=== PATIENT | female | born 1980 | race Hispanic/Latino ===

== ENCOUNTER → 2017-02-13 | Emergency (ER) | payer SELFPAY ==
[~2017-02-13] VITALS: Ht 152.4 cm; Wt 72.6 kg
[~2017-02-13] MED LIST: ACHD5005 PO; AMLO5TAB2 PO; CEPH500C PO; DCS100C PO; FRS325T PO; GLBR5T PO; GLYB2.5T4 PO; GLYB5TAB6 PO; HYDR-757 PO; IBP600T1 PO; MTF500T PO; PREN1TAB14 PO
--- NOTE | 2017-02-13 12:47 | ED GU-Female ---
General Chief Complaint: -Female Stated Complaint: BLOATING Source: patient Exam Limitations: no limitations History of Present Illness Time seen by provider: 12:46 Initial Comments Sent to ER from [facility] walk-in clinic with reports of heavy vaginal bleeding for the past 15 days. Her last menstrual period on 12/11/16. Patient reportedly had a positive test at [facility] today but was unaware of herself being .. Timing/Duration: constant Severity/Quality: moderate Associated Symptoms: denies symptoms, dysuria Allergies and Home Medications Allergies Coded Allergies: No Known Drug Allergies (Verified Allergy, Unknown, 10/26/07) Home Medications Cephalexin Monohydrate 500 Mg Capsule, 1 EACH PO QID for 7 Days, (Reported) Docusate Sodium 100 Mg Cap, 100 MG PO BID, #20 Prescribed by: AUSTYN PEREZ on 05/03/13 0848 Glyburide 5 Mg Tab, 5 MG PO DAILY@0630, #30 Prescribed by: AUSTYN PEREZ on 05/03/13 0848 Hydrocodone Bit/Acetaminophen 1 Each Tablet, 1 EA PO Q6H PRN for MILD PAIN, #30 Prescribed by: AUSTYN PEREZ on 05/03/13 0849 Ibuprofen 600 Mg Tab, 600 MG PO Q6HR PRN for PAIN, #40 Prescribed by: AUSTYN PEREZ on 05/03/13 0848 Metformin Hcl 500 Mg Tablet, 1,000 MG PO BID@, #60 Prescribed by: AUSTYN PEREZ on 05/03/13 0848 Vits W-Ca,Fe,Fa(<1MG) 1 Each Tablet, 1 EACH PO DAILY, (Reported) Constitutional: see HPI, No chills, No fever EENTM: see HPI Respiratory: no symptoms reported Cardiovascular: no symptoms reported Genitourinary: see HPI Musculoskeletal: no symptoms reported Skin: no symptoms reported Psychiatric/Neurological: No Symptoms Reported Endocrine: No Symptoms Reported Hematologic/Lymphatic: No Symptoms Reported Past Xvpiiuc-Gwuwyt-Lnajiw Hx Patient Social History Recent Foreign Travel: No Contact w/Someone Who Travel: No Immunizations Up To Date Date of Pneumonia Vaccine: May 03, 2013 Date of Influenza Vaccine: Mar 20, 2013 Seasonal Allergies Seasonal Allergies: No Reproductive System Hx Reproductive Disorders: No Endocrine Endocrine Disorders: Diabetes, Non-Insulin dep Blood Transfusions Adverse Reaction to a Blood Tr: No Family Medical History Family Medial History: Family history: Diabetes mellitus (pt's mother and sister) No Family History of: Cancer Family history: Arthritis Family history: Asthma Family history: Cardiovascular disease Family history: Gastrointestinal disease Family history: Glaucoma Family history: Hypertension Family history: Osteoporosis Family history: Thyroid disorder Heart disease History of - anemia History of - respiratory disease Hypercholesterolemia Myocardial infarction Seizure disorder Stroke Physical Exam Vital Signs Vital Sign - Last 12Hours 02/13/17 12:15 Temp 97.2 Pulse 72 Resp 18 B/P (MAP) 122/73 Pulse Ox 100 Capillary Refill : General Appearance: WD/WN, no apparent distress HEENT: PERRL/EOMI, normal ENT inspection Neck: non-tender, full range of motion Cardiovascular: regular rate, rhythm, no murmur Respiratory: no respiratory distress, no accessory muscle use Gastrointestinal: normal bowel sounds, non tender, soft Extremities: normal range of motion, non-tender Neurologic/Psychiatric: alert, normal mood/affect, oriented x 3 Skin: normal color, warm/dry Progress/Results/Core Measures Results/Orders Lab Results Laboratory Tests Test 02/13/17 13:38 02/13/17 14:10 Range/Units White Blood Count 10.0 4.3-11.0 10^3/uL Red Blood Count 4.00 L 4.35-5.85 10^6/uL Hemoglobin 11.1 L 11.5-16.0 G/DL Hematocrit 33 L 35-52 % Mean Corpuscular Volume 83 80-99 FL Mean Corpuscular Hemoglobin 28 25-34 PG Mean Corpuscular Hemoglobin Concent 33 32-36 G/DL Red Cell Distribution Width 14.8 H 10.0-14.5 % Platelet Count 439 H 130-400 10^3/uL Mean Platelet Volume 9.1 7.4-10.4 FL Neutrophils (%) (Auto) 71 42-75 % Lymphocytes (%) (Auto) 24 12-44 % Monocytes (%) (Auto) 5 0-12 % Eosinophils (%) (Auto) 1 0-10 % Basophils (%) (Auto) 0 0-10 % Neutrophils # (Auto) 7.1 1.8-7.8 X 10^3 Lymphocytes # (Auto) 2.4 1.0-4.0 X 10^3 Monocytes # (Auto) 0.5 0.0-1.0 X 10^3 Eosinophils # (Auto) 0.1 0.0-0.3 10^3/uL Basophils # (Auto) 0.0 0.0-0.1 10^3/uL Human Chorionic Gonadotropin, Quant 1913 H <5 MIU/ML My Orders Orders - HILARIA NG APRN Us Ob<14 Wks Sngle W/Transvag (02/13/17 12:15) Cbc With Automated Diff (02/13/17 12:47) Hcg,Quantitative (02/13/17 12:47) Ua Culture If Indicated (02/13/17 12:47) Vital Signs/I&O Vital Sign - Last 12Hours 02/13/17 12:15 Temp 97.2 Pulse 72 Resp 18 B/P (MAP) 122/73 Pulse Ox 100 Diagnostic Imaging Diagonstic Imaging: Ultrasound Comments NAME: [facility] REC#: [id number] PT STATUS: REG ER : 1980 PHYSICIAN: HILARIA NG APRN ADMIT DATE: 02/13/17/ER Draft Date of Exam:02/13/17 US OB<14 WKS SNGLE W/TRANSVAG EXAM: US OB<14 WKS SNGLE W/TRANSVAG INDICATION: Vaginal bleeding. COMPARISON: Pelvic ultrasound 02/10/2016. TECHNIQUE: Transabdominal and transvaginal sonogram was performed. FINDINGS: The uterus is normal in echogenicity and measures 8.8 x 4.5 x 5.3 cm. The endometrium measures 1.0 cm. No mass or fluid collection within the endometrium. The cervix is visualized and is grossly unremarkable. The ovaries are not seen. No free fluid in the pelvis. IMPRESSION: 1. The endometrium measures 1.0 cm. There is no focal mass or fluid collection within the endometrial canal. 2. The ovaries are not seen. Dictated on workstation # [id number] Dict: 02/13/17 1253 Trans: 02/13/17 1258 [id number] Interpreted by: JANET RUIZ MD Electronically signed by: Departure Communication Progress Notes I did discuss with the patient and her using [employer] phone interpreters that she has had a miscarriage. She denies any pain whatsoever. She should return to the emergency room for any pain, development of fevers or heavier bleeding. She should follow-up with [facility] on Wednesday to repeat blood work. They agree with this. She states she would need a work note under the name Becki Angeles. Impression Impression: Primary Impression: Miscarriage Disposition: 01 HOME, SELF-CARE Condition: Stable Departure-Patient Inst. Decision time for Depature: 14:35 Referrals: [facility] (PCP/Family) Primary Care Physician Patient Instructions: Miscarriage Add. Discharge Instructions: 1. See [facility] on Wednesday for follow-up blood work 2. Return to ER for any concerns 3. All discharge instructions reviewed with patient and/or family. Voiced understanding. HILARIA NG APRN Feb 13, 2017 12:47
--- NOTE | 2017-02-13 12:58 | Diagnostic Imaging Report ---
EXAM: US OB<14 WKS SNGLE W/TRANSVAG INDICATION: Vaginal bleeding. COMPARISON: Pelvic ultrasound 02/10/2016. TECHNIQUE: Transabdominal and transvaginal sonogram was performed. FINDINGS: The uterus is normal in echogenicity and measures 8.8 x 4.5 x 5.3 cm. The endometrium measures 1.0 cm. No mass or fluid collection within the endometrium. The cervix is visualized and is grossly unremarkable. The ovaries are not seen. No free fluid in the pelvis. IMPRESSION: 1. The endometrium measures 1.0 cm. There is no focal mass or fluid collection within the endometrial canal. 2. The ovaries are not seen. Dictated by: Dictated on workstation # [id number]
[2017-02-13 13:47] LABS: BASOPHILS % (AUTO) 0 % (0-10); EOSINOPHILS # (AUTO) 0.1 10^3/uL (0.0-0.3); EOSINOPHILS % (AUTO) 1 % (0-10); LYMPHOCYTES # (AUTO) 2.4 X 10^3 (1.0-4.0); LYMPHOCYTES % (AUTO) 24 % (12-44); MEAN CORPUSCULAR HEMOGLOBIN 28 PG (25-34); MEAN CORPUSCULAR HGB CONC 33 G/DL (32-36); MEAN CORPUSCULAR VOLUME 83 FL (80-99); MEAN PLATELET VOLUME 9.1 FL (7.4-10.4); MONOCYTES # (AUTO) 0.5 X 10^3 (0.0-1.0); MONOCYTES % (AUTO) 5 % (0-12); NEUTROPHILS # (AUTO) 7.1 X 10^3 (1.8-7.8); NEUTROPHILS % (AUTO) 71 % (42-75); PLATELET COUNT 439 10^3/uL (130-400); RED CELL DISTRIBUTION WIDTH 14.8 % (10.0-14.5)
[2017-02-13 14:26] LABS: BILIRUBIN,URINE NEGATIVE (NEGATIVE); KETONES,URINE NEGATIVE (NEGATIVE); LEUKOCYTE ESTERASE ,URINE 2+ (NEGATIVE); NITRITE,URINE NEGATIVE (NEGATIVE); PH,URINE 5 (5-9); PROTEIN,URINE 3+ (NEGATIVE); UROBILINOGEN,URINE NORMAL (NORMAL)
[2017-02-13 14:37] LABS: WBC,URINE 0-2 /HPF
[2017-02-13 14:47] VITALS: BP 122/73
== END | disposition home or self-care (01) ==
LOC: EDUNIT# 11:46 → ER 11:48
DX: O03.9 Complete or unspecified spontaneous abortion without complication (principal); O24.119 Pre-existing type 2 diabetes mellitus, in pregnancy, unspecified trimester; E11.9 Type 2 diabetes mellitus without complications; Z79.84 Long term (current) use of oral hypoglycemic drugs; Z3A.00 Weeks of gestation of pregnancy not specified
CPT/HCPCS: 36415; 76801; 76817; 81000; 84702; 85025; 99282

== ENCOUNTER 2017-12-31 16:35 | Emergency (ER) | payer SELFPAY ==
[~2017-12-31] VITALS: Ht 152.4 cm; Wt 63.5 kg
--- NOTE | 2017-12-31 17:19 | ED GU-Female ---
General Chief Complaint: -Female Stated Complaint: 14 WKS PREG/STOMACH PAIN/DISCHARGE Nursing Triage Note: AMB TO ROOM WITH REPORTS APX 16 WEEKS PREG. HAS HAD LOW ABD PAIN FOR 3 WEEKS WITH WHITE DISCHARGE. REPORTS NOT FEELING BABY MOVE FOR 1 WEEK. 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 PATIENT IS DIABETIC. Nursing Sepsis Screen: No Definite Risk Source: patient, family Exam Limitations: no limitations (FRANCIS MCCARTY MD) History of Present Illness Date Seen by Provider: Dec 31, 2017 Time Seen by Provider: 17:13 Initial Comments Patient is complaining of abdominal pain for the last 3 weeks. She is 14 weeks by history. Is not felt the baby move for the past week. She has had associated white vaginal discharge. (FRANCIS MCACRTY MD) Allergies and Home Medications Allergies Coded Allergies: No Known Drug Allergies (Verified Allergy, Unknown, 10/26/07) Home Medications Cephalexin Monohydrate 500 Mg Capsule, 1 EACH PO QID, (Reported) Docusate Sodium 100 Mg Cap, 100 MG PO BID Prescribed by: AUSTYN PEREZ on 05/03/13 0848 Glyburide 5 Mg Tab, 5 MG PO DAILY@0630 Prescribed by: AUSTYN PEREZ on 05/03/13 0848 Hydrocodone Bit/Acetaminophen 1 Each Tablet, 1 EA PO Q6H PRN for MILD PAIN Prescribed by: AUSTYN PEREZ on 05/03/13 0849 Ibuprofen 600 Mg Tab, 600 MG PO Q6HR PRN for PAIN Prescribed by: AUSTYN PEREZ on 05/03/13 0848 Metformin Hcl 500 Mg Tablet, 1,000 MG PO BID@ Prescribed by: AUSTYN PEREZ on 05/03/13 0848 Vits W-Ca,Fe,Fa(<1MG) 1 Each Tablet, 1 EACH PO DAILY, (Reported) Patient Home Medication List Home Medication List Reviewed: Yes (FRANCIS MCCARTY MD) Review of Systems Constitutional: No chills, No fever EENTM: No hearing loss Respiratory: No cough, No short of breath Cardiovascular: No chest pain Gastrointestinal: abdominal pain; No nausea, No vomiting Genitourinary: no symptoms reported Musculoskeletal: no symptoms reported Skin: no symptoms reported Psychiatric/Neurological: No Symptoms Reported Endocrine: No Symptoms Reported Hematologic/Lymphatic: No Symptoms Reported (FRANCIS MCCARTY MD) Past Hclpfnx-Qveqkj-Jocuri Hx Patient Social History Alcohol Use: Denies Use Recreational Drug Use: No Smoking Status: Never a Smoker Recent Foreign Travel: No Contact w/Someone Who Travel: No Recent Infectious Disease Expo: No Recent Hopitalizations: No (Childbirth) (FRANCIS MCCARTY MD) Immunizations Up To Date Date of Pneumonia Vaccine: May 03, 2013 Date of Influenza Vaccine: Mar 20, 2013 (FRANCIS MCCARTY MD) Seasonal Allergies Seasonal Allergies: No (FRANCIS MCCARTY MD) Past Medical History Surgeries: Yes Section Respiratory: No Cardiac: No Neurological: No Reproductive Disorders: No Gastrointestinal: No Musculoskeletal: No Endocrine: Yes Diabetes, Non-Insulin dep Cancer: No Psychosocial: No Blood Disorders: No Adverse Reaction/Blood Tranf: No (FRANCIS MCCARTY MD) Family Medical History Family history: Diabetes mellitus (pt's mother and sister) No Family History of: Cancer Family history: Arthritis Family history: Asthma Family history: Cardiovascular disease Family history: Gastrointestinal disease Family history: Glaucoma Family history: Hypertension Family history: Osteoporosis Family history: Thyroid disorder Heart disease History of - anemia History of - respiratory disease Hypercholesterolemia Myocardial infarction Seizure disorder Stroke Physical Exam Vital Signs Vital Signs - First Documented 12/31/17 16:49 Temp 99.0 Pulse 79 Resp 18 B/P (MAP) 116/72 (87) Pulse Ox 98 O2 Delivery Room Air (THOMPSON BUSTOS MD) Vital Signs Capillary Refill : Less Than 3 Seconds (FRANCIS MCCARTY MD) Height, Weight, BMI Height: 5'0" Weight: 140lbs. oz. 63.989123nm; BMI Method:Stated General Appearance: WD/WN, no apparent distress HEENT: PERRL/EOMI Neck: full range of motion Cardiovascular: regular rate, rhythm Respiratory: lungs clear Gastrointestinal: normal bowel sounds Back: normal inspection Extremities: normal range of motion Neurologic/Psychiatric: no motor/sensory deficits Skin: normal color, warm/dry (FRANICS MCCARTY MD) Progress/Results/Core Measures Suspected Sepsis Recent Fever Within 48 Hours: No Infection Criteria Present: None New/Unexplained Altered Menta: No Sepsis Screen: No Definite Risk SIRS Temperature:99.0 Pulse: 79 Respiratory Rate: 18 Blood Pressure 116 /72 Mean: 87 (FRANCIS MCCARTY MD) Results/Orders Lab Results Laboratory Tests Test 12/31/17 17:36 Range/Units White Blood Count 8.8 4.3-11.0 10^3/uL Red Blood Count 4.10 L 4.35-5.85 10^6/uL Hemoglobin 11.7 11.5-16.0 G/DL Hematocrit 34 L 35-52 % Mean Corpuscular Volume 82 80-99 FL Mean Corpuscular Hemoglobin 29 25-34 PG Mean Corpuscular Hemoglobin Concent 35 32-36 G/DL Red Cell Distribution Width 15.5 H 10.0-14.5 % Platelet Count 378 130-400 10^3/uL Mean Platelet Volume 8.9 7.4-10.4 FL Neutrophils (%) (Auto) 69 42-75 % Lymphocytes (%) (Auto) 25 12-44 % Monocytes (%) (Auto) 6 0-12 % Eosinophils (%) (Auto) 1 0-10 % Basophils (%) (Auto) 0 0-10 % Neutrophils # (Auto) 6.1 1.8-7.8 X 10^3 Lymphocytes # (Auto) 2.2 1.0-4.0 X 10^3 Monocytes # (Auto) 0.5 0.0-1.0 X 10^3 Eosinophils # (Auto) 0.1 0.0-0.3 10^3/uL Basophils # (Auto) 0.0 0.0-0.1 10^3/uL Urine Color YELLOW Urine Clarity CLEAR Urine pH 5 5-9 Urine Specific [place] 1.020 1.016-1.022 Urine Protein 1+ H NEGATIVE Urine Glucose (UA) 4+ H NEGATIVE Urine Ketones NEGATIVE NEGATIVE Urine Nitrite NEGATIVE NEGATIVE Urine Bilirubin NEGATIVE NEGATIVE Urine Urobilinogen NORMAL NORMAL MG/DL Urine Leukocyte Esterase 3+ H NEGATIVE Urine RBC (Auto) 1+ H NEGATIVE Urine RBC NONE /HPF Urine WBC NONE /HPF Urine Squamous Epithelial Cells RARE /HPF Urine Crystals NONE /LPF Urine Bacteria TRACE /HPF Urine Casts NONE /LPF Urine Mucus NEGATIVE /LPF Urine Culture Indicated NO Sodium Level 137 135-145 MMOL/L Potassium Level 3.6 3.6-5.0 MMOL/L Chloride Level 108 H 98-107 MMOL/L Carbon Dioxide Level 18 L 21-32 MMOL/L Anion Gap 11 5-14 MMOL/L Blood Urea Nitrogen 11 7-18 MG/DL Creatinine 0.61 0.60-1.30 MG/DL Estimat Glomerular Filtration Rate > 60 BUN/Creatinine Ratio 18 Glucose Level 185 H 70-105 MG/DL Calcium Level 9.1 8.5-10.1 MG/DL Total Bilirubin 0.2 0.1-1.0 MG/DL Aspartate Amino Transf (AST/SGOT) 19 5-34 U/L Alanine Aminotransferase (ALT/SGPT) 17 0-55 U/L Alkaline Phosphatase 58 40-136 U/L Total Protein 7.1 6.4-8.2 GM/DL Albumin 4.1 3.2-4.5 GM/DL Human Chorionic Gonadotropin, Quant 17614 H <5 MIU/ML (THOMPSON BUSTOS MD) My Orders Orders - THOMPSON BUSTOS MD Cbc With Automated Diff (12/31/17 17:17) Comprehensive Metabolic Panel (12/31/17 17:17) Ua Culture If Indicated (12/31/17 17:17) Hcg,Quantitative (12/31/17 17:23) Us Ob Single Fetus<14 [id number] (12/31/17 17:17) (THOMPSON BUSTOS MD) Vital Signs/I&O 12/31/17 16:49 Temp 99.0 Pulse 79 Resp 18 B/P (MAP) 116/72 (87) Pulse Ox 98 O2 Delivery Room Air (THOMPSON BUSTOS MD) Vital Signs/I&O Capillary Refill : Less Than 3 Seconds (FRANCIS MCCARTY MD) Blood Pressure Mean: 87 Progress Note : Time: 17:25 Progress Note My partner, Dr. Bustos, assumed care of the patient. Francis Mccarty MD (FRANCIS MCCARTY MD) ECG Initial ECG Impression Date: Jan 03, 2018 (FRANCIS MCCARTY MD) Departure Communication (Admissions) 1191. The sonogram is complete and shows a viable fetus with measurements consistent with a 14 week . This is number 6 for this female. She had 3 boys and the current by the . She had 2 children who are by another relationship and remain in [place]. (THOMPSON BUSTOS MD) Impression Primary Impression: Qualified Codes: Z3A.12 - 12 weeks gestation of Additional Impression: stable 14 week Disposition: 01 HOME, SELF-CARE Condition: Stable/Unchanged Departure-Patient Inst. Decision time for Depature: 18:59 (THOMPSON BUSTOS MD) Referrals: AUSTYN PEREZ DO (PCP) Primary Care Physician [facility] (Family) Primary Care Physician FRANCIS MCCARTY MD Dec 31, 2017 17:19 THOMPSON BUSTOS MD Dec 31, 2017 19:00
[2017-12-31 17:43] LABS: BILIRUBIN,URINE NEGATIVE (NEGATIVE); CLARITY,URINE CLEAR; COLOR,URINE YELLOW; GLUCOSE, URINE (UA) 4+ (NEGATIVE); KETONES,URINE NEGATIVE (NEGATIVE); LEUKOCYTE ESTERASE ,URINE 3+ (NEGATIVE); NITRITE,URINE NEGATIVE (NEGATIVE); PH,URINE 5 (5-9); PROTEIN,URINE 1+ (NEGATIVE); UROBILINOGEN,URINE NORMAL (NORMAL)
[2017-12-31 17:45] LABS: BASOPHILS % (AUTO) 0 % (0-10); EOSINOPHILS # (AUTO) 0.1 10^3/uL (0.0-0.3); EOSINOPHILS % (AUTO) 1 % (0-10); HEMATOCRIT 34 % (35-52); HEMOGLOBIN 11.7 G/DL (11.5-16.0); LYMPHOCYTES # (AUTO) 2.2 X 10^3 (1.0-4.0); LYMPHOCYTES % (AUTO) 25 % (12-44); MEAN CORPUSCULAR HEMOGLOBIN 29 PG (25-34); MEAN CORPUSCULAR HGB CONC 35 G/DL (32-36); MEAN CORPUSCULAR VOLUME 82 FL (80-99); MEAN PLATELET VOLUME 8.9 FL (7.4-10.4); MONOCYTES # (AUTO) 0.5 X 10^3 (0.0-1.0); MONOCYTES % (AUTO) 6 % (0-12); NEUTROPHILS # (AUTO) 6.1 X 10^3 (1.8-7.8); NEUTROPHILS % (AUTO) 69 % (42-75); PLATELET COUNT 378 10^3/uL (130-400); RED CELL DISTRIBUTION WIDTH 15.5 % (10.0-14.5); WHITE BLOOD COUNT 8.8 10^3/uL (4.3-11.0)
[2017-12-31 17:52] LABS: BACTERIA,URINE TRACE /HPF; SQUAMOUS EPITHELIAL CELL,UR RARE /HPF
[2017-12-31 18:00] LABS: ALANINE AMINOTRANSFERASE 17 U/L (0-55); ALBUMIN 4.1 GM/DL (3.2-4.5); ALKALINE PHOSPHATASE 58 U/L (40-136); BILIRUBIN,TOTAL 0.2 MG/DL (0.1-1.0); BUN/CREATININE RATIO 18; CALCIUM 9.1 MG/DL (8.5-10.1); CARBON DIOXIDE 18 MMOL/L (21-32); CHLORIDE 108 MMOL/L (98-107); CREATININE SERUM 0.61 MG/DL (0.60-1.30); GFR ESTIMATED > 60; GLUCOSE 185 MG/DL (70-105); POTASSIUM 3.6 MMOL/L (3.6-5.0); SODIUM 137 MMOL/L (135-145); TOTAL PROTEIN 7.1 GM/DL (6.4-8.2)
[2017-12-31 19:08] VITALS: BP 116/72
--- NOTE | 2017-12-31 19:21 | Diagnostic Imaging Report ---
PROCEDURE: US OB SINGLE FETUS <14 WKS. TECHNIQUE: Multiple real-time grayscale images were obtained over the gravid uterus in various projections. INDICATION: Cramping and discharge. COMPARISON: No comparison available. FINDINGS: Within the uterus, there is a single live intrauterine gestation. Based on today's measurements, this is estimated at 14 weeks and 0 days which corresponds to an estimated date of delivery of July 01, 2018. Amniotic fluid volume appears appropriate. The placenta is located posteriorly. Cardiac motion is measured 132 beats per minute. The maternal ovaries could not be visualized. There is no free fluid within the pelvis. IMPRESSION: 1. Single live intrauterine gestation at 14 weeks 0 days gestational age. Cardiac motion is appropriate at 132 beats per minute. Amniotic fluid volume appears appropriate. The placenta is unremarkable. The maternal ovaries could not be visualized. Dictated by: Dictated on workstation # [id number]
--- OUTSIDE RECORDS SUMMARY | 2018-01-02 06:03 | XMS REPORT ---
Author Author YANET WEBB [facility] eClinicalWorks Address Unknown Phone Unavailable Care Team Providers Care Hadoop Administrator Name Role Phone YANET WEBB Unavailable Allergies, Adverse Reactions, Alerts Substance Reaction Event Type N.K.D.A. Info Not Available Non Drug Allergy Problems Problem Type Condition Code Onset Dates Condition Status Assessment Pelvic fullness in female R19.00 Active Problem Personal history of gestational diabetes V12.21 Active Assessment Amenorrhea N91.2 Active Problem Diabetes mellitus without mention of complication, type II or unspecified type, not stated as uncontrolled 250.00 Active Assessment Routine gynecological examination Z01.419 Active Problem Routine follow-up V24.2 Active Problem Routine gynecological examination V72.31 Active Problem Unspecified contraceptive management V25.9 Active Problem Amenorrhea N91.2 Active Problem Pelvic fullness in female R19.00 Active Problem Abdominal pain, right lower quadrant 789.03 Active Problem DTAP TEST V06.1 Active Problem Routine gynecological examination Z01.419 Active Problem Need for prophylactic vaccination and inoculation, Influenza V04.81 Active Problem Acute pharyngitis 462 Active Problem Unspecified breast screening V76.10 Active Problem Screening examination for venereal disease V74.5 Active Problem Insufficient care V23.7 Active Problem Other specified symptom associated with female genital organs 625.8 Active Problem Pain in joint, lower leg 719.46 Active Problem Unspecified symptom associated with female genital organs 625.9 Active Problem Screening for malignant neoplasm of the cervix V76.2 Active Problem Uterine size date discrepancy, unspecified as to episode of care or not applicable 649.60 Active Problem Previous delivery, unspecified as to episode of care or not applicable 654.20 Active Problem Maternal diabetes mellitus, complicating , childbirth, or the puerperium, unspecified as to episode of care 648.00 Active Problem Unspecified high-risk V23.9 Active Medications Medication Code System Code Instructions Start Date End Date Status Dosage Actos [facility] [address]-10 30 MG Orally Once a day Jan 20, 2016 1 tablet Metformin HCl [facility] [address]-04 1000 MG Orally Twice a day Jan 20, 2016 1 tablet with meals GlipiZIDE [facility] [address]-10 10 mg Orally twice a day 1 tablet Procedures Procedure Coding System Code Date Office Visit, Est Pt., Level 5 CPT-4 14435 Jan 29, 2016 ASSAY OF TOTAL TESTOSTERONE CPT-4 34141 Jan 29, 2016 ASSAY OF PROLACTIN CPT-4 05835 Jan 29, 2016 URINE TEST CPT-4 68159 Jan 29, 2016 COHEN VAG, DNA, DIR PROBE CPT-4 39948 Jan 29, 2016 TRICHOMONAS ASSAY W/OPTIC CPT-4 34554 Jan 29, 2016 VENIPUNCT, ROUTINE* CPT-4 85473 Jan 29, 2016 SPECIMEN HANDLING CPT-4 06027 Jan 29, 2016 GONADOTROPIN (LH) CPT-4 68139 Jan 29, 2016 No Charge CPT-4 34590 Jan 29, 2016 CULTURE, BACTERIA, OTHER CPT-4 29870 Jan 29, 2016 Vital Signs Date/Time: Jan 29, 2016 Cardiac Monitoring Heart Rate 78 bpm Weight 145.0 lbs Height 61 in BMI 27.39 Index Blood Pressure Diastolic 70 mmHg Blood Pressure Systolic 118 mmHg Results No Known Results Summary Purpose eClinicalWorks Submission
--- OUTSIDE RECORDS SUMMARY | 2018-01-02 06:03 | XMS REPORT ---
Author Author AMALIA DALY [facility] eClinicalWorks Address Unknown Phone Unavailable Care Team Providers Care Non Profit Job Titles Name Role Phone AMALIA DALY CP Unavailable Allergies, Adverse Reactions, Alerts Substance Reaction Event Type N.K.D.A. Info Not Available Non Drug Allergy Problems Problem Type Condition Code Onset Dates Condition Status Problem Previous delivery, unspecified as to episode of care or not applicable 654.20 Active Problem Diabetes mellitus without mention of complication, type II or unspecified type, not stated as uncontrolled 250.00 Active Problem Personal history of gestational diabetes V12.21 Active Problem Insufficient care V23.7 Active Assessment Type 2 diabetes mellitus without complications E11.9 Active Problem Acute pharyngitis 462 Active Problem Screening examination for venereal disease V74.5 Active Problem Unspecified contraceptive management V25.9 Active Problem Routine follow-up V24.2 Active Problem Unspecified breast screening V76.10 Active Problem Routine gynecological examination V72.31 Active Problem Abdominal pain, right lower quadrant 789.03 Active Problem Unspecified symptom associated with female genital organs 625.9 Active Problem Need for prophylactic vaccination and inoculation, Influenza V04.81 Active Problem DTAP TEST V06.1 Active Problem Pain in joint, lower leg 719.46 Active Problem Maternal diabetes mellitus, complicating , childbirth, or the puerperium, unspecified as to episode of care 648.00 Active Problem Screening for malignant neoplasm of the cervix V76.2 Active Problem Unspecified high-risk V23.9 Active Problem Other specified symptom associated with female genital organs 625.8 Active Problem Uterine size date discrepancy, unspecified as to episode of care or not applicable 649.60 Active Medications Medication Code System Code Instructions Start Date End Date Status Dosage Invokamet [facility] [address]-36 150-1000 MG Orally Twice a day Aug 06, 2015 1 tablet with meals GlipiZIDE [facility] [address]-84 10 MG Orally Once a day 1 tablet Procedures Procedure Coding System Code Date Office Visit, Est Pt., Level 3 CPT-4 07795 October 03, 2015 GLYCATED HEMOGLOBIN TEST CPT-4 01617 October 03, 2015 Vital Signs Date/Time: October 03, 2015 Temperature 98.4 F Weight 149 lbs Height 61 in BMI 28.15 Index Blood Pressure Diastolic 80 mmHg Blood Pressure Systolic 120 mmHg Cardiac Monitoring Heart Rate 70 bpm Results No Known Results Summary Purpose eClinicalWorks Submission
--- OUTSIDE RECORDS SUMMARY | 2018-01-02 06:04 | XMS REPORT ---
Author Author AMALIA DALY [facility] Address [address] [place] [address] Care Team Providers Care Grease Man Name Role Phone AMALIA DALY Unavailable PROBLEMS Type Condition ICD9-CM Code EIQ77-RD Code Onset Dates Condition Status SNOMED Code Problem Type 2 diabetes mellitus without complication, without long-term current use of insulin E11.9 Active 127513088 Problem Amenorrhea N91.2 Active 59651828 Problem Microcytic anemia D50.9 Active 362000422 Problem Type 2 diabetes mellitus without complication E11.9 Active 539705069 Problem Gastroesophageal reflux disease without esophagitis K21.9 Active 544838915 Problem Pelvic fullness in female R19.00 Active 437510218 Problem Routine gynecological examination Z01.419 Active 008550292 Problem Vaginal bleeding N93.9 Active 028754936 Problem Intermenstrual heavy bleeding N92.0 Active 860539839 ALLERGIES No Known Allergies ENCOUNTERS Encounter Location Date Diagnosis [place] [id number] [place] [address] 22070- 4696 October, Type 2 diabetes mellitus without complication, without long- term current use of insulin E11.9 [place] [id number] [place] [address] 35601- 8069 14 Jul, 2017 Type 2 diabetes mellitus without complication E11.9 [place] [id number] [place] [address] 31410- 9655 Apr, Microcytic anemia D50.9 [place] [id number] [place] [address] 85453- 6383 Apr, [place] [id number] [place] [address] 40804- 5299 Apr, Gastroesophageal reflux disease without esophagitis K21.9 ; Shortness of breath R06.02 ; Fatigue, unspecified type R53.83 and Type 2 diabetes mellitus without complication E11.9 [facility] [id number] [place] [address] 92135- 0242 Mar, [facility] [id number] [place] [address] 29184- 7312 Mar, Reactive airway disease that is not asthma R09.89 and Type 2 diabetes mellitus without complication E11.9 [facility] [id number] [place] [address] 19697- 9261 Feb, [facility] [id number] [place] [address] 13162- 7152 Feb, Type 2 diabetes mellitus without complication E11.9 and Reactive airway disease that is not asthma R09.89 [facility] [id number] [place] [address] 07696- 0548 Feb, Threatened O20.0 [facility] [id number] [place] [address] 55636- 2493 Feb, Threatened O20.0 [facility] [id number] [place] [address] 03290- 3917 Jan, Threatened O20.0 [facility] [id number] [place] [address] 80441- 3393 Jan, Threatened O20.0 [facility] [id number] [place] [address] 25681 -5813 Jan, Intermenstrual heavy bleeding N92.0 ; Positive test Z32.01 and Vaginal bleeding N93.9 [facility] [id number] [place] [address] 64996- 4601 October, [facility] [id number] [place] [address] 56479- 7188 October, [facility] [id number] [place] [address] 04338- 7849 October, Type 2 diabetes mellitus without complication E11.9 [facility] [address] [address] 4542 May, Type 2 diabetes mellitus without complication E11.9 [facility] [address] [address] 5961 Jan, [facility] [id number] [place] [address] 63747- 8606 Jan, Routine gynecological examination Z01.419 ; Amenorrhea N91.2 and Pelvic fullness in female R19.00 [facility] [address] [address] 9890 Jan, [facility] [id number] [place] [address] 38668- 9229 Jan, Type 2 diabetes mellitus without complication E11.9 and Amenorrhea N91.2 [facility] [id number] [place] [address] 88944- 9802 Sep, Type 2 diabetes mellitus without complications E11.9 [facility] [id number] [place] [address] 41338- 1866 Jul, Type 2 diabetes mellitus without complication E11.9 [facility] [id number] [place] [address] 80334- 3899 May, Type 2 diabetes mellitus without complication E11.9 [facility] [address] [address] 9607 Mar, Type 2 diabetes mellitus without complication E11.9 [facility] [address] [id number] Jan, Dental examination V72.2 [facility] [address] [place] [address] [id number] Dec, Dental examination V72.2 [facility] [address] [place] [address]- 5128 Dec, Diabetes mellitus without mention of complication, type II or unspecified type, not stated as uncontrolled 250.00 [facility] [address] [id number] [id number] Nov, Dental examination V72.2 [facility] [address] [place] [address] 3584 October, Contraceptive management V25.9 [facility] [id number] [address] 7826 Sep, [facility] [address] [facility] [id number], [place] [address]- 2668 Sep, [facility] [address] [place] [address] 73527- 2732 Jul, [facility] [id number] [address] 6763 Jul, [facility] [id number] [address] 1918 Apr, [facility] [id number] [address]- 6934 Apr, [facility] [address], [place] [address]- 8245 Mar, [facility] [id number] [address]- 3703 Mar, [facility] [address] [place] [address]- 0711 Mar, [facility] [address] [facility] [id number], [place] [address]- 4011 Mar, [facility] [address] [facility] [id number] 2946 Jan, [facility] [address] [facility] [id number] 9008 Jan, [facility] [id number] [address]- 8620 Nov, [facility] [address] [id number] [place] [address]- 8760 October, [facility] [place] [facility] [address] [id number] [place] [address]- 8630 October, [facility] [place] [facility] [address] [id number] [place] [address]- 9278 October, [facility] [place] [facility] [address] [id number] [place] [address]- 0562 October, [facility] [address] [id number] [place] [address]- 7934 October, [facility] [place] [facility] [address] [id number] [place] [address]- 6923 Sep, [facility] [place] [facility] [address] [id number] [place] [address]- 0213 Sep, [facility] [address] [id number] [place] [address]- 6261 Aug, [facility] [place] [facility] [address] [id number] [place] [address]- 9872 Aug, [facility] [place] [facility] [address] [id number] [place] [address]- 7705 Jun, [facility] [place] [facility] [address] [id number] [place] [address]- 1314 Jun, [facility] [place] [facility] [address] [id number] [place] [address]- 5963 Jun, [facility] [place] [facility] [address] [id number] [place] [address]- 3466 Jun, [facility] [place] [facility] [address] [id number] [place] [address]- 1904 Apr, [facility] [place] [facility] [address] [id number] [place] [address]- 4853 Apr, [facility] [place] [facility] [address] [id number], [place] [address]- 5057 19 Apr, 2013 [facility] [address] [id number] [place] [address]- 4952 30 Sep, 2012 [facility] [place] [facility] [address] [id number] [place] [address]- 6852 18 Sep, 2012 [facility] [address] [id number] [place] [address]- 7736 10 Sep, 2012 [facility] [place] [facility] [address] [id number] [place] [address] 2548 09 Sep, 2012 [facility] [place] [facility] [address] [id number] [place] [address]- 4580 09 Sep, 2012 [facility] [address] [id number] [place] [address]- 4458 07 Feb, 2012 [facility] [address] [facility] [id number] [place] [address]- 6045 06 Feb, 2012 [facility] [place] [facility] [address] [id number] [place] [address]- 1651 05 Feb, 2012 [facility] [address] [id number], [place] [address]- 7791 03 Feb, 2012 [facility] [place] [facility] [address] [facility] [id number], [place] [address]- 8483 27 Jul, 2012 [facility] [place] [facility] [address] [id number], [place] [address]- 7649 19 Jul, 2012 [facility] [place] [facility] [address] [id number], [place] [address]- 0895 15 Jul, 2012 [facility] [place] [facility] [address] [id number] [place] [address]- 2428 14 Jul, 2012 [facility] [place] [facility] [address] [id number], [place] [address]- 3299 04 Jul, 2012 [facility] [place] [facility] [address] [facility] [id number], [place] [address]- 1431 17 Jun, 2012 [facility] [place] [facility] [address] [id number] [place] [address]- 8852 May, [facility] [place] [facility] [address] [id number] [place] [address]- 2336 May, [facility] [place] [facility] [address] [id number] [place] [address]- 7056 Apr, [facility] [place] [facility] [address] [id number] [place] [address]- 5466 Apr, [facility] [place] [facility] [address] [id number] [place] [address]- 6694 Apr, [facility] [place] [facility] [address] [id number] [place] [address]- 4530 Apr, [facility] [place] [facility] [address] [id number] [place] [address]- 3842 Apr, [facility] [place] [facility] [address] [id number] [place] [address]- 9617 Apr, [facility] [place] [facility] [address] [id number] [place] [address]- 2831 Mar, [facility] [place] [facility] [address] [id number] [place] [address]- 3545 Mar, [facility] [place] [facility] [address] [id number] [place] [address]- 6536 Mar, [facility] [place] [facility] [address] [id number] [place] [address]- 2762 Mar, [facility] [place] [facility] [address] [id number] [place] [address]- 7996 Mar, [facility] [place] [facility] [address] [id number] [place] [address]- 5862 Mar, [facility] [place] [facility] [address] [id number] [place] [address]- 3930 Mar, [facility] [place] [facility] [address] [id number] [place] [address]- 7195 Mar, [facility] [address] [place] [address]- 6618 28 Feb, 2012 [facility] [address], [place] [address]- 7641 27 Feb, 2012 [facility] [address], [place] [address]- 8613 25 Feb, 2012 [facility] [id number] [place] [address] 93207- 8136 20 Feb, 2011 [facility] [address], [place] [address]- 3828 19 Feb, 2012 [facility] [id number] [place] [address] 69537- 1182 18 Feb, 2012 [facility] [address], [place] [address]- 0599 17 Feb, 2012 [facility] [address], [place] [address]- 1897 04 Feb, 2012 [facility] [address], [place] [address]- 6679 Sep, IMMUNIZATIONS No Known Immunizations SOCIAL HISTORY Never Assessed REASON FOR VISIT Difficulty Breathing for about 11 yrs, CBrumbackRN PLAN OF CARE Activity Details Follow Up 3 Months Reason:DM VITAL SIGNS Height 61 in 2017-03-29 Weight 162.6 lbs 2017-03-29 Temperature 98.5 degrees Fahrenheit 2017-03-29 Heart Rate 72 bpm 2017-03-29 Respiratory Rate 18 2017-03-29 Oximetry 98 % 2017-03-29 BMI 30.72 kg/m2 2017-03-29 Blood pressure systolic 116 mmHg 2017-03-29 Blood pressure diastolic 74 mmHg 2017-03-29 MEDICATIONS Medication Instructions Dosage Frequency Start Date End Date Duration Status Glucocard Expression Test - subcutaneously 2 times a day as directed 12h October, October, 90 days Active Metformin HCl 1000 MG Orally Twice a day 1 tablet with meals 12h Jan, Active Singulair 10 mg Orally Once a day 1 tablet in the evening 24h 11 Feb, 2017 30 day(s) Active Claritin 10 mg Orally Once a day in AM 1 tablet Feb, 30 day(s ) Active GlipiZIDE 10 mg Orally twice a day 2 tablet in AM and 1 tablet in PM 12h 90 days Active Actos 45 MG Orally Once a day 1 tablet 24h Jan, 90 days Active RESULTS No Results PROCEDURES Procedure Date Ordered Result Body Site MEASURE BLOOD OXYGEN LEVEL Mar 29, 2017 INSTRUCTIONS MEDICATIONS ADMINISTERED No Known Medications MEDICAL (GENERAL) HISTORY Type Description Date Medical History type II diabetes Surgical History x 3 Hospitalization History surgeries
--- OUTSIDE RECORDS SUMMARY | 2018-01-02 06:04 | XMS REPORT ---
Author Author IRIS SARABIA Organization [facility] Address [address] [place] [address] Care Team Providers Care Shopfitter Name Role Phone IRIS SARABIA Unavailable PROBLEMS Type Condition ICD9-CM Code GVX83-TF Code Onset Dates Condition Status SNOMED Code Problem Type 2 diabetes mellitus without complication, without long-term current use of insulin E11.9 Active 015590037 Problem Amenorrhea N91.2 Active 22180418 Problem Microcytic anemia D50.9 Active 927625307 Problem Type 2 diabetes mellitus without complication E11.9 Active 486387874 Problem Gastroesophageal reflux disease without esophagitis K21.9 Active 027897343 Problem Pelvic fullness in female R19.00 Active 190471410 Problem Routine gynecological examination Z01.419 Active 219655168 Problem Vaginal bleeding N93.9 Active 598140254 Problem Intermenstrual heavy bleeding N92.0 Active 233874658 ALLERGIES No Information ENCOUNTERS Encounter Location Date Diagnosis [facility] [address] [address] October, [place] [address] [address] 14 Jul, 2017 Type 2 diabetes mellitus without complication E11.9 [facility] [address] [place] [id number] [place] [address]- 6682 Apr, Microcytic anemia D50.9 [place] [id number] [address] Apr, [place] [address] [address] Apr, Gastroesophageal reflux disease without esophagitis K21.9 ; Shortness of breath R06.02 ; Fatigue, unspecified type R53.83 and Type 2 diabetes mellitus without complication E11.9 [facility] [address] [address] Mar, [facility] [address] [place] [id number] [place] [address]- 8733 Mar, Reactive airway disease that is not asthma R09.89 and Type 2 diabetes mellitus without complication E11.9 [facility] [address] [place] [id number] [place] [address]4360- 2718 Feb, [facility] [address] [place] [id number] [place] [address] 27658- 2770 Feb, Type 2 diabetes mellitus without complication E11.9 and Reactive airway disease that is not asthma R09.89 [facility] [address] [place] [id number] [place] [address] 24944- 0200 Feb, Threatened O20.0 [facility] [address] [place] [id number] [place] [address] 01854- 4472 Feb, Threatened O20.0 [facility] [address] [place] [id number] [place] [address] 82073- 8545 Jan, Threatened O20.0 [facility] [address] [place] [id number] [place] [address] 50690- 2165 Jan, Threatened O20.0 [facility] [id number] [place] [address] -3119 Jan, Intermenstrual heavy bleeding N92.0 ; Positive test Z32.01 and Vaginal bleeding N93.9 [facility] [id number] [place] [address] 01728- 4759 October, [facility] [address] [place] [id number] [place] [address] 71441- 8677 October, [facility] [id number] [place] [address] 76558- 0243 October, Type 2 diabetes mellitus without complication E11.9 [facility] [address] [place] [id number] [place] [address] 01954- 2634 May, Type 2 diabetes mellitus without complication E11.9 [facility] [address] [place] [id number] [place] [address] 18507- 2251 Jan, [facility] [address] [place] [id number] [place] [address] 50472- 2353 Jan, Routine gynecological examination Z01.419 ; Amenorrhea N91.2 and Pelvic fullness in female R19.00 [facility] [address] [place] [id number] [place] [address] 37335- 7676 Jan, [facility] [address] [place] [id number] [place] [address] 71269- 1233 Jan, Type 2 diabetes mellitus without complication E11.9 and Amenorrhea N91.2 [facility] [address] [place] [id number] [place] [address] 92427- 9316 Sep, Type 2 diabetes mellitus without complications E11.9 [facility] [address] [place] [id number] [place] [address] 43801- 8822 Jul, Type 2 diabetes mellitus without complication E11.9 [facility] [address] [place] [id number] [place] [address] 67058- 7500 May, Type 2 diabetes mellitus without complication E11.9 [facility] [address] [place] [id number] [place] [address] 95512- 7913 Mar, Type 2 diabetes mellitus without complication E11.9 [facility] [address] [place] [address] [id number] Jan, Dental examination V72.2 [facility] [address] [place] [id number] [place] [address] [id number] Dec, Dental examination V72.2 [facility] [address] [place] [id number] [place] [address] 28007- 4185 Dec, Diabetes mellitus without mention of complication, type II or unspecified type, not stated as uncontrolled 250.00 [facility] [address] [place] [id number] [id number] Nov, Dental examination V72.2 [facility] [address] [place] [id number] [address] October, Contraceptive management V25.9 [facility] [address] [id number] [address] Sep, [facility] [address] [facility] [id number], [place] [address] Sep, [facility] [address] [facility] [id number] [place] [address]- [address] Jul, [facility] [address] [facility] [id number] [place] [address], [place] [address]- [address]473 Jul, [facility] [address] [place] [id number] [address] Apr, [facility] [address] [place] [id number], [place] [address]- 0[address] Apr, [facility] [address] [place] [id number] [address]- 3679 Mar, [facility] [address] [place] [id number] [address]- 6648 Mar, [facility] [address] [place] [id number] [address]- 4534 Mar, [facility] [address] [facility] [id number] [address] Mar, [facility] [place] [facility] [address] [facility] [id number] 85[address] Jan, [facility] [place] [facility] [address] [facility] [id number][place] [address] [address] Jan, [facility] [place] [facility] [address] [facility] [id number], [place] [address]- 6727 Nov, [facility] [place] [facility] [address] [facility] [id number], [place] [address]- 6131 October, [facility] [place] [facility] [address] [id number] [place] [address]- 5033 October, [facility] [place] [facility] [address] [id number] [place] [address]- 2313 October, [facility] [place] [facility] [address] [id number] [place] [address]- 5424 October, [facility] [place] [facility] [address] [id number] [place] [address]- 2532 October, [facility] [place] [facility] [address] [id number] [place] [address]- 8653 Sep, [facility] [place] [facility] [address] [id number] [place] [address]- 5864 Sep, [facility] [place] [facility] [address] [id number] [place] [address]- 6381 Aug, [facility] [place] [facility] [address] [id number] [place] [address]- 1060 Aug, [facility] [place] [facility] [address] [id number] [place] [address]- 9698 Jun, [facility] [place] [facility] [address] [id number] [place] [address]- 7494 Jun, [facility] [place] [facility] [address] [id number] [place] [address]- 5569 Jun, [facility] [place] [facility] [address] [id number] [place] [address]- 0869 Jun, [facility] [place] [facility] [address] [id number] [place] [address]- 4057 Apr, [facility] [place] [facility] [address] [id number] [place] [address]- 6383 Apr, [facility] [place] [facility] [address] [id number] [place] [address]- 4067 Apr, [facility] [place] [facility] [address] [id number] [place] [address] 254 30 Sep, 2012 [facility] [address] [id number] [place] [address] 2546 18 Sep, 2012 [facility] [address] [id number] [place] [address] 2546 10 Sep, 2012 [facility] [address] [id number] [place] [address] 2546 09 Sep, 2012 [facility] [address] [id number] [place] [address] 2546 09 Sep, 2012 [facility] [address] [id number] [place] [address]- 4408 07 Sep, 2012 [facility] [address] [id number] [place] [address]- 2541 06 Feb, 2012 [facility] [address] [id number] [place] [address] 2544 05 Feb, 2012 [facility] [address] [id number] [place] [address]- 2541 03 Feb, 2012 [facility] [address] [id number] [place] [address]- 9249 27 Jul, 2012 [facility] [address] [id number] [place] [address]- 8349 19 Jul, 2012 [facility] [address] [id number] [place] [address] 2546 15 Jul, 2012 [facility] [address] [id number] [place] [address]- 2549 14 Jul, 2012 [facility] [place] [facility] [address] [id number] [place] [address] 2546 04 Jul, 2012 [facility] [place] [facility] [address] [id number] [place] [address]- 2546 17 Jun, 2012 [facility] [place] [facility] [address] [id number] [place] [address]- 8639 May, [facility] [place] [facility] [address] [id number] [place] [address]- 6131 May, [facility] [place] [facility] [address] [id number] [place] [address]- 9389 Apr, [facility] [place] [facility] [address] [id number] [place] [address] Apr, [facility] [place] [facility] [address] [id number] [place] [address]- 9120 Apr, [facility] [place] [facility] [address] [id number] [place] [address]- 3988 Apr, [facility] [place] [facility] [address] [id number] [place] [address]- 4077 Apr, [facility] [place] [facility] [address] [id number] [place] [address]- 6635 Apr, [facility] [place] [facility] [address] [id number], [place] [address]- 7447 Mar, [facility] [place] [facility] [address] [id number] [place] [address]- 1684 Mar, [facility] [place] [facility] [address] [id number], [place] [address]- 6894 Mar, [facility] [place] [facility] [address] [id number], [place] [address]- 8519 Mar, [facility] [place] [facility] [address] [id number], [place] [address]- 6626 Mar, [facility] [place] [facility] [address] [id number] [place] [address]- 4026 Mar, [facility] [place] [facility] [address] [id number], [place] [address]- 9482 Mar, [facility] [place] [facility] [address] [facility] [id number], [place] [address]- 4013 Mar, [facility] [place] [facility] [id number], [place] [address]- 4689 28 Feb, 2011 [facility] [address], [place] [address]- 6099 27 Sep, 2011 [facility] [address] [id number], [place] [address]- 2182 25 Feb, 2011 [facility] [address], [place] [address]- 4003 20 Feb, 2011 [facility] [address], [place] [address]- 0192 19 Feb, 2011 [facility] [id number] [place] [address] 63578- 1552 18 Feb, 2012 [facility] [address], [place] [address]- 3123 17 Feb, 2012 [facility] [address], [place] [address]- 0709 04 Feb, 2011 [facility] [address] [id number], [place] [address]- 9993 11 Sep, 2010 IMMUNIZATIONS No Known Immunizations SOCIAL HISTORY Never Assessed REASON FOR VISIT Lab (walk-in) PLAN OF CARE VITAL SIGNS MEDICATIONS Unknown Medications RESULTS Name Result Date Reference Range HCG, QUANTITATIVE 2017-02-15 hCG,Beta Subunit,Qnt,Serum 1537 BLOOD TYPE/RH FACTOR 2017-02-15 ABO Grouping O Rh Factor Positive PROCEDURES Procedure Date Ordered Result Body Site CHORIONIC GONADOTROPIN TEST Feb 15, 2017 BLOOD TYPING, RH (D) Feb 15, 2017 VENIPUNCT, ROUTINE* Feb 15, 2017 BLOOD TYPING, ABO Feb 15, 2017 INSTRUCTIONS MEDICATIONS ADMINISTERED No Known Medications MEDICAL (GENERAL) HISTORY Type Description Date Medical History type II diabetes Surgical History x 3 Hospitalization History surgeries
--- OUTSIDE RECORDS SUMMARY | 2018-01-02 06:05 | XMS REPORT ---
Author Author AMALIA DALY [facility] [employer] Address Unknown Phone Unavailable Care Team Providers Care Hvac Field Service Technician Name Role Phone AMALIA DALY CP Unavailable [...] Active Assessment Type 2 diabetes mellitus without complication E11.9 Active Problem Acute pharyngitis 462 Active [...] Instructions Start Date End Date Status Dosage Metformin HCl [facility] [address]-48 1000 MG Orally Twice a day 1 tablet with meals GlipiZIDE [facility] [address]-29 10 MG Orally Once a day 1 tablet Procedures Procedure Coding System Code Date Office Visit, Est Pt., Level 3 CPT-4 67489 Apr 09, 2015 Vital Signs Date/Time: Apr 09, 2015 Temperature 98.5 F Weight 146.4 lbs Height 61 in BMI 27.66 Index Blood Pressure Diastolic 84 mmHg Blood Pressure Systolic 114 mmHg Cardiac Monitoring Heart Rate 88 bpm Results No Known Results Summary Purpose eClinicalWorks Submission
--- OUTSIDE RECORDS SUMMARY | 2018-01-02 06:07 | XMS REPORT ---
Author Author IGOR MAY [facility] Address [address] [place] [address] Care Team Providers Care Hydrometeorologist Name Role Phone IGOR MAY Unavailable PROBLEMS Type Condition ICD9-CM Code VNS83-QA Code Onset Dates Condition Status SNOMED Code Problem Type 2 diabetes mellitus without complication, without long-term current use of insulin E11.9 Active 763071637 Problem Amenorrhea N91.2 Active 85236627 Problem Microcytic anemia D50.9 Active 181571276 Problem Type 2 diabetes mellitus without complication E11.9 Active 158111570 Problem Gastroesophageal reflux disease without esophagitis K21.9 Active 543474983 Problem Pelvic fullness in female R19.00 Active 537782149 Problem Routine gynecological examination Z01.419 Active 197688476 Problem Vaginal bleeding N93.9 Active 987933539 Problem Intermenstrual heavy bleeding N92.0 Active 469063806 ALLERGIES No Known Allergies ENCOUNTERS Encounter Location Date Diagnosis [place] [id number] [place] [address]60[address]752 October, [place] [id number] [place] [address] 27860- 3312 14 Jul, 2017 Type 2 diabetes mellitus without complication E11.9 [place] [id number] [place] [address] 51513- 3277 Apr, Microcytic anemia D50.9 [place] [id number] [place] [address] 87088- 5479 Apr, [place] [id number] [place] [address] 96671- 1215 Apr, Gastroesophageal reflux disease without esophagitis K21.9 ; Shortness of breath R06.02 ; Fatigue, unspecified type R53.83 and Type 2 diabetes mellitus without complication E11.9 [facility] [address] [address] Mar, [facility] [id number] [place] [address] 39319- 4169 Mar, Reactive airway disease that is not asthma R09.89 and Type 2 diabetes mellitus without complication E11.9 [facility] [address] [place] [address] 55956- 8156 Feb, [facility] [id number] [place] [address] 52690- 4839 Feb, Type 2 diabetes mellitus without complication E11.9 and Reactive airway disease that is not asthma R09.89 [facility] [address] [address] Feb, Threatened O20.0 [facility] [address] [place] [address] 60033- 1265 Feb, Threatened O20.0 [facility] [address] [place] [address] 64981- 5509 Jan, Threatened O20.0 [facility] [address] [place] [address] 51344- 8911 Jan, Threatened O20.0 [facility] [address] [address] Jan, Intermenstrual heavy bleeding N92.0 ; Positive test Z32.01 and Vaginal bleeding N93.9 [facility] [address] [address] October, [facility] [id number] [place] [address] 69926- 9182 October, [facility] [address] [address] 97[address] October, Type 2 diabetes mellitus without complication E11.9 [facility] [id number] [address] May, Type 2 diabetes mellitus without complication E11.9 [facility] [id number] [place] [address] 63061- 9991 Jan, [facility] [address] [address] Jan, Routine gynecological examination Z01.419 ; Amenorrhea N91.2 and Pelvic fullness in female R19.00 [facility] [id number] [place] [address] 31413- 5666 Jan, [facility] [id number] [place] [address] 06680- 3814 Jan, Type 2 diabetes mellitus without complication E11.9 and Amenorrhea N91.2 [facility] [id number] [place] [address] 47456- 4902 Sep, Type 2 diabetes mellitus without complications E11.9 [facility] [address] [address] 2447 Jul, Type 2 diabetes mellitus without complication E11.9 [facility] [address] [place] [address] 25118- 1669 May, Type 2 diabetes mellitus without complication E11.9 [facility] [address] [address] 45[address] Mar, Type 2 diabetes mellitus without complication E11.9 [facility] [address] [place] [address] [id number] Jan, Dental examination V72.2 [facility] [address] [place] [address] [id number] Dec, Dental examination V72.2 [facility] [address] [address] Dec, Diabetes mellitus without mention of complication, type II or unspecified type, not stated as uncontrolled 250.00 [facility] [id number] [id number] Nov, Dental examination V72.2 [facility] [address] [place] [address] 43070- 2864 October, Contraceptive management V25.9 [facility] [address] [facility] [id number] [address] 3916 Sep, [facility] [id number] [place] [address] 76605- 9243 Sep, [facility] [address] [facility] [id number] [place] [address] 88691- 4994 Jul, [facility] [id number] [place] [address] 33016- 8148 Jul, [facility] [id number] [place] [address] 18610- 8976 Apr, [facility] [address] [place] [address] 94331- 4652 Apr, [facility] [id number] [address] 3124 Mar, [facility] [address], [place] [address] 9023 Mar, [facility] [address] [address] 5436 Mar, [facility] [id number] [address] 5704 Mar, [facility] [place] [facility] [address] [facility] [id number] [address] 4430 Jan, [facility] [place] [facility] [address] [facility] [id number], [place] [address] 7699 Jan, [facility] [id number] [address] Nov, [facility] [place] [facility] [address] [address] 5958 October, [facility] [place] [facility] [address] [id number] [place] [address]- 6094 October, [facility] [place] [facility] [address] [id number] [place] [address] 7330 October, [facility] [place] [facility] [address] [id number] [place] [address]- 5975 October, [facility] [place] [facility] [address] [id number] [place] [address]- 1320 October, [facility] [place] [facility] [address] [id number] [place] [address]- 5939 Sep, [facility] [place] [facility] [address] [id number] [place] [address]- 4381 Sep, [facility] [place] [facility] [address] [id number] [place] [address]- 4765 Aug, [facility] [place] [facility] [address] [id number] [place] [address]- 6355 Aug, [facility] [place] [facility] [address] [id number] [place] [address]- 4569 Jun, [facility] [place] [facility] [address] [id number] [place] [address]- 5164 Jun, [facility] [place] [facility] [address] [id number] [place] [address]- 2124 Jun, [facility] [place] [facility] [address] [id number] [place] [address]- 8332 Jun, [facility] [place] [facility] [address] [id number] [place] [address]- 1546 Apr, [facility] [place] [facility] [address] [id number] [place] [address]- 3283 Apr, [facility] [place] [facility] [address] [id number] [place] [address]- 7458 Apr, [facility] [place] [facility] [address] [id number] [place] [address]- 3420 30 Sep, 2012 [facility] [address] [id number] [place] [address]- 2828 18 Sep, 2012 [facility] [place] [facility] [address] [id number] [place] [address]- 2546 10 Sep, 2012 [facility] [address] [id number] [place] [address] 2546 09 Sep, 2012 [facility] [address] [id number] [place] [address]- 2547 09 Sep, 2012 [facility] [address] [id number] [place] [address]- 2676 07 Sep, 2012 [facility] [address] [id number] [place] [address]- 2263 06 Sep, 2012 [facility] [address] [id number] [place] [address]- 2542 05 Sep, 2012 [facility] [address] [id number] [place] [address]- 5694 03 Feb, 2012 [facility] [address] [id number] [place] [address]- 0407 27 Jul, 2012 [facility] [address] [id number] [place] [address]- 4566 19 Jul, 2012 [facility] [address] [id number] [place] [address]- 6433 15 Jul, 2012 [facility] [address] [id number] [place] [address]- 2544 14 Jul, 2012 [facility] [place] [facility] [address] [id number] [place] [address]- 1216 04 Jul, 2012 [facility] [place] [facility] [address] [id number] [place] [address]- 254 17 Jun, 2012 [facility] [place] [facility] [address] [id number] [place] [address]- 4150 May, [facility] [place] [facility] [address] [id number] [place] [address]- 7412 May, [facility] [place] [facility] [address] [id number] [place] [address]- 6770 Apr, [facility] [place] [facility] [address] [id number] [place] [address]- 8272 Apr, [facility] [place] [facility] [address] [id number] [place] [address]- 0649 Apr, [facility] [place] [facility] [address] [id number] [place] [address]- 3598 Apr, [facility] [place] [facility] [address] [id number] [place] [address]- 2828 Apr, [facility] [place] [facility] [address] [id number] [place] [address]- 3289 Apr, [facility] [place] [facility] [address] [id number] [address]- 5212 Mar, [facility] [place] [facility] [address] [id number] [place] [address]- 0659 Mar, [facility] [place] [facility] [address] [id number] [place] [address]- 0656 Mar, [facility] [place] [facility] [address] [id number][place] [address]- 5764 Mar, [facility] [place] [facility] [address] [id number], [place] [address]- 4896 Mar, [facility] [place] [facility] [address] [id number] [place] [address]- 7925 Mar, [facility] [place] [facility] [address] [facility] [id number] [address]- 8319 Mar, [facility] [place] [facility] [address] [facility] [id number] [address]- 2626 Mar, [facility] [place] [facility] [address], [place] [address]- 3904 28 Feb, 2011 [facility] [address], [place] [address]- 6352 27 Feb, 2012 [facility] [address], [place] [address]- 1531 25 Feb, 2012 [facility] [address], [place] [address]- 5648 20 Feb, 2011 [facility] [address], [place] [address]- 6966 19 Feb, 2011 [facility] [address] [place] [address] 77941- 7043 18 Feb, 2012 [facility] [address], [place] [address]- 1615 17 Feb, 2012 [facility] [address], [place] [address]- 7698 04 Feb, 2012 [facility] [address] [address]- 6985 11 Sep, 2010 IMMUNIZATIONS No Known Immunizations SOCIAL HISTORY Never Assessed REASON FOR VISIT Heavy bleeding- missed a period- is going through a pad Q30 in on and off for the last 15 days JStrasserRN PLAN OF CARE Activity Details Follow Up prn Reason: VITAL SIGNS Height 61 in 2017-02-13 Weight 157.4 lbs 2017-02-13 Temperature 98.4 degrees Fahrenheit 2017-02-13 Heart Rate 76 bpm 2017-02-13 Respiratory Rate 20 2017-02-13 BMI 29.74 kg/m2 2017-02-13 Blood pressure systolic 132 mmHg 2017-02-13 Blood pressure diastolic 80 mmHg 2017-02-13 MEDICATIONS Medication Instructions Dosage Frequency Start Date End Date Duration Status GlipiZIDE 10 mg Orally twice a day 1 tablet 12h 90 days Active Metformin HCl 1000 MG Orally Twice a day 1 tablet with meals 12h Jan, Active Glucocard Expression Test - subcutaneously 2 times a day as directed 12h October, October, 90 days Active Actos 45 MG Orally Once a day 1 tablet 24h Jan, 90 days Active RESULTS Name Result Date Reference Range TEST, URINE (IN HOUSE) 2017-02-13 RESULTS positive Lot # [id number] Control + Exp date 2018-07-21 PROCEDURES Procedure Date Ordered Result Body Site URINE TEST Feb 13, 2017 INSTRUCTIONS MEDICATIONS ADMINISTERED No Known Medications MEDICAL (GENERAL) HISTORY Type Description Date Medical History type II diabetes Surgical History x 3 Hospitalization History surgeries
--- OUTSIDE RECORDS SUMMARY | 2018-01-02 06:07 | XMS REPORT ---
Author Author AMALIA DALY [facility] Address [address] [place] [address] Care Team Providers Care Sports Team Marketing Intern Name Role Phone AMALIA DALY Unavailable PROBLEMS Type Condition ICD9-CM Code DNE38-RI Code Onset Dates Condition Status SNOMED Code Problem Type 2 diabetes mellitus without complication, without long-term current use of insulin E11.9 Active 884971513 Problem Amenorrhea N91.2 Active 68512132 Problem Microcytic anemia D50.9 Active 130826677 Problem Type 2 diabetes mellitus without complication E11.9 Active 674432895 Problem Gastroesophageal reflux disease without esophagitis K21.9 Active 099008630 Problem Pelvic fullness in female R19.00 Active 979455747 Problem Routine gynecological examination Z01.419 Active 328683117 Problem Vaginal bleeding N93.9 Active 715502343 Problem Intermenstrual heavy bleeding N92.0 Active 674788202 ALLERGIES No Known Allergies ENCOUNTERS Encounter Location Date Diagnosis [place] [id number] [place] [address] 77737- 0873 October, [place] [address] [place] [id number] [place] [address] 38307- 6684 14 Jul, 2017 Type 2 diabetes mellitus without complication E11.9 [place] [address] [place] [id number] [place] [address] 08190- 6738 Apr, Microcytic anemia D50.9 [place] [address] [place] [id number] [place] [address] 13083- 3139 Apr, [place] [address] [place] [id number] [place] [address] 79114- 1704 Apr, Gastroesophageal reflux disease without esophagitis K21.9 ; Shortness of breath R06.02 ; Fatigue, unspecified type R53.83 and Type 2 diabetes mellitus without complication E11.9 [facility] [place] [address] [address] Mar, [facility] [place] [address] [place] [id number] [place] [address] 42666- 3874 Mar, Reactive airway disease that is not asthma R09.89 and Type 2 diabetes mellitus without complication E11.9 [facility] [place] [id number] [place] [address] 43489- 4787 Feb, [facility] [place] [id number] [place] [address] 82290- 7803 Feb, Type 2 diabetes mellitus without complication E11.9 and Reactive airway disease that is not asthma R09.89 [facility] [place] [address] [place] [address] 56255- 3651 Feb, Threatened O20.0 [facility] [place] [address] [place] [address] 17980- 8021 Feb, Threatened O20.0 [facility] [place] [address] [place] [address] 74058- 8413 Jan, Threatened O20.0 [facility] [place] [id number] [place] [address] 07692- 1747 Jan, Threatened O20.0 [facility] [address] [address] Jan, Intermenstrual heavy bleeding N92.0 ; Positive test Z32.01 and Vaginal bleeding N93.9 [facility] [place] [address] [address] 4733 October, [facility] [place] [address] [place] [id number] [place] [address] 63506- 7074 October, [facility] [place] [address] [address] 8928 October, Type 2 diabetes mellitus without complication E11.9 [facility] [place] [address] [address]- 9078 May, Type 2 diabetes mellitus without complication E11.9 [facility] [place] [id number] [place] [address] 10339- 0189 Jan, [facility] [place] [address] [address] 6200 Jan, Routine gynecological examination Z01.419 ; Amenorrhea N91.2 and Pelvic fullness in female R19.00 [facility] [place] [address] [place] [id number] [address] 6623 Jan, [facility] [place] [address] [place] [id number] [place] [address] 59678- 3816 Jan, Type 2 diabetes mellitus without complication E11.9 and Amenorrhea N91.2 [facility] [place] [address] [address]- 0515 Sep, Type 2 diabetes mellitus without complications E11.9 [facility] [place] [address] [address]- 3693 Jul, Type 2 diabetes mellitus without complication E11.9 [facility] [place] [address] [address]- 8435 May, Type 2 diabetes mellitus without complication E11.9 [facility] [place] [address] [address]- 7617 Mar, Type 2 diabetes mellitus without complication E11.9 [facility] [address] [id number] Jan, Dental examination V72.2 [facility] [id number] [place] [address] [id number] Dec, Dental examination V72.2 [facility] [place] [address] [address] 4798 Dec, Diabetes mellitus without mention of complication, type II or unspecified type, not stated as uncontrolled 250.00 [facility] [address] [id number] Nov, Dental examination V72.2 [facility] [address] [place] [address] 08531- 0866 October, Contraceptive management V25.9 [facility] [address] [facility] [id number] [address] 3900 Sep, [facility] [address] [facility] [id number] [place] [address] 56088- 6395 Sep, [facility] [address] [facility] [id number] [address]- 9334 Jul, [facility] [address] [facility] [id number] [place] [address] 33169- 8309 Jul, [facility] [address] [address]- 2586 Apr, [facility] [address] [place] [id number] [address]- 4750 Apr, [facility] [address] [place] [id number] [address]- 4649 Mar, [facility] [address] [address]- 1735 Mar, [facility] [address] [address]- 2759 Mar, [facility] [address] [facility] [id number] [place] [address]- 0474 Mar, [facility] [place] [facility] [address] [facility] [id number] [place] [address]- 5718 Jan, [facility] [address] [facility] [id number] [address]- 9666 Jan, [facility] [place] [facility] [address] [place] [id number] [address]115 Nov, [facility] [address] [facility] [id number] [place] [address]- 9794 October, [facility] [address] [id number] [place] [address]- 1286 October, [facility] [place] [facility] [address] [id number] [place] [address]- 5877 October, [facility] [place] [facility] [address] [id number] [place] [address]- 5077 October, [facility] [place] [facility] [address] [id number] [place] [address]- 2826 October, [facility] [place] [facility] [address] [id number] [place] [address]- 2638 Sep, [facility] [place] [facility] [address] [id number] [place] [address]- 3501 Sep, [facility] [place] [facility] [address] [id number] [place] [address]- 5522 Aug, [facility] [place] [facility] [address] [id number] [place] [address]- 4754 Aug, [facility] [place] [facility] [address] [id number] [place] [address]- 9850 Jun, [facility] [place] [facility] [address] [id number] [place] [address]- 9145 Jun, [facility] [place] [facility] [address] [id number] [place] [address]- 2518 Jun, [facility] [place] [facility] [address] [id number] [place] [address]- 2925 Jun, [facility] [place] [facility] [address] [id number] [place] [address]- 8075 Apr, [facility] [place] [facility] [address] [id number] [place] [address]- 4946 Apr, [facility] [place] [facility] [address] [id number] [place] [address]- 6186 Apr, [facility] [place] [facility] [address] [id number] [place] [address]- 5832 30 Sep, 2012 [facility] [place] [facility] [address] [id number] [place] [address]- 9369 18 Sep, 2012 [facility] [place] [facility] [address] [id number] [place] [address]- 2546 10 Sep, 2012 [facility] [place] [facility] [address] [id number] [place] [address] 2543 09 Sep, 2012 [facility] [place] [facility] [address] [id number] [place] [address]- 2542 09 Sep, 2012 [facility] [place] [facility] [address] [id number] [place] [address]- 8200 07 Sep, 2012 [facility] [place] [facility] [address] [facility] [id number] [place] [address]- 2042 06 Feb, 2012 [facility] [place] [facility] [address] [id number] [place] [address]- 5384 05 Feb, 2012 [facility] [place] [facility] [address] [id number] [place] [address]- 1207 03 Feb, 2012 [facility] [place] [facility] [address] [id number] [place] [address]- 7928 27 Jul, 2012 [facility] [place] [facility] [address] [facility] [id number] [place] [address]- 8758 19 Jul, 2012 [facility] [place] [facility] [address] [id number] [place] [address]- 3224 15 Jul, 2012 [facility] [place] [facility] [address] [id number] [place] [address]- 3488 14 Jul, 2012 [facility] [place] [facility] [address] [id number] [place] [address]- 1440 04 Jul, 2012 [facility] [place] [facility] [address] [id number] [place] [address]- 0096 17 Jun, 2012 [facility] [place] [facility] [address] [id number] [place] [address]- 2546 May, [facility] [place] [facility] [address] [id number] [place] [address]509 May, [facility] [place] [facility] [address] [id number] [place] 2497 Apr, [facility] [place] [facility] [address] [id number] [place] [address]- 2829 Apr, [facility] [place] [facility] [address] [id number] [place] [address]- 5920 Apr, [facility] [place] [facility] [address] [id number] [place] [address]- 9262 Apr, [facility] [place] [facility] [address] [id number] [place] [address]- 8435 Apr, [facility] [place] [facility] [address] [id number] [place] [address]- 7769 Apr, [facility] [place] [facility] [address] [id number] [place] [address]- 1630 Mar, [facility] [place] [facility] [address] [id number] [place] [address]- 6715 Mar, [facility] [place] [facility] [address] [id number] [place] [address]- 1412 Mar, [facility] [place] [facility] [address] [id number] [address]- 8098 Mar, [facility] [place] [facility] [address] [id number] [place] [address]- 2508 Mar, [facility] [place] [facility] [address] [id number] [place] 4699 Mar, [facility] [place] [facility] [address] [id number] [place] 7432 Mar, [facility] [place] [facility] [address] [id number] [place] 1670 Mar, [facility] [place] [facility] [address] [address]- 7088 28 Feb, 2012 [facility] [place] [address] [address]- 7773 27 Feb, 2012 [facility] [place] [address] [address]- 3033 25 Feb, 2012 [facility] [place] [address] [address]- 5325 20 Feb, 2012 [facility] [place] [address] [address]- 9870 19 Feb, 2012 [facility] [place] [address] [place] [id number] [place] [address] 61084- 0641 18 Feb, 2012 [facility] [place] [address] [address]- 5370 17 Feb, 2012 [facility] [place] [address] [address]- 2395 04 Feb, 2012 [facility] [place] [address] [address]- 1366 Sep, IMMUNIZATIONS No Known Immunizations SOCIAL HISTORY Never Assessed REASON FOR VISIT Diabetes- López CRUZ PLAN OF CARE Activity Details Follow Up 4 Weeks Reason:DM and Reactive airway VITAL SIGNS Height 61 in 2017-03-01 Weight 158.2 lbs 2017-03-01 Temperature 99.3 degrees Fahrenheit 2017-03-01 Heart Rate 92 bpm 2017-03-01 Respiratory Rate 20 2017-03-01 BMI 29.89 kg/m2 2017-03-01 Blood pressure systolic 118 mmHg 2017-03-01 Blood pressure diastolic 72 mmHg 2017-03-01 MEDICATIONS Medication Instructions Dosage Frequency Start Date End Date Duration Status Singulair 10 mg Orally Once a day 1 tablet in the evening 24h Feb, 30 day(s) Active Actos 45 MG Orally Once a day 1 tablet 24h Jan, 90 days Active Claritin 10 mg Orally Once a day in AM 1 tablet Feb, 30 day(s ) Active GlipiZIDE 10 mg Orally twice a day 2 tablet in AM and 1 tablet in PM 12h 90 days Active Glucocard Expression Test - subcutaneously 2 times a day as directed 12h October, October, 90 days Active Metformin HCl 1000 MG Orally Twice a day 1 tablet with meals 12h Jan, Active RESULTS Name Result Date Reference Range A1C (IN HOUSE) 2017-03-01 A1C IN HOUSE 8.8 4.3 - 5.6 % Previous A1c 10.6 Lot [id number] Exp date MICROALBUMIN, URINE (IN HOUSE) 2017-03-01 MICROALBUMIN normal Lot # [id number] Exp date 12/2017 Clarity clear Color yellow ALB 80 CRE 300 A:C (IN HOUSE) <30 Control normal Control Lot # Exp date PROCEDURES Procedure Date Ordered Result Body Site GLYCATED HEMOGLOBIN TEST Mar 01, 2017 MICROALBUMIN, SEMIQUANT Mar 01, 2017 INSTRUCTIONS MEDICATIONS ADMINISTERED No Known Medications MEDICAL (GENERAL) HISTORY Type Description Date Medical History type II diabetes Surgical History x 3 Hospitalization History surgeries
--- OUTSIDE RECORDS SUMMARY | 2018-01-02 06:09 | XMS REPORT ---
Author Author AMALIA DALY Organization [facility] Address [address] [place] [address] Care Team Providers Care Clearing Supervisor Name Role Phone AMALIA DALY Unavailable PROBLEMS Type Condition ICD9-CM Code ZNC89-NX Code Onset Dates Condition Status SNOMED Code Problem Type 2 diabetes mellitus without complication, without long-term current use of insulin E11.9 Active 317742371 Problem Amenorrhea N91.2 Active 64385849 Problem Microcytic anemia D50.9 Active 828680295 Problem Type 2 diabetes mellitus without complication E11.9 Active 529407343 Problem Gastroesophageal reflux disease without esophagitis K21.9 Active 153649871 Problem Pelvic fullness in female R19.00 Active 834311704 Problem Routine gynecological examination Z01.419 Active 827114954 Problem Vaginal bleeding N93.9 Active 210790137 Problem Intermenstrual heavy bleeding N92.0 Active 520802741 ALLERGIES No Information ENCOUNTERS Encounter Location Date Diagnosis [place] [id number] [place] [address] 67869- [address] October, [place] [address] [place] [id number] [place] [address] 88899- 4763 14 Jul, 2017 Type 2 diabetes mellitus without complication E11.9 [place] [address] [place] [id number] [place] [address] 62674- 3332 Apr, Microcytic anemia D50.9 [place] [address] [place] [id number] [place] [address] 72318- 4112 Apr, [place] [address] [place] [id number] [place] [address] 33063- 6441 Apr, Gastroesophageal reflux disease without esophagitis K21.9 ; Shortness of breath R06.02 ; Fatigue, unspecified type R53.83 and Type 2 diabetes mellitus without complication E11.9 [facility] [address] [address] Mar, [facility] [id number] [place] [address] 76297- 2666 Mar, Reactive airway disease that is not asthma R09.89 and Type 2 diabetes mellitus without complication E11.9 [facility] [id number] [place] [address] 77445- 1224 Feb, [facility] [id number] [place] [address] 91881- 8952 Feb, Type 2 diabetes mellitus without complication E11.9 and Reactive airway disease that is not asthma R09.89 [facility] [address] [address] Feb, Threatened O20.0 [facility] [id number] [place] [address] 51102- 1597 Feb, Threatened O20.0 [facility] [id number] [place] [address] 05338- 3327 Jan, Threatened O20.0 [facility] [id number] [place] [address] 88802- 5420 Jan, Threatened O20.0 [facility] [address] [address] Jan, Intermenstrual heavy bleeding N92.0 ; Positive test Z32.01 and Vaginal bleeding N93.9 [facility] [address] [address] 2951 October, [facility] [address] [place] [id number] [place] [address] 69043- 5512 October, [facility] [address] [address] 5298 October, Type 2 diabetes mellitus without complication E11.9 [facility] [address] [place] [id number] [address] 2031 May, Type 2 diabetes mellitus without complication E11.9 [facility] [address] [place] [id number] [place] [address] 86945- 8262 Jan, [facility] [address] [address] 6454 Jan, Routine gynecological examination Z01.419 ; Amenorrhea N91.2 and Pelvic fullness in female R19.00 [facility] [address] [place] [id number] [place] [address] 63443- 2991 Jan, [facility] [address] [place] [id number] [place] [address] 89042- 3819 Jan, Type 2 diabetes mellitus without complication E11.9 and Amenorrhea N91.2 [facility] [address] [place] [id number] [place] [address] 16400- 8631 Sep, Type 2 diabetes mellitus without complications E11.9 [facility] [address] [address]- 1527 Jul, Type 2 diabetes mellitus without complication E11.9 [facility] [id number] [place] [address] 32656- 6923 May, Type 2 diabetes mellitus without complication E11.9 [facility] [address] [address] 3648 Mar, Type 2 diabetes mellitus without complication E11.9 [facility] [address] [id number] Jan, Dental examination V72.2 [facility] [id number] [place] [address] [id number] Dec, Dental examination V72.2 [facility] [address] [address]- 3361 Dec, Diabetes mellitus without mention of complication, type II or unspecified type, not stated as uncontrolled 250.00 [facility] [address] [place] [id number] [id number] Nov, Dental examination V72.2 [facility] [id number] [place] [address] 43019- 7301 October, Contraceptive management V25.9 [facility] [address] [facility] [id number] [address] Sep, [facility] [address] [facility] [id number] [place] [address] 73234- 3742 Sep, [facility] [address] [facility] [id number] [address]- 7941 Jul, [facility] [address] [facility] [id number] [place] [address] 40633- 3667 Jul, [facility] [address] [place] [id number] [address]- 3880 Apr, [facility] [address] [place] [id number] [address]- 8455 Apr, [facility] [address] [place] [id number] [address]- 7145 Mar, [facility] [address] [place] [id number] [address]- 4329 Mar, [facility] [address] [place] [id number] [address]- 5364 Mar, [facility] [place] [facility] [address] [place] [address] [id number] 6441 Mar, [facility] [place] [facility] [address] [facility] [id number] [address]- 4983 Jan, [facility] [place] [facility] [address] [facility] [id number] 1444 Jan, [facility] [place] [facility] [address] [facility] [id number] [address]- 3252 Nov, [facility] [place] [facility] [address] [facility] [id number] [address]- 2624 October, [facility] [place] [facility] [address] [id number] [place] [address]- 5344 October, [facility] [place] [facility] [address] [id number] [place] [address] October, [facility] [place] [facility] [address] [id number] [place] [address]- 1613 October, [facility] [place] [facility] [address] [id number] [place] [address]- 2241 October, [facility] [place] [facility] [address] [id number] [place] [address]- 5869 Sep, [facility] [place] [facility] [address] [id number] [place] [address]- 3896 Sep, [facility] [place] [facility] [address] [id number] [place] [address]- 9829 Aug, [facility] [place] [facility] [address] [id number] [place] [address]- 2750 Aug, [facility] [place] [facility] [address] [id number] [place] [address]- 4501 Jun, [facility] [place] [facility] [address] [id number] [place] [address]- 2938 Jun, [facility] [place] [facility] [address] [id number] [place] [address]- 2918 Jun, [facility] [place] [facility] [address] [id number] [place] [address]- 0568 Jun, [facility] [place] [facility] [address] [id number] [place] [address]- 2635 Apr, [facility] [place] [facility] [address] [id number] [place] [address]- 3694 Apr, [facility] [place] [facility] [address] [id number] [place] [address]- 5964 Apr, [facility] [place] [facility] [address] [id number] [place] [address]- 0018 30 Sep, 2012 [facility] [address] [id number] [place] [address]- 0441 18 Sep, 2012 [facility] [place] [facility] [address] [id number] [place] [address]- 2546 10 Sep, 2012 [facility] [place] [facility] [address] [id number] [place] [address] 2546 09 Sep, 2012 [facility] [place] [facility] [address] [id number] [place] [address]- 2542 09 Sep, 2012 [facility] [place] [facility] [address] [id number] [place] [address]- 8013 07 Sep, 2012 [facility] [place] [facility] [address] [id number] [place] [address]- 4280 06 Sep, 2012 [facility] [place] [facility] [address] [id number] [place] [address]- 1466 05 Feb, 2012 [facility] [address] [id number] [place] [address]- 8785 03 Feb, 2012 [facility] [place] [facility] [address] [id number] [place] [address]- 9223 27 Jul, 2012 [facility] [address] [id number] [place] [address]- 5597 19 Jul, 2012 [facility] [place] [facility] [address] [id number] [place] [address]- 6956 15 Jul, 2012 [facility] [place] [facility] [address] [id number] [place] [address]- 254 14 Jul, 2012 [facility] [place] [facility] [address] [id number] [place] [address]- 7435 04 Jul, 2012 [facility] [place] [facility] [address] [id number] [place] [address]- 7359 17 Jun, 2012 [facility] [place] [facility] [address] [id number], [place] [address]- 0986 May, [facility] [place] [facility] [address] [id number] [place] [address]046 May, [facility] [place] [facility] [address] [id number] [place] [address]- 6671 Apr, [facility] [place] [facility] [address] [id number] [place] [address]- 3508 Apr, [facility] [place] [facility] [address] [id number] [place] [address]- 9585 Apr, [facility] [place] [facility] [address] [id number] [place] [address]- 7614 Apr, [facility] [place] [facility] [address] [id number] [place] [address]- 3622 Apr, [facility] [place] [facility] [address] [id number] [place] [address]- 7610 Apr, [facility] [place] [facility] [address] [id number], [place] [address]- 2303 Mar, [facility] [place] [facility] [address] [id number] [place] [address]- 3065 Mar, [facility] [place] [facility] [address] [id number] [place] [address]- 7162 Mar, [facility] [place] [facility] [address] [id number], [place] [address]- 4914 Mar, [facility] [place] [facility] [address] [id number], [place] [address]- 0716 Mar, [facility] [place] [facility] [address] [id number] [place] 4970 Mar, [facility] [place] [facility] [address] [facility] [id number], [place] [address]- 1698 Mar, [facility] [place] [facility] [address] [facility] [id number], [place] [address]- 3750 Mar, [facility] [place] [facility] [address], [place] [address]- 4095 28 Feb, 2012 [facility] [address], [place] [address]- 5046 27 Feb, 2012 [facility] [address] [address]- 3233 25 Feb, 2012 [facility] [address], [place] [address]- 6580 20 Feb, 2012 [facility] [address], [place] [address]- 4382 19 Feb, 2012 [facility] [id number] [place] [address] 26169- 8243 18 Feb, 2012 [facility] [address], [place] [address]- 7202 17 Feb, 2012 [facility] [address] [address]- 1705 04 Feb, 2012 [facility] [address] [id number] [address]- 6697 11 Sep, 2010 IMMUNIZATIONS No Known Immunizations SOCIAL HISTORY Never Assessed REASON FOR VISIT Requests return call PLAN OF CARE VITAL SIGNS MEDICATIONS Unknown Medications RESULTS No Results PROCEDURES No Known procedures INSTRUCTIONS MEDICATIONS ADMINISTERED No Known Medications MEDICAL (GENERAL) HISTORY Type Description Date Medical History type II diabetes Surgical History x 3 Hospitalization History surgeries
--- OUTSIDE RECORDS SUMMARY | 2018-01-02 06:12 | XMS REPORT ---
Author Author IRIS SARABIA Organization [facility] Address [address] [place] [address] Care Team Providers Care Line Operator Name Role Phone IRIS SARABIA Unavailable PROBLEMS Type Condition ICD9-CM Code [id number] Code Onset Dates Condition Status SNOMED Code Problem Type 2 diabetes mellitus without complication, without long-term current use of insulin E11.9 Active 294595757 Problem Amenorrhea N91.2 Active 90913406 Problem Microcytic anemia D50.9 Active 193299719 Problem Type 2 diabetes mellitus without complication E11.9 Active 754735389 Problem Gastroesophageal reflux disease without esophagitis K21.9 Active 025851616 Problem Pelvic fullness in female R19.00 Active 911742385 Problem Routine gynecological examination Z01.419 Active 599090365 Problem Vaginal bleeding N93.9 Active 421810892 Problem Intermenstrual heavy bleeding N92.0 Active 856388350 ALLERGIES No Information ENCOUNTERS Encounter Location Date Diagnosis [facility] [address] [id number] [place] [address]- [address]678 October, [place] [address] [address] 14 Jul, 2017 Type 2 diabetes mellitus without complication E11.9 [facility] [id number] [place] [address] 87216- 1468 Apr, Microcytic anemia D50.9 [place] [id number] [address]- [address] Apr, [place] [address] [address]- [address]96 Apr, Gastroesophageal reflux disease without esophagitis K21.9 ; Shortness of breath R06.02 ; Fatigue, unspecified type R53.83 and Type 2 diabetes mellitus without complication E11.9 [facility] [address] [address] Mar, [facility] [id number] [place] [address] 72590- 1710 Mar, Reactive airway disease that is not asthma R09.89 and Type 2 diabetes mellitus without complication E11.9 [facility] [id number] [place] [address] 41953- 0816 Feb, [facility] [id number] [place] [address] 61214- 7569 Feb, Type 2 diabetes mellitus without complication E11.9 and Reactive airway disease that is not asthma R09.89 [facility] [id number] [place] [address] 65151- 1526 Feb, Threatened O20.0 [facility] [id number] [place] [address] 78093- 4711 Feb, Threatened O20.0 [facility] [id number] [place] [address] 83385- 7330 Jan, Threatened O20.0 [facility] [id number] [place] [address]697- 1885 Jan, Threatened O20.0 [facility] [id number] [place] [address]19 -4711 Jan, Intermenstrual heavy bleeding N92.0 ; Positive test Z32.01 and Vaginal bleeding N93.9 [facility] [id number] [place] [address] 22571- 4273 October, [facility] [id number] [place] [address] 55002- 4429 October, [facility] [id number] [place] [address] 14670- 7635 October, Type 2 diabetes mellitus without complication E11.9 [facility] [id number] [place] [address] 42607- 1886 May, Type 2 diabetes mellitus without complication E11.9 [facility] [id number] [place] [address] 87093- 5931 Jan, [facility] [id number] [place] [address] 52956- 9587 Jan, Routine gynecological examination Z01.419 ; Amenorrhea N91.2 and Pelvic fullness in female R19.00 [facility] [id number] [place] [address] 21356- 2229 Jan, [facility] [id number] [place] [address] 48388- 5233 Jan, Type 2 diabetes mellitus without complication E11.9 and Amenorrhea N91.2 [facility] [id number] [place] [address] 38885- 1293 Sep, Type 2 diabetes mellitus without complications E11.9 [facility] [id number] [place] [address] 14387- 7698 Jul, Type 2 diabetes mellitus without complication E11.9 [facility] [id number] [place] [address] 13982- 7046 May, Type 2 diabetes mellitus without complication E11.9 [facility] [id number] [place] [address] 51165- 5418 Mar, Type 2 diabetes mellitus without complication E11.9 [facility] [address] [place] [address] [id number] Jan, Dental examination V72.2 [facility] [address] [id number] [place] [address] [id number] Dec, Dental examination V72.2 [facility] [id number] [place] [address] 91022- 2719 Dec, Diabetes mellitus without mention of complication, type II or unspecified type, not stated as uncontrolled 250.00 [facility] [id number] [id number] Nov, Dental examination V72.2 [facility] [id number] [address] 2950 October, Contraceptive management V25.9 [facility] [address] [id number] [address] Sep, [facility] [address] [facility] [id number], [place] [address] 7623 Sep, [facility] [address] [facility] [id number] [place] [address]- 5347 Jul, [facility] [address] [facility] [id number] [place] [address], [place] [address]- 7469 Jul, [facility] [id number] [address]32 Apr, [facility] [id number] [address]- 9788 Apr, [facility] [id number] [address] 3669 Mar, [facility] [id number] [address]- 6458 Mar, [facility] [id number] [address]- 7062 Mar, [facility] [address] [facility] [id number] [address]284 Mar, [facility] [place] [facility] [address] [facility] [id number] [address]12 Jan, [facility] [place] [facility] [address] [facility] [id number] [address] [address]75 Jan, [facility] [place] [facility] [address] [facility] [id number], [place] [address]- 9716 Nov, [facility] [place] [facility] [address] [facility] [id number], [place] [address]- 7307 October, [facility] [place] [facility] [address] [id number] [place] [address]- 1944 October, [facility] [place] [facility] [address] [id number] [place] [address]- 4855 October, [facility] [place] [facility] [address] [id number] [place] [address]- 4766 October, [facility] [place] [facility] [address] [id number] [place] [address]- 9793 October, [facility] [place] [facility] [address] [id number] [place] [address]- 2919 Sep, [facility] [place] [facility] [address] [id number] [place] [address]- 1243 Sep, [facility] [place] [facility] [address] [id number] [place] [address]- 3876 Aug, [facility] [place] [facility] [address] [id number] [place] [address]- 4319 Aug, [facility] [place] [facility] [address] [id number] [place] [address]- 9064 Jun, [facility] [place] [facility] [address] [id number] [place] [address]- 5325 Jun, [facility] [place] [facility] [address] [id number] [place] [address]- 2040 Jun, [facility] [place] [facility] [address] [id number] [place] [address]- 2357 Jun, [facility] [place] [facility] [address] [id number] [place] [address]- 6775 Apr, [facility] [place] [facility] [address] [id number] [place] [address]- 1436 Apr, [facility] [place] [facility] [address] [id number] [place] [address]- 5391 Apr, [facility] [place] [facility] [address] [id number] [place] [address] 2542 30 Sep, 2012 [facility] [address] [id number] [place] [address] 2546 18 Sep, 2012 [facility] [address] [id number] [place] [address] 2546 10 Sep, 2012 [facility] [address] [id number] [place] [address] 2546 09 Sep, 2012 [facility] [address] [id number] [place] [address] 2546 09 Sep, 2012 [facility] [address] [id number] [place] [address]- 0168 07 Sep, 2012 [facility] [address] [id number] [place] [address]- 2549 06 Feb, 2012 [facility] [address] [id number] [place] [address] 2549 05 Feb, 2012 [facility] [address] [id number] [place] [address]- 2542 03 Feb, 2012 [facility] [address] [id number] [place] [address]- 8329 27 Jul, 2012 [facility] [address] [id number] [place] [address]- 1318 19 Jul, 2012 [facility] [address] [id number] [place] [address] 2546 15 Jul, 2012 [facility] [address] [id number] [place] [address]- 2545 14 Jul, 2012 [facility] [place] [facility] [address] [id number] [place] [address] 2546 04 Jul, 2012 [facility] [place] [facility] [address] [id number] [place] [address]- 2546 17 Jun, 2012 [facility] [place] [facility] [address] [id number] [place] [address]- 2090 May, [facility] [place] [facility] [address] [id number] [place] [address]- 8429 May, [facility] [place] [facility] [address] [id number] [place] [address]- 6997 Apr, [facility] [place] [facility] [address] [id number] [place] 2995 Apr, [facility] [place] [facility] [address] [id number] [place] [address]- 8727 Apr, [facility] [place] [facility] [address] [id number] [place] [address]- 0514 Apr, [facility] [place] [facility] [address] [id number] [place] [address]- 0853 Apr, [facility] [place] [facility] [address] [id number] [place] [address]- 3171 Apr, [facility] [place] [facility] [address] [id number], [place] [address]- 2932 Mar, [facility] [place] [facility] [address] [id number] [place] [address]- 3629 Mar, [facility] [place] [facility] [address] [id number], [place] [address]- 2666 Mar, [facility] [place] [facility] [address] [id number], [place] [address]- 7559 Mar, [facility] [place] [facility] [address] [id number], [place] [address]- 4127 Mar, [facility] [place] [facility] [address] [id number] [place] [address]- 0692 Mar, [facility] [place] [facility] [address] [id number], [place] [address]- 1346 Mar, [facility] [place] [facility] [address] [facility] [id number], [place] [address]- 9840 Mar, [facility] [place] [facility] [id number], [place] [address]- 5286 28 Feb, 2012 [facility] [address], [place] [address]- 4429 27 Feb, 2012 [facility] [address], [place] [address]- 4143 25 Feb, 2012 [facility] [address], [place] [address]- 8804 20 Feb, 2012 [facility] [address], [place] [address]- 5480 19 Feb, 2012 [facility] [id number] [place] [address] 91654- 4361 18 Feb, 2012 [facility] [address], [place] [address]- 7848 17 Feb, 2012 [facility] [address], [place] [address]- 9347 04 Feb, 2012 [facility] [address], [place] [address]- 6243 11 Sep, 2010 IMMUNIZATIONS No Known Immunizations SOCIAL HISTORY Never Assessed REASON FOR VISIT deferred lab PLAN OF CARE VITAL SIGNS MEDICATIONS Unknown Medications RESULTS No Results PROCEDURES No Known procedures INSTRUCTIONS MEDICATIONS ADMINISTERED No Known Medications MEDICAL (GENERAL) HISTORY Type Description Date Medical History type II diabetes Surgical History x 3 Hospitalization History surgeries
--- OUTSIDE RECORDS SUMMARY | 2018-01-02 06:13 | XMS REPORT ---
Author Author AMALIA DALY [facility] Address [address] [place] [address] Care Team Providers Care Dramatic Director Name Role Phone AMALIA DALY Unavailable PROBLEMS Type Condition ICD9-CM Code [id number] Code Onset Dates Condition Status SNOMED Code Problem Personal history of gestational diabetes V12.21 Active 188921743 Problem Screening for malignant neoplasm of the cervix V76.2 Active 485061052 Problem Maternal diabetes mellitus, complicating , childbirth, or the puerperium, unspecified as to episode of care 648.00 Active 86597946 Problem Unspecified breast screening V76.10 Active 846624660 Problem Unspecified symptom associated with female genital organs 625.9 Active 698848646 Problem Screening examination for venereal disease V74.5 Active 615175348 Problem Other specified symptom associated with female genital organs 625.8 Active 163480081 Problem Diabetes mellitus without mention of complication, type II or unspecified type, not stated as uncontrolled 250.00 Active 087808300 Problem Acute pharyngitis 462 Active 073697457 Problem Vaginal bleeding N93.9 Active 268840354 Problem Intermenstrual heavy bleeding N92.0 Active 676716108 Problem Unspecified high-risk V23.9 Active 81560549 Problem Routine follow-up V24.2 Active 478765624 Problem Unspecified contraceptive management V25.9 Active 048886675 Problem Routine gynecological examination Z01.419 Active 494742676 Problem Amenorrhea N91.2 Active 85759009 Problem Type 2 diabetes mellitus without complication E11.9 Active 61159750 Problem Pelvic fullness in female R19.00 Active 987344320 Problem Need for prophylactic vaccination and inoculation, Influenza V04.81 Active 124122766 Problem Insufficient care V23.7 Active 5580772758021 Problem Routine gynecological examination V72.31 Active 888943028986731 Problem DTAP TEST V06.1 Active Problem Previous delivery, unspecified as to episode of care or not applicable 654.20 Active 934855218 Problem Uterine size date discrepancy, unspecified as to episode of care or not applicable 649.60 Active 001123526 Problem Abdominal pain, right lower quadrant 789.03 Active 698293981 Problem Pain in joint, lower leg 719.46 Active 636222803 ALLERGIES No Known Allergies SOCIAL HISTORY Never Assessed PLAN OF CARE Activity Details Follow Up 3 Months Reason:DM VITAL SIGNS Height 61 in 2016-11-04 Weight 156 lbs 2016-11-04 Temperature 98.8 degrees Fahrenheit 2016-11-04 Heart Rate 74 bpm 2016-11-04 Respiratory Rate 16 2016-11-04 BMI 29.47 kg/m2 2016-11-04 Blood pressure systolic 102 mmHg 2016-11-04 Blood pressure diastolic 72 mmHg 2016-11-04 MEDICATIONS Medication Instructions Dosage Frequency Start Date End Date Duration Status Glucocard Expression Test - subcutaneously 2 times a day as directed h October, October, 90 days Active Actos 45 MG Orally Once a day 1 tablet 24h Jan, 90 days Active Metformin HCl 1000 MG Orally Twice a day 1 tablet with meals 12h Jan, Active GlipiZIDE 10 mg Orally twice a day 1 tablet 12h 90 days Active RESULTS No Results PROCEDURES Procedure Date Ordered Result Body Site GLYCATED HEMOGLOBIN TEST November 04, 2016 IMMUNIZATIONS No Known Immunizations MEDICAL (GENERAL) HISTORY Type Description Date Medical History type II diabetes Surgical History x 3 Hospitalization History surgeries
--- OUTSIDE RECORDS SUMMARY | 2018-01-02 06:14 | XMS REPORT ---
Author Author IRIS SARABIA Organization [facility] Address [address] [place] [address] Care Team Providers Care Hotel Operations Manager Name Role Phone IRIS SARABIA Unavailable PROBLEMS Type Condition ICD9-CM Code LNU01-ZN Code Onset Dates Condition Status SNOMED Code Problem Type 2 diabetes mellitus without complication, without long-term current use of insulin E11.9 Active 303627277 Problem Amenorrhea N91.2 Active 80672029 Problem Microcytic anemia D50.9 Active 960724899 Problem Type 2 diabetes mellitus without complication E11.9 Active 085673527 Problem Gastroesophageal reflux disease without esophagitis K21.9 Active 682400886 Problem Pelvic fullness in female R19.00 Active 688621642 Problem Routine gynecological examination Z01.419 Active 982560911 Problem Vaginal bleeding N93.9 Active 361562567 Problem Intermenstrual heavy bleeding N92.0 Active 300079418 ALLERGIES No Information ENCOUNTERS Encounter Location Date Diagnosis [facility] [address] [address] October, [place] [address] [address] 14 Jul, 2017 Type 2 diabetes mellitus without complication E11.9 [facility] [address] [place] [id number] [place] [address]- [address] Apr, Microcytic anemia D50.9 [place] [id number] [address] Apr, [place] [address] [address] Apr, Gastroesophageal reflux disease without esophagitis K21.9 ; Shortness of breath R06.02 ; Fatigue, unspecified type R53.83 and Type 2 diabetes mellitus without complication E11.9 [facility] [address] [address] Mar, [facility] [address] [place] [id number] [place] [address]247- 77[address] Mar, Reactive airway disease that is not asthma R09.89 and Type 2 diabetes mellitus without complication E11.9 [facility] [address] [place] [id number] [place] [address] 6[address]70- 2911 Feb, [facility] [address] [place] [id number] [place] [address]956- 4194 Feb, Type 2 diabetes mellitus without complication E11.9 and Reactive airway disease that is not asthma R09.89 [facility] [address] [place] [id number] [place] [address]14- 3806 Feb, Threatened O20.0 [facility] [address] [place] [id number] [place] [address]53- 5936 Feb, Threatened O20.0 [facility] [address] [place] [id number] [place] [address] 97788- 8268 Jan, Threatened O20.0 [facility] [address] [place] [id number] [place] [address] 22151- 4986 Jan, Threatened O20.0 [facility] [id number] [place] [address] -[address] Jan, Intermenstrual heavy bleeding N92.0 ; Positive test Z32.01 and Vaginal bleeding N93.9 [facility] [id number] [place] [address] 42468- 1228 October, [facility] [address] [place] [id number] [place] [address] 18243- 3283 October, [facility] [id number] [place] [address] 86282- 6376 October, Type 2 diabetes mellitus without complication E11.9 [facility] [address] [place] [id number] [place] [address] 37323- 9305 May, Type 2 diabetes mellitus without complication E11.9 [facility] [address] [place] [id number] [place] [address]86- 7451 Jan, [facility] [address] [place] [address] [id number] [place] [address] 95924- 8700 Jan, Routine gynecological examination Z01.419 ; Amenorrhea N91.2 and Pelvic fullness in female R19.00 [facility] [address] [place] [id number] [place] [address] 13469- 5474 Jan, [facility] [address] [place] [id number] [place] [address] 34584- 8280 Jan, Type 2 diabetes mellitus without complication E11.9 and Amenorrhea N91.2 [facility] [address] [place] [id number] [place] [address] 19425- 6718 Sep, Type 2 diabetes mellitus without complications E11.9 [facility] [address] [place] [id number] [place] [address] 52419- 6042 Jul, Type 2 diabetes mellitus without complication E11.9 [facility] [address] [place] [id number] [place] [address] 05660- 1105 May, Type 2 diabetes mellitus without complication E11.9 [facility] [address] [place] [id number] [place] [address] 17021- 1832 Mar, Type 2 diabetes mellitus without complication E11.9 [facility] [id number] [place] [address] [id number] Jan, Dental examination V72.2 [facility] [address] [place] [id number] [place] [address] [id number] Dec, Dental examination V72.2 [facility] [address] [place] [id number] [place] [address] 56900- 3167 Dec, Diabetes mellitus without mention of complication, type II or unspecified type, not stated as uncontrolled 250.00 [facility] [address] [place] [id number] [id number] Nov, Dental examination V72.2 [facility] [address] [place] [id number] [address] October, Contraceptive management V25.9 [facility] [address] [id number] [address] Sep, [facility] [address] [facility] [id number], [place] [address]- [address] Sep, [facility] [address] [facility] [id number] [place] [address]- 9179 Jul, [facility] [address] [facility] [id number] [place] [address], [place] [address]- [address]321 Jul, [facility] [address] [place] [id number] [address] Apr, [facility] [address] [place] [id number], [place] [address]- 8899 Apr, [facility] [address] [id number], [place] [address]- [address] Mar, [facility] [address] [id number], [place] [address]- 1345 Mar, [facility] [address] [id number], [place] [address]- 7520 Mar, [facility] [address] [facility] [id number] [address] Mar, [facility] [place] [facility] [address] [facility] [id number] [address] Jan, [facility] [place] [facility] [address] [facility] [id number] [id number] [address] Jan, [facility] [place] [facility] [address] [facility] [id number], [place] [address]- 2291 Nov, [facility] [place] [facility] [address] [facility] [id number], [place] [address]- 5838 October, [facility] [place] [facility] [address] [id number] [place] [address]- 0238 October, [facility] [place] [facility] [address] [id number] [place] [address]- 5588 October, [facility] [place] [facility] [address] [id number] [place] [address]- 3040 October, [facility] [place] [facility] [address] [id number] [place] [address]- 4966 October, [facility] [place] [facility] [address] [id number] [place] [address]- 7607 Sep, [facility] [place] [facility] [address] [id number] [place] [address]- 9560 Sep, [facility] [place] [facility] [address] [id number] [place] [address]- 0248 Aug, [facility] [place] [facility] [address] [id number] [place] [address]- 9883 Aug, [facility] [place] [facility] [address] [id number] [place] [address]- 0013 Jun, [facility] [place] [facility] [address] [id number] [place] [address]- 9019 Jun, [facility] [place] [facility] [address] [id number] [place] [address]- 0470 Jun, [facility] [place] [facility] [address] [id number] [place] [address]- 1792 Jun, [facility] [place] [facility] [address] [id number] [place] [address]- 9138 Apr, [facility] [place] [facility] [address] [id number] [place] [address]- 6485 Apr, [facility] [place] [facility] [address] [id number] [place] [address]- 9978 Apr, [facility] [place] [facility] [address] [id number] [place] [address] 2541 30 Sep, 2012 [facility] [address] [id number] [place] [address] 2546 18 Sep, 2012 [facility] [address] [id number] [place] [address] 2546 10 Sep, 2012 [facility] [address] [id number] [place] [address] 2546 09 Sep, 2012 [facility] [address] [id number] [place] [address] 2546 09 Sep, 2012 [facility] [address] [id number] [place] [address]- 5955 07 Sep, 2012 [facility] [address] [id number] [place] [address]- 2542 06 Feb, 2012 [facility] [address] [id number] [place] [address] 254 05 Feb, 2012 [facility] [address] [id number] [place] [address]- 2541 03 Feb, 2012 [facility] [address] [id number] [place] [address]- 2545 27 Jul, 2012 [facility] [address] [id number] [place] [address]- 5876 19 Jul, 2012 [facility] [address] [id number] [place] [address] 2546 15 Jul, 2012 [facility] [address] [id number] [place] [address]- 2542 14 Jul, 2012 [facility] [place] [facility] [address] [id number] [place] [address] 2546 04 Jul, 2012 [facility] [place] [facility] [address] [id number] [place] [address]- 2546 17 Jun, 2012 [facility] [place] [facility] [address] [id number] [place] [address]- 6153 May, [facility] [place] [facility] [address] [id number] [place] [address]- 7418 May, [facility] [place] [facility] [address] [id number] [place] [address]- 1088 Apr, [facility] [place] [facility] [address] [id number] [place] [address] Apr, [facility] [place] [facility] [address] [id number] [place] [address]- 4758 Apr, [facility] [place] [facility] [address] [id number] [place] [address]- 4539 Apr, [facility] [place] [facility] [address] [id number] [place] [address]- 2233 Apr, [facility] [place] [facility] [address] [id number] [place] [address]- 4104 Apr, [facility] [place] [facility] [address] [id number], [place] [address]- 7765 Mar, [facility] [place] [facility] [address] [id number] [place] [address]- 1053 Mar, [facility] [place] [facility] [address] [id number], [place] [address]- 1001 Mar, [facility] [place] [facility] [address] [id number], [place] [address]- 4486 Mar, [facility] [place] [facility] [address] [id number], [place] [address]- 3005 Mar, [facility] [place] [facility] [address] [id number] [place] [address]- 1355 Mar, [facility] [place] [facility] [address] [id number], [place] [address]- 7952 Mar, [facility] [place] [facility] [address] [facility] [id number], [place] [address]- 4275 Mar, [facility] [place] [facility] [address] [place] [id number], [place] [address]- 0794 28 Feb, 2012 [facility] [address], [place] [address]- 8953 27 Feb, 2012 [facility] [address], [place] [address]- 0961 25 Feb, 2012 [facility] [address], [place] [address]- 4358 20 Feb, 2012 [facility] [id number] [place] [address] 17648- 6758 19 Feb, 2012 [facility] [id number] [place] [address] 64436- 4641 18 Feb, 2012 [facility] [address], [place] [address]- 0882 17 Feb, 2012 [facility] [address], [place] [address]- 5875 04 Feb, 2012 [facility] [address], [place] [address]- 2754 11 Sep, 2010 IMMUNIZATIONS No Known Immunizations SOCIAL HISTORY Never Assessed REASON FOR VISIT lab PLAN OF CARE VITAL SIGNS MEDICATIONS Unknown Medications RESULTS No Results PROCEDURES No Known procedures INSTRUCTIONS MEDICATIONS ADMINISTERED No Known Medications MEDICAL (GENERAL) HISTORY Type Description Date Medical History type II diabetes Surgical History x 3 Hospitalization History surgeries
--- OUTSIDE RECORDS SUMMARY | 2018-01-02 06:16 | XMS REPORT ---
Author Author AMALIA DALY [facility] Address [address] [place] [address] Care Team Providers Care Front Edger Name Role Phone AMALIA DALY Unavailable PROBLEMS Type Condition ICD9-CM Code QCZ92-DH Code Onset Dates Condition Status SNOMED Code Problem Type 2 diabetes mellitus without complication, without long-term current use of insulin E11.9 Active 184376452 Problem Amenorrhea N91.2 Active 03160290 Problem Microcytic anemia D50.9 Active 536198040 Problem Type 2 diabetes mellitus without complication E11.9 Active 955397956 Problem Gastroesophageal reflux disease without esophagitis K21.9 Active 637440536 Problem Pelvic fullness in female R19.00 Active 340601970 Problem Routine gynecological examination Z01.419 Active 127949317 Problem Vaginal bleeding N93.9 Active 426075374 Problem Intermenstrual heavy bleeding N92.0 Active 055048984 ALLERGIES No Known Allergies ENCOUNTERS Encounter Location Date Diagnosis [place] [id number] [place] [address] 99958- 1384 October, Encounter for test Z32.00 [place] [id number] [place] [address] 18330- 7246 October, Type 2 diabetes mellitus without complication, without long- term current use of insulin E11.9 [place] [id number] [place] [address] 98499- 9591 Jul, Type 2 diabetes mellitus without complication E11.9 [place] [id number] [place] [address] 33972- 7290 Apr, Microcytic anemia D50.9 [place] [id number] [place] [address] 54461- 4125 Apr, [place] [facility] [id number] [place] [address] 11845- 8266 Apr, Gastroesophageal reflux disease without esophagitis K21.9 ; Shortness of breath R06.02 ; Fatigue, unspecified type R53.83 and Type 2 diabetes mellitus without complication E11.9 [facility] [place] [id number] [place] [address] 79222- 5590 Mar, [facility] [place] [address] [address]- [address]11 Mar, Reactive airway disease that is not asthma R09.89 and Type 2 diabetes mellitus without complication E11.9 [place] [id number] [place] [address] 43069- 7228 Feb, [facility] [place] [id number] [place] [address] 28499- 5902 Feb, Type 2 diabetes mellitus without complication E11.9 and Reactive airway disease that is not asthma R09.89 [facility] [place] [id number] [place] [address] 57003- 9066 Feb, Threatened O20.0 [place] [id number] [place] [address] 17803- 5595 Feb, Threatened O20.0 [facility] [place] [id number] [place] [address] 23290- 7612 Jan, Threatened O20.0 [facility] [place] [id number] [place] [address] 47602- 5393 Jan, Threatened O20.0 [facility] [id number] [place] [address] 23459 -8881 Jan, Intermenstrual heavy bleeding N92.0 ; Positive test Z32.01 and Vaginal bleeding N93.9 [facility] [place] [id number] [place] [address] 84887- 0960 October, [facility] [place] [id number] [place] [address] 84061- 1857 October, [facility] [place] [address] [address] 7267 October, Type 2 diabetes mellitus without complication E11.9 [facility] [place] [address] 2168 May, Type 2 diabetes mellitus without complication E11.9 [facility] [place] [id number] [place] [address] 61358- 4031 Jan, [facility] [place] [id number] [place] [address] 50540- 9886 Jan, Routine gynecological examination Z01.419 ; Amenorrhea N91.2 and Pelvic fullness in female R19.00 [facility] [place] [id number] [place] [address] 60738- 1007 Jan, [facility] [place] [id number] [place] [address] 79400- 9233 Jan, Type 2 diabetes mellitus without complication E11.9 and Amenorrhea N91.2 [facility] [place] [address] [place] [address]- 0718 Sep, Type 2 diabetes mellitus without complications E11.9 [facility] [place] [address] [place] [address]- 2615 Jul, Type 2 diabetes mellitus without complication E11.9 [facility] [place] [address] [place] [address]- 2113 May, Type 2 diabetes mellitus without complication E11.9 [facility] [place] [address] [place] [address]- 2415 Mar, Type 2 diabetes mellitus without complication E11.9 [facility] [address] [place] [id number] Jan, Dental examination V72.2 [facility] [address] [id number] [id number] Dec, Dental examination V72.2 [facility] [place] [address] [place] [address]- 0669 Dec, Diabetes mellitus without mention of complication, type II or unspecified type, not stated as uncontrolled 250.00 [facility] [id number] [id number] Nov, Dental examination V72.2 [facility] [place] [address] [place] [address] 89688- 0914 October, Contraceptive management V25.9 [facility] [place] [address] [address]- 5783 Sep, [facility] [place] [id number] [place] [address] 77696- 5292 Sep, [facility] [place] [id number] [place] [address] 23454- 6264 Jul, [facility] [place] [id number] [place] [address] 25905- 8656 Jul, [facility] [place] [address] [place] [address]- 6067 Apr, [facility] [place] [address] [place] [address]- 4463 Apr, [facility] [place] [address] [place] [address]- 1491 Mar, [facility] [place] [address], [place] [address]- 2388 Mar, [facility] [place] [address]- 1384 Mar, [facility] [place] [id number] [place] [address] [id number]- 7282 Mar, [facility] [place] [address] 0582 Jan, [facility] [place] [id number] [place] [address] 84896- 9842 Jan, [facility] [place] [facility] [address] [id number] [place] [address]- [address] Nov, [facility] [place] [facility] [address] [id number] [place] [address]- 8876 October, [facility] [place] [facility] [address] [id number] [place] [address]- 6614 October, [facility] [place] [facility] [address] [id number] [place] [address]- 0414 October, [facility] [place] [facility] [address] [id number] [place] [address]- 8957 October, [facility] [place] [facility] [address] [id number] [place] [address]- 3264 October, [facility] [place] [facility] [address] [id number] [place] [address]- 4743 Sep, [facility] [place] [facility] [address] [id number] [place] [address]- 3080 Sep, [facility] [place] [facility] [address] [id number] [place] [address]- 7622 Aug, [facility] [place] [facility] [address] [id number] [place] [address]- 2342 Aug, [facility] [place] [facility] [address] [id number] [place] [address]- 9341 Jun, [facility] [place] [facility] [address] [id number], [place] [address]- 3692 Jun, [facility] [place] [facility] [address] [id number] [place] [address]- 1578 Jun, [facility] [place] [facility] [address] [id number] [place] [address]- 1957 Jun, [facility] [place] [facility] [address] [id number] [place] [address]- 4420 Apr, [facility] [place] [facility] [address] [id number] [place] [address]- 8540 20 Apr, 2012 [facility] [address] [id number] [place] [address]- 7756 19 Apr, 2012 [facility] [place] [facility] [address] [id number] [place] [address] 2546 30 Sep, 2012 [facility] [place] [facility] [address] [id number] [place] [address] 2544 18 Sep, 2012 [facility] [place] [facility] [address] [id number] [place] [address] 254 10 Sep, 2012 [facility] [place] [facility] [address] [id number] [place] [address]- 1796 09 Sep, 2012 [facility] [place] [facility] [address] [facility] [id number] [place] [address]- 2546 09 Sep, 2012 [facility] [place] [facility] [address] [facility] [id number] [place] [address] 2545 07 Sep, 2012 [facility] [place] [facility] [address] [id number] [place] [address]- 254 06 Sep, 2012 [facility] [place] [facility] [address] [facility] [id number] [place] [address] 2545 05 Sep, 2012 [facility] [place] [facility] [address] [facility] [id number] [place] [address]- 2547 03 Feb, 2012 [facility] [place] [facility] [address] [id number] [place] [address] 2546 27 Jul, 2012 [facility] [place] [facility] [address] [id number] [place] [address]- 254 19 Jul, 2012 [facility] [place] [facility] [address] [id number] [place] [address]- 0078 15 Jul, 2012 [facility] [place] [facility] [address] [facility] [id number] [place] [address]- 2546 14 Jul, 2012 [facility] [place] [facility] [address] [facility] [id number] [place] [address]- 2197 Jul, [facility] [place] [facility] [address] [id number] [place] [address]- 5850 Jun, [facility] [place] [facility] [address] [id number] [place] [address]- 9995 May, [facility] [place] [facility] [address] [id number] [place] 5798 May, [facility] [place] [facility] [address] [id number] [place] [address]- 0020 Apr, [facility] [place] [facility] [address] [id number] [place] [address]- 3900 Apr, [facility] [place] [facility] [address] [id number] [place] [address]- 7863 Apr, [facility] [place] [facility] [address] [id number] [place] [address]- 0789 Apr, [facility] [place] [facility] [address] [id number] [place] [address]- 3957 Apr, [facility] [place] [facility] [address] [id number] [place] [address]- 5215 Apr, [facility] [place] [facility] [address] [id number], [place] [address]- 4916 Mar, [facility] [place] [facility] [address] [id number], [place] [address]- 8358 Mar, [facility] [place] [facility] [address] [id number], [place] [address]- 0894 Mar, [facility] [place] [facility] [address] [id number] [place] [address]- 9788 Mar, [facility] [place] [facility] [address] [id number], [place] [address]- 0088 Mar, [facility] [place] [facility] [address] [id number] [place] [address]- 8200 Mar, [facility] [place] [facility] [address], [place] [address]- 4297 09 Mar, 2012 [facility] [place] [address], [place] [address]- 1179 Mar, [facility] [place] [address], [place] [address]- 8467 28 Feb, 2011 [facility] [place] [id number] [place] [address] 74313- 1392 27 Feb, 2011 [facility] [place] [id number] [place] [address] 09775- 4127 25 Feb, 2011 [facility] [place] [id number] [place] [address] 51748- 6729 20 Feb, 2011 [facility] [place] [id number] [place] [address] 80027- 0065 19 Feb, 2012 [facility] [place] [id number] [place] [address] 50654- 7337 18 Feb, 2012 [facility] [place] [id number] [place] [address] 52117- 9225 17 Feb, 2012 [facility] [place] [id number] [place] [address] 16482- 1379 04 Feb, 2012 [facility] [place] [address], [place] [address]- 4138 Sep, IMMUNIZATIONS No Known Immunizations SOCIAL HISTORY Never Assessed REASON FOR VISIT Diabetes--Tien Grayson MA PLAN OF CARE Activity Details Follow Up prn Reason: VITAL SIGNS Height 61 in 2017-05-03 Weight 160.1 lbs 2017-05-03 Temperature 98.6 degrees Fahrenheit 2017-05-03 Heart Rate 78 bpm 2017-05-03 Respiratory Rate 20 2017-05-03 BMI 30.25 kg/m2 2017-05-03 Blood pressure systolic 114 mmHg 2017-05-03 Blood pressure diastolic 80 mmHg 2017-05-03 MEDICATIONS Medication Instructions Dosage Frequency Start Date End Date Duration Status Glucocard Expression Test - subcutaneously 2 times a day as directed 12h October, October, 90 days Active Amoxicillin 875 MG Orally every 12 hrs 1 tablet 12h Jan, Unknown Diflucan 150 MG Orally Once a day 1 tablet 24h Jan, 1 dose Unknown Actos 45 MG Orally Once a day 1 tablet 24h Jan, 90 days Active Ranitidine HCl 150 MG Orally Twice a day 1 capsule at bedtime 12h Apr, 30 day(s) Active Claritin 10 mg Orally Once a day in AM 1 tablet Feb, 30 day(s ) Not-Taking Singulair 10 mg Orally Once a day 1 tablet in the evening 24h Feb, 30 day(s) Not-Taking Metformin HCl 1000 MG Orally Twice a day 1 tablet with meals 12h Jan, Active GlipiZIDE 10 mg Orally twice a day 2 tablet in AM and 1 tablet in PM 12h 90 days Active RESULTS No Results PROCEDURES Procedure Date Ordered Result Body Site COMPLETE CBC W/AUTO DIFF WBC May 03, 2017 ASSAY THYROID STIM HORMONE May 03, 2017 VENIPUNCT, ROUTINE* May 03, 2017 INSTRUCTIONS MEDICATIONS ADMINISTERED No Known Medications MEDICAL (GENERAL) HISTORY Type Description Date Medical History type II diabetes Surgical History x 3 Hospitalization History surgeries
--- OUTSIDE RECORDS SUMMARY | 2018-01-02 06:18 | XMS REPORT ---
Author Author AMALIA DALY Organization [facility] Address [address] [place] [address] Care Team Providers Care Healthcare Customer Service Name Role Phone AMALIA DALY Unavailable PROBLEMS Type Condition ICD9-CM Code [id number] Code Onset Dates Condition Status SNOMED Code Problem Type 2 diabetes mellitus without complication, without long-term current use of insulin E11.9 Active 687840662 Problem Amenorrhea N91.2 Active 06682245 Problem Microcytic anemia D50.9 Active 458096238 Problem Type 2 diabetes mellitus without complication E11.9 Active 100901516 Problem Gastroesophageal reflux disease without esophagitis K21.9 Active 775290897 Problem Pelvic fullness in female R19.00 Active 713066718 Problem Routine gynecological examination Z01.419 Active 177262295 Problem Vaginal bleeding N93.9 Active 385298024 Problem Intermenstrual heavy bleeding N92.0 Active 957958373 ALLERGIES No Information ENCOUNTERS Encounter Location Date Diagnosis [place] [id number] [place] [address]459- 2246 October, [place] [address] [place] [id number] [place] [address] 11613- 1230 14 Jul, 2017 Type 2 diabetes mellitus without complication E11.9 [place] [address] [place] [address] [id number] [place] [address] 72902- 4313 Apr, Microcytic anemia D50.9 [place] [address] [place] [address] [id number] [place] [address] 71465- 2907 Apr, [place] [address] [place] [address] [id number] [place] [address] 21570- 3791 Apr, Gastroesophageal reflux disease without esophagitis K21.9 ; Shortness of breath R06.02 ; Fatigue, unspecified type R53.83 and Type 2 diabetes mellitus without complication E11.9 [facility] [address] [address] Mar, [facility] [id number] [place] [address] 50820- 4214 Mar, Reactive airway disease that is not asthma R09.89 and Type 2 diabetes mellitus without complication E11.9 [facility] [id number] [place] [address] 32144- 0485 Feb, [facility] [id number] [place] [address] 20346- 1259 Feb, Type 2 diabetes mellitus without complication E11.9 and Reactive airway disease that is not asthma R09.89 [facility] [address] [address] 6[address] Feb, Threatened O20.0 [facility] [id number] [place] [address] 92931- 1522 Feb, Threatened O20.0 [facility] [id number] [place] [address] 35838- 7516 Jan, Threatened O20.0 [facility] [id number] [place] [address] 22368- 6936 Jan, Threatened O20.0 [facility] [address] [address] Jan, Intermenstrual heavy bleeding N92.0 ; Positive test Z32.01 and Vaginal bleeding N93.9 [facility] [address] [address] 7[address] October, [facility] [address] [id number] [place] [address] 80120- 8020 October, [facility] [address] [address] 8[address] October, Type 2 diabetes mellitus without complication E11.9 [facility] [id number] [address] 9000 May, Type 2 diabetes mellitus without complication E11.9 [facility] [id number] [place] [address] 97806- 4958 Jan, [facility] [address] [address] 7[address] Jan, Routine gynecological examination Z01.419 ; Amenorrhea N91.2 and Pelvic fullness in female R19.00 [facility] [id number] [place] [address] 57107- 1782 Jan, [facility] [address] [id number] [place] [address] 47772- 0684 Jan, Type 2 diabetes mellitus without complication E11.9 and Amenorrhea N91.2 [facility] [address] [place] [id number] [place] [address] 26944- 5225 Sep, Type 2 diabetes mellitus without complications E11.9 [facility] [address] [address] 9[address] Jul, Type 2 diabetes mellitus without complication E11.9 [facility] [id number] [place] [address] 27620- 6698 May, Type 2 diabetes mellitus without complication E11.9 [facility] [address] [address] 1883 Mar, Type 2 diabetes mellitus without complication E11.9 [facility] [address] [id number] Jan, Dental examination V72.2 [facility] [id number] [place] [address] [id number] Dec, Dental examination V72.2 [facility] [address] [address] 8213 Dec, Diabetes mellitus without mention of complication, type II or unspecified type, not stated as uncontrolled 250.00 [facility] [id number] [id number] Nov, Dental examination V72.2 [facility] [id number] [place] [address] 07925- 2013 October, Contraceptive management V25.9 [facility] [address] [facility] [id number] [address] 8[address] Sep, [facility] [address] [facility] [id number] [place] [address] 39334- 6443 Sep, [facility] [address] [facility] [id number], [place] [address] 9[address] Jul, [facility] [address] [facility] [id number] [place] [address] 84457- 0999 Jul, [facility] [id number] [address] 5787 Apr, [facility] [id number] [address] 4226 Apr, [facility] [id number] [address] 9742 Mar, [facility] [id number] [address] 5210 Mar, [facility] [id number] [address] 6[address] Mar, [facility] [place] [facility] [id number] 6568 Mar, [facility] [place] [facility] [address] [facility] [id number], [place] [address] 8807 Jan, [facility] [place] [facility] [address] [facility] [id number] [address] Jan, [facility] [place] [facility] [address] [facility] [id number], [place] [address]- 6287 Nov, [facility] [place] [facility] [address] [facility] [id number] [address] October, [facility] [place] [facility] [address] [id number] [place] [address]- 1074 October, [facility] [place] [facility] [address] [id number] [place] [address] October, [facility] [place] [facility] [address] [id number] [place] [address]- 3629 October, [facility] [place] [facility] [address] [id number] [place] [address]- 8802 October, [facility] [place] [facility] [address] [id number] [place] [address]- 1850 Sep, [facility] [place] [facility] [address] [id number] [place] [address]- 7215 Sep, [facility] [place] [facility] [address] [id number] [place] [address]- 5976 Aug, [facility] [place] [facility] [address] [id number] [place] [address]- 0242 Aug, [facility] [place] [facility] [address] [id number] [place] [address]- 7604 Jun, [facility] [place] [facility] [address] [id number] [place] [address]- 5687 Jun, [facility] [place] [facility] [address] [id number] [place] [address]- 5628 Jun, [facility] [place] [facility] [address] [id number] [place] [address]- 4048 Jun, [facility] [place] [facility] [address] [id number] [place] [address]- 8675 Apr, [facility] [place] [facility] [address] [id number] [place] [address]- 1125 Apr, [facility] [place] [facility] [address] [id number] [place] [address]- 3365 Apr, [facility] [place] [facility] [address] [id number] [place] [address]- 0856 30 Sep, 2012 [facility] [address] [id number] [place] [address]- 5339 18 Sep, 2012 [facility] [place] [facility] [address] [id number] [place] [address]- 2546 10 Sep, 2012 [facility] [place] [facility] [address] [id number] [place] [address] 2546 09 Sep, 2012 [facility] [place] [facility] [address] [id number] [place] [address]- 2544 09 Sep, 2012 [facility] [place] [facility] [address] [id number] [place] [address]- 0262 07 Sep, 2012 [facility] [place] [facility] [address] [id number] [place] [address]- 8329 06 Sep, 2012 [facility] [place] [facility] [address] [id number] [place] [address]- 1420 05 Feb, 2012 [facility] [address] [id number] [place] [address]- 6249 03 Feb, 2012 [facility] [place] [facility] [address] [id number] [place] [address]- 2794 27 Jul, 2012 [facility] [address] [id number] [place] [address]- 8089 19 Jul, 2012 [facility] [place] [facility] [address] [id number] [place] [address]- 5604 15 Jul, 2012 [facility] [place] [facility] [address] [id number] [place] [address]- 2547 14 Jul, 2012 [facility] [place] [facility] [address] [id number] [place] [address]- 7797 04 Jul, 2012 [facility] [place] [facility] [address] [id number] [place] [address]- 0109 17 Jun, 2012 [facility] [place] [facility] [address] [id number] [address]- 1786 May, [facility] [place] [facility] [address] [id number] [place] [address] May, [facility] [place] [facility] [address] [id number] [place] [address]- 6462 Apr, [facility] [place] [facility] [address] [id number] [place] [address]- 2698 Apr, [facility] [place] [facility] [address] [id number] [place] [address]- 5580 Apr, [facility] [place] [facility] [address] [id number] [place] [address]- 9599 Apr, [facility] [place] [facility] [address] [id number] [place] [address]- 2085 Apr, [facility] [place] [facility] [address] [id number] [place] [address]- 7197 Apr, [facility] [place] [facility] [address] [id number], [place] [address]- 0634 Mar, [facility] [place] [facility] [address] [id number] [place] [address]- 9660 Mar, [facility] [place] [facility] [address] [id number] [place] [address]- 2464 Mar, [facility] [place] [facility] [address] [id number], [place] [address]- 9568 Mar, [facility] [place] [facility] [address] [id number], [place] [address]- 6513 Mar, [facility] [place] [facility] [address] [id number] [place] 2940 Mar, [facility] [place] [facility] [address] [facility] [id number][place] [address]- 6311 Mar, [facility] [place] [facility] [address] [facility] [id number], [place] [address]- 2516 Mar, [facility] [place] [facility] [address], [place] [address]- 7191 28 Feb, 2012 [facility] [address], [place] [address]- 8718 27 Feb, 2012 [facility] [address], [place] [address]- 6482 25 Feb, 2012 [facility] [address], [place] [address]- 6495 20 Feb, 2012 [facility] [address] [place] [address] 89226- 2721 19 Feb, 2012 [facility] [address] [place] [address] 40146- 8291 18 Feb, 2012 [facility] [address], [place] [address]- 1941 17 Feb, 2012 [facility] [address], [place] [address]- 4540 04 Feb, 2012 [facility] [address], [place] [address]- 7691 11 Sep, 2010 IMMUNIZATIONS No Known Immunizations SOCIAL HISTORY Never Assessed REASON FOR VISIT Diabetes PLAN OF CARE VITAL SIGNS MEDICATIONS Unknown Medications RESULTS No Results PROCEDURES No Known procedures INSTRUCTIONS MEDICATIONS ADMINISTERED No Known Medications MEDICAL (GENERAL) HISTORY Type Description Date Medical History type II diabetes Surgical History x 3 Hospitalization History surgeries
--- OUTSIDE RECORDS SUMMARY | 2018-01-02 06:19 | XMS REPORT ---
Author Author AMALIA DALY [facility] eClinicalWorks Address Unknown Phone Unavailable Care Team Providers Care Light Rail Vehicle Operator Name Role Phone AMALIA DALY CP Unavailable [...] Date End Date Status Dosage Metformin HCl [facility] [address]-55 1000 MG Orally Twice a day 1 tablet with meals GlipiZIDE [facility] [id number] 10 MG Orally Once a day in AM and 1 in PM 2 tablet Procedures Procedure Coding System Code Date Office Visit, Est Pt., Level 3 CPT-4 60745 May 23, 2015 GLYCATED HEMOGLOBIN TEST CPT-4 48279 May 23, 2015 Vital Signs Date/Time: May 23, 2015 Temperature 97.7 F Weight 147 lbs Height 61 in BMI 27.77 Index Blood Pressure Diastolic 86 mmHg Blood Pressure Systolic 118 mmHg Cardiac Monitoring Heart Rate 80 bpm Results Name Result Date Reference Range Unit Abnormality Flag A1C (IN HOUSE) ----A1C IN HOUSE 10.8 [id number] 4.30 - 5.6 % ----Previous A1c 13.1 [id number] ----Lot # [id number] ----Exp date [id number] Summary Purpose eClinicalWorks Submission
--- OUTSIDE RECORDS SUMMARY | 2018-01-02 06:21 | XMS REPORT ---
Author Author AMALIA DALY [facility] Address [address] [place] [address] Care Team Providers Care Product Promoter Sales Person Name Role Phone AMALIA DALY Unavailable PROBLEMS Type Condition ICD9-CM Code [id number] Code Onset Dates Condition Status SNOMED Code Assessment Type 2 diabetes mellitus without complication E11.9 May, Active 69925233 Problem Routine follow-up V24.2 Active 207324111 Problem Need for prophylactic vaccination and inoculation, Influenza V04.81 Active 017947464 Problem Unspecified contraceptive management V25.9 Active 999044129 Problem DTAP TEST V06.1 Active Problem Routine gynecological examination V72.31 Active [id number] Problem Acute pharyngitis 462 Active 094486144 Problem Unspecified breast screening V76.10 Active 250188576 Problem Type 2 diabetes mellitus without complication E11.9 Active 91258450 Problem Routine gynecological examination Z01.419 Active 982421981 Problem Screening for malignant neoplasm of the cervix V76.2 Active 617115966 Problem Unspecified symptom associated with female genital organs 625.9 Active 105303913 Problem Abdominal pain, right lower quadrant 789.03 Active 428610478 Problem Screening examination for venereal disease V74.5 Active 170471892 Problem Insufficient care V23.7 Active 3540751857411 Problem Amenorrhea N91.2 Active 08437890 Problem Pelvic fullness in female R19.00 Active Problem Maternal diabetes mellitus, complicating , childbirth, or the puerperium, unspecified as to episode of care 648.00 Active 55622804 Problem Unspecified high-risk V23.9 Active 12419906 Problem Other specified symptom associated with female genital organs 625.8 Active Problem Pain in joint, lower leg 719.46 Active 833260952 Problem Personal history of gestational diabetes V12.21 Active 312152027 Problem Diabetes mellitus without mention of complication, type II or unspecified type, not stated as uncontrolled 250.00 Active 483691929 Problem Uterine size date discrepancy, unspecified as to episode of care or not applicable 649.60 Active 105147529 Problem Previous delivery, unspecified as to episode of care or not applicable 654.20 Active 348268654 ALLERGIES Substance Reaction Event Type Date Status N.K.D.A. Unknown Non Drug Allergy May, Unknown SOCIAL HISTORY No smoking Hx information available PLAN OF CARE VITAL SIGNS Height 61 in 2016-05-21 Weight 156.9 lbs 2016-05-21 Heart Rate 76 bpm 2016-05-21 Respiratory Rate 18 2016-05-21 BMI 29.64 kg/m2 2016-05-21 Blood pressure systolic 118 mmHg 2016-05-21 Blood pressure diastolic 82 mmHg 2016-05-21 MEDICATIONS Medication Instructions Dosage Frequency Start Date End Date Duration Status Metformin HCl 1000 MG Orally Twice a day 1 tablet with meals 12h Jan, Active Actos 30 MG Orally Once a day 1 tablet 24h Jan, Active GlipiZIDE 10 mg Orally Once a day 1 tablet 24h Active RESULTS Name Result Date Reference Range A1C (IN HOUSE) 2016-05-21 A1C IN HOUSE 8.8 4.3 - 5.6 % Previous A1c 10.8 Lot [id number] Exp date 02/2018 MICROALBUMIN, URINE (IN HOUSE) 2016-05-21 MICROALBUMIN ABNORMAL Lot # [id number] Exp date 01/2017 Clarity clear Color yellow ALB 80mg/L CRE 300mg/dL A:C (IN HOUSE) 300mg/g Control normal Control Lot # Exp date PROCEDURES Procedure Date Ordered Related Diagnosis Body Site GLYCATED HEMOGLOBIN TEST May 21, 2016 MICROALBUMIN, SEMIQUANT May 21, 2016 Office Visit, Est Pt., Level 3 May 21, 2016 IMMUNIZATIONS No Known Immunizations
--- OUTSIDE RECORDS SUMMARY | 2018-01-02 06:22 | XMS REPORT ---
Author DEEP Layton [facility] eClinicalWorks Address Unknown Phone Unavailable Care Team Providers Care Public Welfare Director Name Role Phone DEEP EDEN CP Unavailable Allergies No Known Allergies Problems Problem Type Condition ICD-9 Code Onset Dates Condition Status Problem Previous delivery, unspecified as to episode of care or not applicable 654.20 Active Problem Diabetes mellitus without mention of complication, type II or unspecified type, not stated as uncontrolled 250.00 Active Problem Personal history of gestational diabetes V12.21 Active Problem Insufficient care V23.7 Active Assessment Dental examination V72.2 Active Problem Acute pharyngitis 462 Active Problem [...] care or not applicable 649.60 Active Medications No Known Medications Procedures Procedure Coding System Code Date INTRAORL-PERIAPICAL EA ADD FILM CPT-4 D0230 January 11, 2015 INTRAORL-PERIAPICAL EA ADD FILM CPT-4 D0230 January 11, 2015 INTRAORL-PERIAPICAL 1 FILM 52806 CPT-4 D0220 January 11, 2015 PANORAMIC FILM SEE ALSO CODE 14328 CPT-4 D0330 January 11, 2015 BITEWINGS - FOUR FILMS CPT-4 D0274 January 11, 2015 Results No Known Results Summary Purpose eClinicalWorks Submission
--- OUTSIDE RECORDS SUMMARY | 2018-01-02 06:23 | XMS REPORT ---
Author Author RUSTAM AMBRIZ [facility] eClinicalWorks Address Unknown Phone Unavailable Care Team Providers Care Data Processing Auditor Name Role Phone RUSTAM AMBRIZ CP Unavailable Allergies No Known Allergies Problems [...] Medications Procedures Procedure Coding System Code Date PRDONTAL SCAL&ROOT PLAN 1-3 TEETH CPT-4 D4342 Jan 31, 2015 PRDONTAL SCAL&ROOT PLAN 1-3 TEETH CPT-4 D4342 Jan 31, 2015 Results No Known Results Summary Purpose eClinicalWorks Submission
--- OUTSIDE RECORDS SUMMARY | 2018-01-02 06:23 | XMS REPORT ---
Author Author IRIS SARABIA Organization [facility] Address [address] [place] [address] Care Team Providers Care Ip Paralegal Name Role Phone IRIS SARABIA Unavailable PROBLEMS Type Condition ICD9-CM Code RSJ36-AB Code Onset Dates Condition Status SNOMED Code Problem Type 2 diabetes mellitus without complication, without long-term current use of insulin E11.9 Active 347521634 Problem Amenorrhea N91.2 Active 19578212 Problem Microcytic anemia D50.9 Active 017723526 Problem Type 2 diabetes mellitus without complication E11.9 Active 475429247 Problem Gastroesophageal reflux disease without esophagitis K21.9 Active 977064434 Problem Pelvic fullness in female R19.00 Active 426474691 Problem Routine gynecological examination Z01.419 Active 508629251 Problem Vaginal bleeding N93.9 Active 516302757 Problem Intermenstrual heavy bleeding N92.0 Active 622744724 ALLERGIES No Information ENCOUNTERS Encounter Location Date Diagnosis [facility] [id number] [place] [address]- [address]49 October, [place] [address] [address] 14 Jul, 2017 Type 2 diabetes mellitus without complication E11.9 [facility] [id number] [place] [address] 09775- 3166 Apr, Microcytic anemia D50.9 [place] [address] [address]- [address] Apr, [place] [address] [address]- [address]59 Apr, Gastroesophageal reflux disease without esophagitis K21.9 ; Shortness of breath R06.02 ; Fatigue, unspecified type R53.83 and Type 2 diabetes mellitus without complication E11.9 [facility] [address] [address] Mar, [facility] [id number] [place] [address] 24288- 7798 Mar, Reactive airway disease that is not asthma R09.89 and Type 2 diabetes mellitus without complication E11.9 [facility] [id number] [place] [address] 80053- 6273 Feb, [facility] [id number] [place] [address] 65754- 7160 Feb, Type 2 diabetes mellitus without complication E11.9 and Reactive airway disease that is not asthma R09.89 [facility] [id number] [place] [address] 96600- 8071 Feb, Threatened O20.0 [facility] [id number] [place] [address] 65008- 1136 Feb, Threatened O20.0 [facility] [id number] [place] [address] 96624- 6720 Jan, Threatened O20.0 [facility] [id number] [place] [address] 55563- 2846 Jan, Threatened O20.0 [facility] [id number] [place] [address]25 -1405 Jan, Intermenstrual heavy bleeding N92.0 ; Positive test Z32.01 and Vaginal bleeding N93.9 [facility] [id number] [place] [address] 75366- 9965 October, [facility] [id number] [place] [address] 98406- 5026 October, [facility] [id number] [place] [address] 90130- 9998 October, Type 2 diabetes mellitus without complication E11.9 [facility] [id number] [place] [address] 14090- 9632 May, Type 2 diabetes mellitus without complication E11.9 [facility] [id number] [place] [address] 94234- 8742 Jan, [facility] [id number] [place] [address] 91492- 1701 Jan, Routine gynecological examination Z01.419 ; Amenorrhea N91.2 and Pelvic fullness in female R19.00 [facility] [id number] [place] [address] 56455- 3398 Jan, [facility] [id number] [place] [address] 34735- 6152 Jan, Type 2 diabetes mellitus without complication E11.9 and Amenorrhea N91.2 [facility] [id number] [place] [address] 31338- 7550 Sep, Type 2 diabetes mellitus without complications E11.9 [facility] [id number] [place] [address] 84652- 7395 Jul, Type 2 diabetes mellitus without complication E11.9 [facility] [id number] [place] [address] 89686- 7749 May, Type 2 diabetes mellitus without complication E11.9 [facility] [id number] [place] [address] 02264- 6846 Mar, Type 2 diabetes mellitus without complication E11.9 [facility] [address] [place] [address] [id number] Jan, Dental examination V72.2 [facility] [id number] [place] [address] [id number] Dec, Dental examination V72.2 [facility] [id number] [place] [address] 41267- 7665 Dec, Diabetes mellitus without mention of complication, type II or unspecified type, not stated as uncontrolled 250.00 [facility] [id number] [id number] Nov, Dental examination V72.2 [facility] [id number] [address] 278[address] October, Contraceptive management V25.9 [facility] [address] [id number] [address] Sep, [facility] [address] [facility] [id number], [place] [address]- 3490 Sep, [facility] [address] [facility] [id number] [place] [address]- 4074 Jul, [facility] [address] [facility] [id number] [place] [address], [place] [address]- 0501 Jul, [facility] [id number] [address]34 Apr, [facility] [id number] [address]- 3782 Apr, [facility] [id number] [address]- 1976 Mar, [facility] [id number] [address]- 1108 Mar, [facility] [id number] [address]- 2913 Mar, [facility] [address] [facility] [id number] 0337 Mar, [facility] [place] [facility] [address] [facility] [id number] 5762 Jan, [facility] [place] [facility] [address] [facility] [id number] [address] 7116 Jan, [facility] [place] [facility] [address] [facility] [id number], [place] [address]- 4739 Nov, [facility] [place] [facility] [address] [facility] [id number], [place] [address]- 7096 October, [facility] [place] [facility] [address] [id number] [place] [address]- 3798 October, [facility] [place] [facility] [address] [id number] [place] [address]- 3148 October, [facility] [place] [facility] [address] [id number] [place] [address]- 0052 October, [facility] [place] [facility] [address] [id number] [place] [address]- 2077 October, [facility] [place] [facility] [address] [id number] [place] [address]- 6630 Sep, [facility] [place] [facility] [address] [id number] [place] [address]- 4335 Sep, [facility] [place] [facility] [address] [id number] [place] [address]- 7155 Aug, [facility] [place] [facility] [address] [id number] [place] [address]- 8269 Aug, [facility] [place] [facility] [address] [id number] [place] [address]- 2627 Jun, [facility] [place] [facility] [address] [id number] [place] [address]- 5623 Jun, [facility] [place] [facility] [address] [id number] [place] [address]- 1465 Jun, [facility] [place] [facility] [address] [id number] [place] [address]- 2988 Jun, [facility] [place] [facility] [address] [id number] [place] [address]- 9644 Apr, [facility] [place] [facility] [address] [id number] [place] [address]- 3509 Apr, [facility] [place] [facility] [address] [id number] [place] [address]- 3052 Apr, [facility] [place] [facility] [address] [id number] [place] [address] 2545 30 Sep, 2012 [facility] [address] [id number] [place] [address] 2546 18 Sep, 2012 [facility] [address] [id number] [place] [address] 2546 10 Sep, 2012 [facility] [address] [id number] [place] [address] 2546 09 Sep, 2012 [facility] [address] [id number] [place] [address] 2546 09 Sep, 2012 [facility] [address] [id number] [place] [address]- 1529 07 Sep, 2012 [facility] [address] [id number] [place] [address]- 2541 06 Feb, 2012 [facility] [address] [id number] [place] [address] 2547 05 Feb, 2012 [facility] [address] [id number] [place] [address]- 2544 03 Feb, 2012 [facility] [address] [id number] [place] [address]- 3404 27 Jul, 2012 [facility] [address] [id number] [place] [address]- 7594 19 Jul, 2012 [facility] [address] [id number] [place] [address] 2546 15 Jul, 2012 [facility] [address] [id number] [place] [address]- 2545 14 Jul, 2012 [facility] [place] [facility] [address] [id number] [place] [address] 2546 04 Jul, 2012 [facility] [place] [facility] [address] [id number] [place] [address]- 2546 17 Jun, 2012 [facility] [place] [facility] [address] [id number] [place] [address]- 3910 May, [facility] [place] [facility] [address] [id number] [place] [address]- 3241 May, [facility] [place] [facility] [address] [id number] [place] [address]- 4739 Apr, [facility] [place] [facility] [address] [id number] [place] 2281 Apr, [facility] [place] [facility] [address] [id number] [place] [address]- 7722 Apr, [facility] [place] [facility] [address] [id number] [place] [address]- 3603 Apr, [facility] [place] [facility] [address] [id number] [place] [address]- 1261 Apr, [facility] [place] [facility] [address] [id number] [place] [address]- 0878 Apr, [facility] [place] [facility] [address] [id number], [place] [address]- 4792 Mar, [facility] [place] [facility] [address] [id number] [place] [address]- 9201 Mar, [facility] [place] [facility] [address] [id number], [place] [address]- 3845 Mar, [facility] [place] [facility] [address] [id number], [place] [address]- 7321 Mar, [facility] [place] [facility] [address] [id number], [place] [address]- 8407 Mar, [facility] [place] [facility] [address] [id number] [place] [address]- 2511 Mar, [facility] [place] [facility] [address] [id number], [place] [address]- 2517 Mar, [facility] [place] [facility] [address] [facility] [id number], [place] [address]- 3613 Mar, [facility] [place] [facility] [id number] [address]- 2139 28 Feb, 2011 [facility] [address], [place] [address]- 7182 27 Feb, 2011 [facility] [address], [place] [address]- 7362 25 Feb, 2012 [facility] [address], [place] [address]- 2609 20 Feb, 2011 [facility] [address], [place] [address]- 2112 19 Feb, 2011 [facility] [id number] [place] [address] 48466- 7545 18 Feb, 2012 [facility] [address], [place] [address]- 7917 17 Feb, 2012 [facility] [address], [place] [address]- 1170 04 Feb, 2012 [facility] [address], [place] [address]- 9058 11 Sep, 2010 IMMUNIZATIONS No Known Immunizations SOCIAL HISTORY Never Assessed REASON FOR VISIT Lab--[facility] PLAN OF CARE VITAL SIGNS MEDICATIONS Unknown Medications RESULTS Name Result Date Reference Range HCG, QUANTITATIVE 2017-02-24 hCG,Beta Subunit,Qnt,Serum 43 PROCEDURES Procedure Date Ordered Result Body Site CHORIONIC GONADOTROPIN TEST Feb 24, 2017 VENIPUNCT, ROUTINE* Feb 24, 2017 INSTRUCTIONS MEDICATIONS ADMINISTERED No Known Medications MEDICAL (GENERAL) HISTORY Type Description Date Medical History type II diabetes Surgical History x 3 Hospitalization History surgeries
--- OUTSIDE RECORDS SUMMARY | 2018-01-02 06:23 | XMS REPORT | Continuity of Care Document ---
Author Author [facility] Organization [facility] Address Unknown Phone Unavailable Allergies Active Description Code Type Severity Reaction Onset Reported/Identified Relationship to Patient Clinical Status Yes No Known Drug Allergies [id number] Drug Allergy Unknown N/A 10/26/2007 Medications There is no data. Problems Date Dx Coded Attending Type Code Diagnosis Diagnosed By 06/27/2012 Ot 250.00 DIAB SHEA WO COMPL, TYPE II OR UNSPEC TY 06/27/2012 Ot 285.9 ANEMIA NOS 06/27/2012 Ot 642.42 MILD PREECLAMP-DEL W P/P 06/27/2012 Ot 644.21 EARLY ONSET DELIVERY-DEL 06/27/2012 Ot 648.01 DIABETES- DELIVERED 06/27/2012 Ot 648.21 ANEMIA- DELIVERED 06/27/2012 Ot 654.21 PREV DELIVRY W/ OR W/O MENT ANT 06/27/2012 Ot 656.61 EXCESS GRTH-DELIV 06/27/2012 Ot 657.01 POLYHYDRAMNIOS,DEL W OR W/O MENTN ANTEPA 06/27/2012 Ot V06.1 DIPHTHERIA- TETANUS-PERTUSSIS, COMBINED [ 06/27/2012 Ot V27.0 DELIVER- SINGLE LIVEBORN 05/03/2013 AUSTYN PEREZ DO Ot 278.00 OBESITY, NOS 05/03/2013 AUSTYN PEREZ DO Ot 599.0 URIN TRACT INFECTION NOS 05/03/2013 AUSTYN PEREZ DO Ot 644.21 EARLY ONSET DELIVERY-DEL 05/03/2013 AUSTYN PEREZ DO Ot 646.61 INFECTION-DELIVERED 05/03/2013 AUSTYN PEREZ DO Ot 648.81 ABN GLUCOSE DARIN-DELIV 05/03/2013 AUSTYN PEREZ DO Ot 649.11 OBESITY COMP PREG/CHILDBIRTH/PUERPERIUM, 05/03/2013 AUSTYN PEREZ DO Ot 654.21 PREV DELIVRY W/ OR W/O MENT ANT 05/03/2013 AUSTYN PEREZ DO Ot V03.82 PROPHYLACTIC VACC AGAINST STREPTOCOCCUS 05/03/2013 AUSTYN PEREZ DO Ot V15.81 HX OF PAST NONCOMPLIANCE 05/03/2013 AUSTYN PEREZ DO Ot V27.0 DELIVER-SINGLE LIVEBORN 05/03/2013 AUSTYN PEREZ DO Ot V85.32 BODY MASS INDEX 32.0-32.9, ADULT 02/10/2016 Ot 641.13 PLACEN PREV HEM-ANTEPART 02/10/2016 Ot 649.63 UTERINE SIZE DATE DISCREPANCY, ANTEPARTU 02/10/2016 Ot V28.81 ENCOUNTER FOR ANATOMIC SURVEY 02/10/2016 Ot 648.83 ABN GLUCOSE- ANTEPARTUM 02/10/2016 ALEN ASHER INSPECTOR PLUMBING Ot V23.7 INSUFFICIENT CARE 02/10/2016 ALEN ASHER INSPECTOR PLUMBING Ot V28.89 OTHER SPECIFIED SCREENING 02/10/2016 MADISON COX DO Ot 648.83 ABN GLUCOSE-ANTEPARTUM 02/10/2016 MADISON COX DO Ot 648.83 ABN GLUCOSE-ANTEPARTUM 02/10/2016 MADISON COX DO Ot 649.63 UTERINE SIZE DATE DISCREPANCY, ANTEPARTU 02/12/2016 MADL, YANET L DEPUTY FIRE MARSHAL Ot N91.2 AMENORRHEA, UNSPECIFIED 02/12/2016 MADL, YANET L DEPUTY FIRE MARSHAL Ot R19.00 INTRA-ABD AND PELVIC SWELLING, MASS AND 02/16/2016 MADL, YANET L DEPUTY FIRE MARSHAL Ot N91.2 AMENORRHEA, UNSPECIFIED 02/16/2016 MADL, YANET L DEPUTY FIRE MARSHAL Ot R19.00 INTRA-ABD AND PELVIC SWELLING, MASS AND 03/09/2016 Ot 641.13 PLACEN PREV HEM-ANTEPART 03/09/2016 Ot 649.63 UTERINE SIZE DATE DISCREPANCY, ANTEPARTU 03/09/2016 Ot V28.81 ENCOUNTER FOR ANATOMIC SURVEY 03/09/2016 Ot 648.83 ABN GLUCOSE- ANTEPARTUM 03/09/2016 ALEN ASHER INSPECTOR PLUMBING Ot V23.7 INSUFFICIENT CARE 03/09/2016 ALEN ASHER INSPECTOR PLUMBING Ot V28.89 OTHER SPECIFIED SCREENING 03/09/2016 MADISON COX DO Ot 648.83 ABN GLUCOSE-ANTEPARTUM 03/09/2016 MADISON COX DO C Ot 648.83 ABN GLUCOSE-ANTEPARTUM 03/09/2016 GRICEL COX DOA C Ot 649.63 UTERINE SIZE DATE DISCREPANCY, ANTEPARTU 03/09/2016 MADLTONYAA L DEPUTY FIRE MARSHAL Ot N91.2 AMENORRHEA, UNSPECIFIED 03/09/2016 MADL, YANET L DEPUTY FIRE MARSHAL Ot R19.00 INTRA-ABD AND PELVIC SWELLING, MASS AND 03/09/2016 HILARIA NG INSPECTOR PLUMBING Ot E11.9 TYPE 2 DIABETES MELLITUS WITHOUT COMPLIC 03/09/2016 HILARIA NG INSPECTOR PLUMBING Ot R11.2 NAUSEA WITH VOMITING, UNSPECIFIED 03/09/2016 HILARIA NG APRN Ot R51 HEADACHE 03/09/2016 HILARIA NG APRN Ot Z79.899 OTHER RESIDENTIAL (CURRENT) DRUG THERAPY 03/10/2016 Ot 641.13 PLACEN PREV HEM-ANTEPART 03/10/2016 Ot 649.63 UTERINE SIZE DATE DISCREPANCY, ANTEPARTU 03/10/2016 Ot V28.81 ENCOUNTER FOR ANATOMIC SURVEY 03/10/2016 Ot 648.83 ABN GLUCOSE- ANTEPARTUM 03/10/2016 ALEN ASHER INSPECTOR PLUMBING Ot V23.7 INSUFFICIENT CARE 03/10/2016 ALEN ASHER INSPECTOR PLUMBING Ot V28.89 OTHER SPECIFIED SCREENING 03/10/2016 MADISON COX DO C Ot 648.83 ABN GLUCOSE-ANTEPARTUM 03/10/2016 MADISON COX DO C Ot 648.83 ABN GLUCOSE-ANTEPARTUM 03/10/2016 MADISON COX DO C Ot 649.63 UTERINE SIZE DATE DISCREPANCY, ANTEPARTU 03/10/2016 RICKIELTONYAA L DEPUTY FIRE MARSHAL Ot N91.2 AMENORRHEA, UNSPECIFIED 03/10/2016 MADL, YANET L DEPUTY FIRE MARSHAL Ot R19.00 INTRA-ABD AND PELVIC SWELLING, MASS AND 03/11/2016 HILARIA NG INSPECTOR PLUMBING Ot E11.9 TYPE 2 DIABETES MELLITUS WITHOUT COMPLIC 03/11/2016 HILARIA NG INSPECTOR PLUMBING Ot R11.2 NAUSEA WITH VOMITING, UNSPECIFIED 03/11/2016 HILARIA NG APRN Ot R51 HEADACHE 03/11/2016 HILARIA NG APRN Ot Z79.899 OTHER RESIDENTIAL (CURRENT) DRUG THERAPY 06/02/2016 Ot 641.13 PLACEN PREV HEM-ANTEPART 06/02/2016 Ot 649.63 UTERINE SIZE DATE DISCREPANCY, ANTEPARTU 06/02/2016 Ot V28.81 ENCOUNTER FOR ANATOMIC SURVEY 06/02/2016 Ot 648.83 ABN GLUCOSE- ANTEPARTUM 06/02/2016 ALEN ASHER INSPECTOR PLUMBING Ot V23.7 INSUFFICIENT CARE 06/02/2016 ALEN ASHER INSPECTOR PLUMBING Ot V28.89 OTHER SPECIFIED SCREENING 06/02/2016 COX DO, MADISON C Ot 648.83 ABN GLUCOSE-ANTEPARTUM 06/02/2016 COX DO, MADISON C Ot 648.83 ABN GLUCOSE-ANTEPARTUM 06/02/2016 COX DO, MADISON C Ot 649.63 UTERINE SIZE DATE DISCREPANCY, ANTEPARTU 06/02/2016 MADL, YANET L DEPUTY FIRE MARSHAL Ot N91.2 AMENORRHEA, UNSPECIFIED 06/02/2016 MADL, YANET L DEPUTY FIRE MARSHAL Ot R19.00 INTRA-ABD AND PELVIC SWELLING, MASS AND 06/02/2016 Ot 641.13 PLACEN PREV HEM-ANTEPART 06/02/2016 Ot 649.63 UTERINE SIZE DATE DISCREPANCY, ANTEPARTU 06/02/2016 Ot V28.81 ENCOUNTER FOR ANATOMIC SURVEY 06/02/2016 Ot 648.83 ABN GLUCOSE- ANTEPARTUM 06/02/2016 ALEN ASHER INSPECTOR PLUMBING Ot V23.7 INSUFFICIENT CARE 06/02/2016 ALEN ASHER INSPECTOR PLUMBING Ot V28.89 OTHER SPECIFIED SCREENING 06/02/2016 COX DO, MADISON C Ot 648.83 ABN GLUCOSE-ANTEPARTUM 06/02/2016 COX DO, MADISON C Ot 648.83 ABN GLUCOSE-ANTEPARTUM 06/02/2016 COX DO, MADISON C Ot 649.63 UTERINE SIZE DATE DISCREPANCY, ANTEPARTU 06/02/2016 MADL, YANET L DEPUTY FIRE MARSHAL Ot N91.2 AMENORRHEA, UNSPECIFIED 06/02/2016 MADL, YANET L DEPUTY FIRE MARSHAL Ot R19.00 INTRA-ABD AND PELVIC SWELLING, MASS AND 06/02/2016 MADL, YANET L DEPUTY FIRE MARSHAL Ot N91.2 AMENORRHEA, UNSPECIFIED 06/02/2016 MADL, YANET L DEPUTY FIRE MARSHAL Ot R19.00 INTRA-ABD AND PELVIC SWELLING, MASS AND 06/03/2016 MADL, YANET L DEPUTY FIRE MARSHAL Ot N91.2 AMENORRHEA, UNSPECIFIED 06/03/2016 MADL, YANET L DEPUTY FIRE MARSHAL Ot R19.00 INTRA-ABD AND PELVIC SWELLING, MASS AND 06/05/2016 Ot 641.13 PLACEN PREV HEM-ANTEPART 06/05/2016 Ot 649.63 UTERINE SIZE DATE DISCREPANCY, ANTEPARTU 06/05/2016 Ot V28.81 ENCOUNTER FOR ANATOMIC SURVEY 06/05/2016 Ot 648.83 ABN GLUCOSE- ANTEPARTUM 06/05/2016 ALEN ASHER A INSPECTOR PLUMBING Ot V23.7 INSUFFICIENT CARE 06/05/2016 NOY ASHERIDI A INSPECTOR PLUMBING Ot V28.89 OTHER SPECIFIED SCREENING 06/05/2016 KENNY DOMADISON C Ot 648.83 ABN GLUCOSE-ANTEPARTUM 06/05/2016 KENNY DO MADISON C Ot 648.83 ABN GLUCOSE-ANTEPARTUM 06/05/2016 KENNY DO MADISON C Ot 649.63 UTERINE SIZE DATE DISCREPANCY, ANTEPARTU 06/05/2016 MADL, YANET L DEPUTY FIRE MARSHAL Ot N91.2 AMENORRHEA, UNSPECIFIED 06/05/2016 MADL, YANET L DEPUTY FIRE MARSHAL Ot R19.00 INTRA-ABD AND PELVIC SWELLING, MASS AND 06/05/2016 MADL, YANET L DEPUTY FIRE MARSHAL Ot N91.2 AMENORRHEA, UNSPECIFIED 06/05/2016 MADL, YANET L DEPUTY FIRE MARSHAL Ot R19.00 INTRA-ABD AND PELVIC SWELLING, MASS AND 02/13/2017 Ot 641.13 PLACEN PREV HEM-ANTEPART 02/13/2017 Ot 649.63 UTERINE SIZE DATE DISCREPANCY, ANTEPARTU 02/13/2017 Ot V28.81 ENCOUNTER FOR ANATOMIC SURVEY 02/13/2017 Ot 648.83 ABN GLUCOSE- ANTEPARTUM 02/13/2017 ALEN ASHER A INSPECTOR PLUMBING Ot V23.7 INSUFFICIENT CARE 02/13/2017 ALEN ASHER A INSPECTOR PLUMBING Ot V28.89 OTHER SPECIFIED SCREENING 02/13/2017 KENNY DO MADISON C Ot 648.83 ABN GLUCOSE-ANTEPARTUM 02/13/2017 COX MADISON C Ot 648.83 ABN GLUCOSE-ANTEPARTUM 02/13/2017 COXMADISON Brito DO C Ot 649.63 UTERINE SIZE DATE DISCREPANCY, ANTEPARTU 02/13/2017 YANET WEBB DEPUTY FIRE MARSHAL Ot N91.2 AMENORRHEA, UNSPECIFIED 02/13/2017 MADLYANET L DEPUTY FIRE MARSHAL Ot R19.00 INTRA-ABD AND PELVIC SWELLING, MASS AND 02/13/2017 HILARIA NG INSPECTOR PLUMBING Ot E11.9 TYPE 2 DIABETES MELLITUS WITHOUT COMPLIC 02/13/2017 HILARIA NG INSPECTOR PLUMBING Ot N93.9 ABNORMAL UTERINE AND VAGINAL BLEEDING, U 02/13/2017 HILARIA NG APRN Ot O03.9 COMPLETE OR UNSP SPONTANEOUS [place] 02/13/2017 HILARIA NG APRN Ot O24.119 PRE-EXIST TYPE 2 DIABETES, IN , 02/13/2017 HILARIA NG APRN Ot Z3A.00 WEEKS OF GESTATION OF NOT SPEC 02/13/2017 HILARIA NG INSPECTOR PLUMBING Ot Z79.84 INSULATION WORKER (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) USE OF ORAL HYPOGLYC 02/13/2017 Ot 641.13 PLACEN PREV HEM-ANTEPART 02/13/2017 Ot 649.63 UTERINE SIZE DATE DISCREPANCY, ANTEPARTU 02/13/2017 Ot V28.81 ENCOUNTER FOR ANATOMIC SURVEY 02/13/2017 Ot 648.83 ABN GLUCOSE- ANTEPARTUM 02/13/2017 ALEN ASHER INSPECTOR PLUMBING Ot V23.7 INSUFFICIENT CARE 02/13/2017 ALEN ASHER INSPECTOR PLUMBING Ot V28.89 OTHER SPECIFIED SCREENING 02/13/2017 MADISON COX DO Ot 648.83 ABN GLUCOSE-ANTEPARTUM 02/13/2017 MADISON COX DO C Ot 648.83 ABN GLUCOSE-ANTEPARTUM 02/13/2017 MADISON COX DO Ot 649.63 UTERINE SIZE DATE DISCREPANCY, ANTEPARTU 02/13/2017 YANET WEBB DEPUTY FIRE MARSHAL Ot N91.2 AMENORRHEA, UNSPECIFIED 02/13/2017 RICKIELYANET L DEPUTY FIRE MARSHAL Ot R19.00 INTRA-ABD AND PELVIC SWELLING, MASS AND 02/15/2017 HILARIA NG INSPECTOR PLUMBING Ot E11.9 TYPE 2 DIABETES MELLITUS WITHOUT COMPLIC 02/15/2017 HILARIA NG INSPECTOR PLUMBING Ot N93.9 ABNORMAL UTERINE AND VAGINAL BLEEDING, U 02/15/2017 HILARIA NG INSPECTOR PLUMBING Ot O03.9 COMPLETE OR UNSP SPONTANEOUS [place] 02/15/2017 HILARIA NG INSPECTOR PLUMBING Ot O24.119 PRE-EXIST TYPE 2 DIABETES, IN , 02/15/2017 HILARIA NG INSPECTOR PLUMBING Ot Z3A.00 WEEKS OF GESTATION OF NOT SPEC 02/15/2017 HILARIA NG INSPECTOR PLUMBING Ot Z79.84 RESIDENTIAL (CURRENT) USE OF ORAL HYPOGLYC 12/29/2017 LB ALEN A INSPECTOR PLUMBING Ot V23.7 INSUFFICIENT CARE 12/29/2017 LB ALEN A INSPECTOR PLUMBING Ot V28.89 OTHER SPECIFIED SCREENING 12/29/2017 COX DO, MADISON C Ot 648.83 ABN GLUCOSE-ANTEPARTUM 12/29/2017 COX DO, MADISON C Ot 648.83 ABN GLUCOSE-ANTEPARTUM 12/29/2017 COX DO MADISON C Ot 649.63 UTERINE SIZE DATE DISCREPANCY, ANTEPARTU 12/29/2017 MADL, YANET L DEPUTY FIRE MARSHAL Ot N91.2 AMENORRHEA, UNSPECIFIED 12/29/2017 MADL, YANET L DEPUTY FIRE MARSHAL Ot R19.00 INTRA-ABD AND PELVIC SWELLING, MASS AND 12/31/2017 LB, ALEN A INSPECTOR PLUMBING Ot V23.7 INSUFFICIENT CARE 12/31/2017 LB, ALEN A INSPECTOR PLUMBING Ot V28.89 OTHER SPECIFIED SCREENING 12/31/2017 COX DO, MADISON C Ot 648.83 ABN GLUCOSE-ANTEPARTUM 12/31/2017 COX DO, MADISON C Ot 648.83 ABN GLUCOSE-ANTEPARTUM 12/31/2017 COX DO, MADISNO C Ot 649.63 UTERINE SIZE DATE DISCREPANCY, ANTEPARTU 12/31/2017 MADL, YANET L DEPUTY FIRE MARSHAL Ot N91.2 AMENORRHEA, UNSPECIFIED 12/31/2017 MADL, YANET L DEPUTY FIRE MARSHAL Ot R19.00 INTRA-ABD AND PELVIC SWELLING, MASS AND Procedures Code Description Performed By Performed On 72.79 VACUUM EXTRACT DEL NEC 06/22/2012 74.1 LOW CERVICAL 06/22/2012 99.77 APPL/ADMIN OF AN ADHESION BARRIER SUBSTA 06/22/2012 74.1 LOW CERVICAL 05/01/2013 Results Test Result Range Complete blood count (CBC) with automated white blood cell (WBC) differential - 03/09/16 21:56 Blood leukocytes automated count (number/volume) 9.2 10*3/uL 4.3-11.0 Blood erythrocytes automated count (number/volume) 4.30 10*6/uL 4.35-5.85 Venous blood hemoglobin measurement (mass/volume) 12.4 g/dL 11.5-16.0 Blood hematocrit (volume fraction) 37 % 35-52 Automated erythrocyte mean corpuscular volume 85 [foz_us] 80-99 Automated erythrocyte mean corpuscular hemoglobin (mass per erythrocyte) 29 pg 25-34 Automated erythrocyte mean corpuscular hemoglobin concentration measurement ( mass/volume) 34 g/dL 32-36 Automated erythrocyte distribution width ratio 13.6 % 10.0-14.5 Automated blood platelet count (count/volume) 394 10*3/uL 130-400 Automated blood platelet mean volume measurement 9.1 [foz_us] 7.4-10.4 Automated blood neutrophils/100 leukocytes 56 % 42-75 Automated blood lymphocytes/100 leukocytes 34 % 12-44 Blood monocytes/100 leukocytes 8 % 0-12 Automated blood eosinophils/100 leukocytes 1 % 0-10 Automated blood basophils/100 leukocytes 0 % 0-10 Blood neutrophils automated count (number/volume) 5.2 10*3 1.8-7.8 Blood lymphocytes automated count (number/volume) 3.1 10*3 1.0-4.0 Blood monocytes automated count (number/volume) 0.7 10*3 0.0-1.0 Automated eosinophil count 0.1 10*3/uL 0.0-0.3 Automated blood basophil count (count/volume) 0.0 10*3/uL 0.0-0.1 Comprehensive metabolic panel - 03/09/16 21:56 Serum or plasma sodium measurement (moles/volume) 140 mmol/L 135-145 Serum or plasma potassium measurement (moles/volume) 3.5 mmol/L 3.6-5.0 Serum or plasma chloride measurement (moles/volume) 107 mmol/L 98-107 Carbon dioxide 20 mmol/L 21-32 Serum or plasma anion gap determination (moles/volume) 13 mmol/L 5-14 Serum or plasma urea nitrogen measurement (mass/volume) 18 mg/dL 7-18 Serum or plasma creatinine measurement (mass/volume) 0.70 mg/dL 0.60-1.30 Serum or plasma urea nitrogen/creatinine mass ratio 26 NRG Serum or plasma creatinine measurement with calculation of estimated glomerular filtration rate > NRG Serum or plasma glucose measurement (mass/volume) 140 mg/dL 70-105 Serum or plasma calcium measurement (mass/volume) 9.7 mg/dL 8.5-10.1 Serum or plasma total bilirubin measurement (mass/volume) 0.2 mg/dL 0.1-1.0 Serum or plasma alkaline phosphatase measurement (enzymatic activity/volume) 79 U/L 40-136 Serum or plasma aspartate aminotransferase measurement (enzymatic activity/ volume) 18 U/L 5-34 Serum or plasma alanine aminotransferase measurement (enzymatic activity/volume ) 25 U/L 0-55 Serum or plasma protein measurement (mass/volume) 7.0 g/dL 6.4-8.2 Serum or plasma albumin measurement (mass/volume) 4.3 g/dL 3.2-4.5 Complete blood count (CBC) with automated white blood cell (WBC) differential - 02/13/17 13:38 Blood leukocytes automated count (number/volume) 10.0 10*3/uL 4.3-11.0 Blood erythrocytes automated count (number/volume) 4.00 10*6/uL 4.35-5.85 Venous blood hemoglobin measurement (mass/volume) 11.1 g/dL 11.5-16.0 Blood hematocrit (volume fraction) 33 % 35-52 Automated erythrocyte mean corpuscular volume 83 [foz_us] 80-99 Automated erythrocyte mean corpuscular hemoglobin (mass per erythrocyte) 28 pg 25-34 Automated erythrocyte mean corpuscular hemoglobin concentration measurement ( mass/volume) 33 g/dL 32-36 Automated erythrocyte distribution width ratio 14.8 % 10.0-14.5 Automated blood platelet count (count/volume) 439 10*3/uL 130-400 Automated blood platelet mean volume measurement 9.1 [foz_us] 7.4-10.4 Automated blood neutrophils/100 leukocytes 71 % 42-75 Automated blood lymphocytes/100 leukocytes 24 % 12-44 Blood monocytes/100 leukocytes 5 % 0-12 Automated blood eosinophils/100 leukocytes 1 % 0-10 Automated blood basophils/100 leukocytes 0 % 0-10 Blood neutrophils automated count (number/volume) 7.1 10*3 1.8-7.8 Blood lymphocytes automated count (number/volume) 2.4 10*3 1.0-4.0 Blood monocytes automated count (number/volume) 0.5 10*3 0.0-1.0 Automated eosinophil count 0.1 10*3/uL 0.0-0.3 Automated blood basophil count (count/volume) 0.0 10*3/uL 0.0-0.1 Serum or plasma choriogonadotropin measurement (units/volume) - 02/13/17 13:38 Serum or plasma choriogonadotropin measurement (units/volume) 1913 m [iU]/mL <5 Complete urinalysis with reflex to culture - 02/13/17 14:10 Urine color determination RED NRG Urine clarity determination VERY CLOUDY NRG Urine pH measurement by test strip 5 5-9 Specific gravity of urine by test strip 1.025 1.016- 1.022 Urine protein assay by test strip, semi-quantitative 3+ NEGATIVE Urine glucose detection by automated test strip 2+ NEGATIVE Erythrocytes detection in urine sediment by light microscopy 5+ NEGATIVE Urine ketones detection by automated test strip NEGATIVE NEGATIVE Urine nitrite detection by test strip NEGATIVE NEGATIVE Urine total bilirubin detection by test strip NEGATIVE NEGATIVE Urine urobilinogen measurement by automated test strip (mass/volume) NORMAL NORMAL Urine leukocyte esterase detection by dipstick 2+ NEGATIVE Automated urine sediment erythrocyte count by microscopy (number/high power field) TNTC NRG Automated urine sediment leukocyte count by microscopy (number/high power field ) [HPF] NRG Bacteria detection in urine sediment by light microscopy NEGATIVE NRG Squamous epithelial cells detection in urine sediment by light microscopy NONE NRG Crystals detection in urine sediment by light microscopy NONE NRG Casts detection in urine sediment by light microscopy NONE NRG Mucus detection in urine sediment by light microscopy NEGATIVE NRG Complete urinalysis with reflex to culture NO NRG Complete blood count (CBC) with automated white blood cell (WBC) differential - 12/31/17 17:36 Blood leukocytes automated count (number/volume) 8.8 10*3/uL 4.3-11.0 Blood erythrocytes automated count (number/volume) 4.10 10*6/uL 4.35-5.85 Venous blood hemoglobin measurement (mass/volume) 11.7 g/dL 11.5-16.0 Blood hematocrit (volume fraction) 34 % 35-52 Automated erythrocyte mean corpuscular volume 82 [foz_us] 80-99 Automated erythrocyte mean corpuscular hemoglobin (mass per erythrocyte) 29 pg 25-34 Automated erythrocyte mean corpuscular hemoglobin concentration measurement ( mass/volume) 35 g/dL 32-36 Automated erythrocyte distribution width ratio 15.5 % 10.0-14.5 Automated blood platelet count (count/volume) 378 10*3/uL 130-400 Automated blood platelet mean volume measurement 8.9 [foz_us] 7.4-10.4 Automated blood neutrophils/100 leukocytes 69 % 42-75 Automated blood lymphocytes/100 leukocytes 25 % 12-44 Blood monocytes/100 leukocytes 6 % 0-12 Automated blood eosinophils/100 leukocytes 1 % 0-10 Automated blood basophils/100 leukocytes 0 % 0-10 Blood neutrophils automated count (number/volume) 6.1 10*3 1.8-7.8 Blood lymphocytes automated count (number/volume) 2.2 10*3 1.0-4.0 Blood monocytes automated count (number/volume) 0.5 10*3 0.0-1.0 Automated eosinophil count 0.1 10*3/uL 0.0-0.3 Automated blood basophil count (count/volume) 0.0 10*3/uL 0.0-0.1 Complete urinalysis with reflex to culture - 12/31/17 17:36 Urine color determination YELLOW NRG Urine clarity determination CLEAR NRG Urine pH measurement by test strip 5 5-9 Specific gravity of urine by test strip 1.020 1.016- 1.022 Urine protein assay by test strip, semi-quantitative 1+ NEGATIVE Urine glucose detection by automated test strip 4+ NEGATIVE Erythrocytes detection in urine sediment by light microscopy 1+ NEGATIVE Urine ketones detection by automated test strip NEGATIVE NEGATIVE Urine nitrite detection by test strip NEGATIVE NEGATIVE Urine total bilirubin detection by test strip NEGATIVE NEGATIVE Urine urobilinogen measurement by automated test strip (mass/volume) NORMAL NORMAL Urine leukocyte esterase detection by dipstick 3+ NEGATIVE Automated urine sediment erythrocyte count by microscopy (number/high power field) NONE NRG Automated urine sediment leukocyte count by microscopy (number/high power field ) NONE NRG Bacteria detection in urine sediment by light microscopy TRACE NRG Squamous epithelial cells detection in urine sediment by light microscopy RARE NRG Crystals detection in urine sediment by light microscopy NONE NRG Casts detection in urine sediment by light microscopy NONE NRG Mucus detection in urine sediment by light microscopy NEGATIVE NRG Complete urinalysis with reflex to culture NO NRG Comprehensive metabolic panel - 12/31/17 17:36 Serum or plasma sodium measurement (moles/volume) 137 mmol/L 135-145 Serum or plasma potassium measurement (moles/volume) 3.6 mmol/L 3.6-5.0 Serum or plasma chloride measurement (moles/volume) 108 mmol/L 98-107 Carbon dioxide 18 mmol/L 21-32 Serum or plasma anion gap determination (moles/volume) 11 mmol/L 5-14 Serum or plasma urea nitrogen measurement (mass/volume) 11 mg/dL 7-18 Serum or plasma creatinine measurement (mass/volume) 0.61 mg/dL 0.60-1.30 Serum or plasma urea nitrogen/creatinine mass ratio 18 NRG Serum or plasma creatinine measurement with calculation of estimated glomerular filtration rate > NRG Serum or plasma glucose measurement (mass/volume) 185 mg/dL 70-105 Serum or plasma calcium measurement (mass/volume) 9.1 mg/dL 8.5-10.1 Serum or plasma total bilirubin measurement (mass/volume) 0.2 mg/dL 0.1-1.0 Serum or plasma alkaline phosphatase measurement (enzymatic activity/volume) 58 U/L 40-136 Serum or plasma aspartate aminotransferase measurement (enzymatic activity/ volume) 19 U/L 5-34 Serum or plasma alanine aminotransferase measurement (enzymatic activity/volume ) 17 U/L 0-55 Serum or plasma protein measurement (mass/volume) 7.1 g/dL 6.4-8.2 Serum or plasma albumin measurement (mass/volume) 4.1 g/dL 3.2-4.5 Serum or plasma choriogonadotropin measurement (units/volume) - 12/31/17 17:36 Serum or plasma choriogonadotropin measurement (units/volume) 08266 m[iU]/mL <5 Encounters ACCT No. Visit Date/Time Discharge Status Pt. Type Provider Facility Loc./Unit Complaint [id number] 12/31/2017 16:37:00 12/31/2017 19:08:00 DIS Emergency JULI LOPEZTHOMPSON [facility] ER 14 WKS PREG/STOMACH PAIN/ DISCHARGE [id number] 02/13/2017 11:48:00 02/13/2017 14:47:00 DIS Emergency HILARIA NG INSPECTOR PLUMBING [facility] ER BLOATING [id number] 03/09/2016 18:50:00 03/09/2016 23:14:00 DIS Emergency HILARIA NG INSPECTOR PLUMBING [facility] ER HEAD PAIN [id number] 02/10/2016 15:09:00 02/10/2016 23:59:59 CLS Outpatient RICKIEMaria Ines YANET L DEPUTY FIRE MARSHAL [facility] RAD AMENORRHEA,PELVIC FULLNESS [id number] 05/01/2013 11:05:00 05/03/2013 11:25:00 DIS Inpatient AUSTYN PEREZ DO [facility] WS PREVIOUS SECTION [id number] 04/11/2013 14:57:00 04/11/2013 23:59:59 CLS Outpatient MADISON COX DO [facility] RAD GDM,LGA [id number] 03/24/2013 15:50:00 03/24/2013 23:59:59 CLS Outpatient MADISON COX DO [facility] RAD GDM [id number] 03/07/2013 14:38:00 03/07/2013 23:59:59 CLS Outpatient ALEN ASHER APRN [facility] RAD SURVEY,LATE CARE [id number] 12/31/2017 14:30:00 PEN PreadIRIS Ku MD [facility] RAD NORMAL IN MULTIGRAVIDA [id number] 06/22/2012 15:07:00 Document Registration [id number] 05/24/2012 15:37:00 Document Registration [id number] 03/14/2012 10:14:00 Document Registration
== END 2017-12-31 19:08 | disposition home or self-care (01) ==
LOC: EDUNIT# 16:35 → ER 16:37
DX: O99.89 Other specified diseases and conditions complicating pregnancy, childbirth and the puerperium (principal); R10.30 Lower abdominal pain, unspecified; O24.912 Unspecified diabetes mellitus in pregnancy, second trimester; Z3A.14 14 weeks gestation of pregnancy; Z79.84 Long term (current) use of oral hypoglycemic drugs; Z87.59 Personal history of other complications of pregnancy, childbirth and the puerperium
CPT/HCPCS: 36415; 76801; 80053; 81000; 84702; 85025

== ENCOUNTER 2018-05-14 13:09 | Observation (INO) | payer SELFPAY ==
[~2018-05-14] VITALS: Ht 152.4 cm; Wt 82.6 kg
[2018-05-14] VITALS (14 sets, daily range): BP systolic 100–148; BP diastolic 49–73
[2018-05-14] MEDS ORDERED: NS IV 1000 ML 1,000 ML ONE (14:07)
[2018-05-14] MEDS ORDERED: NS IV 1000 ML 1,000 ML IV ONE (14:15)
[2018-05-14 14:26] LABS: BASOPHILS % (AUTO) 0 % (0-10); EOSINOPHILS % (AUTO) 0 % (0-10); HEMATOCRIT 36 % (35-52); HEMOGLOBIN 11.7 G/DL (11.5-16.0); LYMPHOCYTES # (AUTO) 1.8 X 10^3 (1.0-4.0); LYMPHOCYTES % (AUTO) 23 % (12-44); MEAN CORPUSCULAR HEMOGLOBIN 24 PG (25-34); MEAN CORPUSCULAR HGB CONC 33 G/DL (32-36); MEAN CORPUSCULAR VOLUME 74 FL (80-99); MEAN PLATELET VOLUME 10.6 FL (7.4-10.4); MONOCYTES # (AUTO) 0.6 X 10^3 (0.0-1.0); MONOCYTES % (AUTO) 8 % (0-12); NEUTROPHILS # (AUTO) 5.2 X 10^3 (1.8-7.8); NEUTROPHILS % (AUTO) 69 % (42-75); PLATELET COUNT 290 10^3/uL (130-400); RED BLOOD COUNT 4.83 10^6/uL (4.35-5.85); RED CELL DISTRIBUTION WIDTH 15.8 % (10.0-14.5); WHITE BLOOD COUNT 7.6 10^3/uL (4.3-11.0)
[2018-05-14] MEDS ORDERED: FLU QUADRIvalent (5+ YOA) 2018-2019 (AFLURIA) 0.5 ML IM ONE (14:30)
[2018-05-14] MEDS ORDERED: INSULIN SC (14:37)
[2018-05-14] MEDS ORDERED: INSULIN (14:37)
[2018-05-14 14:39] LABS: BUN/CREATININE RATIO 17; CALCIUM 9.5 MG/DL (8.5-10.1); CARBON DIOXIDE 18 MMOL/L (21-32); CHLORIDE 106 MMOL/L (98-107); GFR ESTIMATED > 60; GLUCOSE 178 MG/DL (70-105); SODIUM 137 MMOL/L (135-145)
--- OUTSIDE RECORDS SUMMARY | 2018-05-14 15:14 | XMS REPORT ---
Author Author AMALIA DALY Organization [facility] Address [address] [place] [address] Care Team Providers Care Dentistry Teacher Name Role Phone AMALIA DALY Unavailable PROBLEMS Type Condition ICD9-CM Code ORR58-VN Code Onset Dates Condition Status SNOMED Code Problem Type 2 diabetes mellitus with hyperglycemia, without long-term current use of insulin E11.65 Active 01413228 Problem Type 2 diabetes mellitus without complication E11.9 Active 96851923 Problem Microcytic anemia D50.9 Active 222243171 Problem Type 2 diabetes mellitus complicating in first trimester, antepartum O24.111 Active 724454769 Problem Gastroesophageal reflux disease without esophagitis K21.9 Active 025212760 ALLERGIES No Information ENCOUNTERS Encounter Location Date Diagnosis [place] [id number] [place] [address] 77058- 4381 Apr, [facility] [address] [address]- [address] Mar, [facility] [id number] [place] [address] 99182- 9368 Mar, [facility] [id number] [place] [address] 98399- 2956 Mar, [facility] [id number] [place] [address] 69306- 8995 Mar, Type 2 diabetes mellitus without complication E11.9 [facility] [address] [address]- [address] Mar, [facility] [id number] [place] [address] 49587- 7855 Feb, [facility] [address] [address]- [address] 17 Feb, 2018 Type 2 diabetes mellitus without complication E11.9 [facility] [address], [place] [address] 9178 10 Feb, 2018 [facility] [address], [place] [address] 3[address] 05 Feb, 2018 Type 2 diabetes mellitus without complication E11.9 [facility] [address], [place] [address] 4533 04 Feb, 2018 [facility] [address], [place] [address] Jan, [facility] [address], [place] [address] 1449 Jan, Type 2 diabetes mellitus with hyperglycemia, without long- term current use of insulin E11.65 and , unspecified gestational age Z34.90 [facility] [address], [place] [address] 5048 Jan, Type 2 diabetes mellitus without complication E11.9 and Elderly multigravida in first trimester O09.521 [facility] [address], [place] [address] 27[address] Dec, [facility] [address], [place] [address] 1213 Dec, [facility] [address], [place] [address] 6208 Nov, [facility] [id number] [address]- 12[address] Nov, [facility] [id number] [address] 1836 Nov, Normal in multigravida Z34.80 ; History of section complicating O34.219 ; 9 weeks gestation of Z3A.09 ; Type 2 diabetes mellitus complicating in first trimester, antepartum O24.111 and Elderly multigravida in first trimester O09.521 [place] [id number] [place] [address] 55621- 3159 Nov, [place] [id number] [place] [address] 46344- 8709 October, Encounter for test Z32.00 [place] [id number] [place] [address] 64432- 9237 October, Type 2 diabetes mellitus without complication, without long- term current use of insulin E11.9 [place] [id number] [place] [address] 40691- 2563 Jul, Type 2 diabetes mellitus without complication E11.9 [place] [id number] [place] [address] 66471- 4531 Apr, Microcytic anemia D50.9 [place] [id number] [place] [address] 00483- 6079 Apr, [place] [id number] [place] [address] 04200- 7759 Apr, Gastroesophageal reflux disease without esophagitis K21.9 ; Shortness of breath R06.02 ; Fatigue, unspecified type R53.83 and Type 2 diabetes mellitus without complication E11.9 [place] [id number] [place] [address] 23636- 7368 09 Mar, 2017 [place] [id number] [place] [address] 21728- 9786 Mar, Reactive airway disease that is not asthma R09.89 and Type 2 diabetes mellitus without complication E11.9 [place] [address], [place] [address]- 7573 Feb, [place] [id number] [place] [address] 58708- 6340 Feb, Type 2 diabetes mellitus without complication E11.9 and Reactive airway disease that is not asthma R09.89 [place] [id number] [place] [address] 76873- 7423 Feb, Threatened O20.0 [facility] [address], [place] [address]- 2951 Feb, Threatened O20.0 [facility] [id number] [place] [address] 58433- 3655 Jan, Threatened O20.0 [facility] [id number] [place] [address] 34147- 3927 Jan, Threatened O20.0 [facility] [id number] [place] [address] 45328 -6756 Jan, Intermenstrual heavy bleeding N92.0 ; Positive test Z32.01 and Vaginal bleeding N93.9 [facility] [id number] [place] [address] 52759- 8993 October, [facility] [id number] [place] [address] 12570- 0568 October, [facility] [id number] [place] [address] 22476- 1462 October, Type 2 diabetes mellitus without complication E11.9 [facility] [id number] [place] [address] 65687- 5445 May, Type 2 diabetes mellitus without complication E11.9 [facility] [id number] [place] [address] 76810- 6197 Jan, [facility] [id number] [place] [address] 50889- 0937 Jan, Routine gynecological examination Z01.419 ; Amenorrhea N91.2 and Pelvic fullness in female R19.00 [facility] [id number] [place] [address] 02422- 9352 Jan, [facility] [id number] [place] [address] 06868- 3339 Jan, Type 2 diabetes mellitus without complication E11.9 and Amenorrhea N91.2 [facility] [id number] 8332 Sep, Type 2 diabetes mellitus without complications E11.9 [facility] [address], [place] [address]- 5056 Jul, Type 2 diabetes mellitus without complication E11.9 [facility] [address], [place] [address]- 4396 May, Type 2 diabetes mellitus without complication E11.9 [facility] [address], [place] [address]- 2636 Mar, Type 2 diabetes mellitus without complication E11.9 [facility] [id number] [place] [address] [id number] Jan, Dental examination V72.2 [facility] [id number] [place] [address] [id number] Dec, Dental examination V72.2 [facility] [id number] [place] [address] 33237- 3116 Dec, Diabetes mellitus without mention of complication, type II or unspecified type, not stated as uncontrolled 250.00 [facility] [id number] [place] [address] [id number] Nov, Dental examination V72.2 [facility] [address], [place] [address] 2546 October, Contraceptive management V25.9 [facility] [address], [place] [address]- 0096 Sep, [facility] [address] 1076 Sep, [facility] [address] 8176 Jul, [facility] [id number], [place] [address]- 2086 Jul, [facility] [place] [facility] [address] [facility] [id number] [place] [address]- 3010 Apr, [facility] [place] [facility] [address] [id number] [place] [address]- 0127 Apr, [facility] [place] [facility] [address] [id number] [place] [address]- 2546 Mar, [facility] [place] [facility] [address] [id number] [place] [address]- 9210 Mar, [facility] [place] [facility] [address] [id number] [place] [address]- 7901 Mar, [facility] [place] [facility] [address] [id number] [place] [address]- 7951 Mar, [facility] [place] [facility] [address] [id number] [place] [address]- 7200 Jan, [facility] [place] [facility] [address] [id number] [place] [address]- 9717 Jan, [facility] [place] [facility] [address] [id number] [place] [address]- 6395 Nov, [facility] [place] [facility] [address] [id number] [place] [address]- 1732 October, [facility] [place] [facility] [address] [id number] [place] [address]- 2745 October, [facility] [place] [facility] [address] [id number] [place] [address]- 8751 October, [facility] [place] [facility] [address] [id number] [place] [address]- 2459 October, [facility] [place] [facility] [address] [id number] [place] [address]- 3644 October, [facility] [place] [facility] [address] [id number] [place] [address]- 2546 Sep, [facility] [place] [facility] [address] [id number] [place] [address]- 0485 Sep, [facility] [place] [facility] [address] [id number] [place] [address]- 3019 Aug, [facility] [place] [facility] [address] [id number] [place] [address]- 8547 Aug, [facility] [place] [facility] [address] [id number] [place] [address]- 9159 Jun, [facility] [place] [facility] [address] [id number] [place] [address]- 6646 Jun, [facility] [place] [facility] [address] [id number] [place] [address]- 6722 Jun, [facility] [place] [facility] [address] [id number] [place] [address]- 2071 Jun, [facility] [place] [facility] [address] [id number] [place] [address]- 3463 Apr, [facility] [place] [facility] [address] [id number] [place] [address]- 1410 Apr, [facility] [place] [facility] [address] [id number] [place] [address]- 1431 Apr, [facility] [place] [facility] [address] [id number] [place] [address]- 0316 30 Feb, 2013 [facility] [place] [facility] [address] [id number] [place] [address]- 9411 18 Feb, 2013 [facility] [place] [facility] [address] [id number], [place] [address]- 0131 10 Feb, 2013 [facility] [place] [facility] [address] [id number] [place] [address]- 9593 09 Feb, 2013 [facility] [place] [facility] [address] [id number] [place] [address]- 7340 09 Feb, 2012 [facility] [place] [facility] [address] [id number] [place] [address]- 5273 07 Feb, 2012 [facility] [place] [facility] [address] [id number] [place] [address]- 4560 06 Sep, 2012 [facility] [address] [id number] [place] [address]- 0131 05 Sep, 2012 [facility] [place] [facility] [address] [id number] [place] [address]- 2086 03 Feb, 2012 [facility] [address] [id number] [place] [address]- 7106 27 Jul, 2012 [facility] [place] [facility] [address] [id number] [place] [address]- 4730 19 Jul, 2012 [facility] [place] [facility] [address] [id number] [place] [address]- 7452 15 Jul, 2012 [facility] [place] [facility] [address] [id number] [place] [address]- 9547 14 Jul, 2012 [facility] [place] [facility] [id number] [address]- 1726 04 Jul, 2012 [facility] [address] [id number] [place] [address]- 4503 17 Jun, 2012 [facility] [place] [facility] [address] [id number] [place] [address]- 8228 17 May, 2012 [facility] [address] [facility] [id number] [place] [address]- 2642 17 May, 2012 [facility] [place] [facility] [address] [id number] [place] [address]- 3145 Apr, [facility] [place] [facility] [address] [id number] [place] [address]- 0596 28 Apr, 2012 [facility] [place] [facility] [address] [id number] [place] [address]- 0977 14 Apr, 2012 [facility] [place] [facility] [address] [id number] [place] [address]- 1016 14 Apr, 2012 [facility] [place] [facility] [address] [facility] [id number] [place] [address]- 0370 Apr, [facility] [place] [facility] [address] [id number] [place] [address]- 9452 Apr, [facility] [place] [facility] [address] [id number] [place] [address]- 0595 Mar, [facility] [place] [facility] [address] [id number] [place] [address]- 0700 Mar, [facility] [place] [facility] [address] [id number] [place] [address]- 8267 Mar, [facility] [place] [facility] [address] [id number] [place] [address]- 3866 Mar, [facility] [place] [facility] [address] [id number] [place] [address]- 9424 Mar, [facility] [place] [facility] [address] [facility] [id number] [place] [address]- 9099 Mar, [facility] [place] [facility] [address] [id number], [place] [address]- 5194 Mar, [facility] [place] [facility] [address] [facility] [id number] [place] [address]- 7384 Mar, [facility] [place] [facility] [address] [facility] [id number], [place] [address]- 2992 28 Feb, 2012 [facility] [place] [facility] [address] [facility] [id number], [place] [address]- 2518 27 Feb, 2012 [facility] [place] [facility] [address] [id number], [place] [address]- 1260 25 Sep2011 [facility] [place] [facility] [address] [id number], [place] [address]- 7239 20 Sep2011 [facility] [place] [facility] [address] [id number], [place] [address]- 6530 19 Sep2011 [facility] [place] [facility] [address] [facility] [id number], [place] [address]- 4434 18 Sep2011 [facility] [place] [facility] [address] [id number], [place] [address]- 0016 Feb, [facility] [address] [facility] [id number], [place] [address]- 8176 Feb, [facility] [address] [facility] [id number], [place] [address]- 7837 Sep, IMMUNIZATIONS No Known Immunizations SOCIAL HISTORY Never Assessed REASON FOR VISIT BS f/u- Gestational PLAN OF CARE VITAL SIGNS MEDICATIONS Unknown Medications RESULTS No Results PROCEDURES No Known procedures INSTRUCTIONS MEDICATIONS ADMINISTERED No Known Medications MEDICAL (GENERAL) HISTORY Type Description Date Medical History type II diabetes Surgical History x 4 Hospitalization History surgeries
--- OUTSIDE RECORDS SUMMARY | 2018-05-14 15:14 | XMS REPORT ---
Author Author AMALIA DALY Organization [facility] Address [address] [place] [address] Care Team Providers Care Rolling Attendant Name Role Phone AMALIA DALY Unavailable PROBLEMS Type Condition ICD9-CM Code [id number] Code Onset Dates Condition Status SNOMED Code Problem Type 2 diabetes mellitus with hyperglycemia, without long-term current use of insulin E11.65 Active 81071134 Problem Type 2 diabetes mellitus without complication E11.9 Active 86071581 Problem Microcytic anemia D50.9 Active 219347031 Problem Type 2 diabetes mellitus complicating in first trimester, antepartum O24.111 Active 408816074 Problem Gastroesophageal reflux disease without esophagitis K21.9 Active [id number] ALLERGIES No Information ENCOUNTERS Encounter Location Date Diagnosis [place] [id number] [place] [address]47- 2100 Apr, [facility] [address] [address]- 6928 Mar, [facility] [id number] [place] [address] 75405- 7737 Mar, [facility] [id number] [place] [address] 90796- 2334 Mar, [facility] [id number] [place] [address] 67472- 5012 Mar, Type 2 diabetes mellitus without complication E11.9 [facility] [address] [address]- 1122 Mar, [facility] [id number] [place] [address] 27853- 8884 Feb, [facility] [address] [address]- 0452 17 Feb, 2018 Type 2 diabetes mellitus without complication E11.9 [facility] [address] [address] 8[address] 10 Feb, 2018 [facility] [address], [place] [address] 6575 05 Feb, 2018 Type 2 diabetes mellitus without complication E11.9 [facility] [address] [address] 7767 04 Feb, 2018 [facility] [address] [address] 5[address] Jan, [facility] [address] [address] 7420 Jan, Type 2 diabetes mellitus with hyperglycemia, without long- term current use of insulin E11.65 and , unspecified gestational age Z34.90 [facility] [address], [place] [address] 8666 Jan, Type 2 diabetes mellitus without complication E11.9 and Elderly multigravida in first trimester O09.521 [facility] [id number] [address] 68[address] Dec, [facility] [address] [address] 9453 Dec, [facility] [address], [place] [address] 7607 Nov, [facility] [id number] [address] 0856 Nov, [facility] [id number] [address] 6722 Nov, Normal in multigravida Z34.80 ; History of section complicating O34.219 ; 9 weeks gestation of Z3A.09 ; Type 2 diabetes mellitus complicating in first trimester, antepartum O24.111 and Elderly multigravida in first trimester O09.521 [place] [id number] [place] [address] 41391- 0122 Nov, [place] [id number] [place] [address] 24247- 3373 October, Encounter for test Z32.00 [place] [id number] [place] [address] 75380- 4511 October, Type 2 diabetes mellitus without complication, without long- term current use of insulin E11.9 [place] [id number] [place] [address] 43349- 1226 Jul, Type 2 diabetes mellitus without complication E11.9 [place] [id number] [place] [address] 87327- 9065 Apr, Microcytic anemia D50.9 [place] [id number] [place] [address] 91975- 4665 Apr, [place] [id number] [place] [address] 45484- 0428 Apr, Gastroesophageal reflux disease without esophagitis K21.9 ; Shortness of breath R06.02 ; Fatigue, unspecified type R53.83 and Type 2 diabetes mellitus without complication E11.9 [place] [address] [place] [address] 70970- 4470 09 Mar, 2017 [place] [id number] [place] [address] 38104- 5829 Mar, Reactive airway disease that is not asthma R09.89 and Type 2 diabetes mellitus without complication E11.9 [place] [address], [place] [address]- 6323 Feb, [place] [id number] [place] [address] 37242- 9328 Feb, Type 2 diabetes mellitus without complication E11.9 and Reactive airway disease that is not asthma R09.89 [place] [id number] [place] [address] 01396- 4512 Feb, Threatened O20.0 [facility] [address], [place] [address]- 7995 Feb, Threatened O20.0 [facility] [address] [place] [address] 26015- 5536 Jan, Threatened O20.0 [facility] [id number] [place] [address] 78008- 4626 Jan, Threatened O20.0 [facility] [id number] [place] [address] 22270 -6955 Jan, Intermenstrual heavy bleeding N92.0 ; Positive test Z32.01 and Vaginal bleeding N93.9 [facility] [id number] [place] [address] 41335- 8364 October, [facility] [id number] [place] [address] 41325- 7102 October, [facility] [id number] [place] [address] 02091- 8472 October, Type 2 diabetes mellitus without complication E11.9 [facility] [address] [place] [address] 42977- 6127 May, Type 2 diabetes mellitus without complication E11.9 [facility] [address] [place] [address] 02113- 1209 Jan, [facility] [id number] [place] [address] 33787- 8368 Jan, Routine gynecological examination Z01.419 ; Amenorrhea N91.2 and Pelvic fullness in female R19.00 [facility] [id number] [place] [address] 14683- 6786 Jan, [facility] [address] [place] [address] 28843- 9157 Jan, Type 2 diabetes mellitus without complication E11.9 and Amenorrhea N91.2 [facility] [id number] 0187 Sep, Type 2 diabetes mellitus without complications E11.9 [facility] [address], [place] [address]- 4636 Jul, Type 2 diabetes mellitus without complication E11.9 [facility] [address], [place] [address]- 5006 May, Type 2 diabetes mellitus without complication E11.9 [facility] [address], [place] [address]- 1636 Mar, Type 2 diabetes mellitus without complication E11.9 [facility] [id number] [place] [address] [id number] Jan, Dental examination V72.2 [facility] [id number] [place] [address] [id number] Dec, Dental examination V72.2 [facility] [id number] [place] [address] 44366- 7176 Dec, Diabetes mellitus without mention of complication, type II or unspecified type, not stated as uncontrolled 250.00 [facility] [id number] [place] [address] [id number] Nov, Dental examination V72.2 [facility] [address], [place] [address] 2546 October, Contraceptive management V25.9 [facility] [address], [place] [address]- 5366 Sep, [facility] [address] 2136 Sep, [facility] [address] 1986 Jul, [facility] [id number], [place] [address]- 1146 Jul, [facility] [place] [facility] [address] [facility] [id number] [place] [address]- 7852 Apr, [facility] [place] [facility] [address] [id number] [place] [address]- 1501 Apr, [facility] [place] [facility] [address] [id number] [place] [address]- 2546 Mar, [facility] [place] [facility] [address] [id number] [place] [address]- 0001 Mar, [facility] [place] [facility] [address] [id number] [place] [address]- 1025 Mar, [facility] [place] [facility] [address] [id number] [place] [address]- 1320 Mar, [facility] [place] [facility] [address] [id number] [place] [address]- 1162 Jan, [facility] [place] [facility] [address] [id number] [place] [address]- 9980 Jan, [facility] [place] [facility] [address] [id number] [place] [address]- 6411 Nov, [facility] [place] [facility] [address] [id number] [place] [address]- 0000 October, [facility] [place] [facility] [address] [id number] [place] [address]- 3486 October, [facility] [place] [facility] [address] [id number] [place] [address]- 0796 October, [facility] [place] [facility] [address] [id number] [place] [address]- 1239 October, [facility] [place] [facility] [address] [id number] [place] [address]- 3758 October, [facility] [place] [facility] [address] [id number] [place] [address]- 2546 Sep, [facility] [place] [facility] [address] [id number] [place] [address]- 3557 Sep, [facility] [place] [facility] [address] [id number] [place] [address]- 4082 Aug, [facility] [place] [facility] [address] [id number] [place] [address]- 1424 Aug, [facility] [place] [facility] [address] [id number] [place] [address]- 1092 Jun, [facility] [place] [facility] [address] [id number] [place] [address]- 6319 Jun, [facility] [place] [facility] [address] [id number] [place] [address]- 9629 Jun, [facility] [place] [facility] [address] [id number] [place] [address]- 0771 Jun, [facility] [place] [facility] [address] [id number] [place] [address]- 1384 Apr, [facility] [place] [facility] [address] [id number] [place] [address]- 1212 Apr, [facility] [place] [facility] [address] [id number] [place] [address]- 5752 Apr, [facility] [place] [facility] [address] [id number] [place] [address]- 3111 30 Feb, 2013 [facility] [place] [facility] [address] [id number] [place] [address]- 5766 18 Feb, 2013 [facility] [place] [facility] [address] [id number], [place] [address]- 0460 10 Feb, 2013 [facility] [place] [facility] [address] [id number] [place] [address]- 9989 09 Feb, 2013 [facility] [place] [facility] [address] [id number] [place] [address]- 0192 09 Feb, 2012 [facility] [place] [facility] [address] [id number] [place] [address]- 6907 07 Feb, 2012 [facility] [place] [facility] [address] [id number] [place] [address]- 3376 06 Sep, 2012 [facility] [address] [id number] [place] [address]- 9030 05 Sep, 2012 [facility] [place] [facility] [address] [id number] [place] [address]- 8256 03 Feb, 2012 [facility] [address] [id number] [place] [address]- 8346 27 Jul, 2012 [facility] [place] [facility] [address] [id number] [place] [address]- 0724 19 Jul, 2012 [facility] [place] [facility] [address] [id number] [place] [address]- 7321 15 Jul, 2012 [facility] [place] [facility] [address] [id number] [place] [address]- 9878 14 Jul, 2012 [facility] [place] [facility] [id number] [place] [address]- 5064 04 Jul, 2012 [facility] [address] [id number] [place] [address]- 8385 17 Jun, 2012 [facility] [place] [facility] [address] [id number] [place] [address]- 7249 17 May, 2012 [facility] [address] [facility] [id number] [place] [address]- 5778 17 May, 2012 [facility] [place] [facility] [address] [id number] [place] [address]- 0793 Apr, [facility] [place] [facility] [address] [id number] [place] [address]- 2525 28 Apr, 2012 [facility] [place] [facility] [address] [id number] [place] [address]- 5105 14 Apr, 2012 [facility] [place] [facility] [address] [id number] [place] [address]- 4323 14 Apr, 2012 [facility] [place] [facility] [address] [facility] [id number] [place] [address]- 9699 Apr, [facility] [place] [facility] [address] [id number] [place] [address]- 6387 Apr, [facility] [place] [facility] [address] [id number] [place] [address]- 9031 Mar, [facility] [place] [facility] [address] [id number] [place] [address]- 1191 Mar, [facility] [place] [facility] [address] [id number] [place] [address]- 1451 Mar, [facility] [place] [facility] [address] [id number] [place] [address]- 0341 Mar, [facility] [place] [facility] [address] [id number] [place] [address]- 3675 Mar, [facility] [place] [facility] [address] [facility] [id number] [place] [address]- 7809 Mar, [facility] [place] [facility] [address] [id number], [place] [address]- 9328 Mar, [facility] [place] [facility] [address] [facility] [id number] [place] [address]- 9330 Mar, [facility] [place] [facility] [address] [facility] [id number], [place] [address]- 2336 28 Feb, 2012 [facility] [place] [facility] [address] [facility] [id number], [place] [address]- 9893 27 Feb, 2012 [facility] [place] [facility] [address] [id number], [place] [address]- 3271 25 Sep2011 [facility] [place] [facility] [address] [id number], [place] [address]- 7032 20 Sep2011 [facility] [place] [facility] [address] [id number], [place] [address]- 4870 19 Sep2011 [facility] [place] [facility] [address] [facility] [id number], [place] [address]- 0083 18 Sep2011 [facility] [place] [facility] [address] [id number], [place] [address]- 4116 Feb, [facility] [address] [facility] [id number] [place] [address]- 1436 Feb, [facility] [address] [facility] [id number], [place] [address]- 4845 Sep, IMMUNIZATIONS No Known Immunizations SOCIAL HISTORY Never Assessed REASON FOR VISIT Gestational BS f/u issue PLAN OF CARE VITAL SIGNS MEDICATIONS Unknown Medications RESULTS No Results PROCEDURES No Known procedures INSTRUCTIONS MEDICATIONS ADMINISTERED No Known Medications MEDICAL (GENERAL) HISTORY Type Description Date Medical History type II diabetes Surgical History x 4 Hospitalization History surgeries
--- OUTSIDE RECORDS SUMMARY | 2018-05-14 15:14 | XMS REPORT ---
Author Author AMALIA DALY Organization [facility] Address [address] [place] [address] Care Team Providers Care Applications Coordinator Name Role Phone AMALIA DALY Unavailable PROBLEMS Type Condition ICD9-CM Code FSQ54-MR Code Onset Dates Condition Status SNOMED Code Problem Type 2 diabetes mellitus with hyperglycemia, without long-term current use of insulin E11.65 Active 44283116 Problem Type 2 diabetes mellitus without complication E11.9 Active 71850679 Problem Microcytic anemia D50.9 Active 181369660 Problem Type 2 diabetes mellitus complicating in first trimester, antepartum O24.111 Active 100966979 Problem Gastroesophageal reflux disease without esophagitis K21.9 Active 291636712 ALLERGIES No Information ENCOUNTERS Encounter Location Date Diagnosis [facility] [id number] [place] [address] 05267- 5109 Mar, [facility] [id number] [place] [address] 74771- 1896 Mar, [facility] [id number] [place] [address] 73027- 5316 Mar, [facility] [id number] [place] [address] 16135- 5683 Mar, Type 2 diabetes mellitus without complication E11.9 [facility] [id number] [place] [address] 93213- 9992 Mar, [facility] [id number] [place] [address] 25305- 7423 Feb, [facility] [id number] [place] [address] 72431- 5570 Feb, Type 2 diabetes mellitus without complication E11.9 [facility] [address] [place] [address]- 7673 10 Feb, 2018 [facility] [address] [address] 0[address] 05 Feb, 2018 Type 2 diabetes mellitus without complication E11.9 [facility] [address] [address] 7583 Feb, [facility] [address] [address] 7945 Jan, [facility] [id number] [address] 3573 Jan, Type 2 diabetes mellitus with hyperglycemia, without long- term current use of insulin E11.65 and , unspecified gestational age Z34.90 [facility] [address] [address] 8570 Jan, Type 2 diabetes mellitus without complication E11.9 and Elderly multigravida in first trimester O09.521 [facility] [address] [address] 7519 Dec, [facility] [address] [address]- 2014 Dec, [facility] [id number] [address] 9038 Nov, [facility] [id number] [address]- 8725 Nov, [facility] [id number] [address] 0757 Nov, Normal in multigravida Z34.80 ; History of section complicating O34.219 ; 9 weeks gestation of Z3A.09 ; Type 2 diabetes mellitus complicating in first trimester, antepartum O24.111 and Elderly multigravida in first trimester O09.521 [facility] [id number] [address]- 9114 Nov, [place] [id number] [place] [address] 91704- 0842 October, Encounter for test Z32.00 [place] [id number] [place] [address] 49567- 2771 October, Type 2 diabetes mellitus without complication, without long- term current use of insulin E11.9 [place] [facility] [id number] [place] [address] 73562- 6172 14 Jul, 2017 Type 2 diabetes mellitus without complication E11.9 [place] [id number] [place] [address] 06251- 9852 Apr, Microcytic anemia D50.9 [place] [id number] [place] [address] 08546- 1775 Apr, [place] [facility] [id number] [place] [address] 56180- 3924 Apr, Gastroesophageal reflux disease without esophagitis K21.9 ; Shortness of breath R06.02 ; Fatigue, unspecified type R53.83 and Type 2 diabetes mellitus without complication E11.9 [place] [id number] [place] [address] 77513- 5149 Mar, Reactive airway disease that is not asthma R09.89 and Type 2 diabetes mellitus without complication E11.9 [place] [id number] [place] [address] 43280- 5796 Mar, [place] [id number] [place] [address] 16147- 8219 Feb, [place] [id number] [place] [address] 59204- 3803 Feb, Type 2 diabetes mellitus without complication E11.9 and Reactive airway disease that is not asthma R09.89 [place] [id number] [place] [address] 96877- 3407 Feb, Threatened O20.0 [place] [address] [address]- 1302 Feb, Threatened O20.0 [facility] [id number] [place] [address] 29742- 3428 Jan, Threatened O20.0 [facility] [id number] [place] [address] 69513- 2461 Jan, Threatened O20.0 [facility] [id number] [place] [address] 30759 -7544 Jan, Intermenstrual heavy bleeding N92.0 ; Positive test Z32.01 and Vaginal bleeding N93.9 [facility] [id number] [place] [address] 31881- 2315 October, Type 2 diabetes mellitus without complication E11.9 [facility] [id number] [place] [address] 56230- 6533 October, [facility] [id number] [place] [address] 78867- 5530 October, [facility] [id number] [place] [address] 98959- 5231 May, Type 2 diabetes mellitus without complication E11.9 [facility] [address] [place] [address] 75134- 5165 Jan, [facility] [id number] [place] [address] 67541- 9547 Jan, Routine gynecological examination Z01.419 ; Amenorrhea N91.2 and Pelvic fullness in female R19.00 [facility] [id number] [place] [address] 33008- 2079 Jan, [facility] [id number] [place] [address] 53222- 8761 Jan, Type 2 diabetes mellitus without complication E11.9 and Amenorrhea N91.2 [facility] [id number] [place] [address] 62488- 4882 Sep, Type 2 diabetes mellitus without complications E11.9 [facility] [address] [address]- 9046 Jul, Type 2 diabetes mellitus without complication E11.9 [facility] [id number] [place] [address] 46452 2546 May, Type 2 diabetes mellitus without complication E11.9 [facility] [id number] [place] [address] 90685- 7386 Mar, Type 2 diabetes mellitus without complication E11.9 [facility] [address] [place] [address] [id number] Jan, Dental examination V72.2 [facility] [id number] [place] [address] [id number] Dec, Dental examination V72.2 [facility] [id number] [place] [address] 58180- 3376 Dec, Diabetes mellitus without mention of complication, type II or unspecified type, not stated as uncontrolled 250.00 [facility] [address] [id number] Nov, Dental examination V72.2 [facility] [id number] [place] [address] 34585- 3506 October, Contraceptive management V25.9 [facility] [address] [address]- 7864 Sep, [facility] [address] [address]- 8280 Sep, [facility] [address] [address]- 2276 Jul, [facility] [id number] [place] [address] 90702- 1196 Jul, [facility] [address] [address]- 2316 Apr, [facility] [address] [facility] [id number] [place] [address]- 7394 Apr, [facility] [place] [facility] [address] [id number] [place] [address]- 7803 Mar, [facility] [place] [facility] [address] [id number] [place] [address]- 2546 Mar, [facility] [place] [facility] [address] [id number] [place] [address]- 4715 Mar, [facility] [place] [facility] [address] [id number] [place] [address]- 9659 Mar, [facility] [place] [facility] [address] [id number] [place] [address]- 8644 Jan, [facility] [place] [facility] [address] [id number] [place] [address]- 9868 Jan, [facility] [place] [facility] [address] [id number] [place] [address]- 5441 Nov, [facility] [place] [facility] [address] [id number] [place] [address]- 1602 October, [facility] [place] [facility] [address] [id number] [place] [address]- 5340 October, [facility] [place] [facility] [address] [id number] [place] [address]- 1484 October, [facility] [place] [facility] [address] [id number] [place] [address]- 1022 October, [facility] [place] [facility] [address] [id number] [place] [address]- 7449 October, [facility] [place] [facility] [address] [id number] [place] [address]- 9381 Sep, [facility] [place] [facility] [address] [id number] [place] [address]- 2546 Sep, [facility] [place] [facility] [address] [id number] [place] [address]- 9846 Aug, [facility] [place] [facility] [address] [id number] [place] [address]- 0718 Aug, [facility] [place] [facility] [address] [id number] [place] [address]- 4111 Jun, [facility] [place] [facility] [address] [id number] [place] [address]- 1191 Jun, [facility] [place] [facility] [address] [id number] [place] [address]- 7683 Jun, [facility] [place] [facility] [address] [id number] [place] [address]- 5709 Jun, [facility] [place] [facility] [address] [id number] [place] [address]- 8606 Apr, [facility] [place] [facility] [address] [id number] [place] [address]- 8099 Apr, [facility] [place] [facility] [address] [id number] [place] [address]- 3808 Apr, [facility] [place] [facility] [address] [id number] [place] [address]- 6211 30 Feb, 2013 [facility] [place] [facility] [address] [id number] [place] [address]- 9135 18 Feb, 2013 [facility] [place] [facility] [address] [id number] [place] [address]- 9211 10 Feb, 2012 [facility] [place] [facility] [address] [id number] [address]- 9151 09 Sep, 2012 [facility] [place] [facility] [address] [id number] [place] [address]- 6911 09 Sep, 2012 [facility] [place] [facility] [address] [id number] [place] [address]- 7065 07 Sep, 2012 [facility] [place] [facility] [address] [id number] [place] [address]- 2481 06 Sep, 2012 [facility] [place] [facility] [address] [id number] [place] [address]- 7562 05 Feb, 2012 [facility] [address] [id number] [place] [address]- 5236 03 Feb, 2013 [facility] [place] [facility] [address] [id number] [place] [address]- 1466 27 Jul, 2012 [facility] [place] [facility] [address] [id number] [place] [address]- 3406 19 Jul, 2012 [facility] [place] [facility] [address] [id number] [place] [address] 2542 15 Jul, 2012 [facility] [place] [facility] [address] [id number] [place] [address]- 9941 14 Jul, 2012 [facility] [place] [facility] [address] [id number] [place] [address]- 1779 04 Jul, 2012 [facility] [place] [facility] [address] [id number] [place] [address]- 3848 17 Jun, 2012 [facility] [address] [id number] [place] [address]- 7075 17 May, 2012 [facility] [place] [facility] [address] [id number] [place] [address]- 7705 17 May, 2012 [facility] [address] [id number] [place] [address]- 4177 Apr, [facility] [place] [facility] [address] [id number] [place] [address] 2541 28 Apr, 2012 [facility] [place] [facility] [address] [id number] [place] [address] 2542 14 Apr, 2012 [facility] [place] [facility] [address] [id number] [place] [address]- 5833 14 Apr, 2012 [facility] [place] [facility] [address] [id number] [place] [address]- 2548 Apr, [facility] [place] [facility] [address] [id number] [place] 8830 Apr, [facility] [place] [facility] [address] [id number] [place] [address]- 1630 Mar, [facility] [place] [facility] [address] [id number] [place] [address]- 8426 Mar, [facility] [place] [facility] [address] [id number] [place] [address]- 2305 Mar, [facility] [place] [facility] [address] [id number] [place] [address]- 3459 Mar, [facility] [place] [facility] [address] [id number] [place] [address]- 4213 Mar, [facility] [place] [facility] [address] [id number] [place] [address]- 4326 Mar, [facility] [place] [facility] [address] [facility] [id number] [place] [address]- 9473 Mar, [facility] [place] [facility] [address] [id number] [address]- 0711 Mar, [facility] [place] [facility] [address] [id number] [place] [address]- 0289 28 Feb, 2012 [facility] [place] [facility] [address] [facility] [id number] [address]- 1998 27 Feb, 2012 [facility] [place] [facility] [address] [facility] [id number] [address]- 0995 25 Feb, 2012 [facility] [place] [facility] [address] [id number] [address]- 1635 20 Sep2011 [facility] [place] [facility] [address] [id number] [place] [address]- 0247 19 Sep2011 [facility] [place] [facility] [address] [facility] [id number] [address]- 8005 18 Sep2011 [facility] [place] [facility] [address] [facility] [id number] [address]- 4547 17 Sep2011 [facility] [place] [facility] [address] [id number] [address]- 4616 Feb, [facility] [address] [facility] [id number] [place] [address]- 7406 Sep, IMMUNIZATIONS No Known Immunizations SOCIAL HISTORY Never Assessed REASON FOR VISIT BS f/u- Gestational PLAN OF CARE VITAL SIGNS MEDICATIONS Unknown Medications RESULTS No Results PROCEDURES No Known procedures INSTRUCTIONS MEDICATIONS ADMINISTERED No Known Medications MEDICAL (GENERAL) HISTORY Type Description Date Medical History type II diabetes Surgical History x 4 Hospitalization History surgeries
--- OUTSIDE RECORDS SUMMARY | 2018-05-14 15:14 | XMS REPORT ---
Author Author AMALIA DALY Organization [facility] Address [address] [place] [address] Care Team Providers Care Film Processing Supervisor Name Role Phone AMALIA DALY Unavailable PROBLEMS Type Condition ICD9-CM Code OJH10-ZR Code Onset Dates Condition Status SNOMED Code Problem Type 2 diabetes mellitus with hyperglycemia, without long-term current use of insulin E11.65 Active 12257233 Problem Type 2 diabetes mellitus without complication E11.9 Active 71943832 Problem Microcytic anemia D50.9 Active 079996312 Problem Type 2 diabetes mellitus complicating in first trimester, antepartum O24.111 Active 889644589 Problem Gastroesophageal reflux disease without esophagitis K21.9 Active [id number] ALLERGIES No Information ENCOUNTERS Encounter Location Date Diagnosis [facility] [id number] [place] [address] 45130- 1191 Apr, [facility] [address] [address]- [address] Apr, [facility] [id number] [place] [address] 44013- 2498 Mar, [facility] [id number] [place] [address] 79235- 0441 Mar, [facility] [id number] [place] [address] 61627- 8756 Mar, [facility] [address] [address]- 8127 Mar, Type 2 diabetes mellitus without complication E11.9 [facility] [id number] [place] [address] 81614- 4430 Mar, [facility] [address] [address]- 1134 24 Feb, 2018 [facility] [id number] [address] 17 Feb, 2018 Type 2 diabetes mellitus without complication E11.9 [facility] [address] [facility] [id number] [address] 10 Feb, 2018 [facility] [address] [address] 0[address] 05 Feb, 2018 Type 2 diabetes mellitus without complication E11.9 [facility] [address] [address] 8780 04 Feb, 2018 [facility] [address] [address] 277[address] Jan, [facility] [address] [address] 6759 Jan, Type 2 diabetes mellitus with hyperglycemia, without long- term current use of insulin E11.65 and , unspecified gestational age Z34.90 [facility] [address] [address] 0078 Jan, Type 2 diabetes mellitus without complication E11.9 and Elderly multigravida in first trimester O09.521 [facility] [address] [address] 2383 Dec, [facility] [address] [address] 7463 Dec, [facility] [id number] [address] 7240 Nov, [facility] [address] [address]- 7956 Nov, [facility] [id number] [address] 4047 13 Nov, 2017 Normal in multigravida Z34.80 ; History of section complicating O34.219 ; 9 weeks gestation of Z3A.09 ; Type 2 diabetes mellitus complicating in first trimester, antepartum O24.111 and Elderly multigravida in first trimester O09.521 [facility] [id number] [place] [address] 60342- 9976 Nov, [facility] [id number] [place] [address] 65503- 9812 October, Encounter for test Z32.00 [facility] [address] 60459- 2235 October, Type 2 diabetes mellitus without complication, without long- term current use of insulin E11.9 [facility] [id number] [place] [address] 77720- 9873 Jul, Type 2 diabetes mellitus without complication E11.9 [facility] [id number] [place] [address] 34414- 9839 Apr, Microcytic anemia D50.9 [facility] [id number] [place] [address] 42421- 2246 Apr, [facility] [id number] [place] [address] 45078- 9004 Apr, Gastroesophageal reflux disease without esophagitis K21.9 ; Shortness of breath R06.02 ; Fatigue, unspecified type R53.83 and Type 2 diabetes mellitus without complication E11.9 [facility] [id number] [place] [address] 96274- 6129 Mar, [facility] [id number] [place] [address] 23679- 9997 Mar, Reactive airway disease that is not asthma R09.89 and Type 2 diabetes mellitus without complication E11.9 [facility] [id number] [place] [address] 35327- 9612 Feb, [facility] [id number] [place] [address] 04626- 6704 Feb, Type 2 diabetes mellitus without complication E11.9 and Reactive airway disease that is not asthma R09.89 [facility] [address] [address]- 4363 Feb, Threatened O20.0 [facility] [address] [place] [address] 54093- 5795 Feb, Threatened O20.0 [facility] [address] [place] [address] 93696- 6473 Jan, Threatened O20.0 [facility] [id number] [place] [address] 12889- 1127 Jan, Threatened O20.0 [facility] [id number] [place] [address] 75480 -5441 Jan, Intermenstrual heavy bleeding N92.0 ; Positive test Z32.01 and Vaginal bleeding N93.9 [facility] [id number] [place] [address] 90264- 2892 October, [facility] [id number] [place] [address] 30185- 4295 October, [facility] [id number] [place] [address] 97267- 1507 October, Type 2 diabetes mellitus without complication E11.9 [facility] [id number] [place] [address] 05844- 0401 May, Type 2 diabetes mellitus without complication E11.9 [facility] [id number] [place] [address] 06954- 6535 Jan, [facility] [id number] [place] [address] 90897- 7343 Jan, Routine gynecological examination Z01.419 ; Amenorrhea N91.2 and Pelvic fullness in female R19.00 [facility] [id number] [place] [address] 83120- 7030 Jan, [facility] [id number] [place] [address] 65864 2546 Jan, Type 2 diabetes mellitus without complication E11.9 and Amenorrhea N91.2 [facility] [address] [place] [address] 74228- 8016 Sep, Type 2 diabetes mellitus without complications E11.9 [facility] [address] [place] [address] 95703 2546 Jul, Type 2 diabetes mellitus without complication E11.9 [facility] [id number] [place] [address] 81591 2546 May, Type 2 diabetes mellitus without complication E11.9 [facility] [id number] [place] [address] 76687- 4236 Mar, Type 2 diabetes mellitus without complication E11.9 [facility] [address] [place] [address] [id number] Jan, Dental examination V72.2 [facility] [id number] [place] [address] [id number] Dec, Dental examination V72.2 [facility] [id number] [place] [address] 21401- 6936 Dec, Diabetes mellitus without mention of complication, type II or unspecified type, not stated as uncontrolled 250.00 [facility] [address] [place] [address] [id number] Nov, Dental examination V72.2 [facility] [address] [place] [address] 47757 2546 October, Contraceptive management V25.9 [facility] [address] [place] [address] 46581- 1586 Sep, [facility] [address] [place] [address] 238514- 0766 Sep, [facility] [address] [address]- 1226 Jul, [facility] [id number] [place] [address] 2546 Jul, [facility] [place] [facility] [address] [id number] [place] [address]- 7106 Apr, [facility] [place] [facility] [address] [id number] [place] [address]- 2546 Apr, [facility] [place] [facility] [address] [id number] [place] [address]- 0453 Mar, [facility] [place] [facility] [address] [id number] [place] [address]- 7539 Mar, [facility] [place] [facility] [address] [id number] [place] [address]- 0616 Mar, [facility] [place] [facility] [address] [id number] [place] [address]- 6485 Mar, [facility] [place] [facility] [address] [id number] [place] [address]- 2918 Jan, [facility] [place] [facility] [address] [id number] [place] [address]- 7628 Jan, [facility] [place] [facility] [address] [id number] [place] [address]- 8580 Nov, [facility] [place] [facility] [address] [id number] [place] [address]- 2249 October, [facility] [place] [facility] [address] [id number] [place] [address]- 9441 October, [facility] [place] [facility] [address] [id number] [place] [address]- 3024 October, [facility] [place] [facility] [address] [id number] [place] [address]- 6284 October, [facility] [place] [facility] [address] [id number] [place] [address]- 4596 October, [facility] [place] [facility] [address] [id number] [place] [address]- 5362 Sep, [facility] [place] [facility] [address] [id number] [place] [address]- 0070 Sep, [facility] [place] [facility] [address] [id number] [place] [address]- 0725 Aug, [facility] [place] [facility] [address] [id number] [place] [address]- 1762 Aug, [facility] [place] [facility] [address] [id number] [place] [address]- 5976 Jun, [facility] [place] [facility] [address] [id number] [place] [address]- 0984 Jun, [facility] [place] [facility] [address] [id number] [place] [address]- 4271 Jun, [facility] [place] [facility] [address] [id number] [place] [address]- 0870 Jun, [facility] [place] [facility] [address] [id number] [place] [address]- 0387 Apr, [facility] [place] [facility] [address] [id number] [place] [address]- 0820 Apr, [facility] [place] [facility] [address] [id number] [place] [address]- 8090 Apr, [facility] [place] [facility] [address] [id number] [place] [address]- 8115 30 Feb, 2013 [facility] [place] [facility] [address] [id number] [address]- 9340 18 Feb, 2013 [facility] [place] [facility] [address] [id number] [place] [address]- 8578 10 Feb, 2013 [facility] [place] [facility] [address] [id number] [place] [address]- 4842 09 Feb, 2013 [facility] [place] [facility] [address] [id number] [place] [address]- 8437 Feb, [facility] [place] [facility] [address] [id number] [place] [address]- 2135 07 Sep, 2012 [facility] [address] [id number] [place] [address]- 6946 06 Sep, 2012 [facility] [place] [facility] [address] [id number] [place] [address]- 4216 05 Sep, 2012 [facility] [address] [id number] [place] [address]- 8396 03 Feb, 2012 [facility] [place] [facility] [address] [id number] [place] [address]- 7598 27 Jul, 2012 [facility] [place] [facility] [address] [id number] [place] [address]- 8342 19 Jul, 2012 [facility] [place] [facility] [address] [id number] [place] [address]- 1686 15 Jul, 2012 [facility] [address] [id number] [place] [address]- 4852 14 Jul, 2012 [facility] [address] [id number] [place] [address]- 3135 04 Jul, 2012 [facility] [place] [facility] [id number] [place] [address]- 7984 17 Jun, 2012 [facility] [address] [facility] [id number] [place] [address]- 0015 17 May, 2012 [facility] [place] [facility] [address] [id number] [place] [address]- 4386 17 May, 2012 [facility] [place] [facility] [address] [id number] [place] [address] 2542 Apr, [facility] [place] [facility] [address] [id number] [place] [address]- 6971 28 Apr, 2012 [facility] [place] [facility] [address] [id number] [place] [address]- 2066 14 Apr, 2012 [facility] [place] [facility] [address] [facility] [id number] [place] [address]- 7504 Apr, [facility] [place] [facility] [address] [id number] [place] [address]- 9233 Apr, [facility] [place] [facility] [address] [id number] [place] [address]- 1699 Apr, [facility] [place] [facility] [address] [id number] [place] [address]- 7642 Mar, [facility] [place] [facility] [address] [id number] [place] [address]- 3564 Mar, [facility] [place] [facility] [address] [id number] [place] [address]- 6484 Mar, [facility] [place] [facility] [address] [id number] [place] [address]- 5048 Mar, [facility] [place] [facility] [address] [facility] [id number] [place] [address]- 1453 Mar, [facility] [place] [facility] [address] [id number] [address]- 5884 Mar, [facility] [place] [facility] [address] [facility] [id number] [place] [address]- 5946 Mar, [facility] [place] [facility] [address] [facility] [id number] [address]- 2342 Mar, [facility] [place] [facility] [address] [facility] [id number], [place] [address]- 8637 28 Feb, 2012 [facility] [place] [facility] [address] [id number], [place] [address]- 9574 27 Sep2011 [facility] [place] [facility] [address] [id number], [place] [address]- 0246 25 Sep2011 [facility] [place] [facility] [address] [id number], [place] [address]- 5614 20 Feb, 2012 [facility] [place] [facility] [address] [facility] [id number], [place] [address]- 5985 19 Feb, 2012 [facility] [place] [facility] [address] [id number], [place] [address]- 0406 18 Feb, 2012 [facility] [address] [facility] [id number] [place] [address]- 9606 Feb, [facility] [address] [facility] [id number], [place] [address]- 3286 04 Feb, 2012 [facility] [address] [facility] [id number] [place] [address]- 4594 Sep, IMMUNIZATIONS No Known Immunizations SOCIAL HISTORY Never Assessed REASON FOR VISIT Dr. Miner message PLAN OF CARE VITAL SIGNS MEDICATIONS Unknown Medications RESULTS No Results PROCEDURES No Known procedures INSTRUCTIONS MEDICATIONS ADMINISTERED No Known Medications MEDICAL (GENERAL) HISTORY Type Description Date Medical History type II diabetes Surgical History x 4 Hospitalization History surgeries
--- OUTSIDE RECORDS SUMMARY | 2018-05-14 15:15 | XMS REPORT ---
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 Name Role Phone AMALIA DALY Unavailable PROBLEMS Type Condition ICD9-CM Code OSA68-LY Code Onset Dates Condition Status SNOMED Code Problem Type 2 diabetes mellitus with hyperglycemia, without long-term current use of insulin E11.65 Active 31737652 Problem Type 2 diabetes mellitus without complication E11.9 Active 31777395 Problem Microcytic anemia D50.9 Active 047260295 Problem Type 2 diabetes mellitus complicating in first trimester, antepartum O24.111 Active 942489595 Problem Gastroesophageal reflux disease without esophagitis K21.9 Active 199979909 ALLERGIES No Information ENCOUNTERS Encounter Location Date Diagnosis [facility] [id number] [place] [address] 46583- 0510 Mar, [facility] [address] [address]- [address]646 Mar, [facility] [id number] [place] [address] 92020- 0816 Feb, [facility] [id number] [place] [address] 93113- 7086 Feb, Type 2 diabetes mellitus without complication E11.9 [facility] [id number] [place] [address] 00014- 8792 Feb, [facility] [id number] [place] [address] 86399- 3613 Feb, Type 2 diabetes mellitus without complication E11.9 [facility] [id number] [place] [address] 19195- 5352 Feb, [facility] [address] [place] [address]- 6675 Jan, [facility] [address], [place] [address] 3488 Jan, Type 2 diabetes mellitus with hyperglycemia, without long- term current use of insulin E11.65 and , unspecified gestational age Z34.90 [address] [address] 3841 Jan, Type 2 diabetes mellitus without complication E11.9 and Elderly multigravida in first trimester O09.521 [address] [address] 0240 Dec, [id number] [place] [address] 09345- 9297 Dec, [id number] [address] 8501 Nov, [address] [address] 5806 Nov, [address] [address] 7900 Nov, Normal in multigravida Z34.80 ; History of section complicating O34.219 ; 9 weeks gestation of Z3A.09 ; Type 2 diabetes mellitus complicating in first trimester, antepartum O24.111 and Elderly multigravida in first trimester O09.521 [address] [address] 0866 Nov, [address] [address] 7161 October, Encounter for test Z32.00 [address] [address] 3240 October, Type 2 diabetes mellitus without complication, without long- term current use of insulin E11.9 [address] [place] [address] 55095- 5159 14 Jul, 2017 Type 2 diabetes mellitus without complication E11.9 [facility] [id number] [place] [address] 00642- 1786 Apr, Microcytic anemia D50.9 [facility] [id number] [place] [address] 00030- 3230 Apr, [facility] [id number] [place] [address] 67963- 0394 Apr, Gastroesophageal reflux disease without esophagitis K21.9 ; Shortness of breath R06.02 ; Fatigue, unspecified type R53.83 and Type 2 diabetes mellitus without complication E11.9 [facility] [id number] [place] [address] 09503- 1106 Mar, [facility] [id number] [place] [address] 27881- 4281 Mar, Reactive airway disease that is not asthma R09.89 and Type 2 diabetes mellitus without complication E11.9 [facility] [id number] [place] [address] 17890- 4728 Feb, [facility] [id number] [place] [address] 51562- 7427 Feb, Type 2 diabetes mellitus without complication E11.9 and Reactive airway disease that is not asthma R09.89 [facility] [id number] [place] [address] 25400- 9529 Feb, Threatened O20.0 [facility] [address] [place] [address] 77498- 5204 Feb, Threatened O20.0 [facility] [id number] [place] [address] 12454- 5426 Jan, Threatened O20.0 [facility] [address] [place] [address] 14009- 6978 Jan, Threatened O20.0 [facility] [address] [address]99 Jan, Intermenstrual heavy bleeding N92.0 ; Positive test Z32.01 and Vaginal bleeding N93.9 [facility] [id number] [place] [address] 50657- 3197 October, [facility] [id number] [place] [address] 50582- 9615 October, [facility] [id number] [place] [address] 99811- 9790 October, Type 2 diabetes mellitus without complication E11.9 [facility] [id number] [place] [address] 45280- 5317 May, Type 2 diabetes mellitus without complication E11.9 [facility] [id number] [place] [address] 59590- 3435 Jan, [facility] [id number] [place] [address] 63214- 9972 Jan, Routine gynecological examination Z01.419 ; Amenorrhea N91.2 and Pelvic fullness in female R19.00 [facility] [id number] [place] [address] 36115- 0709 Jan, [facility] [id number] [place] [address] 84691- 0841 Jan, Type 2 diabetes mellitus without complication E11.9 and Amenorrhea N91.2 [facility] [id number] [place] [address] 55230- 9978 Sep, Type 2 diabetes mellitus without complications E11.9 [facility] [id number] [place] [address] 64079- 7908 Jul, Type 2 diabetes mellitus without complication E11.9 [facility] [id number] [place] [address] 60913- 7456 May, Type 2 diabetes mellitus without complication E11.9 [facility] [id number] [address]- 9416 Mar, Type 2 diabetes mellitus without complication E11.9 [facility] [id number] [place] [address] [id number] Jan, Dental examination V72.2 [facility] [id number] [place] [address] [id number] Dec, Dental examination V72.2 [facility] [id number] [place] [address] 20153- 9576 Dec, Diabetes mellitus without mention of complication, type II or unspecified type, not stated as uncontrolled 250.00 [facility] [id number] [place] [address] [id number] Nov, Dental examination V72.2 [facility] [id number] [place] [address] 85704- 8266 October, Contraceptive management V25.9 [facility] [id number] [place] [address] 31854- 4847 Sep, [facility] [address] [place] [address] 13485- 4251 Sep, [facility] [id number] [place] [address] 814016- 2416 Jul, [facility] [address] [address]- 9896 Jul, [facility] [address], [place] [address]- 4006 Apr, [facility] [address] 6266 Apr, [facility] [id number] [place] [address] 52534- 2556 Mar, [facility] [address], [place] [address]- 7226 Mar, [facility] [id number] [place] [address] [place] [address]- 9949 Mar, [facility] [place] [facility] [address] [id number] [place] [address]- 6295 Mar, [facility] [place] [facility] [address] [id number] [place] [address]- 9285 Jan, [facility] [place] [facility] [address] [id number] [place] [address]- 0474 Jan, [facility] [place] [facility] [address] [id number] [place] [address]- 0505 Nov, [facility] [place] [facility] [address] [id number] [place] [address]- 0909 October, [facility] [place] [facility] [address] [id number] [place] [address]- 3870 October, [facility] [place] [facility] [address] [id number] [place] [address]- 8696 October, [facility] [place] [facility] [address] [id number] [place] [address]- 1021 October, [facility] [place] [facility] [address] [id number] [place] [address]- 2895 October, [facility] [place] [facility] [address] [id number] [place] [address]- 9970 Sep, [facility] [place] [facility] [address] [id number] [place] [address]- 5781 Sep, [facility] [place] [facility] [address] [id number] [place] [address]- 5317 Aug, [facility] [place] [facility] [address] [id number] [place] [address]- 7248 Aug, [facility] [place] [facility] [address] [id number] [place] [address]- 2776 Jun, [facility] [place] [facility] [address] [id number] [place] [address]- 8636 Jun, [facility] [place] [facility] [address] [id number] [place] [address]- 7712 08 Jun, 2013 [facility] [place] [facility] [address] [id number] [place] [address]- 8049 08 Jun, 2013 [facility] [place] [facility] [address] [id number] [place] [address]- 2748 Apr, [facility] [place] [facility] [address] [id number] [place] [address]- 6416 Apr, [facility] [place] [facility] [address] [id number] [place] [address]- 5939 19 Apr, 2013 [facility] [place] [facility] [address] [id number] [place] [address]- 4228 30 Feb, 2012 [facility] [place] [facility] [address] [id number] [place] [address]- 4540 18 Feb, 2012 [facility] [place] [facility] [address] [id number] [place] [address]- 6948 10 Feb, 2012 [facility] [place] [facility] [address] [id number] [place] [address]- 5010 09 Sep, 2012 [facility] [place] [facility] [address] [id number] [place] [address]- 8188 09 Sep, 2012 [facility] [place] [facility] [address] [id number] [place] [address]- 5559 07 Sep, 2012 [facility] [place] [facility] [address] [id number] [place] [address]- 8084 06 Sep, 2012 [facility] [place] [facility] [address] [id number] [place] [address] 254 05 Sep, 2012 [facility] [place] [facility] [address] [id number] [place] [address]- 2540 03 Sep, 2012 [facility] [place] [facility] [address] [id number] [place] [address]- 254 27 Jul, 2012 [facility] [place] [facility] [address] [id number] [place] [address]- 8310 19 Jul, 2012 [facility] [place] [facility] [address] [id number] [place] [address]- 4271 15 Jul, 2012 [facility] [place] [facility] [address] [id number] [place] [address]- 0300 14 Jul, 2012 [facility] [place] [facility] [address] [facility] [id number] [place] [address]- 5437 Jul, [facility] [place] [facility] [address] [id number] [place] [address]- 9474 Jun, [facility] [place] [facility] [address] [id number] [place] [address]- 5788 May, [facility] [place] [facility] [address] [id number] [place] [address]- 5846 May, [facility] [place] [facility] [address] [id number] [place] [address]- 9223 Apr, [facility] [place] [facility] [address] [id number] [place] [address]- 2152 Apr, [facility] [place] [facility] [address] [id number] [place] [address]- 6162 Apr, [facility] [place] [facility] [address] [facility] [id number] [place] [address]- 4526 Apr, [facility] [place] [facility] [address] [id number] [address]- 6545 Apr, [facility] [place] [facility] [address] [id number], [place] [address]- 1863 Apr, [facility] [place] [facility] [address] [id number] [address]- 0458 Mar, [facility] [place] [facility] [address] [id number] [address]- 3432 Mar, [facility] [place] [facility] [address] [facility] [id number] [place] [address]- 5263 Mar, [facility] [place] [facility] [address], [place] [address]- 5995 22 Mar, 2012 [facility] [address], [place] [address]- 0254 Mar, [facility] [address], [place] [address]- 3869 Mar, [facility] [address], [place] [address]- 6932 Mar, [facility] [address], [place] [address]- 5875 Mar, [facility] [address] [place] [address] 26352- 0983 28 Feb, 2012 [facility] [address], [place] [address]- 4439 27 Feb, 2012 [facility] [address] [place] [address] 25121- 6759 25 Feb, 2012 [facility] [address] [address]- 1139 20 Feb, 2012 [facility] [address], [place] [address]- 6538 19 Feb, 2012 [facility] [address], [place] [address]- 5670 18 Feb, 2012 [facility] [address] [address]- 3854 17 Feb, 2012 [facility] [id number] [address]- 2639 04 Feb, 2012 [facility] [id number] [address]- 1709 Sep, IMMUNIZATIONS No Known Immunizations SOCIAL HISTORY Never Assessed REASON FOR VISIT BS ck- OB pt PLAN OF CARE VITAL SIGNS MEDICATIONS Medication Instructions Dosage Frequency Start Date End Date Duration Status Novolin N 100 UNIT/ML 18 units AM and PM Jan, Active NovoLog 100 UNIT/ML Subcutaneous before meals 25u 16 Jan, 2018 Active RESULTS No Results PROCEDURES No Known procedures INSTRUCTIONS MEDICATIONS ADMINISTERED No Known Medications MEDICAL (GENERAL) HISTORY Type Description Date Medical History type II diabetes Surgical History x 4 Hospitalization History surgeries
--- OUTSIDE RECORDS SUMMARY | 2018-05-14 15:15 | XMS REPORT ---
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 Phone AMALIA DALY Unavailable PROBLEMS Type Condition ICD9-CM Code UDL96-CJ Code Onset Dates Condition Status SNOMED Code Problem Type 2 diabetes mellitus with hyperglycemia, without long-term current use of insulin E11.65 Active 82144609 Problem Type 2 diabetes mellitus without complication E11.9 Active 99642427 Problem Microcytic anemia D50.9 Active 326111494 Problem Type 2 diabetes mellitus complicating in first trimester, antepartum O24.111 Active 717508517 Problem Gastroesophageal reflux disease without esophagitis K21.9 Active [id number] ALLERGIES No Information ENCOUNTERS Encounter Location Date Diagnosis [facility] [id number] [place] [address] 79667- 1215 Mar, Type 2 diabetes mellitus without complication E11.9 [facility] [id number] [place] [address] 75738- 7233 Mar, [facility] [id number] [place] [address] 60264- 1305 Feb, [facility] [id number] [place] [address] 42100- 1547 Feb, Type 2 diabetes mellitus without complication E11.9 [facility] [id number] [place] [address] 45538- 9774 Feb, [facility] [address] [address]- 6328 Feb, Type 2 diabetes mellitus without complication E11.9 [facility] [id number] [place] [address] 68349- 4525 Feb, [place] [address] [address] Jan, [facility] [address] [address] 06[address] Jan, Type 2 diabetes mellitus with hyperglycemia, without long- term current use of insulin E11.65 and , unspecified gestational age Z34.90 [place] [address], [place] [address] 1224 Jan, Type 2 diabetes mellitus without complication E11.9 and Elderly multigravida in first trimester O09.521 [place] [address], [place] [address]- 9499 Dec, [place] [address], [place] [address]- 4353 Dec, [place] [address], [place] [address] 7333 Nov, [place] [address], [place] [address]- 0665 Nov, [place] [address], [place] [address] 3251 Nov, Normal in multigravida Z34.80 ; History of section complicating O34.219 ; 9 weeks gestation of Z3A.09 ; Type 2 diabetes mellitus complicating in first trimester, antepartum O24.111 and Elderly multigravida in first trimester O09.521 [place] [id number], [place] [address]- 1088 Nov, [place] [address], [place] [address] 2266 October, Encounter for test Z32.00 [place] [address], [place] [address]- 1094 October, Type 2 diabetes mellitus without complication, without long- term current use of insulin E11.9 [place] [id number] [place] [address] 62315- 1610 14 Jul, 2017 Type 2 diabetes mellitus without complication E11.9 [place] [id number] [place] [address] 04420- 3328 Apr, Microcytic anemia D50.9 [place] [id number] [place] [address] 18214- 5426 Apr, [place] [id number] [place] [address] 30804- 8819 Apr, Gastroesophageal reflux disease without esophagitis K21.9 ; Shortness of breath R06.02 ; Fatigue, unspecified type R53.83 and Type 2 diabetes mellitus without complication E11.9 [place] [id number] [place] [address] 78687- 6760 Mar, [place] [id number] [place] [address] 75689- 4489 Mar, Reactive airway disease that is not asthma R09.89 and Type 2 diabetes mellitus without complication E11.9 [place] [id number] [place] [address] 41588- 5538 Feb, [place] [id number] [place] [address] 74547- 7451 Feb, Type 2 diabetes mellitus without complication E11.9 and Reactive airway disease that is not asthma R09.89 [place] [id number] [place] [address] 99193- 6513 Feb, Threatened O20.0 [place] [id number] [place] [address] 95231- 6841 Feb, Threatened O20.0 [place] [id number] [place] [address] 23732- 2585 Jan, Threatened O20.0 [place] [id number] [place] [address] 72690- 2452 Jan, Threatened O20.0 [facility] [address], [place] [address] Jan, Intermenstrual heavy bleeding N92.0 ; Positive test Z32.01 and Vaginal bleeding N93.9 [facility] [id number] [address]- 1364 October, [facility] [id number] [place] [address] 59295- 1322 October, [facility] [id number] [place] [address] 81320- 3199 October, Type 2 diabetes mellitus without complication E11.9 [place] [id number] [place] [address] 82563- 7839 May, Type 2 diabetes mellitus without complication E11.9 [place] [id number] [place] [address] 02492- 2331 Jan, [facility] [id number] [place] [address] 89969- 1164 Jan, Routine gynecological examination Z01.419 ; Amenorrhea N91.2 and Pelvic fullness in female R19.00 [place] [address] [place] [address] 00127- 1283 Jan, [place] [address], [place] [address]- 0701 Jan, Type 2 diabetes mellitus without complication E11.9 and Amenorrhea N91.2 [place] [address], [place] [address]- 7275 Sep, Type 2 diabetes mellitus without complications E11.9 [place] [id number] [place] [address] 59902- 6230 Jul, Type 2 diabetes mellitus without complication E11.9 [facility] [address], [place] [address]- 3764 May, Type 2 diabetes mellitus without complication E11.9 [place] [address], [place] [address]- 3746 Mar, Type 2 diabetes mellitus without complication E11.9 [facility] [id number] [place] [address] [id number] Jan, Dental examination V72.2 [facility] [id number] [place] [address] [id number] Dec, Dental examination V72.2 [facility] [id number] [place] [address] 17002 2546 Dec, Diabetes mellitus without mention of complication, type II or unspecified type, not stated as uncontrolled 250.00 [facility] [id number] [place] [address] [id number] Nov, Dental examination V72.2 [facility] [id number] [place] [address] 42997 2546 October, Contraceptive management V25.9 [facility] [address] [place] [address] 280219- 7921 Sep, [facility] [address] [place] [address] 587085- 9590 Sep, [facility] [address], [place] [address]- 0411 Jul, [facility] [address] 6226 Jul, [facility] [address] 8406 Apr, [facility] [address], [place] [address]- 9226 Apr, [facility] [address], [place] [address]- 6876 Mar, [facility] [address], [place] [address]- 5466 Mar, [facility] [place] [facility] [address] [id number] [place] [address]- 4916 Mar, [facility] [place] [facility] [address] [id number] [place] [address]- 7411 Mar, [facility] [place] [facility] [address] [id number] [place] [address] 2546 Jan, [facility] [place] [facility] [address] [id number] [place] [address]- 7275 Jan, [facility] [place] [facility] [address] [id number] [place] [address]- 4398 Nov, [facility] [place] [facility] [address] [id number] [place] [address]- 2728 October, [facility] [place] [facility] [address] [id number] [place] [address]- 0519 October, [facility] [place] [facility] [address] [id number] [place] [address]- 2262 October, [facility] [place] [facility] [address] [id number] [place] [address]- 1755 October, [facility] [place] [facility] [address] [id number] [place] [address]- 0927 October, [facility] [place] [facility] [address] [id number] [place] [address]- 6851 Sep, [facility] [place] [facility] [address] [id number] [place] [address]- 1028 Sep, [facility] [place] [facility] [address] [id number] [place] [address]- 2862 Aug, [facility] [place] [facility] [address] [id number] [place] [address]- 3082 Aug, [facility] [place] [facility] [address] [id number] [place] [address]- 9305 Jun, [facility] [place] [facility] [address] [id number] [place] [address]- 2305 Jun, [facility] [address] [id number] [place] [address]- 0805 Jun, [facility] [place] [facility] [address] [id number] [place] [address]- 2753 Jun, [facility] [place] [facility] [address] [id number] [place] [address]- 5931 Apr, [facility] [place] [facility] [address] [id number] [place] [address]- 2061 Apr, [facility] [place] [facility] [address] [id number] [place] [address]- 1795 Apr, [facility] [place] [facility] [address] [id number] [place] [address]- 0887 30 Feb, 2013 [facility] [place] [facility] [address] [id number] [place] [address]- 8000 18 Feb, 2013 [facility] [place] [facility] [address] [id number] [place] [address]- 2651 10 Feb, 2012 [facility] [place] [facility] [address] [id number] [place] [address]- 1865 09 Feb, 2012 [facility] [place] [facility] [address] [id number] [place] [address]- 8725 09 Feb, 2012 [facility] [place] [facility] [address] [id number] [place] [address]- 3342 07 Feb, 2012 [facility] [place] [facility] [address] [id number] [address]- 9006 06 Sep, 2012 [facility] [place] [facility] [address] [id number] [place] [address]- 9806 05 Sep, 2012 [facility] [place] [facility] [address] [id number], [place] [address]- 5165 03 Feb, 2012 [facility] [place] [facility] [address] [id number] [place] [address]- 0504 Jul, [facility] [place] [facility] [address] [id number] [place] [address]- 1419 19 Jul, 2012 [facility] [address] [id number] [place] 6785 15 Jul, 2012 [facility] [place] [facility] [address] [id number] [place] [address]- 3244 14 Jul, 2012 [facility] [address] [id number] [place] [address]- 9615 04 Jul, 2012 [facility] [place] [facility] [address] [id number] [place] [address]- 0366 17 Jun, 2012 [facility] [address] [id number] [place] [address]45 May, [facility] [address] [id number] [place] [address]- 7699 May, [facility] [place] [facility] [address] [facility] [id number] [place] [address]- 5120 Apr, [facility] [address] [id number] [place] [address]- 6932 28 Apr, 2012 [facility] [place] [facility] [id number] [place] [address]- 6539 Apr, [facility] [address] [facility] [id number] [place] [address]- 7779 14 Apr, 2012 [facility] [place] [facility] [address] [facility] [id number] [place] [address]- 9235 Apr, [facility] [place] [facility] [address] [facility] [id number] [place] [address]- 8850 Apr, [facility] [place] [facility] [address] [facility] [id number] [place]- 2564 29 Mar, 2012 [facility] [place] [facility] [address] [id number] [place] [address]- 9417 Mar, [facility] [place] [facility] [address] [facility] [id number] [place] [address]- 9397 Mar, [facility] [id number], [place] [address]- 6881 Mar, [facility] [address], [place] [address]- 8783 Mar, [facility] [address], [place] [address]- 4869 Mar, [facility] [address], [place] [address]- 7669 Mar, [facility] [address], [place] [address]- 7898 Mar, [facility] [address], [place] [address]- 2136 28 Feb, 2012 [facility] [address] [place] [address] 37810- 1595 27 Feb, 2012 [facility] [address], [place] [address]- 8656 25 Feb, 2012 [facility] [address], [place] [address]- 7773 20 Feb, 2012 [facility] [address], [place] [address]- 3558 19 Feb, 2012 [facility] [address], [place] [address]- 2547 18 Feb, 2012 [facility] [address], [place] [address]- 8343 17 Feb, 2012 [facility] [id number], [place] [address]- 5989 04 Feb, 2012 [facility] [address], [place] [address]- 7733 Sep, IMMUNIZATIONS No Known Immunizations SOCIAL HISTORY Never Assessed REASON FOR VISIT weekly BS ck PLAN OF CARE VITAL SIGNS MEDICATIONS Unknown Medications RESULTS No Results PROCEDURES No Known procedures INSTRUCTIONS MEDICATIONS ADMINISTERED No Known Medications MEDICAL (GENERAL) HISTORY Type Description Date Medical History type II diabetes Surgical History x 4 Hospitalization History surgeries
--- OUTSIDE RECORDS SUMMARY | 2018-05-14 15:15 | XMS REPORT ---
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 Role Phone AMALIA DALY Unavailable PROBLEMS Type Condition ICD9-CM Code KCM66-HT Code Onset Dates Condition Status SNOMED Code Problem Type 2 diabetes mellitus with hyperglycemia, without long-term current use of insulin E11.65 Active 96120758 Problem Type 2 diabetes mellitus without complication E11.9 Active 63717246 Problem Microcytic anemia D50.9 Active 926462282 Problem Type 2 diabetes mellitus complicating in first trimester, antepartum O24.111 Active 946631355 Problem Gastroesophageal reflux disease without esophagitis K21.9 Active [id number] ALLERGIES No Information ENCOUNTERS Encounter Location Date Diagnosis [facility] [id number] [place] [address] 06587- 5753 Mar, [facility] [id number] [place] [address] 41707- 8664 Feb, [facility] [id number] [place] [address] 17900- 9846 Feb, Type 2 diabetes mellitus without complication E11.9 [facility] [id number] [place] [address] 35234- 4046 Feb, [facility] [id number] [place] [address] 46325- 7653 Feb, Type 2 diabetes mellitus without complication E11.9 [facility] [id number] [place] [address] 70105- 3981 Feb, [facility] [id number] [place] [address] 78728- 9608 Jan, [facility] [address] [place] [address] Jan, Type 2 diabetes mellitus with hyperglycemia, without long- term current use of insulin E11.65 and , unspecified gestational age Z34.90 [address] [address] [address] [address] 16 Jan, 2018 Type 2 diabetes mellitus without complication E11.9 and Elderly multigravida in first trimester O09.521 [place] [id number] [place] [address] 43788- 0007 Dec, [place] [id number] [place] [address] 95751- 7604 Dec, [place] [id number] [place] [address] 40233- 5160 Nov, [place] [id number] [address]- 9744 Nov, [place] [id number] [place] [address] 41593- 5849 Nov, Normal in multigravida Z34.80 ; History of section complicating O34.219 ; 9 weeks gestation of Z3A.09 ; Type 2 diabetes mellitus complicating in first trimester, antepartum O24.111 and Elderly multigravida in first trimester O09.521 [place] [address] [address] Nov, [facility] [id number] [place] [address] 08074- 0099 October, Encounter for test Z32.00 [place] [id number] [place] [address] 72785- 2703 October, Type 2 diabetes mellitus without complication, without long- term current use of insulin E11.9 [place] [address] [address] 3685 Jul, Type 2 diabetes mellitus without complication E11.9 [place] [address] [address] 7134 Apr, Microcytic anemia D50.9 [facility] [id number] [place] [address] 30632- 5472 Apr, [facility] [id number] [place] [address] 72924- 2476 Apr, Gastroesophageal reflux disease without esophagitis K21.9 ; Shortness of breath R06.02 ; Fatigue, unspecified type R53.83 and Type 2 diabetes mellitus without complication E11.9 [facility] [id number] [place] [address] 47479- 8009 Mar, [facility] [id number] [place] [address] 48608- 4210 Mar, Reactive airway disease that is not asthma R09.89 and Type 2 diabetes mellitus without complication E11.9 [facility] [id number] [place] [address] 05513- 1387 Feb, [facility] [id number] [place] [address] 09277- 5380 Feb, Type 2 diabetes mellitus without complication E11.9 and Reactive airway disease that is not asthma R09.89 [facility] [id number] [place] [address] 59463- 4050 Feb, Threatened O20.0 [facility] [id number] [place] [address] 30331- 2723 Feb, Threatened O20.0 [facility] [id number] [place] [address] 65120- 9899 Jan, Threatened O20.0 [facility] [id number] [place] [address] 02012- 9158 Jan, Threatened O20.0 [facility] [address] [address] Jan, Intermenstrual heavy bleeding N92.0 ; Positive test Z32.01 and Vaginal bleeding N93.9 [facility] [id number] [address] 1536 October, [facility] [id number] [place] [address] 73806- 1173 October, [facility] [id number] [place] [address] 14119- 3864 October, Type 2 diabetes mellitus without complication E11.9 [facility] [id number] [place] [address] 58659- 2889 May, Type 2 diabetes mellitus without complication E11.9 [facility] [id number] [place] [address] 49396- 5513 Jan, [facility] [id number] [place] [address] 27851- 1016 Jan, Routine gynecological examination Z01.419 ; Amenorrhea N91.2 and Pelvic fullness in female R19.00 [facility] [id number] [place] [address] 07680- 2824 Jan, [facility] [id number] [place] [address] 52117- 1191 Jan, Type 2 diabetes mellitus without complication E11.9 and Amenorrhea N91.2 [facility] [id number] [place] [address] 42304- 8332 Sep, Type 2 diabetes mellitus without complications E11.9 [facility] [id number] [place] [address] 50749- 1494 Jul, Type 2 diabetes mellitus without complication E11.9 [facility] [id number] [place] [address] 88689- 3876 May, Type 2 diabetes mellitus without complication E11.9 [facility] [id number] [place] [address] 18782- 6427 Mar, Type 2 diabetes mellitus without complication E11.9 [place] [id number] [address] Jan, Dental examination V72.2 [facility] [id number] [place] [address] [id number] Dec, Dental examination V72.2 [facility] [address] [address] 2546 Dec, Diabetes mellitus without mention of complication, type II or unspecified type, not stated as uncontrolled 250.00 [facility] [address] [id number] Nov, Dental examination V72.2 [facility] [id number] [place] [address] 91007 2546 October, Contraceptive management V25.9 [facility] [id number] [place] [address] 14494- 8276 Sep, [facility] [id number] [place] [address] 206139- 6026 Sep, [facility] [address] 4437 Jul, [facility] [id number] [place] [address] 267036- 2556 Jul, [facility] [address] [address]- 8216 Apr, [facility] [address] [address]- 2506 Apr, [facility] [id number] [address]- 6436 Mar, [facility] [id number] [address]- 8956 Mar, [facility] [address] [address] 2546 Mar, [facility] [id number] [place] [address] [place] [address]- 2855 Mar, [facility] [place] [facility] [address] [id number] [place] [address]- 4981 Jan, [facility] [place] [facility] [address] [id number] [place] [address]- 1372 Jan, [facility] [place] [facility] [address] [id number] [place] [address]- 4753 Nov, [facility] [place] [facility] [address] [id number] [place] [address]- 1999 October, [facility] [place] [facility] [address] [id number] [place] [address]- 6817 October, [facility] [place] [facility] [address] [id number] [place] [address]- 4881 October, [facility] [place] [facility] [address] [id number] [place] [address]- 6416 October, [facility] [place] [facility] [address] [id number] [place] [address]- 8327 October, [facility] [place] [facility] [address] [id number] [place] [address]- 7256 Sep, [facility] [place] [facility] [address] [id number] [place] [address]- 5358 Sep, [facility] [place] [facility] [address] [id number] [place] [address]- 0822 Aug, [facility] [place] [facility] [address] [id number] [place] [address]- 5028 Aug, [facility] [place] [facility] [address] [id number] [place] [address]- 9500 Jun, [facility] [place] [facility] [address] [id number] [place] [address]- 3167 Jun, [facility] [place] [facility] [address] [id number] [place] [address]- 6588 Jun, [facility] [place] [facility] [address] [id number] [place] [address]- 7580 08 Jun, 2013 [facility] [place] [facility] [address] [id number] [place] [address]- 5772 Apr, [facility] [place] [facility] [address] [id number] [place] [address]- 9935 20 Apr, 2013 [facility] [place] [facility] [address] [id number] [place] [address]- 1272 19 Apr, 2013 [facility] [place] [facility] [address] [id number] [place] [address]- 7546 30 Feb, 2012 [facility] [place] [facility] [address] [id number] [place] [address]- 1373 18 Feb, 2012 [facility] [place] [facility] [address] [id number] [place] [address]- 9954 10 Feb, 2012 [facility] [place] [facility] [address] [id number] [place] [address]- 8005 09 Feb, 2012 [facility] [place] [facility] [address] [id number] [place] [address]- 0644 09 Feb, 2012 [facility] [place] [facility] [address] [id number] [place] [address]- 1534 07 Sep, 2012 [facility] [place] [facility] [address] [id number] [place] [address]- 5804 06 Sep, 2012 [facility] [place] [facility] [address] [id number] [place] [address]- 2540 05 Sep, 2012 [facility] [place] [facility] [address] [id number] [place] [address]- 2545 03 Feb, 2012 [facility] [place] [facility] [address] [id number] [place] [address]- 2547 27 Jul, 2012 [facility] [place] [facility] [address] [id number] [place] [address]- 3237 19 Jul, 2012 [facility] [place] [facility] [address] [id number] [address]- 9590 15 Jul, 2012 [facility] [place] [facility] [address] [id number] [place] [address]- 6183 Jul, [facility] [place] [facility] [address] [id number] [place] [address]- 3637 04 Jul, 2012 [facility] [place] [facility] [address] [id number] [place] [address]- 5880 Jun, [facility] [place] [facility] [address] [id number] [place] [address]- 4539 May, [facility] [place] [facility] [address] [id number] [place] [address]- 7620 May, [facility] [place] [facility] [address] [id number] [place] [address]- 6912 Apr, [facility] [place] [facility] [address] [id number] [place] [address]- 1640 Apr, [facility] [place] [facility] [address] [id number] [place] [address]- 5214 Apr, [facility] [place] [facility] [address] [id number] [place] [address]- 9769 Apr, [facility] [place] [facility] [address] [facility] [id number] [place] [address]- 8527 Apr, [facility] [place] [facility] [address] [id number] [address]- 9556 Apr, [facility] [place] [facility] [address] [id number] [address]- 1752 Mar, [facility] [place] [facility] [address] [id number] [place] [address]- 4530 Mar, [facility] [place] [facility] [address] [id number] [place] [address]- 7757 Mar, [facility] [place] [facility] [address] [id number] [place] [address]- 4528 Mar, [facility] [place] [facility] [address] [address]- 9339 15 Mar, 2012 [facility] [address] [address]- 7333 15 Mar, 2012 [facility] [address] [address]- 5047 09 Mar, 2012 [facility] [address] [address]- 0896 Mar, [facility] [address] [address]- 0964 28 Feb, 2012 [facility] [id number] [place] [address] 05445- 1984 27 Feb, 2012 [facility] [address] [address]- 6377 25 Feb, 2012 [facility] [id number] [place] [address] 04636- 3758 20 Feb, 2012 [facility] [address] [address]- 6053 19 Feb, 2012 [facility] [address] [address]- 4824 18 Feb, 2012 [facility] [address] [address]- 7646 17 Feb, 2012 [facility] [address] [address]- 5067 04 Feb, 2012 [facility] [id number] [address]- 2377 11 Sep, 2010 IMMUNIZATIONS No Known Immunizations SOCIAL HISTORY Never Assessed REASON FOR VISIT OB BS ck PLAN OF CARE VITAL SIGNS MEDICATIONS Unknown Medications RESULTS No Results PROCEDURES No Known procedures INSTRUCTIONS MEDICATIONS ADMINISTERED No Known Medications MEDICAL (GENERAL) HISTORY Type Description Date Medical History type II diabetes Surgical History x 4 Hospitalization History surgeries
--- OUTSIDE RECORDS SUMMARY | 2018-05-14 15:16 | XMS REPORT ---
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 Role Phone AMALIA DALY Unavailable PROBLEMS Type Condition ICD9-CM Code KSW82-HZ Code Onset Dates Condition Status SNOMED Code Problem Type 2 diabetes mellitus with hyperglycemia, without long-term current use of insulin E11.65 Active 81767430 Problem Type 2 diabetes mellitus without complication E11.9 Active 86059450 Problem Microcytic anemia D50.9 Active 227957126 Problem Type 2 diabetes mellitus complicating in first trimester, antepartum O24.111 Active 621167894 Problem Gastroesophageal reflux disease without esophagitis K21.9 Active [id number] ALLERGIES No Information ENCOUNTERS Encounter Location Date Diagnosis [place] [id number] [place] [address] 86905- 3041 Feb, [facility] [id number] [place] [address] 87006- 5724 Feb, Type 2 diabetes mellitus without complication E11.9 [facility] [id number] [place] [address] 28007- 4943 Feb, [facility] [id number] [place] [address] 21160- 9167 Feb, Type 2 diabetes mellitus without complication E11.9 [facility] [id number] [place] [address] 14122- 1159 Feb, [facility] [id number] [place] [address] 05439- 2984 Jan, [facility] [id number] [place] [address] 86485- 2219 Jan, Type 2 diabetes mellitus with hyperglycemia, without long- term current use of insulin E11.65 and , unspecified gestational age Z34.90 [place] [address], [place] [address] 6712 Jan, Type 2 diabetes mellitus without complication E11.9 and Elderly multigravida in first trimester O09.521 [place] [address], [place] [address] 2380 Dec, [place] [id number] [place] [address] 29313- 9801 Dec, [place] [id number] [place] [address] 87546- 0324 Nov, [place] [id number] [place] [address] 98210- 7687 Nov, [place] [id number] [place] [address] 96713- 0052 Nov, Normal in multigravida Z34.80 ; History of section complicating O34.219 ; 9 weeks gestation of Z3A.09 ; Type 2 diabetes mellitus complicating in first trimester, antepartum O24.111 and Elderly multigravida in first trimester O09.521 [place] [address], [place] [address] 8742 Nov, [place] [address] [address] 0307 October, Encounter for test Z32.00 [place] [id number] [place] [address] 08268- 3858 October, Type 2 diabetes mellitus without complication, without long- term current use of insulin E11.9 [place] [address], [place] [address]- 2165 Jul, Type 2 diabetes mellitus without complication E11.9 [place] [address], [place] [address]- 0783 Apr, Microcytic anemia D50.9 [facility] [id number] [place] [address] 80652- 8823 Apr, [place] [address] 96189- 4226 Apr, Gastroesophageal reflux disease without esophagitis K21.9 ; Shortness of breath R06.02 ; Fatigue, unspecified type R53.83 and Type 2 diabetes mellitus without complication E11.9 [place] [address] 99309- 5840 Mar, [place] [address] 08796- 6482 Mar, Reactive airway disease that is not asthma R09.89 and Type 2 diabetes mellitus without complication E11.9 [place] [address] 97095- 9804 Feb, [place] [address] 06426- 6708 Feb, Type 2 diabetes mellitus without complication E11.9 and Reactive airway disease that is not asthma R09.89 [place] [address] 71664- 8780 Feb, Threatened O20.0 [place] [id number] [place] [address] 36449- 4458 Feb, Threatened O20.0 [place] [id number] [place] [address] 30026- 4231 Jan, Threatened O20.0 [place] [address] 85697- 5461 Jan, Threatened O20.0 [facility] [id number] [place] [address] 72919 -6094 Jan, Intermenstrual heavy bleeding N92.0 ; Positive test Z32.01 and Vaginal bleeding N93.9 [place] [address] [place] [address]- 9879 October, [facility] [id number] [place] [address] 98673- 6603 October, [facility] [id number] [place] [address] 70549- 4380 October, Type 2 diabetes mellitus without complication E11.9 [facility] [id number] [place] [address] 14349- 3102 May, Type 2 diabetes mellitus without complication E11.9 [facility] [id number] [place] [address] 92791- 1818 Jan, [facility] [id number] [place] [address] 96363- 2843 Jan, Routine gynecological examination Z01.419 ; Amenorrhea N91.2 and Pelvic fullness in female R19.00 [facility] [id number] [place] [address] 77718- 3385 Jan, [facility] [id number] [place] [address] 71738- 0359 Jan, Type 2 diabetes mellitus without complication E11.9 and Amenorrhea N91.2 [facility] [address] [place] [address] 13881- 8677 Sep, Type 2 diabetes mellitus without complications E11.9 [facility] [address] [place] [address] 47153- 1963 Jul, Type 2 diabetes mellitus without complication E11.9 [facility] [id number] [place] [address] 42203- 2861 May, Type 2 diabetes mellitus without complication E11.9 [facility] [id number] [place] [address] 04936- 9029 Mar, Type 2 diabetes mellitus without complication E11.9 [facility] [address] [place] [address] [id number] Jan, Dental examination V72.2 [facility] [address] [facility] [id number] [id number] Dec, Dental examination V72.2 [facility] [id number] [place] [address] 58272- 4436 Dec, Diabetes mellitus without mention of complication, type II or unspecified type, not stated as uncontrolled 250.00 [facility] [address] [id number] Nov, Dental examination V72.2 [facility] [address] [facility] [id number] [place] [address] 07408- 3616 October, Contraceptive management V25.9 [facility] [id number] [place] [address] 46294- 9136 Sep, [facility] [address] [place] [address] 637322- 0101 Sep, [facility] [address] [place] [address] 168900- 2854 Jul, [facility] [id number] 4959 Jul, [facility] [address] 8650 Apr, [facility] [address] [facility] [id number] 0126 Apr, [facility] [address] [facility] [id number] 6709 Mar, [facility] [address] [facility] [id number] 9632 Mar, [facility] [address] [facility] [id number], [place] [address]- 6036 Mar, [facility] [id number], [place] [address]- 6436 Mar, [facility] [id number] [place] [address] [place] [address]- 3269 Jan, [facility] [address] [id number] [place] [address]- 1904 Jan, [facility] [place] [facility] [address] [id number] [place] [address]- 0370 Nov, [facility] [place] [facility] [address] [id number] [place] [address]- 0426 October, [facility] [place] [facility] [address] [id number] [place] [address]- 3032 October, [facility] [place] [facility] [address] [id number] [place] [address]- 7201 October, [facility] [place] [facility] [address] [id number] [place] [address]- 4486 October, [facility] [address] [id number] [place] [address]- 9786 October, [facility] [place] [facility] [address] [id number] [place] [address]- 3946 Sep, [facility] [place] [facility] [address] [id number] [place] [address]- 8973 Sep, [facility] [place] [facility] [address] [id number] [place] [address]- 8887 Aug, [facility] [place] [facility] [address] [id number] [place] [address]- 1785 Aug, [facility] [place] [facility] [address] [id number] [place] [address]- 9425 Jun, [facility] [place] [facility] [address] [id number] [place] [address]- 2041 Jun, [facility] [place] [facility] [address] [id number] [place] [address]- 9997 Jun, [facility] [place] [facility] [address] [id number] [place] [address]- 0942 Jun, [facility] [place] [facility] [address] [id number] [place] [address]- 7669 20 Apr, 2013 [facility] [place] [facility] [address] [id number] [place] [address]- 6005 20 Apr, 2012 [facility] [place] [facility] [address] [id number] [place] [address]- 3545 19 Apr, 2012 [facility] [place] [facility] [address] [id number] [place] [address]- 4395 30 Feb, 2012 [facility] [place] [facility] [address] [id number] [place] [address]- 6884 18 Sep, 2012 [facility] [place] [facility] [address] [id number] [place] [address]- 3942 10 Feb, 2012 [facility] [place] [facility] [address] [id number] [place] [address]- 9652 09 Sep, 2012 [facility] [place] [facility] [address] [id number] [place] [address]- 1832 09 Feb, 2012 [facility] [place] [facility] [address] [id number] [place] [address]- 4621 07 Sep, 2012 [facility] [place] [facility] [address] [id number] [place] [address]- 9098 06 Feb, 2012 [facility] [place] [facility] [address] [id number] [place] [address]- 9120 05 Sep, 2012 [facility] [place] [facility] [address] [id number] [place] [address]- 1262 03 Feb, 2012 [facility] [place] [facility] [address] [id number] [place] [address]- 2881 27 Jul, 2012 [facility] [place] [facility] [address] [id number] [place] [address]- 0951 19 Jul, 2012 [facility] [place] [facility] [address] [id number] [place] [address]- 6977 15 Jul, 2012 [facility] [place] [facility] [address] [id number] [place] [address]- 2992 Jul, [facility] [place] [facility] [address] [id number] [place] [address]- 5114 Jul, [facility] [place] [facility] [address] [id number] [place] [address]- 8304 Jun, [facility] [place] [facility] [address] [id number] [place] [address]- 8346 May, [facility] [place] [facility] [address] [id number] [place] [address]- 1522 May, [facility] [place] [facility] [address] [id number] [place] [address]- 6371 Apr, [facility] [place] [facility] [address] [id number] [place] [address]- 9827 Apr, [facility] [place] [facility] [address] [id number] [place] [address]- 7649 Apr, [facility] [place] [facility] [address] [id number] [place] [address]- 4399 Apr, [facility] [place] [facility] [address] [id number] [place] [address]- 1528 Apr, [facility] [place] [facility] [address] [id number] [place] [address]- 2641 Apr, [facility] [place] [facility] [address] [id number], [place] [address]- 1449 Mar, [facility] [place] [facility] [address] [id number], [place] [address]- 9690 29 Mar, 2012 [facility] [place] [facility] [address] [id number] [place] [address]- 7573 Mar, [facility] [place] [facility] [address] [id number] [place] [address]- 1637 Mar, [facility] [place] [facility] [address] [id number] [place] [address]- 5518 15 Mar, 2012 [facility] [place] [facility] [address], [place] [address]- 2017 15 Mar, 2012 [facility] [address], [place] [address]- 1730 09 Mar, 2012 [facility] [address]- 0595 Mar, [facility] [address], [place] [address]- 3428 28 Feb, 2012 [facility] [address], [place] [address]- 6052 27 Feb, 2012 [facility] [address], [place] [address]- 2076 25 Feb, 2012 [facility] [address], [place] [address]- 2542 20 Feb, 2012 [facility] [address] [place] [address] 33167- 9515 19 Feb, 2012 [facility] [address], [place] [address]- 7632 18 Feb, 2012 [facility] [address], [place] [address]- 5346 17 Feb, 2012 [facility] [address], [place] [address]- 9799 04 Feb, 2012 [facility] [address], [place] [address]- 1999 Sep, IMMUNIZATIONS No Known Immunizations SOCIAL HISTORY Never Assessed REASON FOR VISIT BS f/u PLAN OF CARE VITAL SIGNS MEDICATIONS Unknown Medications RESULTS No Results PROCEDURES No Known procedures INSTRUCTIONS MEDICATIONS ADMINISTERED No Known Medications MEDICAL (GENERAL) HISTORY Type Description Date Medical History type II diabetes Surgical History x 4 Hospitalization History surgeries
--- OUTSIDE RECORDS SUMMARY | 2018-05-14 15:16 | XMS REPORT ---
Author Author AMALIA DALY Organization [facility] Address [address] [place] [address] Care Team Providers Care Professional Housing Consultant Name Role Phone AMALIA DALY Unavailable PROBLEMS Type Condition ICD9-CM Code [id number] Code Onset Dates Condition Status SNOMED Code Problem Type 2 diabetes mellitus with hyperglycemia, without long-term current use of insulin E11.65 Active 29927055 Problem Type 2 diabetes mellitus without complication E11.9 Active 06564564 Problem Microcytic anemia D50.9 Active 410939518 Problem Type 2 diabetes mellitus complicating in first trimester, antepartum O24.111 Active 113011406 Problem Gastroesophageal reflux disease without esophagitis K21.9 Active [id number] ALLERGIES No Information ENCOUNTERS Encounter Location Date Diagnosis [facility] [id number] [place] [address] 56940- 2612 Mar, [facility] [id number] [place] [address] 55000- 6265 Feb, [facility] [id number] [place] [address] 04549- 4691 Feb, Type 2 diabetes mellitus without complication E11.9 [facility] [id number] [place] [address] 96500- 4426 Feb, [facility] [id number] [place] [address] 41598- 0614 Feb, Type 2 diabetes mellitus without complication E11.9 [facility] [id number] [place] [address] 95632- 9275 Feb, [facility] [id number] [place] [address] 80498- 2990 Jan, [facility] [address] [place] [address] 2905 Jan, Type 2 diabetes mellitus with hyperglycemia, without long- term current use of insulin E11.65 and , unspecified gestational age Z34.90 [address] [address] [address], [place] [address] 95[address] 16 Jan, 2018 Type 2 diabetes mellitus without complication E11.9 and Elderly multigravida in first trimester O09.521 [place] [id number] [place] [address] 73743- 2200 Dec, [place] [id number] [place] [address] 26683- 6212 Dec, [place] [id number] [place] [address] 28659- 2638 Nov, [place] [id number] [address] 6492 Nov, [place] [id number] [place] [address] 91859- 7509 Nov, Normal in multigravida Z34.80 ; History of section complicating O34.219 ; 9 weeks gestation of Z3A.09 ; Type 2 diabetes mellitus complicating in first trimester, antepartum O24.111 and Elderly multigravida in first trimester O09.521 [place] [address], [place] [address] 6957 Nov, [facility] [id number] [place] [address] 50834- 4087 October, Encounter for test Z32.00 [place] [id number] [place] [address] 43653- 1714 October, Type 2 diabetes mellitus without complication, without long- term current use of insulin E11.9 [place] [address], [place] [address]- 1497 Jul, Type 2 diabetes mellitus without complication E11.9 [place] [address], [place] [address]- 5271 Apr, Microcytic anemia D50.9 [facility] [id number] [place] [address] 82026- 3929 Apr, [facility] [id number] [place] [address] 85607- 1573 Apr, Gastroesophageal reflux disease without esophagitis K21.9 ; Shortness of breath R06.02 ; Fatigue, unspecified type R53.83 and Type 2 diabetes mellitus without complication E11.9 [facility] [id number] [place] [address] 52661- 3247 Mar, [facility] [id number] [place] [address] 03577- 6927 Mar, Reactive airway disease that is not asthma R09.89 and Type 2 diabetes mellitus without complication E11.9 [facility] [id number] [place] [address] 34120- 0253 Feb, [facility] [id number] [place] [address] 41135- 9623 Feb, Type 2 diabetes mellitus without complication E11.9 and Reactive airway disease that is not asthma R09.89 [facility] [id number] [place] [address] 58412- 9337 Feb, Threatened O20.0 [facility] [id number] [place] [address] 32075- 3178 Feb, Threatened O20.0 [facility] [id number] [place] [address] 09617- 8610 Jan, Threatened O20.0 [facility] [id number] [place] [address] 89768- 2329 Jan, Threatened O20.0 [facility] [address], [place] [address] Jan, Intermenstrual heavy bleeding N92.0 ; Positive test Z32.01 and Vaginal bleeding N93.9 [facility] [id number] [address]- 4227 October, [facility] [id number] [place] [address] 83964- 5622 October, [facility] [id number] [place] [address] 77858- 3405 October, Type 2 diabetes mellitus without complication E11.9 [facility] [id number] [place] [address] 76692- 5636 May, Type 2 diabetes mellitus without complication E11.9 [facility] [id number] [place] [address] 76197- 2240 Jan, [facility] [id number] [place] [address] 23571- 9424 Jan, Routine gynecological examination Z01.419 ; Amenorrhea N91.2 and Pelvic fullness in female R19.00 [facility] [id number] [place] [address] 49184- 0670 Jan, [facility] [id number] [place] [address] 36052- 3878 Jan, Type 2 diabetes mellitus without complication E11.9 and Amenorrhea N91.2 [facility] [id number] [place] [address] 00079- 1130 Sep, Type 2 diabetes mellitus without complications E11.9 [facility] [id number] [place] [address] 04516- 6189 Jul, Type 2 diabetes mellitus without complication E11.9 [facility] [id number] [place] [address] 20920- 5646 May, Type 2 diabetes mellitus without complication E11.9 [facility] [id number] [place] [address] 19080- 8928 Mar, Type 2 diabetes mellitus without complication E11.9 [place] [address] [address] Jan, Dental examination V72.2 [facility] [id number] [place] [address] [id number] Dec, Dental examination V72.2 [facility] [address], [place] [address] 2546 Dec, Diabetes mellitus without mention of complication, type II or unspecified type, not stated as uncontrolled 250.00 [facility] [address] [address] Nov, Dental examination V72.2 [facility] [id number] [place] [address] 87250 2546 October, Contraceptive management V25.9 [facility] [id number] [place] [address] 64889- 3856 Sep, [facility] [address] [place] [address] 566728- 4546 Sep, [facility] [address] 3885 Jul, [facility] [address] [place] [address] 559907- 3016 Jul, [facility] [address], [place] [address]- 7366 Apr, [facility] [address], [place] [address]- 4566 Apr, [facility] [id number], [place] [address]- 8446 Mar, [facility] [id number], [place] [address]- 3046 Mar, [facility] [address], [place] [address] 2546 Mar, [facility] [id number] [place] [address] [place] [address]- 0011 Mar, [facility] [place] [facility] [address] [id number] [place] [address]- 8969 Jan, [facility] [place] [facility] [address] [id number] [place] [address]- 2637 Jan, [facility] [place] [facility] [address] [id number] [place] [address]- 0592 Nov, [facility] [place] [facility] [address] [id number] [place] [address]- 7940 October, [facility] [place] [facility] [address] [id number] [place] [address]- 9450 October, [facility] [place] [facility] [address] [id number] [place] [address]- 7424 October, [facility] [place] [facility] [address] [id number] [place] [address]- 2114 October, [facility] [place] [facility] [address] [id number] [place] [address]- 2939 October, [facility] [place] [facility] [address] [id number] [place] [address]- 8239 Sep, [facility] [place] [facility] [address] [id number] [place] [address]- 9564 Sep, [facility] [place] [facility] [address] [id number] [place] [address]- 1264 Aug, [facility] [place] [facility] [address] [id number] [place] [address]- 0848 Aug, [facility] [place] [facility] [address] [id number] [place] [address]- 2938 Jun, [facility] [place] [facility] [address] [id number] [place] [address]- 7208 Jun, [facility] [place] [facility] [address] [id number] [place] [address]- 9104 Jun, [facility] [place] [facility] [address] [id number] [place] [address]- 4467 08 Jun, 2013 [facility] [place] [facility] [address] [id number] [place] [address]- 5824 Apr, [facility] [place] [facility] [address] [id number] [place] [address]- 3635 20 Apr, 2013 [facility] [place] [facility] [address] [id number] [place] [address]- 0354 19 Apr, 2013 [facility] [place] [facility] [address] [id number] [place] [address]- 5536 30 Feb, 2012 [facility] [place] [facility] [address] [id number] [place] [address]- 0625 18 Feb, 2012 [facility] [place] [facility] [address] [id number] [place] [address]- 9010 10 Feb, 2012 [facility] [place] [facility] [address] [id number] [place] [address]- 9512 09 Feb, 2012 [facility] [place] [facility] [address] [id number] [place] [address]- 8429 09 Feb, 2012 [facility] [place] [facility] [address] [id number] [place] [address]- 3920 07 Sep, 2012 [facility] [place] [facility] [address] [id number] [place] [address]- 9022 06 Sep, 2012 [facility] [place] [facility] [address] [id number] [place] [address]- 2543 05 Sep, 2012 [facility] [place] [facility] [address] [id number] [place] [address]- 2547 03 Feb, 2012 [facility] [place] [facility] [address] [id number] [place] [address]- 2548 27 Jul, 2012 [facility] [place] [facility] [address] [id number] [place] [address]- 8774 19 Jul, 2012 [facility] [place] [facility] [address] [id number] [address]- 1246 15 Jul, 2012 [facility] [place] [facility] [address] [id number] [place] [address]- 7634 Jul, [facility] [place] [facility] [address] [id number] [place] [address]- 9267 04 Jul, 2012 [facility] [place] [facility] [address] [id number] [place] [address]- 6678 Jun, [facility] [place] [facility] [address] [id number] [place] [address]- 0817 May, [facility] [place] [facility] [address] [id number] [place] [address]- 6711 May, [facility] [place] [facility] [address] [id number] [place] [address]- 8903 Apr, [facility] [place] [facility] [address] [id number] [place] [address]- 7081 Apr, [facility] [place] [facility] [address] [id number] [place] [address]- 5356 Apr, [facility] [place] [facility] [address] [id number] [place] [address]- 1409 Apr, [facility] [place] [facility] [address] [facility] [id number] [place] [address]- 9925 Apr, [facility] [place] [facility] [address] [id number], [place] [address]- 0070 Apr, [facility] [place] [facility] [address] [id number], [place] [address]- 8120 Mar, [facility] [place] [facility] [address] [id number] [place] [address]- 3635 Mar, [facility] [place] [facility] [address] [id number] [place] [address]- 9472 Mar, [facility] [place] [facility] [address] [id number] [place] [address]- 9183 Mar, [facility] [place] [facility] [address], [place] [address]- 7529 15 Mar, 2012 [facility] [address], [place] [address]- 6929 15 Mar, 2012 [facility] [address], [place] [address]- 1094 09 Mar, 2012 [facility] [address], [place] [address]- 1880 Mar, [facility] [address] [facility] [id number], [place] [address]- 1354 28 Feb, 2012 [facility] [id number] [place] [address] 25430- 5071 27 Feb, 2012 [facility] [address], [place] [address]- 5975 25 Feb, 2012 [facility] [address], [place] [address]- 7046 20 Feb, 2012 [facility] [address], [place] [address]- 5793 19 Feb, 2012 [facility] [address], [place] [address]- 2934 18 Feb, 2012 [facility] [address], [place] [address]- 0805 17 Feb, 2012 [facility] [address], [place] [address]- 1239 04 Feb, 2012 [facility] [id number], [place] [address]- 8757 11 Sep, 2010 IMMUNIZATIONS No Known Immunizations SOCIAL HISTORY Never Assessed REASON FOR VISIT BS f/u PLAN OF CARE VITAL SIGNS MEDICATIONS Unknown Medications RESULTS No Results PROCEDURES No Known procedures INSTRUCTIONS MEDICATIONS ADMINISTERED No Known Medications MEDICAL (GENERAL) HISTORY Type Description Date Medical History type II diabetes Surgical History x 4 Hospitalization History surgeries
--- OUTSIDE RECORDS SUMMARY | 2018-05-14 15:16 | XMS REPORT ---
Author Author AMALIA DALY Organization [facility] Address [address] [place] [address] Care Team Providers Care Core Drill Operator Name Role Phone AMALIA DALY Unavailable PROBLEMS Type Condition ICD9-CM Code [id number] Code Onset Dates Condition Status SNOMED Code Problem Type 2 diabetes mellitus with hyperglycemia, without long-term current use of insulin E11.65 Active 62715402 Problem Type 2 diabetes mellitus without complication E11.9 Active 58429276 Problem Microcytic anemia D50.9 Active 788875347 Problem Type 2 diabetes mellitus complicating in first trimester, antepartum O24.111 Active 145143970 Problem Gastroesophageal reflux disease without esophagitis K21.9 Active 080969711 ALLERGIES No Information ENCOUNTERS Encounter Location Date Diagnosis [place] [id number] [place] [address] 85734- 0163 Feb, [facility] [id number] [place] [address] 50342- 9070 Feb, Type 2 diabetes mellitus without complication E11.9 [facility] [id number] [place] [address] 51281- 4158 Feb, [facility] [id number] [place] [address] 58870- 2297 Feb, Type 2 diabetes mellitus without complication E11.9 [facility] [id number] [place] [address] 79638- 5310 Feb, [facility] [id number] [place] [address] 55960- 1135 Jan, [facility] [id number] [place] [address] 05030- 3683 Jan, Type 2 diabetes mellitus with hyperglycemia, without long- term current use of insulin E11.65 and , unspecified gestational age Z34.90 [place] [address] [address] 4199 Jan, Type 2 diabetes mellitus without complication E11.9 and Elderly multigravida in first trimester O09.521 [place] [address] [address] 6899 Dec, [place] [id number] [place] [address] 54878- 5472 Dec, [place] [id number] [place] [address] 20045- 2886 Nov, [place] [id number] [place] [address] 12810- 8779 Nov, [place] [id number] [place] [address] 20853- 3884 Nov, Normal in multigravida Z34.80 ; History of section complicating O34.219 ; 9 weeks gestation of Z3A.09 ; Type 2 diabetes mellitus complicating in first trimester, antepartum O24.111 and Elderly multigravida in first trimester O09.521 [place] [address], [place] [address] 1347 Nov, [place] [address] [address] 6002 October, Encounter for test Z32.00 [place] [id number] [place] [address] 09989- 7468 October, Type 2 diabetes mellitus without complication, without long- term current use of insulin E11.9 [place] [address] [address]- 4309 Jul, Type 2 diabetes mellitus without complication E11.9 [place] [address] [address] 0325 Apr, Microcytic anemia D50.9 [facility] [id number] [place] [address] 49864- 2458 Apr, [place] [address] 58764- 5347 Apr, Gastroesophageal reflux disease without esophagitis K21.9 ; Shortness of breath R06.02 ; Fatigue, unspecified type R53.83 and Type 2 diabetes mellitus without complication E11.9 [place] [address] 78167- 2852 Mar, [place] [address] 96749- 2815 Mar, Reactive airway disease that is not asthma R09.89 and Type 2 diabetes mellitus without complication E11.9 [place] [address] 81104- 5550 Feb, [place] [address] 71620- 5904 Feb, Type 2 diabetes mellitus without complication E11.9 and Reactive airway disease that is not asthma R09.89 [place] [address] 48107- 0421 Feb, Threatened O20.0 [place] [id number] [place] [address] 51903- 0032 Feb, Threatened O20.0 [place] [id number] [place] [address] 21531- 9765 Jan, Threatened O20.0 [place] [address] 08396- 2293 Jan, Threatened O20.0 [facility] [id number] [place] [address] 38729 -8959 Jan, Intermenstrual heavy bleeding N92.0 ; Positive test Z32.01 and Vaginal bleeding N93.9 [place] [address] [place] [address]- 0050 October, [facility] [id number] [place] [address] 95412- 0119 October, [facility] [id number] [place] [address] 95384- 9962 October, Type 2 diabetes mellitus without complication E11.9 [facility] [id number] [place] [address] 93288- 5306 May, Type 2 diabetes mellitus without complication E11.9 [facility] [id number] [place] [address] 27080- 4188 Jan, [facility] [id number] [place] [address] 55644- 9580 Jan, Routine gynecological examination Z01.419 ; Amenorrhea N91.2 and Pelvic fullness in female R19.00 [facility] [id number] [place] [address] 65363- 7916 Jan, [facility] [id number] [place] [address] 04721- 9781 Jan, Type 2 diabetes mellitus without complication E11.9 and Amenorrhea N91.2 [facility] [address] [place] [address] 63234- 8757 Sep, Type 2 diabetes mellitus without complications E11.9 [facility] [address] [place] [address] 01399- 2342 Jul, Type 2 diabetes mellitus without complication E11.9 [facility] [id number] [place] [address] 58316- 3413 May, Type 2 diabetes mellitus without complication E11.9 [facility] [id number] [place] [address] 14173- 6564 Mar, Type 2 diabetes mellitus without complication E11.9 [facility] [id number] [place] [address] [id number] Jan, Dental examination V72.2 [facility] [address] [facility] [id number] [id number] Dec, Dental examination V72.2 [facility] [id number] [place] [address] 15537- 1746 Dec, Diabetes mellitus without mention of complication, type II or unspecified type, not stated as uncontrolled 250.00 [facility] [address] [id number] Nov, Dental examination V72.2 [facility] [address] [facility] [id number] [place] [address] 59089- 9066 October, Contraceptive management V25.9 [facility] [id number] [place] [address] 44626- 9316 Sep, [facility] [address] [place] [address] 883297- 6068 Sep, [facility] [address] [place] [address] 994031- 7805 Jul, [facility] [id number] 4790 Jul, [facility] [address] 0313 Apr, [facility] [address] [facility] [id number] 1016 Apr, [facility] [address] [facility] [id number] 5840 Mar, [facility] [address] [facility] [id number] 2909 Mar, [facility] [address] [facility] [id number], [place] [address]- 3046 Mar, [facility] [id number], [place] [address]- 7956 Mar, [facility] [id number] [place] [address] [place] [address]- 8826 Jan, [facility] [address] [id number] [place] [address]- 0261 Jan, [facility] [place] [facility] [address] [id number] [place] [address]- 0544 Nov, [facility] [place] [facility] [address] [id number] [place] [address]- 9157 October, [facility] [place] [facility] [address] [id number] [place] [address]- 9248 October, [facility] [place] [facility] [address] [id number] [place] [address]- 9576 October, [facility] [place] [facility] [address] [id number] [place] [address]- 4398 October, [facility] [address] [id number] [place] [address]- 2041 October, [facility] [place] [facility] [address] [id number] [place] [address]- 1644 Sep, [facility] [place] [facility] [address] [id number] [place] [address]- 5635 Sep, [facility] [place] [facility] [address] [id number] [place] [address]- 2861 Aug, [facility] [place] [facility] [address] [id number] [place] [address]- 6572 Aug, [facility] [place] [facility] [address] [id number] [place] [address]- 6267 Jun, [facility] [place] [facility] [address] [id number] [place] [address]- 4474 Jun, [facility] [place] [facility] [address] [id number] [place] [address]- 8445 Jun, [facility] [place] [facility] [address] [id number] [place] [address]- 1626 Jun, [facility] [place] [facility] [address] [id number] [place] [address]- 3361 20 Apr, 2013 [facility] [place] [facility] [address] [id number] [place] [address]- 0890 20 Apr, 2012 [facility] [place] [facility] [address] [id number] [place] [address]- 9006 19 Apr, 2012 [facility] [place] [facility] [address] [id number] [place] [address]- 1186 30 Feb, 2012 [facility] [place] [facility] [address] [id number] [place] [address]- 5589 18 Sep, 2012 [facility] [place] [facility] [address] [id number] [place] [address]- 0597 10 Feb, 2012 [facility] [place] [facility] [address] [id number] [place] [address]- 1399 09 Sep, 2012 [facility] [place] [facility] [address] [id number] [place] [address]- 8849 09 Feb, 2012 [facility] [place] [facility] [address] [id number] [place] [address]- 5609 07 Sep, 2012 [facility] [place] [facility] [address] [id number] [place] [address]- 0838 06 Feb, 2012 [facility] [place] [facility] [address] [id number] [place] [address]- 2333 05 Sep, 2012 [facility] [place] [facility] [address] [id number] [place] [address]- 4541 03 Feb, 2012 [facility] [place] [facility] [address] [id number] [place] [address]- 3260 27 Jul, 2012 [facility] [place] [facility] [address] [id number] [place] [address]- 9851 19 Jul, 2012 [facility] [place] [facility] [address] [id number] [place] [address]- 9994 15 Jul, 2012 [facility] [place] [facility] [address] [id number] [place] [address]- 1978 Jul, [facility] [place] [facility] [address] [id number] [place] [address]- 7949 Jul, [facility] [place] [facility] [address] [id number] [place] [address]- 2005 Jun, [facility] [place] [facility] [address] [id number] [place] [address]- 1380 May, [facility] [place] [facility] [address] [id number] [place] [address]- 0568 May, [facility] [place] [facility] [address] [id number] [place] [address]- 9772 Apr, [facility] [place] [facility] [address] [id number] [place] [address]- 9277 Apr, [facility] [place] [facility] [address] [id number] [place] [address]- 3616 Apr, [facility] [place] [facility] [address] [id number] [place] [address]- 2715 Apr, [facility] [place] [facility] [address] [id number] [place] [address]- 7984 Apr, [facility] [place] [facility] [address] [id number] [place] [address]- 8838 Apr, [facility] [place] [facility] [address] [id number], [place] [address]- 2602 Mar, [facility] [place] [facility] [address] [id number], [place] [address]- 4548 29 Mar, 2012 [facility] [place] [facility] [address] [id number] [place] [address]- 5357 Mar, [facility] [place] [facility] [address] [id number] [place] [address]- 4242 Mar, [facility] [place] [facility] [address] [id number] [place] [address]- 6825 15 Mar, 2012 [facility] [place] [facility] [address], [place] [address]- 4213 15 Mar, 2012 [facility] [address], [place] [address]- 4859 09 Mar, 2012 [facility] [address], [place] [address]- 7551 Mar, [facility] [address], [place] [address]- 2030 28 Feb, 2012 [facility] [address] [facility] [id number], [place] [address]- 4689 27 Feb, 2012 [facility] [id number] [place] [address] 49378- 7897 25 Feb, 2012 [facility] [address], [place] [address]- 3829 20 Feb, 2012 [facility] [id number] [place] [address] 48297- 2488 19 Feb, 2012 [facility] [address], [place] [address]- 1921 18 Feb, 2012 [facility] [address], [place] [address]- 7107 17 Feb, 2012 [facility] [address], [place] [address]- 6156 04 Feb, 2012 [facility] [address], [place] [address]- 5549 Sep, IMMUNIZATIONS No Known Immunizations SOCIAL HISTORY Never Assessed REASON FOR VISIT insulin refill PLAN OF CARE VITAL SIGNS MEDICATIONS Medication Instructions Dosage Frequency Start Date End Date Duration Status Novolin N 100 UNIT/ML 15 units AM and PM Jan, 30 days Active RESULTS No Results PROCEDURES No Known procedures INSTRUCTIONS MEDICATIONS ADMINISTERED No Known Medications MEDICAL (GENERAL) HISTORY Type Description Date Medical History type II diabetes Surgical History x 4 Hospitalization History surgeries
--- OUTSIDE RECORDS SUMMARY | 2018-05-14 15:17 | XMS REPORT ---
Author Author AMALIA DALY Organization [facility] Address [address] [place] [address] Care Team Providers Care Regional Environmental Manager Name Role Phone AMALIA DALY Unavailable PROBLEMS Type Condition ICD9-CM Code QIJ39-XK Code Onset Dates Condition Status SNOMED Code Problem Type 2 diabetes mellitus with hyperglycemia, without long-term current use of insulin E11.65 Active 92226633 Problem Type 2 diabetes mellitus without complication E11.9 Active 97881726 Problem Microcytic anemia D50.9 Active 998789230 Problem Type 2 diabetes mellitus complicating in first trimester, antepartum O24.111 Active 918588729 Problem Gastroesophageal reflux disease without esophagitis K21.9 Active [id number] ALLERGIES No Information ENCOUNTERS Encounter Location Date Diagnosis [facility] [id number] [place] [address] 75339- 1417 Feb, [facility] [id number] [place] [address] 61783- 7889 Feb, Type 2 diabetes mellitus without complication E11.9 [facility] [id number] [place] [address] 85226- 6174 Feb, [facility] [id number] [place] [address] 15845- 4685 Feb, Type 2 diabetes mellitus without complication E11.9 [facility] [id number] [place] [address] 89753- 8663 Feb, [facility] [id number] [place] [address] 48154- 4096 Jan, [facility] [id number] [place] [address] 79081- 5736 Jan, Type 2 diabetes mellitus with hyperglycemia, without long- term current use of insulin E11.65 and , unspecified gestational age Z34.90 [facility] [address], [place] [address] 1306 Jan, Type 2 diabetes mellitus without complication E11.9 and Elderly multigravida in first trimester O09.521 [facility] [address], [place] [address] 9137 Dec, [facility] [id number] [place] [address] 96853- 4081 Dec, [facility] [id number] [place] [address] 15649- 5230 Nov, [facility] [id number] [place] [address] 81914- 0073 Nov, [facility] [id number] [place] [address] 39329- 7850 Nov, Normal in multigravida Z34.80 ; History of section complicating O34.219 ; 9 weeks gestation of Z3A.09 ; Type 2 diabetes mellitus complicating in first trimester, antepartum O24.111 and Elderly multigravida in first trimester O09.521 [facility] [address], [place] [address] 8470 Nov, [facility] [address], [place] [address] 2199 October, Encounter for test Z32.00 [facility] [id number] [place] [address] 80362- 8260 October, Type 2 diabetes mellitus without complication, without long- term current use of insulin E11.9 [facility] [address], [place] [address]- 5188 Jul, Type 2 diabetes mellitus without complication E11.9 [facility] [address], [place] [address]- 4497 Apr, Microcytic anemia D50.9 [facility] [id number] [place] [address] 66297- 5354 Apr, [facility] [address] 31319- 3901 Apr, Gastroesophageal reflux disease without esophagitis K21.9 ; Shortness of breath R06.02 ; Fatigue, unspecified type R53.83 and Type 2 diabetes mellitus without complication E11.9 [facility] [address] 24657- 8808 Mar, [facility] [address] 19115- 1795 Mar, Reactive airway disease that is not asthma R09.89 and Type 2 diabetes mellitus without complication E11.9 [facility] [address] 41224- 0411 Feb, [facility] [address] 69615- 9733 Feb, Type 2 diabetes mellitus without complication E11.9 and Reactive airway disease that is not asthma R09.89 [facility] [address] 12622- 2977 Feb, Threatened O20.0 [facility] [id number] [place] [address] 90224- 5597 Feb, Threatened O20.0 [facility] [id number] [place] [address] 16352- 4860 Jan, Threatened O20.0 [facility] [address] 81652- 8011 Jan, Threatened O20.0 [facility] [id number] [place] [address] 05460 -0925 Jan, Intermenstrual heavy bleeding N92.0 ; Positive test Z32.01 and Vaginal bleeding N93.9 [facility] [address] [place] [address]- 5781 October, [facility] [id number] [place] [address] 69720- 4730 October, [facility] [id number] [place] [address] 50003- 5391 October, Type 2 diabetes mellitus without complication E11.9 [facility] [id number] [place] [address] 02703- 5982 May, Type 2 diabetes mellitus without complication E11.9 [facility] [id number] [place] [address] 93352- 3485 Jan, [facility] [id number] [place] [address] 09406- 9315 Jan, Routine gynecological examination Z01.419 ; Amenorrhea N91.2 and Pelvic fullness in female R19.00 [facility] [id number] [place] [address] 74913- 2248 Jan, [facility] [id number] [place] [address] 71387- 7489 Jan, Type 2 diabetes mellitus without complication E11.9 and Amenorrhea N91.2 [facility] [address] [place] [address] 90991- 8715 Sep, Type 2 diabetes mellitus without complications E11.9 [facility] [address] [place] [address] 78431- 5248 Jul, Type 2 diabetes mellitus without complication E11.9 [facility] [id number] [place] [address] 22133- 0218 May, Type 2 diabetes mellitus without complication E11.9 [facility] [id number] [place] [address] 26066- 8789 Mar, Type 2 diabetes mellitus without complication E11.9 [facility] [address] [place] [address] [id number] Jan, Dental examination V72.2 [facility] [address] [facility] [id number] [id number] Dec, Dental examination V72.2 [facility] [id number] [place] [address] 52378- 0456 Dec, Diabetes mellitus without mention of complication, type II or unspecified type, not stated as uncontrolled 250.00 [facility] [address] [id number] Nov, Dental examination V72.2 [facility] [address] [facility] [id number] [place] [address] 41019- 2046 October, Contraceptive management V25.9 [facility] [id number] [place] [address] 99271- 3656 Sep, [facility] [address] [place] [address] 760240- 8017 Sep, [facility] [address] [place] [address] 576413- 6172 Jul, [facility] [id number] [address]59 Jul, [facility] [address] 5752 Apr, [facility] [address] [facility] [id number] 7116 Apr, [facility] [address] [facility] [id number] 8979 Mar, [facility] [address] [facility] [id number]- 1788 Mar, [facility] [address] [facility] [id number], [place] [address]- 1556 Mar, [facility] [id number] [address]- 4766 Mar, [facility] [id number] [place] [address] [place] [address]- 6041 Jan, [facility] [address] [id number] [place] [address]- 8506 Jan, [facility] [place] [facility] [address] [id number] [place] [address]- 0796 Nov, [facility] [place] [facility] [address] [id number] [place] [address]- 4698 October, [facility] [place] [facility] [address] [id number] [place] [address]- 8074 October, [facility] [place] [facility] [address] [id number] [place] [address]- 7079 October, [facility] [place] [facility] [address] [id number] [place] [address]- 1142 October, [facility] [address] [id number] [place] [address]- 8325 October, [facility] [place] [facility] [address] [id number] [place] [address]- 2189 Sep, [facility] [place] [facility] [address] [id number] [place] [address]- 2799 Sep, [facility] [place] [facility] [address] [id number] [place] [address]- 4410 Aug, [facility] [place] [facility] [address] [id number] [place] [address]- 4232 Aug, [facility] [place] [facility] [address] [id number] [place] [address]- 2722 Jun, [facility] [place] [facility] [address] [id number] [place] [address]- 0996 Jun, [facility] [place] [facility] [address] [id number] [place] [address]- 3970 Jun, [facility] [place] [facility] [address] [id number] [place] [address]- 4560 Jun, [facility] [place] [facility] [address] [id number] [place] [address]- 3883 20 Apr, 2013 [facility] [place] [facility] [address] [id number] [place] [address]- 6024 20 Apr, 2012 [facility] [place] [facility] [address] [id number] [place] [address]- 2824 19 Apr, 2012 [facility] [place] [facility] [address] [id number] [place] [address]- 1795 30 Feb, 2012 [facility] [place] [facility] [address] [id number] [place] [address]- 1433 18 Sep, 2012 [facility] [place] [facility] [address] [id number] [place] [address]- 5796 10 Feb, 2012 [facility] [place] [facility] [address] [id number] [place] [address]- 8405 09 Sep, 2012 [facility] [place] [facility] [address] [id number] [place] [address]- 9974 09 Feb, 2012 [facility] [place] [facility] [address] [id number] [place] [address]- 4812 07 Sep, 2012 [facility] [place] [facility] [address] [id number] [place] [address]- 6926 06 Feb, 2012 [facility] [place] [facility] [address] [id number] [place] [address]- 4747 05 Sep, 2012 [facility] [place] [facility] [address] [id number] [place] [address]- 6344 03 Feb, 2012 [facility] [place] [facility] [address] [id number] [place] [address]- 1175 27 Jul, 2012 [facility] [place] [facility] [address] [id number] [place] [address]- 1170 19 Jul, 2012 [facility] [place] [facility] [address] [id number] [place] [address]- 0960 15 Jul, 2012 [facility] [place] [facility] [address] [id number] [place] [address]- 0804 Jul, [facility] [place] [facility] [address] [id number] [place] [address]- 9163 Jul, [facility] [place] [facility] [address] [id number] [place] [address]- 9567 Jun, [facility] [place] [facility] [address] [id number] [place] [address]- 8625 May, [facility] [place] [facility] [address] [id number] [place] [address]- 4742 May, [facility] [place] [facility] [address] [id number] [place] [address]- 4166 Apr, [facility] [place] [facility] [address] [id number] [place] [address]- 8681 Apr, [facility] [place] [facility] [address] [id number] [place] [address]- 3664 Apr, [facility] [place] [facility] [address] [id number] [place] [address]- 6098 Apr, [facility] [place] [facility] [address] [id number] [place] [address]- 2099 Apr, [facility] [place] [facility] [address] [id number] [place] [address]- 9882 Apr, [facility] [place] [facility] [address] [id number], [place] [address]- 1666 Mar, [facility] [place] [facility] [address] [id number], [place] [address]- 5744 29 Mar, 2012 [facility] [place] [facility] [address] [id number] [place] [address]- 4813 Mar, [facility] [place] [facility] [address] [id number] [place] [address]- 4874 Mar, [facility] [place] [facility] [address] [id number] [place] [address]- 2974 15 Mar, 2012 [facility] [place] [facility] [address], [place] [address]- 0066 15 Mar, 2012 [facility] [address], [place] [address]- 5845 09 Mar, 2012 [facility] [address] 4620 Mar, [facility] [address], [place] [address]- 6194 28 Feb, 2012 [facility] [address], [place] [address]- 0275 27 Feb, 2012 [facility] [address], [place] [address]- 7034 25 Feb, 2012 [facility] [address], [place] [address]- 1273 20 Feb, 2012 [facility] [address] [place] [address] 62493- 3145 19 Feb, 2012 [facility] [address], [place] [address]- 5794 18 Feb, 2012 [facility] [address], [place] [address]- 7986 17 Feb, 2012 [facility] [address], [place] [address]- 0159 04 Feb, 2012 [facility] [address], [place] [address]- 3183 Sep, IMMUNIZATIONS No Known Immunizations SOCIAL HISTORY Never Assessed REASON FOR VISIT BS f/u PLAN OF CARE VITAL SIGNS MEDICATIONS Unknown Medications RESULTS No Results PROCEDURES No Known procedures INSTRUCTIONS MEDICATIONS ADMINISTERED No Known Medications MEDICAL (GENERAL) HISTORY Type Description Date Medical History type II diabetes Surgical History x 4 Hospitalization History surgeries
--- OUTSIDE RECORDS SUMMARY | 2018-05-14 15:17 | XMS REPORT ---
Author Author AMALIA DALY [facility] Address [address] [place] [address] Care Team Providers Care Merchandise Clerk Name Role Phone AMALIA DALY Unavailable PROBLEMS Type Condition ICD9-CM Code PRU76-XB Code Onset Dates Condition Status SNOMED Code Problem Type 2 diabetes mellitus with hyperglycemia, without long-term current use of insulin E11.65 Active 99254782 Problem Type 2 diabetes mellitus without complication E11.9 Active 09397341 Problem Microcytic anemia D50.9 Active 649531982 Problem Type 2 diabetes mellitus complicating in first trimester, antepartum O24.111 Active 153263526 Problem Gastroesophageal reflux disease without esophagitis K21.9 Active [id number] ALLERGIES No Information ENCOUNTERS Encounter Location Date Diagnosis [facility] [id number] [place] [address] 74925- 7114 Feb, [facility] [address] [address]- [address] 05 Feb, 2018 Type 2 diabetes mellitus without complication E11.9 [facility] [id number] [place] [address] 97175- 2282 Feb, [facility] [id number] [place] [address] 91069- 4739 Jan, [facility] [id number] [place] [address] 39050- 1912 Jan, Type 2 diabetes mellitus with hyperglycemia, without long- term current use of insulin E11.65 and , unspecified gestational age Z34.90 [facility] [id number] [place] [address] 17062- 8381 Jan, Type 2 diabetes mellitus without complication E11.9 and Elderly multigravida in first trimester O09.521 [facility] [address] [address] 4653 Dec, [facility] [id number] [place] [address] 99705- 2977 Dec, [facility] [address] [address] 3392 Nov, [facility] [id number] [place] [address] 10220- 6080 Nov, [facility] [address] [address] 1871 Nov, Normal in multigravida Z34.80 ; History of section complicating O34.219 ; 9 weeks gestation of Z3A.09 ; Type 2 diabetes mellitus complicating in first trimester, antepartum O24.111 and Elderly multigravida in first trimester O09.521 [facility] [id number] [place] [address] 50975- 5760 Nov, [facility] [id number] [place] [address] 41762- 5148 October, Encounter for test Z32.00 [facility] [address] [address] 7050 October, Type 2 diabetes mellitus without complication, without long- term current use of insulin E11.9 [facility] [address] [address]- 3984 Jul, Type 2 diabetes mellitus without complication E11.9 [facility] [address] [address]- 6281 Apr, Microcytic anemia D50.9 [facility] [address] [address]- 5493 Apr, [facility] [address] [address]- 9996 Apr, Gastroesophageal reflux disease without esophagitis K21.9 ; Shortness of breath R06.02 ; Fatigue, unspecified type R53.83 and Type 2 diabetes mellitus without complication E11.9 [facility] [id number] [place] [address] 57011- 7218 Mar, [facility] [id number] [place] [address] 45147- 4477 Mar, Reactive airway disease that is not asthma R09.89 and Type 2 diabetes mellitus without complication E11.9 [facility] [id number] [place] [address] 78479- 5533 Feb, [facility] [id number] [place] [address] 20843- 6957 Feb, Type 2 diabetes mellitus without complication E11.9 and Reactive airway disease that is not asthma R09.89 [facility] [id number] [place] [address] 85716- 9543 Feb, Threatened O20.0 [facility] [id number] [place] [address] 58943- 5257 Feb, Threatened O20.0 [facility] [id number] [place] [address] 87232- 2864 Jan, Threatened O20.0 [facility] [id number] [place] [address] 21701- 1423 Jan, Threatened O20.0 [facility] [id number] [place] [address] 60621 -8723 Jan, Intermenstrual heavy bleeding N92.0 ; Positive test Z32.01 and Vaginal bleeding N93.9 [facility] [id number] [place] [address] 88779- 0636 October, [facility] [id number] [place] [address] 26179- 2247 October, [facility] [id number] [place] [address] 05909- 4910 October, Type 2 diabetes mellitus without complication E11.9 [facility] [address] [address]- 4086 May, Type 2 diabetes mellitus without complication E11.9 [facility] [id number] [place] [address] 08726- 3426 Jan, [facility] [id number] [place] [address] 37407- 0847 Jan, Routine gynecological examination Z01.419 ; Amenorrhea N91.2 and Pelvic fullness in female R19.00 [facility] [id number] [place] [address] 26606- 9861 Jan, [facility] [id number] [place] [address] 52421- 9564 Jan, Type 2 diabetes mellitus without complication E11.9 and Amenorrhea N91.2 [facility] [id number] [place] [address] 49964- 4122 Sep, Type 2 diabetes mellitus without complications E11.9 [facility] [address] [place] [address] 48920- 5517 Jul, Type 2 diabetes mellitus without complication E11.9 [facility] [address] [place] [address] 22484- 6753 May, Type 2 diabetes mellitus without complication E11.9 [facility] [address] [place] [address] 88470- 1866 Mar, Type 2 diabetes mellitus without complication E11.9 [facility] [address] [id number] Jan, Dental examination V72.2 [facility] [id number] [place] [address] [id number] Dec, Dental examination V72.2 [facility] [address] [place] [address] 20536- 7206 Dec, Diabetes mellitus without mention of complication, type II or unspecified type, not stated as uncontrolled 250.00 [facility] [id number] [id number] Nov, Dental examination V72.2 [facility] [address] [address] 7780 October, Contraceptive management V25.9 [facility] [id number] [place] [address] 91540- 9572 Sep, [facility] [id number] [place] [address] 73931- 3748 Sep, [facility] [id number] [place] [address] 806116- 9277 Jul, [facility] [id number] [place] [address] 295117- 3752 Jul, [facility] [id number] [place] [address] 72498- 9314 Apr, [facility] [id number] [place] [address] 772001- 5675 Apr, [facility] [id number] [place] [address] 318088- 8582 Mar, [facility] [address] 1385 Mar, [facility] [address] 1017 Mar, [facility] [address] 7878 Mar, [facility] [id number] [place] [address] 47003- 2032 Jan, [facility] [address] [address]- 6036 Jan, [facility] [id number] [place] [address] 56290- 0603 Nov, [facility] [place] [facility] [address] [id number] [place] [address]- 2809 October, [facility] [place] [facility] [address] [id number] [place] [address]- 0489 October, [facility] [place] [facility] [address] [id number] [place] [address]- 4110 October, [facility] [place] [facility] [address] [id number] [place] [address]- 4525 October, [facility] [place] [facility] [address] [id number] [place] [address]- 8317 October, [facility] [place] [facility] [address] [id number] [place] [address]- 6710 Sep, [facility] [place] [facility] [address] [id number] [place] [address]- 0639 Sep, [facility] [place] [facility] [address] [id number] [place] [address]- 8124 Aug, [facility] [place] [facility] [address] [id number] [place] [address]- 3335 Aug, [facility] [place] [facility] [address] [id number] [place] [address]- 6179 Jun, [facility] [place] [facility] [address] [id number] [place] [address]- 6656 Jun, [facility] [place] [facility] [address] [id number] [address]- 2767 Jun, [facility] [place] [facility] [address] [id number] [place] [address]- 0604 Jun, [facility] [place] [facility] [address] [id number] [place] [address]- 5843 Apr, [facility] [place] [facility] [address] [id number] [place] [address]- 0161 Apr, [facility] [place] [facility] [address] [id number] [place] [address]- 5676 19 Apr, 2012 [facility] [address] [id number] [place] [address] 2546 30 Sep, 2012 [facility] [place] [facility] [address] [id number] [place] [address] 2546 18 Sep, 2012 [facility] [place] [facility] [address] [id number] [place] [address] 2546 10 Sep, 2012 [facility] [place] [facility] [address] [id number] [place] [address] 2546 09 Sep, 2012 [facility] [place] [facility] [address] [id number] [place] [address] 2544 09 Sep, 2012 [facility] [place] [facility] [address] [id number] [place] [address]- 2545 07 Sep, 2012 [facility] [place] [facility] [address] [facility] [id number] [place] [address]- 4071 06 Sep, 2012 [facility] [place] [facility] [address] [id number] [place] [address] 2541 05 Sep, 2012 [facility] [place] [facility] [address] [facility] [id number] [place] [address] 2545 03 Feb, 2012 [facility] [place] [facility] [address] [facility] [id number] [place] [address]- 2625 27 Jul, 2012 [facility] [place] [facility] [address] [facility] [id number] [place] [address] 2546 19 Jul, 2012 [facility] [place] [facility] [address] [facility] [id number] [place] [address]- 2544 15 Jul, 2012 [facility] [place] [facility] [address] [id number] [place] [address]- 6633 14 Jul, 2012 [facility] [place] [facility] [address] [facility] [id number] [place] [address]- 2547 04 Jul, 2012 [facility] [place] [facility] [address] [facility] [id number] [place] [address]- 5192 Jun, [facility] [place] [facility] [address] [id number] [place] [address]- 5661 May, [facility] [place] [facility] [address] [id number] [place] [address]- 7807 May, [facility] [place] [facility] [address] [id number] [place] [address]- 1783 Apr, [facility] [place] [facility] [address] [id number] [place] [address]- 4315 Apr, [facility] [place] [facility] [address] [id number] [place] [address]- 5243 Apr, [facility] [place] [facility] [address] [id number] [place] [address]- 8193 Apr, [facility] [place] [facility] [address] [id number] [place] [address]- 4422 Apr, [facility] [place] [facility] [address] [id number] [place] [address]- 4255 Apr, [facility] [place] [facility] [address] [id number] [place] [address]- 6972 Mar, [facility] [place] [facility] [address] [id number] [place] [address]- 2972 Mar, [facility] [place] [facility] [address] [id number] [place] [address]- 1999 Mar, [facility] [place] [facility] [address] [id number] [address]- 1801 Mar, [facility] [place] [facility] [address] [id number] [place] [address]- 4568 Mar, [facility] [place] [facility] [address] [id number] [place] [address]- 0061 Mar, [facility] [place] [facility] [address] [id number] [place] 5469 Mar, [facility] [place] [facility] [address] [id number] [address]- 2117 Mar, [facility] [address] [address]- 1898 28 Feb, 2012 [facility] [address] 3300 27 Feb, 2012 [facility] [address] [address]- 0440 25 Feb, 2012 [facility] [id number] [place] [address] 11327- 0030 20 Feb, 2012 [facility] [id number] [place] [address] 706644- 1199 19 Feb, 2012 [facility] [id number] [place] [address] 42753- 0508 18 Feb, 2012 [facility] [address] 5050 17 Feb, 2012 [facility] [address] [address]- 3055 04 Feb, 2012 [facility] [id number]- 4085 11 Sep, 2010 IMMUNIZATIONS No Known Immunizations SOCIAL HISTORY Never Assessed REASON FOR VISIT DM ED, PLAN OF CARE VITAL SIGNS MEDICATIONS Medication Instructions Dosage Frequency Start Date End Date Duration Status GlipiZIDE 10 mg Orally twice a day 2 tablet in AM and 1 tablet in PM 12h 90 days Unknown Glucocard Expression Test - DX- O24.111 Test blood sugars fasting and 2 hours after each meal. test 4 times per day Dec, Active Metformin HCl 1000 MG Orally Twice a day 1 tablet with meals 12h Jan, Unknown RESULTS No Results PROCEDURES No Known procedures INSTRUCTIONS MEDICATIONS ADMINISTERED No Known Medications MEDICAL (GENERAL) HISTORY Type Description Date Medical History type II diabetes Surgical History x 4 Hospitalization History surgeries
--- OUTSIDE RECORDS SUMMARY | 2018-05-14 15:17 | XMS REPORT ---
Author Author AMALIA DALY Organization [facility] Address [address] [place] [address] Care Team Providers Care Medicare Specialist Name Role Phone AMALIA DALY Unavailable PROBLEMS Type Condition ICD9-CM Code WNR45-LQ Code Onset Dates Condition Status SNOMED Code Problem Type 2 diabetes mellitus with hyperglycemia, without long-term current use of insulin E11.65 Active 93661038 Problem Type 2 diabetes mellitus without complication E11.9 Active 21725013 Problem Microcytic anemia D50.9 Active 102349253 Problem Type 2 diabetes mellitus complicating in first trimester, antepartum O24.111 Active 478168560 Problem Gastroesophageal reflux disease without esophagitis K21.9 Active [id number] ALLERGIES No Information ENCOUNTERS Encounter Location Date Diagnosis [place] [id number] [place] [address] 61270- 3448 Feb, Type 2 diabetes mellitus without complication E11.9 [place] [address] 8[address]19- 4720 Feb, [place] [id number] [place] [address] 82509- 1109 Feb, Type 2 diabetes mellitus without complication E11.9 [place] [id number] [place] [address] 57361- 7425 Feb, [place] [id number] [place] [address] 11170- 4068 Jan, [place] [address] 22383- 2754 Jan, Type 2 diabetes mellitus with hyperglycemia, without long- term current use of insulin E11.65 and , unspecified gestational age Z34.90 [place] [address] [place] [address]- 2224 Jan, Type 2 diabetes mellitus without complication E11.9 and Elderly multigravida in first trimester O09.521 [place] [id number] [place] [address] 68144- 3933 Dec, [facility] [id number] [place] [address] 08538- 9710 Dec, [place] [id number] [place] [address] 71768- 9398 Nov, [place] [id number] [place] [address] 00205- 9405 Nov, [place] [id number] [place] [address] 93742- 0162 Nov, Normal in multigravida Z34.80 ; History of section complicating O34.219 ; 9 weeks gestation of Z3A.09 ; Type 2 diabetes mellitus complicating in first trimester, antepartum O24.111 and Elderly multigravida in first trimester O09.521 [place] [id number] [place] [address] 26163- 3818 Nov, [place] [id number] [place] [address] 53759- 2277 October, Encounter for test Z32.00 [place] [id number] [place] [address] 14526- 6829 October, Type 2 diabetes mellitus without complication, without long- term current use of insulin E11.9 [place] [id number] [place] [address] 42917- 8853 Jul, Type 2 diabetes mellitus without complication E11.9 [place] [id number] [place] [address] 60327- 2867 Apr, Microcytic anemia D50.9 [place] [id number] [place] [address] 36713- 9548 Apr, [facility] [id number] [place] [address] 88345- 6867 Apr, Gastroesophageal reflux disease without esophagitis K21.9 ; Shortness of breath R06.02 ; Fatigue, unspecified type R53.83 and Type 2 diabetes mellitus without complication E11.9 [facility] [id number] [place] [address] 27703- 7228 Mar, Reactive airway disease that is not asthma R09.89 and Type 2 diabetes mellitus without complication E11.9 [facility] [id number] [place] [address] 87018- 0403 Mar, [place] [address] 12203- 0002 Feb, [facility] [id number] [place] [address] 18347- 0956 Feb, Type 2 diabetes mellitus without complication E11.9 and Reactive airway disease that is not asthma R09.89 [facility] [id number] [place] [address] 09005- 5361 Feb, Threatened O20.0 [place] [id number] [place] [address] 80527- 9849 Feb, Threatened O20.0 [facility] [id number] [place] [address] 66729- 0308 Jan, Threatened O20.0 [facility] [id number] [place] [address] 99752- 2990 Jan, Threatened O20.0 [facility] [id number] [place] [address] 94820 -0610 Jan, Intermenstrual heavy bleeding N92.0 ; Positive test Z32.01 and Vaginal bleeding N93.9 [facility] [id number] [place] [address] 90559- 0760 October, [facility] [address] [place] [address]- 4700 October, [facility] [address] [address] 2702 October, Type 2 diabetes mellitus without complication E11.9 [facility] [id number] [address] 3316 May, Type 2 diabetes mellitus without complication E11.9 [facility] [id number] [place] [address] 41876- 4532 Jan, [facility] [id number] [place] [address] 60706- 2208 Jan, Routine gynecological examination Z01.419 ; Amenorrhea N91.2 and Pelvic fullness in female R19.00 [facility] [id number] [place] [address] 99129- 0642 Jan, [facility] [id number] [place] [address] 65029- 1414 Jan, Type 2 diabetes mellitus without complication E11.9 and Amenorrhea N91.2 [facility] [id number] [place] [address] 55478- 2254 Sep, Type 2 diabetes mellitus without complications E11.9 [facility] [address] [address]- 5361 Jul, Type 2 diabetes mellitus without complication E11.9 [facility] [address] [address] 1982 May, Type 2 diabetes mellitus without complication E11.9 [facility] [address] [address]- 2173 Mar, Type 2 diabetes mellitus without complication E11.9 [facility] [address] [id number] [id number] Jan, Dental examination V72.2 [facility] [address] [id number] [id number] Dec, Dental examination V72.2 [facility] [address] [facility] [id number], [place] [address] Dec, Diabetes mellitus without mention of complication, type II or unspecified type, not stated as uncontrolled 250.00 [facility] [address] [id number] [id number] Nov, Dental examination V72.2 [facility] [address] [facility] [id number], [place] [address]- 5609 October, Contraceptive management V25.9 [facility] [address] [facility] [id number], [place] [address]- 6253 Sep, [facility] [id number] [place] [address] 60562- 0034 Sep, [facility] [address] [address]- 0587 Jul, [facility] [id number] [address]- 0206 Jul, [facility] [id number] [address]- 2188 Apr, [facility] [id number] [address]- 6856 Apr, [facility] [address] [facility] [id number], [place] [address]- 4175 Mar, [facility] [address] [facility] [id number], [place] [address]- 3123 Mar, [facility] [address] [facility] [id number], [place] [address]- 3634 Mar, [facility] [address] [facility] [id number] 0873 Mar, [facility] [id number] 1098 Jan, [facility] [id number] [place] [address] [place] [address]- 6008 Jan, [facility] [address] [id number] [place] [address]- 8615 Nov, [facility] [place] [facility] [address] [id number] [place] [address]- 0311 October, [facility] [place] [facility] [address] [id number] [place] [address]- 4685 October, [facility] [place] [facility] [address] [id number] [place] [address]- 6932 October, [facility] [place] [facility] [address] [id number] [place] [address]- 8900 October, [facility] [place] [facility] [address] [id number] [place] [address]- 7175 October, [facility] [place] [facility] [address] [id number] [place] [address]- 7150 Sep, [facility] [place] [facility] [address] [id number] [place] [address]- 6954 Sep, [facility] [place] [facility] [address] [id number] [place] [address]- 2591 Aug, [facility] [place] [facility] [address] [id number] [place] [address]- 5412 Aug, [facility] [place] [facility] [address] [id number] [place] [address]- 1291 Jun, [facility] [place] [facility] [address] [id number] [place] [address]- 5802 Jun, [facility] [place] [facility] [address] [id number] [place] [address]- 8393 Jun, [facility] [place] [facility] [address] [id number] [place] [address]- 0231 Jun, [facility] [place] [facility] [address] [id number] [place] [address] Apr, [facility] [place] [facility] [address] [id number] [place] [address]- 5311 20 Apr, 2012 [facility] [place] [facility] [address] [id number] [place] [address]- 6597 19 Apr, 2012 [facility] [place] [facility] [address] [id number] [place] [address] 2544 30 Feb, 2012 [facility] [place] [facility] [address] [id number] [place] [address] 2543 18 Sep, 2012 [facility] [place] [facility] [address] [id number] [place] [address] 2544 10 Feb, 2012 [facility] [place] [facility] [address] [id number] [place] [address]- 4417 09 Sep, 2012 [facility] [place] [facility] [address] [id number] [place] [address]- 9847 09 Feb, 2012 [facility] [place] [facility] [address] [id number] [place] [address]- 1222 07 Sep, 2012 [facility] [place] [facility] [address] [id number] [place] [address]- 6043 06 Sep, 2012 [facility] [place] [facility] [address] [id number] [place] [address]- 6801 05 Sep, 2012 [facility] [place] [facility] [address] [facility] [id number] [place] [address]- 4561 03 Feb, 2012 [facility] [place] [facility] [address] [id number] [place] [address]- 6531 27 Jul, 2012 [facility] [place] [facility] [address] [id number] [place] [address]- 8445 19 Jul, 2012 [facility] [place] [facility] [address] [id number] [place] [address]- 7377 15 Jul, 2012 [facility] [place] [facility] [address] [id number] [place] [address]- 9234 14 Jul, 2012 [facility] [place] [facility] [address] [id number], [place] [address]- 3636 Jul, [facility] [place] [facility] [address] [id number] [place] [address]- 4579 Jun, [facility] [place] [facility] [address] [id number] [place] [address]- 8904 May, [facility] [place] [facility] [address] [id number] [place] [address]- 7612 May, [facility] [place] [facility] [address] [id number] [place] [address]- 1849 Apr, [facility] [place] [facility] [address] [id number] [place] [address]- 7831 Apr, [facility] [place] [facility] [address] [id number] [place] [address]- 8682 Apr, [facility] [place] [facility] [address] [id number] [place] [address]- 1460 Apr, [facility] [place] [facility] [address] [id number] [place] [address]- 3401 Apr, [facility] [place] [facility] [address] [id number] [place] [address]- 0786 Apr, [facility] [place] [facility] [address] [id number] [place] [address]- 1452 Mar, [facility] [place] [facility] [address] [id number], [place] [address]- 1488 29 Mar, 2012 [facility] [place] [facility] [address] [id number], [place] [address]- 9555 Mar, [facility] [place] [facility] [address] [id number] [place] [address]- 0202 Mar, [facility] [place] [facility] [address] [id number], [place] [address]- 9407 15 Mar, 2012 [facility] [place] [facility] [address] [id number] [place] [address]- 0078 15 Mar, 2012 [facility] [place] [facility] [address], [place] [address]- 8927 09 Mar, 2012 [facility] [address], [place] [address]- 6494 Mar, [facility] [address], [place] [address]- 9849 28 Feb, 2012 [facility] [address], [place] [address]- 0166 27 Feb, 2012 [facility] [address], [place] [address]- 2337 25 Feb, 2012 [facility] [address], [place] [address]- 7577 20 Feb, 2012 [facility] [address], [place] [address]- 6557 19 Feb, 2012 [facility] [id number] [place] [address] 34285- 7222 18 Feb, 2012 [facility] [address], [place] [address]- 0285 17 Feb, 2012 [facility] [address], [place] [address]- 7293 04 Feb, 2012 [facility] [address] [id number], [place] [address]- 2556 11 Sep, 2010 IMMUNIZATIONS No Known Immunizations SOCIAL HISTORY Never Assessed REASON FOR VISIT Referral for DM ed PLAN OF CARE VITAL SIGNS MEDICATIONS Unknown Medications RESULTS No Results PROCEDURES No Known procedures INSTRUCTIONS MEDICATIONS ADMINISTERED No Known Medications MEDICAL (GENERAL) HISTORY Type Description Date Medical History type II diabetes Surgical History x 4 Hospitalization History surgeries
--- OUTSIDE RECORDS SUMMARY | 2018-05-14 15:17 | XMS REPORT ---
Author Author AMALIA DALY Organization [facility] Address [address] [place] [address] Care Team Providers Care Mail Clerks Supervisor Name Role Phone AMALIA DALY Unavailable PROBLEMS Type Condition ICD9-CM Code GQN61-PM Code Onset Dates Condition Status SNOMED Code Problem Type 2 diabetes mellitus with hyperglycemia, without long-term current use of insulin E11.65 Active 25432943 Problem Type 2 diabetes mellitus without complication E11.9 Active 90264553 Problem Microcytic anemia D50.9 Active 921343306 Problem Type 2 diabetes mellitus complicating in first trimester, antepartum O24.111 Active 735979329 Problem Gastroesophageal reflux disease without esophagitis K21.9 Active 521656951 ALLERGIES No Information ENCOUNTERS Encounter Location Date Diagnosis [place] [id number] [place] [address] 09305- 0393 Feb, Type 2 diabetes mellitus without complication E11.9 [place] [address] [address]- [address] Feb, [place] [id number] [place] [address] 05489- 8944 Feb, Type 2 diabetes mellitus without complication E11.9 [place] [id number] [place] [address] 95495- 0883 Feb, [place] [id number] [place] [address] 78633- 9335 Jan, [place] [address] 18432- 6344 Jan, Type 2 diabetes mellitus with hyperglycemia, without long- term current use of insulin E11.65 and , unspecified gestational age Z34.90 [place] [address] [place] [address]- 3048 Jan, Type 2 diabetes mellitus without complication E11.9 and Elderly multigravida in first trimester O09.521 [place] [id number] [place] [address] 53066- 6689 Dec, [facility] [id number] [place] [address] 36723- 7215 Dec, [place] [id number] [place] [address] 49301- 9951 Nov, [place] [id number] [place] [address] 01942- 0489 Nov, [place] [id number] [place] [address] 00892- 9536 Nov, Normal in multigravida Z34.80 ; History of section complicating O34.219 ; 9 weeks gestation of Z3A.09 ; Type 2 diabetes mellitus complicating in first trimester, antepartum O24.111 and Elderly multigravida in first trimester O09.521 [place] [id number] [place] [address] 96948- 7306 Nov, [place] [id number] [place] [address] 36769- 5015 October, Encounter for test Z32.00 [place] [id number] [place] [address] 19304- 8808 October, Type 2 diabetes mellitus without complication, without long- term current use of insulin E11.9 [place] [id number] [place] [address] 07436- 0995 Jul, Type 2 diabetes mellitus without complication E11.9 [place] [id number] [place] [address] 23912- 8101 Apr, Microcytic anemia D50.9 [place] [id number] [place] [address] 23568- 2436 Apr, [facility] [id number] [place] [address] 75053- 9780 Apr, Gastroesophageal reflux disease without esophagitis K21.9 ; Shortness of breath R06.02 ; Fatigue, unspecified type R53.83 and Type 2 diabetes mellitus without complication E11.9 [facility] [id number] [place] [address] 02907- 5456 Mar, Reactive airway disease that is not asthma R09.89 and Type 2 diabetes mellitus without complication E11.9 [facility] [id number] [place] [address] 70665- 3687 Mar, [place] [address] 96018- 9168 Feb, [facility] [id number] [place] [address] 71060- 2651 Feb, Type 2 diabetes mellitus without complication E11.9 and Reactive airway disease that is not asthma R09.89 [facility] [id number] [place] [address] 83274- 8537 Feb, Threatened O20.0 [place] [id number] [place] [address] 15700- 1561 Feb, Threatened O20.0 [facility] [id number] [place] [address] 93756- 5853 Jan, Threatened O20.0 [facility] [id number] [place] [address] 66308- 8948 Jan, Threatened O20.0 [facility] [id number] [place] [address] 67478 -9551 Jan, Intermenstrual heavy bleeding N92.0 ; Positive test Z32.01 and Vaginal bleeding N93.9 [facility] [id number] [place] [address] 74223- 2095 October, [facility] [address] [place] [address]- 5182 October, [facility] [address] [address]- 7384 October, Type 2 diabetes mellitus without complication E11.9 [facility] [id number] [address]- 0926 May, Type 2 diabetes mellitus without complication E11.9 [facility] [id number] [place] [address] 60457- 8049 Jan, [facility] [id number] [place] [address] 30738- 0687 Jan, Routine gynecological examination Z01.419 ; Amenorrhea N91.2 and Pelvic fullness in female R19.00 [facility] [id number] [place] [address] 02617- 8706 Jan, [facility] [id number] [place] [address] 02044- 0484 Jan, Type 2 diabetes mellitus without complication E11.9 and Amenorrhea N91.2 [facility] [id number] [place] [address] 48994- 7024 Sep, Type 2 diabetes mellitus without complications E11.9 [facility] [address] [address]- 4577 Jul, Type 2 diabetes mellitus without complication E11.9 [facility] [address] [address]- 4219 May, Type 2 diabetes mellitus without complication E11.9 [facility] [address] [address]- 5671 Mar, Type 2 diabetes mellitus without complication E11.9 [facility] [address] [id number] [id number] Jan, Dental examination V72.2 [facility] [address] [id number] [id number] Dec, Dental examination V72.2 [facility] [address] [facility] [id number][place] [address]- 5996 Dec, Diabetes mellitus without mention of complication, type II or unspecified type, not stated as uncontrolled 250.00 [facility] [address] [id number] [id number] Nov, Dental examination V72.2 [facility] [address] [facility] [id number], [place] [address]- 8612 October, Contraceptive management V25.9 [facility] [address] [facility] [id number][place] [address]- 1895 Sep, [facility] [id number] [place] [address] 87796- 3128 Sep, [facility] [address] [address]- 2547 Jul, [facility] [id number] [address]- 4724 Jul, [facility] [id number] [address]- 2169 Apr, [facility] [id number] [address]- 6053 Apr, [facility] [address] [facility] [id number], [place] [address]- 6495 Mar, [facility] [address] [facility] [id number][place] [address]- 6848 Mar, [facility] [address] [facility] [id number], [place] [address]- 3835 Mar, [facility] [address] [facility] [id number]- 6684 Mar, [facility] [id number] 7443 Jan, [facility] [id number] [place] [address] [place] [address]- 3692 Jan, [facility] [address] [id number] [place] [address]- 0438 Nov, [facility] [place] [facility] [address] [id number] [place] [address]- 8470 October, [facility] [place] [facility] [address] [id number] [place] [address]- 1161 October, [facility] [place] [facility] [address] [id number] [place] [address]- 1686 October, [facility] [place] [facility] [address] [id number] [place] [address]- 5822 October, [facility] [place] [facility] [address] [id number] [place] [address]- 5930 October, [facility] [place] [facility] [address] [id number] [place] [address]- 9713 Sep, [facility] [place] [facility] [address] [id number] [place] [address]- 9345 Sep, [facility] [place] [facility] [address] [id number] [place] [address]- 6990 Aug, [facility] [place] [facility] [address] [id number] [place] [address]- 1827 Aug, [facility] [place] [facility] [address] [id number] [place] [address]- 8665 Jun, [facility] [place] [facility] [address] [id number] [place] [address]- 6771 Jun, [facility] [place] [facility] [address] [id number] [place] [address]- 2971 Jun, [facility] [place] [facility] [address] [id number] [place] [address]- 3552 Jun, [facility] [place] [facility] [address] [id number] [place] [address]- 2541 Apr, [facility] [place] [facility] [address] [id number] [place] [address]- 4307 20 Apr, 2012 [facility] [place] [facility] [address] [id number] [place] [address]- 7421 19 Apr, 2012 [facility] [place] [facility] [address] [id number] [place] [address] 2548 30 Feb, 2012 [facility] [place] [facility] [address] [id number] [place] [address] 2540 18 Sep, 2012 [facility] [place] [facility] [address] [id number] [place] [address] 2548 10 Feb, 2012 [facility] [place] [facility] [address] [id number] [place] [address]- 4476 09 Sep, 2012 [facility] [place] [facility] [address] [id number] [place] [address]- 9346 09 Feb, 2012 [facility] [place] [facility] [address] [id number] [place] [address]- 3082 07 Sep, 2012 [facility] [place] [facility] [address] [id number] [place] [address]- 8479 06 Sep, 2012 [facility] [place] [facility] [address] [id number] [place] [address]- 8624 05 Sep, 2012 [facility] [place] [facility] [address] [facility] [id number] [place] [address]- 6484 03 Feb, 2012 [facility] [place] [facility] [address] [id number] [place] [address]- 9598 27 Jul, 2012 [facility] [place] [facility] [address] [id number] [place] [address]- 2693 19 Jul, 2012 [facility] [place] [facility] [address] [id number] [place] [address]- 9263 15 Jul, 2012 [facility] [place] [facility] [address] [id number] [place] [address]- 2697 14 Jul, 2012 [facility] [place] [facility] [address] [id number] [address]- 7904 Jul, [facility] [place] [facility] [address] [id number] [place] [address]- 6451 Jun, [facility] [place] [facility] [address] [id number] [place] [address]- 6180 May, [facility] [place] [facility] [address] [id number] [place] [address]- 4045 May, [facility] [place] [facility] [address] [id number] [place] [address]- 7800 Apr, [facility] [place] [facility] [address] [id number] [place] [address]- 0812 Apr, [facility] [place] [facility] [address] [id number] [place] [address]- 4901 Apr, [facility] [place] [facility] [address] [id number] [place] [address]- 9894 Apr, [facility] [place] [facility] [address] [id number] [place] [address]- 6658 Apr, [facility] [place] [facility] [address] [id number] [place] [address]- 9939 Apr, [facility] [place] [facility] [address] [id number] [place] [address]- 1570 Mar, [facility] [place] [facility] [address] [id number][place] [address]- 6659 29 Mar, 2012 [facility] [place] [facility] [address] [id number], [place] [address]- 7836 Mar, [facility] [place] [facility] [address] [id number] [place] [address]- 7681 Mar, [facility] [place] [facility] [address] [id number], [place] [address]- 8123 15 Mar, 2012 [facility] [place] [facility] [address] [id number] [place] [address]- 7644 15 Mar, 2012 [facility] [place] [facility] [id number] [address]- 6085 Mar, [facility] [address] [address]- 7237 Mar, [facility] [address] [facility] [id number], [place] [address]- 7444 28 Feb, 2012 [facility] [address] [address]- 3834 27 Feb, 2012 [facility] [address] [facility] [id number][place] [address]- 1913 25 Feb, 2012 [facility] [address] 5588 20 Feb, 2012 [facility] [address] [address]- 5994 19 Feb, 2012 [facility] [id number] [place] [address] 49044- 7856 18 Feb, 2012 [facility] [address] [address]- 0809 17 Feb, 2012 [facility] [address], [place] [address]- 5864 04 Feb, 2012 [facility] [id number] [address]- 3013 11 Sep, 2010 IMMUNIZATIONS No Known Immunizations SOCIAL HISTORY Never Assessed REASON FOR VISIT Instruction on insulin use. PLAN OF CARE VITAL SIGNS MEDICATIONS Medication Instructions Dosage Frequency Start Date End Date Duration Status NovoLog 100 UNIT/ML Subcutaneous before meals 13u Jan, Active Novolin N 100 UNIT/ML 10u AM and PM Jan, Active RESULTS No Results PROCEDURES No Known procedures INSTRUCTIONS MEDICATIONS ADMINISTERED No Known Medications MEDICAL (GENERAL) HISTORY Type Description Date Medical History type II diabetes Surgical History x 4 Hospitalization History surgeries
--- OUTSIDE RECORDS SUMMARY | 2018-05-14 15:18 | XMS REPORT ---
Author Author JAYLEN TULIO [facility] Address [address] [place] [address] Care Team Providers Care Javascript Ui Developer Name Role Phone JAYLENREJI SCOTTHANY Unavailable PROBLEMS Type Condition ICD9-CM Code FSU22-US Code Onset Dates Condition Status SNOMED Code Problem Type 2 diabetes mellitus with hyperglycemia, without long-term current use of insulin E11.65 Active 07505792 Problem Type 2 diabetes mellitus without complication E11.9 Active 40604729 Problem Microcytic anemia D50.9 Active 956389554 Problem Type 2 diabetes mellitus complicating in first trimester, antepartum O24.111 Active 519470205 Problem Gastroesophageal reflux disease without esophagitis K21.9 Active 676776416 ALLERGIES No Known Allergies ENCOUNTERS Encounter Location Date Diagnosis [place] [id number] [place] [address] 46162- 6206 Feb, [place] [id number] [place] [address] 33327- 6657 Jan, Type 2 diabetes mellitus with hyperglycemia, without long- term current use of insulin E11.65 and , unspecified gestational age Z34.90 [place] [id number] [place] [address] 68568- 6996 Jan, Type 2 diabetes mellitus without complication E11.9 and Elderly multigravida in first trimester O09.521 [place] [id number] [place] [address] 03125- 2229 Dec, [place] [id number] [place] [address] 83559- 4498 Dec, [place] [id number] [place] [address] 44821- 3231 Nov, [place] [id number] [place] [address] 1528 Nov, [place] [id number] [place] [address] 09154- 8965 Nov, Normal in multigravida Z34.80 ; History of section complicating O34.219 ; 9 weeks gestation of Z3A.09 ; Type 2 diabetes mellitus complicating in first trimester, antepartum O24.111 and Elderly multigravida in first trimester O09.521 [place] [id number] [place] [address] 73206- 4237 Nov, [place] [address] 23370- 9328 30 Oct, 2017 Encounter for test Z32.00 [place] [id number] [place] [address] 22391- 7885 October, Type 2 diabetes mellitus without complication, without long- term current use of insulin E11.9 [place] [id number] [place] [address] 49257- 5142 Jul, Type 2 diabetes mellitus without complication E11.9 [place] [id number] [place] [address] 15484- 5896 Apr, Microcytic anemia D50.9 [place] [id number] [place] [address] 91586- 0716 Apr, [place] [id number] [place] [address] 74767- 1958 Apr, Gastroesophageal reflux disease without esophagitis K21.9 ; Shortness of breath R06.02 ; Fatigue, unspecified type R53.83 and Type 2 diabetes mellitus without complication E11.9 [place] [id number] [place] [address] 21480- 5979 Mar, Reactive airway disease that is not asthma R09.89 and Type 2 diabetes mellitus without complication E11.9 [place] [address] 14832- 6278 Mar, [facility] [id number] [place] [address] 67397- 8532 Feb, [facility] [id number] [place] [address] 79259- 8670 Feb, Type 2 diabetes mellitus without complication E11.9 and Reactive airway disease that is not asthma R09.89 [facility] [id number] [place] [address] 72221- 1978 Feb, Threatened O20.0 [facility] [id number] [place] [address] 18297- 1009 Feb, Threatened O20.0 [facility] [id number] [place] [address] 13056- 2701 Jan, Threatened O20.0 [facility] [id number] [place] [address] 70986- 7107 Jan, Threatened O20.0 [facility] [id number] [place] [address] 77216 -7046 Jan, Intermenstrual heavy bleeding N92.0 ; Positive test Z32.01 and Vaginal bleeding N93.9 [facility] [id number] [place] [address] 95315- 7496 October, [facility] [id number] [place] [address] 22675- 4366 October, [facility] [id number] [place] [address] 70754- 6739 October, Type 2 diabetes mellitus without complication E11.9 [facility] [id number] [place] [address] 90278- 4382 May, Type 2 diabetes mellitus without complication E11.9 [facility] [address] [place] [address] 08089- 2546 Jan, [facility] [id number] [place] [address] 46543- 8497 Jan, Routine gynecological examination Z01.419 ; Amenorrhea N91.2 and Pelvic fullness in female R19.00 [facility] [address] [place] [address] 62689- 8844 Jan, [facility] [id number] [place] [address] 98222- 6745 Jan, Type 2 diabetes mellitus without complication E11.9 and Amenorrhea N91.2 [facility] [id number] [place] [address] 68508- 0305 Sep, Type 2 diabetes mellitus without complications E11.9 [facility] [id number] [place] [address] 81401- 9009 Jul, Type 2 diabetes mellitus without complication E11.9 [facility] [id number] [place] [address] 89240- 4235 May, Type 2 diabetes mellitus without complication E11.9 [facility] [address] [place] [address] 37949- 2014 Mar, Type 2 diabetes mellitus without complication E11.9 [facility] [id number] [place] [address] [id number] Jan, Dental examination V72.2 [facility] [id number] [place] [address] [id number] Dec, Dental examination V72.2 [facility] [address] [place] [address] 68001- 9952 Dec, Diabetes mellitus without mention of complication, type II or unspecified type, not stated as uncontrolled 250.00 [facility] [id number] [place] [address] [id number] Nov, Dental examination V72.2 [facility] [address] [place] [address] 16864- 5237 October, Contraceptive management V25.9 [facility] [id number] [place] [address] 84466- 3532 Sep, [facility] [place] [facility] [address] [id number] [place] [address]- 9931 Sep, [facility] [place] [facility] [address] [id number] [place] [address]- 4703 Jul, [facility] [place] [facility] [address] [id number] [place] [address]- 3443 Jul, [facility] [place] [facility] [address] [id number] [place] [address]- 1764 Apr, [facility] [place] [facility] [address] [id number] [place] [address]- 3100 Apr, [facility] [place] [facility] [address] [id number] [place] [address]- 6360 Mar, [facility] [place] [facility] [address] [id number] [place] [address]- 0657 Mar, [facility] [place] [facility] [address] [id number] [place] [address]- 8793 Mar, [facility] [place] [facility] [address] [id number] [place] [address]- 9446 Mar, [facility] [place] [facility] [address] [facility] [id number] [place] [address]- 0141 Jan, [facility] [place] [facility] [address] [id number] [place] [address]- 2506 Jan, [facility] [place] [facility] [address] [id number] [place] [address]- 2491 Nov, [facility] [place] [facility] [address] [id number] [place] [address]- 7961 October, [facility] [place] [facility] [address] [id number] [place] [address]- 4150 October, [facility] [place] [facility] [address] [facility] [id number] [place] [address]- 3421 October, [facility] [place] [facility] [address] [id number] [place] [address]- 2672 October, [facility] [place] [facility] [address] [id number] [place] [address]- 0053 October, [facility] [place] [facility] [address] [id number] [place] [address]- 6723 Sep, [facility] [place] [facility] [address] [id number] [place] [address]- 5459 Sep, [facility] [place] [facility] [address] [id number] [place] [address]- 8762 Aug, [facility] [place] [facility] [address] [id number] [place] [address]- 7990 Aug, [facility] [place] [facility] [address] [id number] [place] [address]- 9224 Jun, [facility] [place] [facility] [address] [id number] [place] [address]- 6320 Jun, [facility] [place] [facility] [address] [id number] [place] [address]- 4629 Jun, [facility] [place] [facility] [address] [id number] [place] [address]- 6094 Jun, [facility] [place] [facility] [address] [id number] [place] [address]- 0054 Apr, [facility] [place] [facility] [address] [id number] [place] [address]- 2623 Apr, [facility] [place] [facility] [address] [id number] [place] [address]- 2497 Apr, [facility] [place] [facility] [address] [id number] [place] [address]- 3330 30 Feb, 2013 [facility] [place] [facility] [address] [id number] [place] [address]- 1569 18 Feb, 2013 [facility] [place] [facility] [address] [id number] [place] [address]- 1684 10 Feb, 2012 [facility] [place] [facility] [address] [id number] [place] [address]- 6186 09 Sep, 2012 [facility] [place] [facility] [address] [id number] [place] [address]- 1486 09 Feb, 2012 [facility] [place] [facility] [address] [id number] [place] [address]- 0566 07 Sep, 2012 [facility] [place] [facility] [address] [id number] [place] [address]- 9971 06 Feb, 2012 [facility] [place] [facility] [address] [id number] [place] [address]- 9201 05 Feb, 2012 [facility] [place] [facility] [address] [id number] [place] [address]- 1089 03 Feb, 2012 [facility] [place] [facility] [address] [id number] [place] [address]- 5739 27 Jul, 2012 [facility] [place] [facility] [address] [id number] [place] [address]- 4414 19 Jul, 2012 [facility] [place] [facility] [address] [id number] [place] [address]- 3456 15 Jul, 2012 [facility] [place] [facility] [address] [facility] [id number] [place] [address]- 5103 14 Jul, 2012 [facility] [place] [facility] [address] [id number] [place] [address]- 8527 04 Jul, 2012 [facility] [place] [facility] [address] [id number] [place] [address] 2543 Jun, [facility] [place] [facility] [address] [id number] [place] [address]- 2420 May, [facility] [place] [facility] [address] [id number] [place] [address]- 5089 May, [facility] [place] [facility] [address] [facility] [id number] [place] [address]- 1516 Apr, [facility] [place] [facility] [address] [id number] [place] [address]- 5697 28 Apr, 2012 [facility] [place] [facility] [address] [id number] [place] [address]- 9520 Apr, [facility] [place] [facility] [address] [id number] [place] [address]- 8286 14 Apr, 2012 [facility] [place] [facility] [address] [id number] [place] [address]- 0602 Apr, [facility] [place] [facility] [address] [id number] [place] [address]- 3142 Apr, [facility] [place] [facility] [address] [id number] [place] [address]- 5430 Mar, [facility] [place] [facility] [address] [id number] [place] [address]- 9803 Mar, [facility] [place] [facility] [address] [id number] [place] [address]- 5872 Mar, [facility] [place] [facility] [address] [id number] [place] [address]- 8447 Mar, [facility] [place] [facility] [address] [id number] [place] [address]- 0020 Mar, [facility] [place] [facility] [address] [facility] [id number] [place] [address]- 7621 Mar, [facility] [place] [facility] [address] [id number] [place] [address]- 3066 Mar, [facility] [place] [facility] [address] [id number] [place] [address]- 3335 Mar, [facility] [place] [facility] [address] [id number] [place] [address]- 4407 28 Feb, 2012 [facility] [place] [facility] [address] [id number] [place] [address]- 0776 27 Feb, 2012 [facility] [place] [facility] [address] [id number] [place] [address]- 2825 25 Feb, 2012 [facility] [address] [facility] [id number], [place] [address]- 8088 20 Feb, 2012 [facility] [address] [id number] [address]- 5701 19 Feb, 2012 [facility] [address] [facility] [id number], [place] [address]- 5569 18 Feb, 2012 [facility] [address] [address]- 1985 17 Feb, 2012 [facility] [address] [facility] [id number], [place] [address]- 2572 Feb, [facility] [address] [id number] [address]- 4015 Sep, IMMUNIZATIONS No Known Immunizations SOCIAL HISTORY Never Assessed REASON FOR VISIT PLAN OF CARE VITAL SIGNS MEDICATIONS Medication Instructions Dosage Frequency Start Date End Date Duration Status Pioglitazone HCl-Metformin ER 30-1000 MG Orally Once a day 1 tablet with a meal 24h October, 90 days Unknown Metformin HCl 1000 MG Orally Twice a day 1 tablet with meals 12h Jan, Active GlipiZIDE 10 mg Orally twice a day 2 tablet in AM and 1 tablet in PM 12h 90 days Active RESULTS No Results PROCEDURES No Known procedures INSTRUCTIONS MEDICATIONS ADMINISTERED No Known Medications MEDICAL (GENERAL) HISTORY Type Description Date Medical History type II diabetes Surgical History x 4 Hospitalization History surgeries
--- OUTSIDE RECORDS SUMMARY | 2018-05-14 15:18 | XMS REPORT ---
Author Author IRIS SARABIA Organization [facility], [place] Address [address] [place] [address] Care Team Providers Care Card Services Specialist Name Role Phone IRIS SARABIA Unavailable PROBLEMS Type Condition ICD9-CM Code XKV01-XC Code Onset Dates Condition Status SNOMED Code Problem Type 2 diabetes mellitus with hyperglycemia, without long-term current use of insulin E11.65 Active 86716345 Problem Type 2 diabetes mellitus without complication E11.9 Active 65695720 Problem Microcytic anemia D50.9 Active 117556774 Problem Type 2 diabetes mellitus complicating in first trimester, antepartum O24.111 Active 022437513 Problem Gastroesophageal reflux disease without esophagitis K21.9 Active 570380818 ALLERGIES No Known Allergies ENCOUNTERS Encounter Location Date Diagnosis [place] [id number] [place] [address] 81594- 2256 Feb, [place] [id number] [place] [address] 11056- 1277 Jan, [place] [id number] [place] [address] 61750- 0629 Jan, Type 2 diabetes mellitus with hyperglycemia, without long- term current use of insulin E11.65 and , unspecified gestational age Z34.90 [place] [id number] [place] [address] 13170- 1445 Jan, Type 2 diabetes mellitus without complication E11.9 and Elderly multigravida in first trimester O09.521 [place] [id number] [place] [address] 27594- 4253 Dec, [place] [address] [id number] [place] [address] 02850- 5611 Dec, [place] [address] [place] [address] 2972 Nov, [place] [id number] [place] [address] 31635- 7628 Nov, [place] [id number] [place] [address] 00571- 8924 Nov, Normal in multigravida Z34.80 ; History of section complicating O34.219 ; 9 weeks gestation of Z3A.09 ; Type 2 diabetes mellitus complicating in first trimester, antepartum O24.111 and Elderly multigravida in first trimester O09.521 [place] [id number] [place] [address] 26642- 2278 Nov, [place] [id number] [place] [address] 49954- 0139 October, Encounter for test Z32.00 [place] [id number] [place] [address] 57388- 8262 October, Type 2 diabetes mellitus without complication, without long- term current use of insulin E11.9 [place] [id number] [place] [address] 43871- 5193 Jul, Type 2 diabetes mellitus without complication E11.9 [place] [id number] [place] [address] 49781- 8111 Apr, Microcytic anemia D50.9 [place] [id number] [place] [address] 43587- 3238 Apr, [place] [id number] [place] [address] 78064- 4488 Apr, Gastroesophageal reflux disease without esophagitis K21.9 ; Shortness of breath R06.02 ; Fatigue, unspecified type R53.83 and Type 2 diabetes mellitus without complication E11.9 [place] [id number] [place] [address] 24221- 6307 Mar, [place] [address] [place] [address] 4263 Mar, Reactive airway disease that is not asthma R09.89 and Type 2 diabetes mellitus without complication E11.9 [facility] [place] [id number] [place] [address] 32023- 2184 Feb, [facility] [place] [id number] [place] [address] 77916- 8644 Feb, Type 2 diabetes mellitus without complication E11.9 and Reactive airway disease that is not asthma R09.89 [facility] [place] [id number] [place] [address] 91466- 4748 Feb, Threatened O20.0 [facility] [place] [id number] [place] [address] 55445- 1294 Feb, Threatened O20.0 [facility] [place] [id number] [place] [address] 23723- 0364 Jan, Threatened O20.0 [facility] [place] [id number] [place] [address] 32264- 3383 Jan, Threatened O20.0 [facility] [id number] [place] [address] 29117 -9013 Jan, Intermenstrual heavy bleeding N92.0 ; Positive test Z32.01 and Vaginal bleeding N93.9 [facility] [place] [address] [address] 6671 October, [facility] [place] [id number] [place] [address] 65147- 3542 October, [facility] [place] [id number] [place] [address] 46974- 4769 October, Type 2 diabetes mellitus without complication E11.9 [facility] [place] [id number] [place] [address] 89466- 3234 May, Type 2 diabetes mellitus without complication E11.9 [facility] [place] [id number] [place] [address] 72755- 6984 Jan, [facility] [place] [id number] [place] [address] 12311- 5250 Jan, Routine gynecological examination Z01.419 ; Amenorrhea N91.2 and Pelvic fullness in female R19.00 [facility] [place] [id number] [place] [address] 53718- 6818 Jan, [facility] [place] [id number] [place] [address] 25647- 3922 Jan, Type 2 diabetes mellitus without complication E11.9 and Amenorrhea N91.2 [facility] [place] [id number] [place] [address] 97698- 6041 Sep, Type 2 diabetes mellitus without complications E11.9 [facility] [place] [id number] [place] [address] 08329- 3986 Jul, Type 2 diabetes mellitus without complication E11.9 [facility] [place] [id number] [place] [address] 38436- 9299 May, Type 2 diabetes mellitus without complication E11.9 [facility] [place] [id number] [place] [address] 37752- 4636 Mar, Type 2 diabetes mellitus without complication E11.9 [facility] [address] [place] [address] [id number] Jan, Dental examination V72.2 [facility] [address] [place] [address] [id number] Dec, Dental examination V72.2 [facility] [place] [address] [place] [address] [id number]- 4410 Dec, Diabetes mellitus without mention of complication, type II or unspecified type, not stated as uncontrolled 250.00 [facility] [address] [place] [address] [id number] Nov, Dental examination V72.2 [facility] [place] [id number] [place] [address] 09090- 4310 October, Contraceptive management V25.9 [facility] [address] [facility] [id number] [place] [address]- 7268 Sep, [facility] [address] [facility] [id number] [address]- 6515 Sep, [facility] [address] [facility] [id number] [place] [address]- 0758 Jul, [facility] [address] [facility] [id number] [address]- 1439 Jul, [facility] [address] [facility] [id number] [place] [address], [place] [address]- 4544 Apr, [facility] [address] [facility] [id number] [place] [address]- 4755 Apr, [facility] [id number] [address]- 1104 Mar, [facility] [address] [facility] [id number] [address]- 1875 Mar, [facility] [id number] [address]- 2626 Mar, [facility] [address] [facility] [id number] [address]- 4423 Mar, [facility] [address] [facility] [id number] [address]- 6447 Jan, [facility] [place] [facility] [address] [facility] [id number] [address]- 7033 Jan, [facility] [place] [facility] [address] [facility] [id number] [address]- 5508 Nov, [facility] [place] [facility] [address] [facility] [id number] [address]- 4723 October, [facility] [address] [facility] [id number] [address]- 8405 October, [facility] [place] [facility] [address] [id number] [place] [address]- 4625 October, [facility] [place] [facility] [address] [id number] [place] [address]- 5830 October, [facility] [place] [facility] [address] [id number] [place] [address]- 0903 October, [facility] [place] [facility] [address] [id number] [place] [address]- 2103 Sep, [facility] [place] [facility] [address] [id number] [place] [address]- 9339 Sep, [facility] [place] [facility] [address] [id number] [place] [address]- 9057 Aug, [facility] [place] [facility] [address] [id number] [place] [address]- 5753 Aug, [facility] [place] [facility] [address] [id number] [place] [address]- 2497 Jun, [facility] [place] [facility] [address] [id number] [place] [address]- 1265 Jun, [facility] [place] [facility] [address] [id number] [place] [address]- 4877 Jun, [facility] [place] [facility] [address] [id number] [place] [address]- 1268 Jun, [facility] [place] [facility] [address] [id number] [place] [address]- 7564 Apr, [facility] [place] [facility] [address] [id number] [place] [address]- 3556 Apr, [facility] [place] [facility] [address] [id number] [place] [address]- 7706 Apr, [facility] [place] [facility] [address] [id number] [place] [address]- 8586 30 Feb, 2013 [facility] [place] [facility] [address] [id number] [place] [address]- 4001 18 Feb, 2012 [facility] [address] [id number] [place] [address]- 7046 10 Feb, 2012 [facility] [place] [facility] [address] [id number] [place] [address]- 3726 09 Feb, 2012 [facility] [place] [facility] [address] [id number] [place] [address]- 8746 09 Sep, 2012 [facility] [place] [facility] [address] [id number] [place] [address]- 0460 07 Sep, 2012 [facility] [address] [id number] [place] [address]- 1083 06 Sep, 2012 [facility] [place] [facility] [address] [id number] [place] [address]- 4327 05 Feb, 2012 [facility] [address] [id number] [place] [address]- 0434 03 Feb, 2012 [facility] [place] [facility] [address] [id number] [place] [address]- 2363 27 Jul, 2012 [facility] [place] [facility] [address] [id number] [place] [address]- 0283 19 Jul, 2012 [facility] [place] [facility] [address] [id number] [place] [address]- 5744 15 Jul, 2012 [facility] [place] [facility] [address] [id number] [place] [address]- 9009 14 Jul, 2012 [facility] [place] [facility] [address] [id number] [place] [address]- 6847 04 Jul, 2012 [facility] [place] [facility] [address] [id number] [place] [address]- 3196 Jun, [facility] [place] [facility] [address] [id number] [place] [address]- 1313 May, [facility] [place] [facility] [address] [id number] [place] [address]- 4422 May, [facility] [place] [facility] [address] [id number] [place] [address]- 7518 Apr, [facility] [place] [facility] [address] [id number] [place] [address]- 0467 Apr, [facility] [place] [facility] [address] [id number] [place] [address]- 4329 Apr, [facility] [place] [facility] [address] [id number] [place] [address]- 3701 Apr, [facility] [place] [facility] [address] [id number] [place] [address]- 6693 Apr, [facility] [place] [facility] [address] [id number] [place] [address]- 4339 Apr, [facility] [place] [facility] [address] [id number] [place] [address]- 1609 Mar, [facility] [place] [facility] [address] [id number] [place] [address]- 3537 Mar, [facility] [place] [facility] [address] [id number] [place] [address]- 4838 Mar, [facility] [place] [facility] [address] [id number] [place] [address]- 6057 Mar, [facility] [place] [facility] [address] [facility] [id number] [place] [address]- 4947 Mar, [facility] [place] [facility] [address] [id number] [place] [address]- 0457 15 Mar, 2012 [facility] [place] [facility] [address] [id number] [place] [address]- 3332 Mar, [facility] [place] [facility] [address] [id number] [place] [address]- 2402 Mar, [facility] [place] [facility] [address] [id number] [place] [address]- 2421 28 Feb, 2012 [facility] [place] [facility] [address] [id number] [place] 2198 27 Feb, 2012 [facility] [place] [address] [facility] [id number] [address]- 1245 25 Feb, 2012 [facility] [place] [id number] [address]- 2915 20 Feb, 2012 [facility] [place] [address] [facility] [id number] [place] [address]- 2384 19 Feb, 2012 [facility] [place] [id number] [address]- 6090 18 Feb, 2012 [facility] [place] [id number] [address]- 6001 17 Feb, 2012 [facility] [place] [id number] [address]- 5002 04 Feb, 2012 [facility] [place] [id number] [address]- 8639 Sep, IMMUNIZATIONS No Known Immunizations SOCIAL HISTORY Never Assessed REASON FOR VISIT OB-intake -- viktor benitez PLAN OF CARE Activity Details Follow Up prn, Referral to OB, Referral to OB Reason: Pending Test TRICHOMONAS (IN HOUSE) Pending Test BACTERIAL VAGINOSIS (IN HOUSE) Future/Pending Procedure ROUTINE VENIPUNCTURE VITAL SIGNS Height 61 in 2017-12-01 Weight 158.0 lbs 2017-12-01 Temperature 97.0 degrees Fahrenheit 2017-12-01 Heart Rate 78 bpm 2017-12-01 Respiratory Rate 20 2017-12-01 BMI 29.854 kg/m2 2017-12-01 Blood pressure systolic 126 mmHg 2017-12-01 Blood pressure diastolic 70 mmHg 2017-12-01 MEDICATIONS Medication Instructions Dosage Frequency Start Date End Date Duration Status Metformin HCl 1000 MG Orally Twice a day 1 tablet with meals 12h Jan, Active GlipiZIDE 10 mg Orally twice a day 2 tablet in AM and 1 tablet in PM 12h 90 days Active RESULTS No Results PROCEDURES Procedure Date Ordered Result Body Site SPECIMEN HANDLING December 01, 2017 Hemoglobin Test Send Out 0 dollar December 01, 2017 No Charge December 01, 2017 VENIPUNCT, ROUTINE* December 01, 2017 TRICHOMONAS ASSAY W/OPTIC December 01, 2017 ASSAY THYROID STIM HORMONE December 01, 2017 CULTURE, BACTERIA, OTHER December 01, 2017 RUBELLA ANTIBODY December 01, 2017 BLOOD TYPING, RH (D) December 01, 2017 RBC ANTIBODY SCREEN December 01, 2017 COMPLETE CBC W/AUTO DIFF WBC December 01, 2017 BLOOD TYPING, ABO December 01, 2017 INSTRUCTIONS MEDICATIONS ADMINISTERED No Known Medications MEDICAL (GENERAL) HISTORY Type Description Date Medical History type II diabetes Surgical History x 4 Hospitalization History surgeries
--- OUTSIDE RECORDS SUMMARY | 2018-05-14 15:18 | XMS REPORT ---
Author Author IRIS SARABIA Organization [facility] Address [address] [place] [address] Care Team Providers Care Spine Surgeon Name Role Phone IRIS SARABIA Unavailable PROBLEMS Type Condition ICD9-CM Code XPO37-NM Code Onset Dates Condition Status SNOMED Code Problem Type 2 diabetes mellitus with hyperglycemia, without long-term current use of insulin E11.65 Active 59540242 Problem Type 2 diabetes mellitus without complication E11.9 Active 72772409 Problem Microcytic anemia D50.9 Active 580147230 Problem Type 2 diabetes mellitus complicating in first trimester, antepartum O24.111 Active 173398042 Problem Gastroesophageal reflux disease without esophagitis K21.9 Active [id number] ALLERGIES No Information ENCOUNTERS Encounter Location Date Diagnosis [place] [id number] [place] [address] 24127- 3748 Feb, [place] [id number] [place] [address] 71681- 6232 Jan, [place] [id number] [place] [address] 75949- 6789 Jan, Type 2 diabetes mellitus with hyperglycemia, without long- term current use of insulin E11.65 and , unspecified gestational age Z34.90 [place] [id number] [place] [address] 02610- 2382 Jan, Type 2 diabetes mellitus without complication E11.9 and Elderly multigravida in first trimester O09.521 [place] [id number] [place] [address] 53256- 1183 Dec, [place] [id number] [place] [address] 77194- 9234 Dec, [place] [address] [place] [address]- 3611 Nov, [place] [id number] [place] [address] 83289- 6086 Nov, [place] [id number] [place] [address] 60161- 8163 Nov, Normal in multigravida Z34.80 ; History of section complicating O34.219 ; 9 weeks gestation of Z3A.09 ; Type 2 diabetes mellitus complicating in first trimester, antepartum O24.111 and Elderly multigravida in first trimester O09.521 [place] [address] 04457- 7779 Nov, [place] [id number] [place] [address] 07275- 3090 October, Encounter for test Z32.00 [place] [address] 68673- 6737 October, Type 2 diabetes mellitus without complication, without long- term current use of insulin E11.9 [place] [id number] [place] [address] 67366- 8727 Jul, Type 2 diabetes mellitus without complication E11.9 [place] [id number] [place] [address] 47149- 9092 Apr, Microcytic anemia D50.9 [place] [id number] [place] [address] 50545- 5393 Apr, [place] [id number] [place] [address] 54037- 7527 Apr, Gastroesophageal reflux disease without esophagitis K21.9 ; Shortness of breath R06.02 ; Fatigue, unspecified type R53.83 and Type 2 diabetes mellitus without complication E11.9 [place] [id number] [place] [address] 47388- 0715 Mar, Reactive airway disease that is not asthma R09.89 and Type 2 diabetes mellitus without complication E11.9 [facility] [id number] [place] [address] 82537- 4983 Mar, [facility] [id number] [place] [address] 17491- 3054 Feb, [facility] [id number] [place] [address] 48648- 7641 Feb, Type 2 diabetes mellitus without complication E11.9 and Reactive airway disease that is not asthma R09.89 [facility] [id number] [place] [address] 14236- 3336 Feb, Threatened O20.0 [facility] [id number] [place] [address] 80842- 9490 Feb, Threatened O20.0 [facility] [id number] [place] [address] 39165- 2960 Jan, Threatened O20.0 [facility] [id number] [place] [address] 59200- 5448 Jan, Threatened O20.0 [facility] [id number] [place] [address] 35664 -6220 Jan, Intermenstrual heavy bleeding N92.0 ; Positive test Z32.01 and Vaginal bleeding N93.9 [facility] [id number] [place] [address] 18636- 2989 October, [facility] [id number] [place] [address] 11530- 9910 October, [facility] [id number] [place] [address] 51047- 7324 October, Type 2 diabetes mellitus without complication E11.9 [facility] [id number] [place] [address] 58281- 9546 May, Type 2 diabetes mellitus without complication E11.9 [facility] [id number] [place] [address] 99889- 6610 Jan, [facility] [address] [address]- 5870 Jan, Routine gynecological examination Z01.419 ; Amenorrhea N91.2 and Pelvic fullness in female R19.00 [facility] [address] [address]- 6229 Jan, [facility] [id number] [place] [address] 39114- 3257 Jan, Type 2 diabetes mellitus without complication E11.9 and Amenorrhea N91.2 [facility] [id number] [place] [address] 34061- 7863 Sep, Type 2 diabetes mellitus without complications E11.9 [facility] [id number] [place] [address] 88176- 7766 Jul, Type 2 diabetes mellitus without complication E11.9 [facility] [id number] [place] [address] 09786- 2326 May, Type 2 diabetes mellitus without complication E11.9 [facility] [id number] [place] [address] 48029- 6839 Mar, Type 2 diabetes mellitus without complication E11.9 [facility] [address] [place] [address] [id number] Jan, Dental examination V72.2 [facility] [address] [place] [address] [id number] Dec, Dental examination V72.2 [facility] [address] [place] [address] [id number]- 7632 Dec, Diabetes mellitus without mention of complication, type II or unspecified type, not stated as uncontrolled 250.00 [facility] [id number] [place] [address] [id number] Nov, Dental examination V72.2 [facility] [id number] [place] [address] 65497- 3891 October, Contraceptive management V25.9 [facility] [address] [id number] [place] [address]- 9396 Sep, [facility] [address] [facility] [id number] [place] [address]- 6203 Sep, [facility] [address] [facility] [id number] [place] [address]- 8931 Jul, [facility] [place] [facility] [address] [facility] [id number] [place] [address]- 6240 Jul, [facility] [address] [facility] [id number] [place] [address]- 1208 Apr, [facility] [place] [facility] [address] [facility] [id number] [place] [address]- 2705 Apr, [facility] [address] [facility] [id number], [place] [address]- 2420 Mar, [facility] [place] [facility] [address] [facility] [id number] [place] [address]- 1809 Mar, [facility] [address] [facility] [id number] [place] [address]- 1126 Mar, [facility] [place] [facility] [address] [facility] [id number] [place] [address]- 1943 Mar, [facility] [place] [facility] [address] [facility] [id number], [place] [address]- 9720 Jan, [facility] [place] [facility] [address] [facility] [id number], [place] [address]- 9226 Jan, [facility] [place] [facility] [address] [facility] [id number], [place] [address]- 9245 Nov, [facility] [place] [facility] [address] [facility] [id number], [place] [address]- 3492 October, [facility] [place] [facility] [address] [facility] [id number][place] [address]- 9035 October, [facility] [place] [facility] [address] [id number] [place] [address]- 9593 October, [facility] [place] [facility] [address] [id number] [place] [address]- 4200 October, [facility] [place] [facility] [address] [id number] [place] [address]- 5123 October, [facility] [place] [facility] [address] [id number] [place] [address]- 5340 Sep, [facility] [place] [facility] [address] [id number] [place] [address]- 7551 Sep, [facility] [place] [facility] [address] [id number] [place] [address]- 7232 Aug, [facility] [place] [facility] [address] [id number] [place] [address]- 6756 Aug, [facility] [place] [facility] [address] [id number] [place] [address]- 3218 Jun, [facility] [place] [facility] [address] [id number] [place] [address]- 2954 Jun, [facility] [place] [facility] [address] [id number] [place] [address]- 8823 Jun, [facility] [place] [facility] [address] [id number] [place] [address]- 3996 Jun, [facility] [place] [facility] [address] [id number] [place] [address]- 2885 Apr, [facility] [place] [facility] [address] [id number] [place] [address]- 9153 Apr, [facility] [place] [facility] [address] [id number] [place] [address]- 2225 Apr, [facility] [place] [facility] [address] [id number] [place] [address]- 0926 30 Feb, 2013 [facility] [place] [facility] [address] [id number] [place] [address]- 6522 18 Sep, 2012 [facility] [place] [facility] [address] [id number] [place] [address]- 2047 10 Sep, 2012 [facility] [place] [facility] [address] [id number] [place] [address]- 2557 09 Sep, 2012 [facility] [place] [facility] [address] [id number] [place] [address]- 2532 09 Sep, 2012 [facility] [place] [facility] [address] [id number] [place] [address]- 9571 07 Sep, 2012 [facility] [place] [facility] [address] [id number] [place] [address]- 2180 06 Sep, 2012 [facility] [place] [facility] [address] [id number] [place] [address]- 0221 05 Sep, 2012 [facility] [place] [facility] [address] [id number] [place] [address]- 8794 03 Feb, 2012 [facility] [place] [facility] [address] [id number] [place] [address]- 1214 27 Jul, 2012 [facility] [place] [facility] [address] [id number] [place] [address]- 3757 19 Jul, 2012 [facility] [place] [facility] [address] [id number] [place] [address]- 5943 15 Jul, 2012 [facility] [place] [facility] [address] [id number] [place] [address]- 0370 14 Jul, 2012 [facility] [place] [facility] [address] [id number] [place] [address]- 1271 04 Jul, 2012 [facility] [place] [facility] [address] [id number] [place] [address]- 5822 Jun, [facility] [place] [facility] [address] [id number] [place] [address]- 6961 May, [facility] [place] [facility] [address] [id number] [place] [address]- 0488 May, [facility] [place] [facility] [address] [id number] [place] [address]- 0172 Apr, [facility] [place] [facility] [address] [id number] [place] [address]- 0632 Apr, [facility] [place] [facility] [address] [id number] [place] [address]- 3667 Apr, [facility] [place] [facility] [address] [id number] [place] [address]- 4828 Apr, [facility] [place] [facility] [address] [id number] [place] [address]- 2157 Apr, [facility] [place] [facility] [id number] [place] [address], [place] [address]- 9917 Apr, [facility] [place] [facility] [address] [id number] [place] [address]- 8348 Mar, [facility] [place] [facility] [address] [id number] [place] [address]- 1236 Mar, [facility] [place] [facility] [address] [id number] [place] [address]- 5409 Mar, [facility] [place] [facility] [address] [id number] [place] [address]- 4402 Mar, [facility] [place] [facility] [address] [facility] [id number] [place] [address]- 4466 Mar, [facility] [place] [facility] [address] [id number] [place] [address]- 0127 Mar, [facility] [place] [facility] [address] [id number] [place] [address]- 3113 Mar, [facility] [place] [facility] [address] [id number] [place] [address]- 6150 Mar, [facility] [place] [facility] [address] [id number] [place] [address]- 9749 28 Feb, 2012 [facility] [place] [facility] [address] [id number] [place] 4062 27 Feb, 2012 [facility] [address] [facility] [id number] [address]- 1310 25 Feb, 2012 [facility] [address] [place] [address]- 1325 20 Feb, 2012 [facility] [address] [place] [address]- 5229 19 Feb, 2012 [facility] [address] [address]- 3912 18 Feb, 2012 [facility] [id number] [address]- 7538 17 Feb, 2012 [facility] [id number] [address]- 1088 04 Feb, 2012 [facility] [id number] [address]- 5372 Sep, IMMUNIZATIONS No Known Immunizations SOCIAL HISTORY Never Assessed REASON FOR VISIT PLAN OF CARE VITAL SIGNS MEDICATIONS Unknown Medications RESULTS No Results PROCEDURES No Known procedures INSTRUCTIONS MEDICATIONS ADMINISTERED No Known Medications MEDICAL (GENERAL) HISTORY Type Description Date Medical History type II diabetes Surgical History x 4 Hospitalization History surgeries
--- OUTSIDE RECORDS SUMMARY | 2018-05-14 15:18 | XMS REPORT ---
Author Author IRIS SARABIA Organization [facility] Address [address] [place] [address] Care Team Providers Care Sugar Trucker Name Role Phone IRIS SARABIA Unavailable PROBLEMS Type Condition ICD9-CM Code CSS82-OF Code Onset Dates Condition Status SNOMED Code Problem Type 2 diabetes mellitus with hyperglycemia, without long-term current use of insulin E11.65 Active 18305011 Problem Type 2 diabetes mellitus without complication E11.9 Active 57964458 Problem Microcytic anemia D50.9 Active 562846379 Problem Type 2 diabetes mellitus complicating in first trimester, antepartum O24.111 Active 129974540 Problem Gastroesophageal reflux disease without esophagitis K21.9 Active 563074640 ALLERGIES No Information ENCOUNTERS Encounter Location Date Diagnosis [place] [id number] [place] [address] 68925- 2115 Feb, [place] [id number] [place] [address] 31355- 0645 Jan, [place] [id number] [place] [address] 76748- 8929 Jan, Type 2 diabetes mellitus with hyperglycemia, without long- term current use of insulin E11.65 and , unspecified gestational age Z34.90 [place] [id number] [place] [address] 33091- 9160 Jan, Type 2 diabetes mellitus without complication E11.9 and Elderly multigravida in first trimester O09.521 [place] [id number] [place] [address] 36174- 4645 Dec, [place] [id number] [place] [address] 87822- 1209 Dec, [place] [address] [place] [address]- 8750 Nov, [place] [id number] [place] [address] 96947- 8317 Nov, [place] [id number] [place] [address] 18675- 8415 Nov, Normal in multigravida Z34.80 ; History of section complicating O34.219 ; 9 weeks gestation of Z3A.09 ; Type 2 diabetes mellitus complicating in first trimester, antepartum O24.111 and Elderly multigravida in first trimester O09.521 [place] [address] [address]24- 8570 Nov, [place] [id number] [place] [address] 96603- 2573 October, Encounter for test Z32.00 [place] [address] 42982- 5039 October, Type 2 diabetes mellitus without complication, without long- term current use of insulin E11.9 [place] [id number] [place] [address] 36436- 4568 Jul, Type 2 diabetes mellitus without complication E11.9 [place] [id number] [place] [address] 70271- 1596 Apr, Microcytic anemia D50.9 [place] [id number] [place] [address] 34157- 0786 Apr, [place] [id number] [place] [address] 19444- 9940 Apr, Gastroesophageal reflux disease without esophagitis K21.9 ; Shortness of breath R06.02 ; Fatigue, unspecified type R53.83 and Type 2 diabetes mellitus without complication E11.9 [place] [id number] [place] [address] 45857- 8782 Mar, [place] [address] [place] [address]- 2383 Mar, Reactive airway disease that is not asthma R09.89 and Type 2 diabetes mellitus without complication E11.9 [facility] [id number] [place] [address] 97503- 3114 Feb, [facility] [id number] [place] [address] 81623- 6849 Feb, Type 2 diabetes mellitus without complication E11.9 and Reactive airway disease that is not asthma R09.89 [facility] [id number] [place] [address] 26547- 7487 Feb, Threatened O20.0 [facility] [id number] [place] [address] 55362- 6665 Feb, Threatened O20.0 [facility] [id number] [place] [address] 72351- 7953 Jan, Threatened O20.0 [facility] [id number] [place] [address] 07556- 7081 Jan, Threatened O20.0 [facility] [id number] [place] [address] 41941 -4888 Jan, Intermenstrual heavy bleeding N92.0 ; Positive test Z32.01 and Vaginal bleeding N93.9 [facility] [id number] [place] [address] 02887- 8803 October, [facility] [id number] [place] [address] 84609- 8471 October, [facility] [id number] [place] [address] 63469- 2279 October, Type 2 diabetes mellitus without complication E11.9 [facility] [id number] [place] [address] 56483- 5659 May, Type 2 diabetes mellitus without complication E11.9 [facility] [id number] [place] [address] 74349- 4088 Jan, [facility] [address] [address]- 0477 Jan, Routine gynecological examination Z01.419 ; Amenorrhea N91.2 and Pelvic fullness in female R19.00 [facility] [address] [address]- 9540 Jan, [facility] [id number] [place] [address] 00165- 7829 Jan, Type 2 diabetes mellitus without complication E11.9 and Amenorrhea N91.2 [facility] [id number] [place] [address] 92468- 8991 Sep, Type 2 diabetes mellitus without complications E11.9 [facility] [id number] [place] [address] 77791- 2016 Jul, Type 2 diabetes mellitus without complication E11.9 [facility] [id number] [place] [address] 03230- 9458 May, Type 2 diabetes mellitus without complication E11.9 [facility] [id number] [place] [address] 22602- 3834 Mar, Type 2 diabetes mellitus without complication E11.9 [facility] [id number] [place] [address] [id number] Jan, Dental examination V72.2 [facility] [address] [place] [address] [id number] Dec, Dental examination V72.2 [facility] [address] [place] [address] [id number]- 7180 Dec, Diabetes mellitus without mention of complication, type II or unspecified type, not stated as uncontrolled 250.00 [facility] [address] [place] [address] [id number] Nov, Dental examination V72.2 [facility] [id number] [place] [address] 29040- 0953 October, Contraceptive management V25.9 [facility] [address] [id number] [place] [address]- 3044 Sep, [facility] [address] [facility] [id number] [place] [address]- 2737 Sep, [facility] [address] [facility] [id number] [place] [address]- 0200 Jul, [facility] [place] [facility] [address] [facility] [id number] [place] [address]- 9181 Jul, [facility] [address] [facility] [id number] [place] [address]- 2159 Apr, [facility] [place] [facility] [address] [facility] [id number] [place] [address]- 6570 Apr, [facility] [address] [facility] [id number], [place] [address]- 8727 Mar, [facility] [place] [facility] [address] [facility] [id number] [place] [address]- 6886 Mar, [facility] [address] [facility] [id number] [place] [address]- 5586 Mar, [facility] [place] [facility] [address] [facility] [id number] [place] [address]- 1954 Mar, [facility] [place] [facility] [address] [facility] [id number], [place] [address]- 2234 Jan, [facility] [place] [facility] [address] [facility] [id number], [place] [address]- 7758 Jan, [facility] [place] [facility] [address] [facility] [id number], [place] [address]- 7086 Nov, [facility] [place] [facility] [address] [facility] [id number], [place] [address]- 1171 October, [facility] [place] [facility] [address] [facility] [id number], [place] [address]- 4399 October, [facility] [place] [facility] [address] [id number] [place] [address]- 8365 October, [facility] [place] [facility] [address] [id number] [place] [address]- 7003 October, [facility] [place] [facility] [address] [id number] [place] [address]- 7130 October, [facility] [place] [facility] [address] [id number] [place] [address]- 3700 Sep, [facility] [place] [facility] [address] [id number] [place] [address]- 9801 Sep, [facility] [place] [facility] [address] [id number] [place] [address]- 6815 Aug, [facility] [place] [facility] [address] [id number] [place] [address]- 0852 Aug, [facility] [place] [facility] [address] [id number] [place] [address]- 2978 Jun, [facility] [place] [facility] [address] [id number] [place] [address]- 2046 Jun, [facility] [place] [facility] [address] [id number] [place] [address]- 7890 Jun, [facility] [place] [facility] [address] [id number] [place] [address]- 7161 Jun, [facility] [place] [facility] [address] [id number] [place] [address]- 3252 Apr, [facility] [place] [facility] [address] [id number] [place] [address]- 0837 Apr, [facility] [place] [facility] [address] [id number] [place] [address]- 0644 Apr, [facility] [place] [facility] [address] [id number] [place] [address]- 1746 30 Feb, 2013 [facility] [place] [facility] [address] [id number] [place] [address]- 6186 18 Sep, 2012 [facility] [place] [facility] [address] [id number] [place] [address]- 9001 10 Sep, 2012 [facility] [place] [facility] [address] [id number] [place] [address]- 3482 09 Sep, 2012 [facility] [place] [facility] [address] [id number] [place] [address]- 5736 09 Sep, 2012 [facility] [place] [facility] [address] [id number] [place] [address]- 8277 07 Sep, 2012 [facility] [place] [facility] [address] [id number] [place] [address]- 4480 06 Sep, 2012 [facility] [place] [facility] [address] [id number] [place] [address]- 9828 05 Sep, 2012 [facility] [place] [facility] [address] [id number] [place] [address]- 2608 03 Feb, 2012 [facility] [place] [facility] [address] [id number] [place] [address]- 7959 27 Jul, 2012 [facility] [place] [facility] [address] [id number] [place] [address]- 1918 19 Jul, 2012 [facility] [place] [facility] [address] [id number] [place] [address]- 8960 15 Jul, 2012 [facility] [place] [facility] [address] [id number] [place] [address]- 0166 14 Jul, 2012 [facility] [place] [facility] [address] [id number] [place] [address]- 4285 04 Jul, 2012 [facility] [place] [facility] [address] [id number] [place] [address]- 9369 Jun, [facility] [place] [facility] [address] [id number] [place] [address]- 6091 May, [facility] [place] [facility] [address] [id number] [place] [address]- 0027 May, [facility] [place] [facility] [address] [id number] [place] [address]- 4921 Apr, [facility] [place] [facility] [address] [id number] [place] [address]- 4691 Apr, [facility] [place] [facility] [address] [id number] [place] [address]- 3358 Apr, [facility] [place] [facility] [address] [id number] [place] [address]- 3318 Apr, [facility] [place] [facility] [address] [id number] [place] [address]- 0624 Apr, [facility] [place] [facility] [id number] [place] [address], [place] [address]- 3147 Apr, [facility] [place] [facility] [address] [id number] [place] [address]- 4885 Mar, [facility] [place] [facility] [address] [id number] [place] [address]- 5030 Mar, [facility] [place] [facility] [address] [id number] [place] [address]- 0312 Mar, [facility] [place] [facility] [address] [id number] [place] [address]- 2063 Mar, [facility] [place] [facility] [address] [facility] [id number] [place] [address]- 7016 Mar, [facility] [place] [facility] [address] [id number] [place] [address]- 1328 Mar, [facility] [place] [facility] [address] [id number] [place] [address]- 3329 Mar, [facility] [place] [facility] [address] [id number] [place] [address]- 8381 Mar, [facility] [place] [facility] [address] [id number] [place] [address]- 1219 28 Feb, 2012 [facility] [place] [facility] [address] [id number] [place] 8625 27 Feb, 2012 [facility] [address] [facility] [id number], [place] [address]- 3290 25 Feb, 2012 [facility] [address] [place] [address]- 2482 20 Feb, 2012 [facility] [address], [place] [address]- 9816 19 Feb, 2012 [facility] [address] [place] [address]- 0725 18 Feb, 2012 [facility] [id number] [address]- 9865 17 Feb, 2012 [facility] [id number], [place] [address]- 2706 04 Feb, 2012 [facility] [id number], [place] [address]- 1387 Sep, IMMUNIZATIONS No Known Immunizations SOCIAL HISTORY Never Assessed REASON FOR VISIT DM Ed attempt PLAN OF CARE VITAL SIGNS MEDICATIONS Unknown Medications RESULTS No Results PROCEDURES No Known procedures INSTRUCTIONS MEDICATIONS ADMINISTERED No Known Medications MEDICAL (GENERAL) HISTORY Type Description Date Medical History type II diabetes Surgical History x 4 Hospitalization History surgeries
--- OUTSIDE RECORDS SUMMARY | 2018-05-14 15:19 | XMS REPORT ---
Author Author PANCHO CARRASQUILLO [facility] Address [address] [place] [address] Care Team Providers Care Video Editing Intern Name Role Phone PANCHO CARRASQUILLO Unavailable PROBLEMS Type Condition ICD9-CM Code [id number] Code Onset Dates Condition Status SNOMED Code Problem Type 2 diabetes mellitus with hyperglycemia, without long-term current use of insulin E11.65 Active 11659105 Problem Type 2 diabetes mellitus without complication E11.9 Active 11500933 Problem Microcytic anemia D50.9 Active 575374982 Problem Type 2 diabetes mellitus complicating in first trimester, antepartum O24.111 Active 019089168 Problem Gastroesophageal reflux disease without esophagitis K21.9 Active [id number] ALLERGIES No Information ENCOUNTERS Encounter Location Date Diagnosis [place] [id number] [place] [address] 73720- 7213 Feb, [place] [address] [address]- [address] Jan, Type 2 diabetes mellitus with hyperglycemia, without long- term current use of insulin E11.65 and , unspecified gestational age Z34.90 [place] [id number] [place] [address] 45095- 1378 Jan, Type 2 diabetes mellitus without complication E11.9 and Elderly multigravida in first trimester O09.521 [place] [id number] [place] [address] 59795- 2858 Dec, [place] [id number] [place] [address] 23950- 7365 Dec, [place] [id number] [place] [address] 76112- 8640 Nov, [place] [id number] [place] [address] 34918- 8554 Nov, [place] [id number] [place] [address] 38699- 5498 Nov, Normal in multigravida Z34.80 ; History of section complicating O34.219 ; 9 weeks gestation of Z3A.09 ; Type 2 diabetes mellitus complicating in first trimester, antepartum O24.111 and Elderly multigravida in first trimester O09.521 [place] [id number] [place] [address] 99697- 7016 Nov, [place] [id number] [place] [address] 54669- 3856 October, Encounter for test Z32.00 [place] [id number] [place] [address] 39035- 6103 October, Type 2 diabetes mellitus without complication, without long- term current use of insulin E11.9 [place] [id number] [place] [address] 37176- 1979 Jul, Type 2 diabetes mellitus without complication E11.9 [place] [id number] [place] [address] 68037- 7049 Apr, Microcytic anemia D50.9 [place] [id number] [place] [address] 48250- 7046 Apr, [place] [id number] [place] [address] 91628- 6733 Apr, Gastroesophageal reflux disease without esophagitis K21.9 ; Shortness of breath R06.02 ; Fatigue, unspecified type R53.83 and Type 2 diabetes mellitus without complication E11.9 [place] [id number] [place] [address] 88652- 4401 Mar, [place] [id number] [place] [address] 43440- 7851 Mar, Reactive airway disease that is not asthma R09.89 and Type 2 diabetes mellitus without complication E11.9 [facility] [address] [address] 4[address] Feb, [facility] [id number] [place] [address] 37480- 7311 Feb, Type 2 diabetes mellitus without complication E11.9 and Reactive airway disease that is not asthma R09.89 [facility] [id number] [place] [address] 75521- 3537 Feb, Threatened O20.0 [facility] [id number] [place] [address] 27555- 5612 Feb, Threatened O20.0 [facility] [id number] [place] [address] 11259- 4311 Jan, Threatened O20.0 [facility] [id number] [place] [address] 36610- 3608 Jan, Threatened O20.0 [facility] [id number] [place] [address] 86024 -0513 Jan, Intermenstrual heavy bleeding N92.0 ; Positive test Z32.01 and Vaginal bleeding N93.9 [facility] [id number] [place] [address] 67257- 4417 October, [facility] [id number] [place] [address] 91716- 3312 October, [facility] [id number] [place] [address] 00833- 7382 October, Type 2 diabetes mellitus without complication E11.9 [facility] [id number] [place] [address] 33722- 1296 May, Type 2 diabetes mellitus without complication E11.9 [facility] [id number] [place] [address] 76817- 2699 Jan, [facility] [id number] [place] [address] 90685- 9418 Jan, Routine gynecological examination Z01.419 ; Amenorrhea N91.2 and Pelvic fullness in female R19.00 [facility] [id number] [place] [address] 06647- 1673 Jan, [facility] [id number] [place] [address] 95434- 1209 Jan, Type 2 diabetes mellitus without complication E11.9 and Amenorrhea N91.2 [facility] [id number] [place] [address] 02131- 4440 Sep, Type 2 diabetes mellitus without complications E11.9 [facility] [id number] [place] [address] 98876- 9978 Jul, Type 2 diabetes mellitus without complication E11.9 [facility] [id number] [place] [address] 16759- 4821 May, Type 2 diabetes mellitus without complication E11.9 [facility] [id number] [place] [address] 35715- 3803 Mar, Type 2 diabetes mellitus without complication E11.9 [facility] [id number] [place] [address] [id number] Jan, Dental examination V72.2 [facility] [id number] [place] [address] [id number] Dec, Dental examination V72.2 [facility] [id number] [place] [address] 23340- 9843 Dec, Diabetes mellitus without mention of complication, type II or unspecified type, not stated as uncontrolled 250.00 [facility] [id number] [place] [address] [id number] Nov, Dental examination V72.2 [facility] [id number] [place] [address] 70589- 4757 October, Contraceptive management V25.9 [facility] [id number] [place] [address] 37017- 6798 Sep, [facility] [place] [facility] [address] [id number] [place] [address]- 8477 Sep, [facility] [place] [facility] [address] [id number] [place] [address]- 3241 Jul, [facility] [place] [facility] [address] [id number] [place] [address]- 5301 Jul, [facility] [place] [facility] [address] [id number] [place] [address]88 Apr, [facility] [place] [facility] [address] [id number] [place] [address]- 3089 Apr, [facility] [place] [facility] [address] [id number] [place] [address]- 7394 Mar, [facility] [place] [facility] [address] [id number] [place] [address]- 5412 Mar, [facility] [place] [facility] [address] [id number] [place] [address]- 4964 Mar, [facility] [place] [facility] [address] [id number] [place] [address]- 5592 Mar, [facility] [place] [facility] [address] [id number] [place] [address]- 6367 Jan, [facility] [place] [facility] [address] [id number] [place] [address]- 4805 Jan, [facility] [place] [facility] [address] [id number] [place] [address]- 4243 Nov, [facility] [place] [facility] [address] [id number] [place] [address]- 9758 October, [facility] [place] [facility] [address] [id number] [place] [address]- 4301 October, [facility] [place] [facility] [address] [id number] [place] [address]- 8957 October, [facility] [place] [facility] [address] [id number] [place] [address]- 1305 October, [facility] [address] [id number] [place] [address]- 2447 October, [facility] [place] [facility] [address] [id number] [place] [address]- 3686 Sep, [facility] [address] [id number] [place] [address]- 1666 Sep, [facility] [address] [id number] [place] [address]- 5945 Aug, [facility] [address] [id number] [place] [address]- 9455 Aug, [facility] [address] [id number] [place] [address]- 6413 Jun, [facility] [address] [id number] [place] [address]- 0667 Jun, [facility] [address] [id number] [place] [address]- 1820 Jun, [facility] [address] [id number] [place] [address]- 2153 Jun, [facility] [address] [id number] [place] [address]- 0093 Apr, [facility] [place] [facility] [address] [id number] [place] [address]- 7446 Apr, [facility] [address] [id number] [place] [address]- 5136 Apr, [facility] [place] [facility] [address] [id number] [place] [address]- 0016 30 Feb, 2013 [facility] [place] [facility] [address] [id number] [place] [address]- 2546 18 Feb, 2013 [facility] [place] [facility] [address] [id number] [place] [address]- 3922 10 Feb, 2013 [facility] [place] [facility] [address] [id number] [place] [address]- 5451 09 Sep, 2012 [facility] [place] [facility] [address] [id number] [place] [address]- 4116 09 Feb, 2012 [facility] [place] [facility] [address] [id number] [place] [address]- 8773 07 Sep, 2012 [facility] [place] [facility] [address] [id number] [place] [address]- 2006 06 Sep, 2012 [facility] [place] [facility] [address] [id number] [place] [address]- 4303 05 Sep, 2012 [facility] [place] [facility] [address] [id number] [place] [address]- 1027 03 Feb, 2012 [facility] [place] [facility] [address] [id number] [place] [address]- 9533 27 Jul, 2012 [facility] [place] [facility] [address] [id number] [place] [address]- 6587 19 Jul, 2012 [facility] [place] [facility] [address] [id number] [place] [address]- 0754 15 Jul, 2012 [facility] [place] [facility] [address] [id number] [place] [address]- 1509 14 Jul, 2012 [facility] [place] [facility] [address] [id number] [place] [address]- 8446 04 Jul, 2012 [facility] [place] [facility] [address] [id number] [place] [address]- 9774 Jun, [facility] [place] [facility] [address] [id number] [place] [address]- 2237 May, [facility] [place] [facility] [address] [id number] [place] [address]- 5285 May, [facility] [place] [facility] [address] [id number] [place] [address]- 4866 Apr, [facility] [place] [facility] [address] [id number] [place] [address]- 3191 Apr, [facility] [place] [facility] [address] [id number] [place] [address]- 8906 Apr, [facility] [place] [facility] [address] [id number] [place] [address]- 4050 Apr, [facility] [place] [facility] [address] [id number] [place] [address]- 2257 Apr, [facility] [place] [facility] [address] [id number] [place] [address]- 3927 Apr, [facility] [place] [facility] [address] [id number] [place] [address]- 5271 Mar, [facility] [place] [facility] [address] [id number] [place] [address]- 2401 Mar, [facility] [place] [facility] [address] [id number] [place] [address]- 1735 Mar, [facility] [place] [facility] [address] [id number] [place] [address]- 3857 Mar, [facility] [place] [facility] [address] [id number] [place] [address]- 4440 Mar, [facility] [place] [facility] [address] [facility] [id number] [place] [address]- 8226 Mar, [facility] [place] [facility] [address] [id number] [place] [address]- 4519 Mar, [facility] [place] [facility] [address] [id number] [place] [address]- 9673 Mar, [facility] [place] [facility] [address] [id number] [place] [address]- 0465 28 Feb, 2012 [facility] [place] [facility] [address] [id number] [place] [address]- 4858 27 Feb, 2012 [facility] [place] [facility] [address] [id number] [place] [address]- 8922 25 Feb, 2012 [facility] [address] [facility] [id number] [address]- 9417 20 Feb, 2012 [facility] [id number] [address]- 3372 19 Feb, 2012 [facility] [id number] [address]- 9312 18 Feb, 2012 [facility] [address] [address]- 2361 17 Feb, 2012 [facility] [id number] [address]- 7705 04 Feb, 2012 [facility] [id number] [address]- 9173 Sep, IMMUNIZATIONS No Known Immunizations SOCIAL HISTORY Never Assessed REASON FOR VISIT Lab (walk-in)--[facility] PLAN OF CARE VITAL SIGNS MEDICATIONS Unknown Medications RESULTS Name Result Date Reference Range TEST, URINE (IN HOUSE) 2017-11-17 RESULTS POSITIVE Lot # [id number] Control + Exp date 03/2019 PROCEDURES Procedure Date Ordered Result Body Site URINE TEST November 17, 2017 INSTRUCTIONS MEDICATIONS ADMINISTERED No Known Medications MEDICAL (GENERAL) HISTORY Type Description Date Medical History type II diabetes Surgical History x 4 Hospitalization History surgeries
--- OUTSIDE RECORDS SUMMARY | 2018-05-14 15:19 | XMS REPORT ---
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 Name Role Phone AMALIA DALY Unavailable PROBLEMS Type Condition ICD9-CM Code [id number] Code Onset Dates Condition Status SNOMED Code Problem Type 2 diabetes mellitus with hyperglycemia, without long-term current use of insulin E11.65 Active 92524107 Problem Type 2 diabetes mellitus without complication E11.9 Active 87707227 Problem Microcytic anemia D50.9 Active 815956272 Problem Type 2 diabetes mellitus complicating in first trimester, antepartum O24.111 Active 257665367 Problem Gastroesophageal reflux disease without esophagitis K21.9 Active [id number] ALLERGIES No Known Allergies ENCOUNTERS Encounter Location Date Diagnosis [place] [id number] [place] [address] 79239- 4846 Feb, [place] [id number] [place] [address] 46999- 7919 Jan, Type 2 diabetes mellitus with hyperglycemia, without long- term current use of insulin E11.65 and , unspecified gestational age Z34.90 [place] [id number] [place] [address] 99931- 4785 Jan, Type 2 diabetes mellitus without complication E11.9 and Elderly multigravida in first trimester O09.521 [place] [id number] [place] [address] 07280- 9671 Dec, [place] [id number] [place] [address] 04445- 3698 Dec, [place] [id number] [place] [address] 27071- 4631 Nov, [place] [id number] [place] [address] 20834- 0297 Nov, [place] [id number] [place] [address] 28181- 3187 Nov, Normal in multigravida Z34.80 ; History of section complicating O34.219 ; 9 weeks gestation of Z3A.09 ; Type 2 diabetes mellitus complicating in first trimester, antepartum O24.111 and Elderly multigravida in first trimester O09.521 [place] [id number] [place] [address] 39912- 2414 Nov, [place] [id number] [place] [address] 77248- 4524 October, Encounter for test Z32.00 [place] [id number] [place] [address] 01779- 3064 October, Type 2 diabetes mellitus without complication, without long- term current use of insulin E11.9 [place] [id number] [place] [address] 60349- 2068 Jul, Type 2 diabetes mellitus without complication E11.9 [place] [id number] [place] [address] 08201- 3575 Apr, Microcytic anemia D50.9 [place] [id number] [place] [address] 15233- 5429 Apr, [place] [id number] [place] [address] 22311- 9699 Apr, Gastroesophageal reflux disease without esophagitis K21.9 ; Shortness of breath R06.02 ; Fatigue, unspecified type R53.83 and Type 2 diabetes mellitus without complication E11.9 [place] [id number] [place] [address] 03085- 5887 Mar, [place] [id number] [place] [address] 68660- 1861 Mar, Reactive airway disease that is not asthma R09.89 and Type 2 diabetes mellitus without complication E11.9 [facility] [address] [address] 1324 Feb, [facility] [id number] [place] [address] 71416- 3171 Feb, Type 2 diabetes mellitus without complication E11.9 and Reactive airway disease that is not asthma R09.89 [facility] [id number] [place] [address] 59953- 3854 Feb, Threatened O20.0 [facility] [id number] [place] [address] 55772- 7591 Feb, Threatened O20.0 [facility] [id number] [place] [address] 85837- 4749 Jan, Threatened O20.0 [facility] [id number] [place] [address] 09672- 5811 Jan, Threatened O20.0 [facility] [address] [place] [address] 58395 -0857 Jan, Intermenstrual heavy bleeding N92.0 ; Positive test Z32.01 and Vaginal bleeding N93.9 [facility] [address] [place] [address] 65753- 8233 October, [facility] [id number] [place] [address] 19591- 1546 October, [facility] [address] [place] [address] 52080- 6559 October, Type 2 diabetes mellitus without complication E11.9 [facility] [id number] [place] [address] 20038- 8163 May, Type 2 diabetes mellitus without complication E11.9 [facility] [address] [place] [address] 89275- 1641 Jan, [facility] [id number] [address]- 3660 Jan, Routine gynecological examination Z01.419 ; Amenorrhea N91.2 and Pelvic fullness in female R19.00 [facility] [address] [place] [address] 68024- 2070 Jan, [facility] [id number] [place] [address] 43532- 2056 Jan, Type 2 diabetes mellitus without complication E11.9 and Amenorrhea N91.2 [facility] [id number] [place] [address] 91214- 6969 Sep, Type 2 diabetes mellitus without complications E11.9 [facility] [id number] [place] [address] 68312- 1435 Jul, Type 2 diabetes mellitus without complication E11.9 [facility] [id number] [place] [address] 67420- 9128 May, Type 2 diabetes mellitus without complication E11.9 [facility] [id number] [place] [address] 40583- 1988 Mar, Type 2 diabetes mellitus without complication E11.9 [facility] [id number] [place] [address] [id number] Jan, Dental examination V72.2 [facility] [id number] [place] [address] [id number] Dec, Dental examination V72.2 [facility] [address] [place] [address] 94766- 5256 Dec, Diabetes mellitus without mention of complication, type II or unspecified type, not stated as uncontrolled 250.00 [facility] [id number] [place] [address] [id number] Nov, Dental examination V72.2 [facility] [address] [place] [address] 51932- 4544 October, Contraceptive management V25.9 [facility] [id number] [place] [address], [place] [address]- 7691 14 Sep, 2014 [facility] [place] [facility] [address] [id number] [place] [address]- 9840 Sep, [facility] [place] [facility] [address] [id number] [place] [address]- 9766 Jul, [facility] [place] [facility] [address] [id number] [place] [address]- 9445 Jul, [facility] [place] [facility] [address] [id number] [place] [address]- 7236 Apr, [facility] [place] [facility] [address] [id number] [place] [address]- 6761 Apr, [facility] [place] [facility] [address] [id number] [place] [address]- 9900 Mar, [facility] [place] [facility] [address] [id number] [place] [address]- 5511 Mar, [facility] [place] [facility] [address] [id number] [place] [address]- 0050 Mar, [facility] [place] [facility] [address] [id number] [place] [address]- 7590 Mar, [facility] [place] [facility] [address] [id number] [place] [address]- 6645 Jan, [facility] [place] [facility] [address] [id number] [place] [address]- 0713 Jan, [facility] [place] [facility] [address] [id number] [place] [address]- 6446 Nov, [facility] [place] [facility] [address] [id number] [place] [address]- 2203 October, [facility] [place] [facility] [address] [id number] [place] [address]- 8089 October, [facility] [place] [facility] [address] [id number] [place] [address]- 5035 October, [facility] [place] [facility] [address] [id number] [place] [address]- 3140 October, [facility] [place] [facility] [address] [id number] [place] [address]- 7954 October, [facility] [place] [facility] [address] [id number] [place] [address]- 6563 Sep, [facility] [place] [facility] [address] [id number] [place] [address]- 2105 Sep, [facility] [place] [facility] [address] [id number] [place] [address]- 1473 Aug, [facility] [place] [facility] [address] [id number] [place] [address]- 9617 Aug, [facility] [address] [id number] [place] [address]- 8699 Jun, [facility] [place] [facility] [address] [id number] [place] [address]- 9351 Jun, [facility] [place] [facility] [address] [id number] [place] [address]- 3414 Jun, [facility] [place] [facility] [address] [id number] [place] [address]- 3856 Jun, [facility] [place] [facility] [address] [id number] [place] [address]- 0579 Apr, [facility] [place] [facility] [address] [id number] [place] [address]- 5904 Apr, [facility] [place] [facility] [address] [id number] [place] [address]- 5938 Apr, [facility] [place] [facility] [address] [id number] [place] [address]- 8176 30 Feb, 2013 [facility] [place] [facility] [address] [id number] [place] [address]- 8115 18 Feb, 2013 [facility] [place] [facility] [address] [id number] [place] [address]- 8827 10 Feb, 2012 [facility] [address] [id number] [place] [address]- 8263 09 Sep, 2012 [facility] [address] [id number] [place] [address]- 9326 09 Sep, 2012 [facility] [address] [facility] [id number] [place] [address] 2546 07 Sep, 2012 [facility] [address] [id number] [place] [address]- 1043 06 Sep, 2012 [facility] [address] [id number] [place] [address]- 7568 05 Sep, 2012 [facility] [address] [facility] [id number] [place] [address]- 7513 03 Feb, 2012 [facility] [address] [facility] [id number] [place] [address]- 7695 27 Jul, 2012 [facility] [address] [id number] [place] [address]- 0902 19 Jul, 2012 [facility] [address] [facility] [id number] [place] [address]- 3815 15 Jul, 2012 [facility] [address] [facility] [id number] [place] [address]- 8756 14 Jul, 2012 [facility] [address] [facility] [id number] [place] [address]- 8638 04 Jul, 2012 [facility] [place] [facility] [address] [id number] [address]- 7031 Jun, [facility] [place] [facility] [address] [id number] [place] [address]- 8154 May, [facility] [place] [facility] [address] [id number] [place] [address]- 8802 May, [facility] [address] [facility] [id number], [place] [address]- 1032 Apr, [facility] [place] [facility] [address] [id number] [place] [address]- 9953 Apr, [facility] [place] [facility] [address] [id number] [place] [address]- 7515 Apr, [facility] [place] [facility] [address] [id number] [place] [address]- 0306 Apr, [facility] [place] [facility] [address] [id number] [place] [address]- 1004 Apr, [facility] [place] [facility] [address] [id number] [place] [address]- 5008 Apr, [facility] [place] [facility] [address] [id number] [place] [address]- 3869 Mar, [facility] [place] [facility] [address] [id number] [place] [address]- 6632 Mar, [facility] [place] [facility] [address] [id number] [place] [address]- 2419 Mar, [facility] [place] [facility] [address] [id number] [place] [address]- 8404 Mar, [facility] [place] [facility] [address] [id number] [place] [address]- 2527 Mar, [facility] [place] [facility] [address] [id number] [place] [address]- 0109 Mar, [facility] [place] [facility] [address] [id number] [place] [address]- 2965 Mar, [facility] [place] [facility] [address] [id number] [place] 3483 Mar, [facility] [place] [facility] [address] [id number] [place] 3918 28 Feb, 2012 [facility] [place] [facility] [address] [id number] [place] 4116 Feb, [facility] [place] [facility] [address] [id number] [place] [address]- 3115 25 Feb, 2012 [facility] [address] [facility] [id number] [place] [address]- 2698 20 Feb, 2012 [facility] [address] [facility] [id number], [place] [address]- 8723 19 Feb, 2012 [facility] [address] [facility] [id number], [place] [address]- 3610 18 Feb, 2012 [facility] [address] [facility] [id number]- 9339 17 Feb, 2012 [facility] [address] [facility] [id number], [place] [address]- 2387 04 Feb, 2012 [facility] [address] [facility] [id number] [address]- 0064 Sep, IMMUNIZATIONS No Known Immunizations SOCIAL HISTORY Never Assessed REASON FOR VISIT Diabetes-López CRUZ PLAN OF CARE Activity Details Follow Up 3 Months Reason:DM VITAL SIGNS Height 61 in 2017-10-27 Weight 154.8 lbs 2017-10-27 Temperature 98.6 degrees Fahrenheit 2017-10-27 Heart Rate 60 bpm 2017-10-27 Respiratory Rate 18 2017-10-27 BMI 29.25 kg/m2 2017-10-27 Blood pressure systolic 120 mmHg 2017-10-27 Blood pressure diastolic 74 mmHg 2017-10-27 MEDICATIONS Medication Instructions Dosage Frequency Start Date End Date Duration Status Pioglitazone HCl-Metformin ER 30-1000 MG Orally Once a day 1 tablet with a meal 24h October, 90 days Active Glucocard Expression Test - subcutaneously 2 times a day as directed 12h October, October, 90 days Active GlipiZIDE 10 mg Orally twice a day 2 tablet in AM and 1 tablet in PM 12h 90 days Active Metformin HCl 1000 MG Orally Twice a day 1 tablet with meals 12h Jan, Active RESULTS Name Result Date Reference Range A1C (IN HOUSE) 2017-10-27 A1C IN HOUSE 8.3 4.3 - 5.6 % Previous A1c 9.5 Lot [id number] Exp date 07/2019 PROCEDURES Procedure Date Ordered Result Body Site GLYCATED HEMOGLOBIN TEST October 27, 2017 INSTRUCTIONS MEDICATIONS ADMINISTERED No Known Medications MEDICAL (GENERAL) HISTORY Type Description Date Medical History type II diabetes Surgical History x 4 Hospitalization History surgeries
--- OUTSIDE RECORDS SUMMARY | 2018-05-14 15:22 | XMS REPORT | Continuity of Care Document ---
Author Author [facility] Organization [facility] Address Unknown Phone Unavailable Allergies Active Description Code Type Severity Reaction Onset Reported/Identified Relationship to Patient Clinical Status Yes No Known Drug Allergies [id number] Drug Allergy Unknown N/A 10/26/2007 Medications There [...] 648.83 ABN GLUCOSE- ANTEPARTUM 02/10/2016 ALEN ASHER DIRECTOR OF SPECIAL SERVICES Ot V23.7 INSUFFICIENT CARE 02/10/2016 ALEN ASHER DIRECTOR OF SPECIAL SERVICES Ot V28.89 OTHER SPECIFIED SCREENING 02/10/2016 MADISON COX DO Ot 648.83 ABN GLUCOSE-ANTEPARTUM 02/10/2016 MADISON COX DO Ot 648.83 ABN GLUCOSE-ANTEPARTUM 02/10/2016 MADISON COX DO Ot 649.63 UTERINE SIZE DATE DISCREPANCY, ANTEPARTU 02/12/2016 MADL, YANET L COAT CUTTER Ot N91.2 AMENORRHEA, UNSPECIFIED 02/12/2016 MADL, YANET L COAT CUTTER Ot R19.00 INTRA-ABD AND PELVIC SWELLING, MASS AND 02/16/2016 MADL, YANET L COAT CUTTER Ot N91.2 AMENORRHEA, UNSPECIFIED 02/16/2016 MADL, YANET L COAT CUTTER Ot R19.00 INTRA-ABD AND PELVIC SWELLING, MASS AND 03/09/2016 Ot 641.13 PLACEN PREV HEM-ANTEPART 03/09/2016 Ot 649.63 UTERINE SIZE DATE DISCREPANCY, ANTEPARTU 03/09/2016 Ot V28.81 ENCOUNTER FOR ANATOMIC SURVEY 03/09/2016 Ot 648.83 ABN GLUCOSE- ANTEPARTUM 03/09/2016 ALEN ASHER DIRECTOR OF SPECIAL SERVICES Ot V23.7 INSUFFICIENT CARE 03/09/2016 ALEN ASHER DIRECTOR OF SPECIAL SERVICES Ot V28.89 OTHER SPECIFIED SCREENING 03/09/2016 COX DO, MADISON C Ot 648.83 ABN GLUCOSE-ANTEPARTUM 03/09/2016 MADISON COX DO C Ot 648.83 ABN GLUCOSE-ANTEPARTUM 03/09/2016 GRICEL COX DOA C Ot 649.63 UTERINE SIZE DATE DISCREPANCY, ANTEPARTU 03/09/2016 MADLTONYAA L COAT CUTTER Ot N91.2 AMENORRHEA, UNSPECIFIED 03/09/2016 MADL, YANET L COAT CUTTER Ot R19.00 INTRA-ABD AND PELVIC SWELLING, MASS AND 03/09/2016 HILARIA NG DIRECTOR OF SPECIAL SERVICES Ot E11.9 TYPE 2 DIABETES MELLITUS WITHOUT COMPLIC 03/09/2016 HILARIA NG DIRECTOR OF SPECIAL SERVICES Ot R11.2 NAUSEA WITH VOMITING, UNSPECIFIED 03/09/2016 HILARIA NG APRN Ot R51 HEADACHE 03/09/2016 HILARIA NG DIRECTOR OF SPECIAL SERVICES Ot Z79.899 OTHER FPC (CURRENT) DRUG THERAPY 03/10/2016 Ot 641.13 PLACEN PREV HEM-ANTEPART 03/10/2016 Ot 649.63 UTERINE SIZE DATE DISCREPANCY, ANTEPARTU 03/10/2016 Ot V28.81 ENCOUNTER FOR ANATOMIC SURVEY 03/10/2016 Ot 648.83 ABN GLUCOSE- ANTEPARTUM 03/10/2016 ALEN ASHER DIRECTOR OF SPECIAL SERVICES Ot V23.7 INSUFFICIENT CARE 03/10/2016 ALEN ASHER DIRECTOR OF SPECIAL SERVICES Ot V28.89 OTHER SPECIFIED SCREENING 03/10/2016 MADISON COX DO C Ot 648.83 ABN GLUCOSE-ANTEPARTUM 03/10/2016 MADISON COX DO C Ot 648.83 ABN GLUCOSE-ANTEPARTUM 03/10/2016 KENNY العلي MADISON C Ot 649.63 UTERINE SIZE DATE DISCREPANCY, ANTEPARTU 03/10/2016 RICKIELTONYAA L COAT CUTTER Ot N91.2 AMENORRHEA, UNSPECIFIED 03/10/2016 MADL, YANET L COAT CUTTER Ot R19.00 INTRA-ABD AND PELVIC SWELLING, MASS AND 03/11/2016 HILARIA NG DIRECTOR OF SPECIAL SERVICES Ot E11.9 TYPE 2 DIABETES MELLITUS WITHOUT COMPLIC 03/11/2016 HILARIA NG DIRECTOR OF SPECIAL SERVICES Ot R11.2 NAUSEA WITH VOMITING, UNSPECIFIED 03/11/2016 HILARIA NG DIRECTOR OF SPECIAL SERVICES Ot R51 HEADACHE 03/11/2016 HILARIA NG DIRECTOR OF SPECIAL SERVICES Ot Z79.899 OTHER FPC (CURRENT) DRUG THERAPY 06/02/2016 Ot 641.13 PLACEN PREV HEM-ANTEPART 06/02/2016 Ot 649.63 UTERINE SIZE DATE DISCREPANCY, ANTEPARTU 06/02/2016 Ot V28.81 ENCOUNTER FOR ANATOMIC SURVEY 06/02/2016 Ot 648.83 ABN GLUCOSE- ANTEPARTUM 06/02/2016 ALEN ASHER DIRECTOR OF SPECIAL SERVICES Ot V23.7 INSUFFICIENT CARE 06/02/2016 ALEN ASHER DIRECTOR OF SPECIAL SERVICES Ot V28.89 OTHER SPECIFIED SCREENING 06/02/2016 COX DO, MADISON C Ot 648.83 ABN GLUCOSE-ANTEPARTUM 06/02/2016 COX DO, MADISON C Ot 648.83 ABN GLUCOSE-ANTEPARTUM 06/02/2016 COX DO, MADISON C Ot 649.63 UTERINE SIZE DATE DISCREPANCY, ANTEPARTU 06/02/2016 MADL, YANET L COAT CUTTER Ot N91.2 AMENORRHEA, UNSPECIFIED 06/02/2016 MADL, YANET L COAT CUTTER Ot R19.00 INTRA-ABD AND PELVIC SWELLING, MASS AND 06/02/2016 Ot 641.13 PLACEN PREV HEM-ANTEPART 06/02/2016 Ot 649.63 UTERINE SIZE DATE DISCREPANCY, ANTEPARTU 06/02/2016 Ot V28.81 ENCOUNTER FOR ANATOMIC SURVEY 06/02/2016 Ot 648.83 ABN GLUCOSE- ANTEPARTUM 06/02/2016 ALEN ASHER DIRECTOR OF SPECIAL SERVICES Ot V23.7 INSUFFICIENT CARE 06/02/2016 ALEN ASHER DIRECTOR OF SPECIAL SERVICES Ot V28.89 OTHER SPECIFIED SCREENING 06/02/2016 COX DO, MADISON C Ot 648.83 ABN GLUCOSE-ANTEPARTUM 06/02/2016 COX DO, MADISON C Ot 648.83 ABN GLUCOSE-ANTEPARTUM 06/02/2016 COX DO, MADISON C Ot 649.63 UTERINE SIZE DATE DISCREPANCY, ANTEPARTU 06/02/2016 MADL, YANET L COAT CUTTER Ot N91.2 AMENORRHEA, UNSPECIFIED 06/02/2016 MADL, YANET L COAT CUTTER Ot R19.00 INTRA-ABD AND PELVIC SWELLING, MASS AND 06/02/2016 MADL, YANET L COAT CUTTER Ot N91.2 AMENORRHEA, UNSPECIFIED 06/02/2016 MADL, YANET L COAT CUTTER Ot R19.00 INTRA-ABD AND PELVIC SWELLING, MASS AND 06/03/2016 MADL, YANET L COAT CUTTER Ot N91.2 AMENORRHEA, UNSPECIFIED 06/03/2016 MADL, YANET L COAT CUTTER Ot R19.00 INTRA-ABD AND PELVIC SWELLING, MASS AND 06/05/2016 Ot 641.13 PLACEN PREV HEM-ANTEPART 06/05/2016 Ot 649.63 UTERINE SIZE DATE DISCREPANCY, ANTEPARTU 06/05/2016 Ot V28.81 ENCOUNTER FOR ANATOMIC SURVEY 06/05/2016 Ot 648.83 ABN GLUCOSE- ANTEPARTUM 06/05/2016 ALEN ASHER A DIRECTOR OF SPECIAL SERVICES Ot V23.7 INSUFFICIENT CARE 06/05/2016 NOY ASHERIDI A DIRECTOR OF SPECIAL SERVICES Ot V28.89 OTHER SPECIFIED SCREENING 06/05/2016 KENNY DOGRICELA C Ot 648.83 ABN GLUCOSE-ANTEPARTUM 06/05/2016 COX DO MADISON C Ot 648.83 ABN GLUCOSE-ANTEPARTUM 06/05/2016 KENNY DO MADISON C Ot 649.63 UTERINE SIZE DATE DISCREPANCY, ANTEPARTU 06/05/2016 MADL, YANET L COAT CUTTER Ot N91.2 AMENORRHEA, UNSPECIFIED 06/05/2016 MADL, YANET L COAT CUTTER Ot R19.00 INTRA-ABD AND PELVIC SWELLING, MASS AND 06/05/2016 MADL, YANET L COAT CUTTER Ot N91.2 AMENORRHEA, UNSPECIFIED 06/05/2016 MADL, YANET L COAT CUTTER Ot R19.00 INTRA-ABD AND PELVIC SWELLING, MASS AND 02/13/2017 Ot 641.13 PLACEN PREV HEM-ANTEPART 02/13/2017 Ot 649.63 UTERINE SIZE DATE DISCREPANCY, ANTEPARTU 02/13/2017 Ot V28.81 ENCOUNTER FOR ANATOMIC SURVEY 02/13/2017 Ot 648.83 ABN GLUCOSE- ANTEPARTUM 02/13/2017 ALEN ASHER A DIRECTOR OF SPECIAL SERVICES Ot V23.7 INSUFFICIENT CARE 02/13/2017 NOY ASHERIDI A DIRECTOR OF SPECIAL SERVICES Ot V28.89 OTHER SPECIFIED SCREENING 02/13/2017 KENNY DO, MADISON C Ot 648.83 ABN GLUCOSE-ANTEPARTUM 02/13/2017 KENNY العلي MADISON C Ot 648.83 ABN GLUCOSE-ANTEPARTUM 02/13/2017 MADISON COX DO Ot 649.63 UTERINE SIZE DATE DISCREPANCY, ANTEPARTU 02/13/2017 YANET WEBB COAT CUTTER Ot N91.2 AMENORRHEA, UNSPECIFIED 02/13/2017 MADLYANET COAT CUTTER Ot R19.00 INTRA-ABD AND PELVIC SWELLING, MASS AND 02/13/2017 HILARIA NG DIRECTOR OF SPECIAL SERVICES Ot E11.9 TYPE 2 DIABETES MELLITUS WITHOUT COMPLIC 02/13/2017 HILARIA NG DIRECTOR OF SPECIAL SERVICES Ot N93.9 ABNORMAL UTERINE AND VAGINAL BLEEDING, U 02/13/2017 HILARIA NG APRN Ot O03.9 COMPLETE OR UNSP SPONTANEOUS [place] 02/13/2017 HILARIA NG APRN Ot O24.119 PRE-EXIST TYPE 2 DIABETES, IN , 02/13/2017 HILARIA NG APRN Ot Z3A.00 WEEKS OF GESTATION OF NOT SPEC 02/13/2017 HILARIA NG DIRECTOR OF SPECIAL SERVICES Ot Z79.84 QUALITY ASSURANCE NURSE (CURRENT) USE OF ORAL HYPOGLYC 02/13/2017 Ot 641.13 PLACEN PREV HEM-ANTEPART 02/13/2017 Ot 649.63 UTERINE SIZE DATE DISCREPANCY, ANTEPARTU 02/13/2017 Ot V28.81 ENCOUNTER FOR ANATOMIC SURVEY 02/13/2017 Ot 648.83 ABN GLUCOSE- ANTEPARTUM 02/13/2017 ALEN ASHER DIRECTOR OF SPECIAL SERVICES Ot V23.7 INSUFFICIENT CARE 02/13/2017 ALEN ASHER DIRECTOR OF SPECIAL SERVICES Ot V28.89 OTHER SPECIFIED SCREENING 02/13/2017 MADISON COX DO Ot 648.83 ABN GLUCOSE-ANTEPARTUM 02/13/2017 MADISON COX DO C Ot 648.83 ABN GLUCOSE-ANTEPARTUM 02/13/2017 MADISON COX DO Ot 649.63 UTERINE SIZE DATE DISCREPANCY, ANTEPARTU 02/13/2017 YANET WEBB COAT CUTTER Ot N91.2 AMENORRHEA, UNSPECIFIED 02/13/2017 RICKIELYANET L COAT CUTTER Ot R19.00 INTRA-ABD AND PELVIC SWELLING, MASS AND 02/15/2017 HILARIA NG DIRECTOR OF SPECIAL SERVICES Ot E11.9 TYPE 2 DIABETES MELLITUS WITHOUT COMPLIC 02/15/2017 HILARIA NG DIRECTOR OF SPECIAL SERVICES Ot N93.9 ABNORMAL UTERINE AND VAGINAL BLEEDING, U 02/15/2017 HILARIA NG DIRECTOR OF SPECIAL SERVICES Ot O03.9 COMPLETE OR UNSP SPONTANEOUS [place] 02/15/2017 HILARIA NG DIRECTOR OF SPECIAL SERVICES Ot O24.119 PRE-EXIST TYPE 2 DIABETES, IN , 02/15/2017 HILARIA NG DIRECTOR OF SPECIAL SERVICES Ot Z3A.00 WEEKS OF GESTATION OF NOT SPEC 02/15/2017 HILARIA NG DIRECTOR OF SPECIAL SERVICES Ot Z79.84 FPC (CURRENT) USE OF ORAL HYPOGLYC 12/29/2017 LBNOYALEN A DIRECTOR OF SPECIAL SERVICES Ot V23.7 INSUFFICIENT CARE 12/29/2017 LBNOYALEN A DIRECTOR OF SPECIAL SERVICES Ot V28.89 OTHER SPECIFIED SCREENING 12/29/2017 COX DO, MADISON C Ot 648.83 ABN GLUCOSE-ANTEPARTUM 12/29/2017 COX DO, MADISON C Ot 648.83 ABN GLUCOSE-ANTEPARTUM 12/29/2017 COX DO, MADISON C Ot 649.63 UTERINE SIZE DATE DISCREPANCY, ANTEPARTU 12/29/2017 MADL, YANET L COAT CUTTER Ot N91.2 AMENORRHEA, UNSPECIFIED 12/29/2017 MADL, YANET L COAT CUTTER Ot R19.00 INTRA-ABD AND PELVIC SWELLING, MASS AND 12/31/2017 LBALEN A DIRECTOR OF SPECIAL SERVICES Ot V23.7 INSUFFICIENT CARE 12/31/2017 LBNOYALEN A DIRECTOR OF SPECIAL SERVICES Ot V28.89 OTHER SPECIFIED SCREENING 12/31/2017 COX DO, MADISON C Ot 648.83 ABN GLUCOSE-ANTEPARTUM 12/31/2017 COX DO, MADISON C Ot 648.83 ABN GLUCOSE-ANTEPARTUM 12/31/2017 COX DO, MADISON C Ot 649.63 UTERINE SIZE DATE DISCREPANCY, ANTEPARTU 12/31/2017 MADL, YANET L COAT CUTTER Ot N91.2 AMENORRHEA, UNSPECIFIED 12/31/2017 MADL, YANET L COAT CUTTER Ot R19.00 INTRA-ABD AND PELVIC SWELLING, MASS AND 12/31/2017 JULI LOPEZ, THOMPSON Henning Ot O24.912 UNSPECIFIED DIABETES MELLITUS IN PREGNAN 12/31/2017 THOMPSON BUSTOS MD Ot O99.89 OTH DISEASES AND CONDITIONS COMPL PREG/C 12/31/2017 THOMPSON BUSTOS MD Ot R10.30 LOWER ABDOMINAL PAIN, UNSPECIFIED 12/31/2017 THOMPSON BUSTOS MD Ot Z3A.14 14 WEEKS GESTATION OF 12/31/2017 THOMPSON BUSTOS MD Ot Z79.84 FPC (CURRENT) USE OF ORAL HYPOGLYC 12/31/2017 THOMPSON BUSTOS MD Ot Z87.59 PERSONAL HISTORY OF COMP OF PREG, CHLDBR 01/03/2018 THOMPSON BUSTOS MD Ot O24.912 UNSPECIFIED DIABETES MELLITUS IN PREGNAN 01/03/2018 THOMPSON BUSTOS MD Ot O99.89 OTH DISEASES AND CONDITIONS COMPL PREG/C 01/03/2018 THOMPSON BUSTOS MD Ot R10.30 LOWER ABDOMINAL PAIN, UNSPECIFIED 01/03/2018 THOMPSON BUSTOS MD Ot Z3A.14 14 WEEKS GESTATION OF 01/03/2018 THOMPSON BUSTOS MD Ot Z79.84 QUALITY ASSURANCE NURSE (CURRENT) USE OF ORAL HYPOGLYC 01/03/2018 THOMPSON BUSTOS MD Ot Z87.59 PERSONAL HISTORY OF COMP OF PREG, CHLDBR 01/06/2018 ALEN ASHER DIRECTOR OF SPECIAL SERVICES Ot V23.7 INSUFFICIENT CARE 01/06/2018 ALEN ASHER DIRECTOR OF SPECIAL SERVICES Ot V28.89 OTHER SPECIFIED SCREENING 01/06/2018 COX DO, MADISON C Ot 648.83 ABN GLUCOSE-ANTEPARTUM 01/06/2018 COX DO MADISON C Ot 648.83 ABN GLUCOSE-ANTEPARTUM 01/06/2018 COX DO, MADISON C Ot 649.63 UTERINE SIZE DATE DISCREPANCY, ANTEPARTU 01/06/2018 MADL, YANET L COAT CUTTER Ot N91.2 AMENORRHEA, UNSPECIFIED 01/06/2018 MADL, YANET L COAT CUTTER Ot R19.00 INTRA-ABD AND PELVIC SWELLING, MASS AND 02/16/2018 ALEN ASHER DIRECTOR OF SPECIAL SERVICES Ot V23.7 INSUFFICIENT CARE 02/16/2018 ALEN ASHER A DIRECTOR OF SPECIAL SERVICES Ot V28.89 OTHER SPECIFIED SCREENING 02/16/2018 MADISON COX DO Ot 648.83 ABN GLUCOSE-ANTEPARTUM 02/16/2018 MADISON COX DO Ot 648.83 ABN GLUCOSE-ANTEPARTUM 02/16/2018 MADISON COX DO Ot 649.63 UTERINE SIZE DATE DISCREPANCY, ANTEPARTU 02/16/2018 YANET WEBB COAT CUTTER Ot N91.2 AMENORRHEA, UNSPECIFIED 02/16/2018 YANET WEBB COAT CUTTER Ot R19.00 INTRA-ABD AND PELVIC SWELLING, MASS AND 02/17/2018 LEATHAECH AUSTYN العلي Ot Z36.89 ENCOUNTER FOR OTHER SPECIFIED 02/17/2018 AUSTYN PEREZ DO Ot Z3A.21 21 WEEKS GESTATION OF Procedures Code Description Performed By Performed On [...] 17:36 Serum or plasma choriogonadotropin measurement (units/volume) 17413 m[iU]/mL <5 Encounters ACCT No. Visit Date/Time Discharge Status Pt. Type Provider Facility Loc./Unit Complaint [id number] 02/16/2018 13:05:00 02/16/2018 23:59:59 CLS Outpatient AUSTYN PEREZ DO [facility] RAD [id number] 12/31/2017 14:30:00 12/31/2017 23:59:59 CLS Preadmit IRIS SARABIA MD [facility] RAD NORMAL IN MULTIGRAVIDA [id number] 12/31/2017 16:37:00 12/31/2017 19:08:00 DIS Emergency JULI LOPEZ, THOMPSON Henning [facility] ER 14 WKS PREG/STOMACH PAIN/ DISCHARGE [id number] 02/13/2017 11:48:00 02/13/2017 14:47:00 DIS Emergency HILARIA NG APRN [facility] ER BLOATING [id number] 03/09/2016 18:50:00 03/09/2016 23:14:00 DIS Emergency HILARIA NG APRN [facility] ER HEAD PAIN [id number] 02/10/2016 15:09:00 02/10/2016 23:59:59 CLS Outpatient YANET WEBB COAT CUTTER [facility] RAD AMENORRHEA,PELVIC FULLNESS [id number] 05/01/2013 11:05:00 05/03/2013 11:25:00 DIS Inpatient AUSTYN PEREZ DO [facility] WS PREVIOUS SECTION [id number] 04/11/2013 14:57:00 04/11/2013 23:59:59 CLS Outpatient MADISON COX DO [facility] RAD GDM,LGA [id number] 03/24/2013 15:50:00 03/24/2013 23:59:59 CLS Outpatient MADISON COX DO [facility] RAD GDM [id number] 03/07/2013 14:38:00 03/07/2013 23:59:59 CLS Outpatient ALEN ASHER APRN [facility] RAD SURVEY,LATE CARE [id number] 06/22/2012 15:07:00 Document Registration [id number] 05/24/2012 15:37:00 Document Registration [id number] 03/14/2012 10:14:00 Document Registration
[2018-05-14] MEDS ORDERED: NIFEdipine 10 MG CAPS (WOMEN'S SERVICES ONLY!!!) PO ONE (15:30)
[2018-05-14] MEDS ORDERED: inSUlin ASPART (NovoLOG) 1 UNIT/0.01 ML (CHARGE PER UNIT) SC ONE (15:30)
[2018-05-14] MEDS: NS IV 1000 ML 1,000 ML IV SCH ×2 (15:42→23:43)
[2018-05-14] MEDS ORDERED: BETAMETHASONE ACE/NA PHOS 6 MG/ML (CELESTONE SOLUSPAN) ONE (15:48)
[2018-05-14] MEDS: BETAMETHASONE ACE/NA PHOS 6 MG/ML (CELESTONE SOLUSPAN) IM SCH ×3 (15:55→16:07)
[2018-05-14] MEDS: inSUlin ASPART (NovoLOG) 1 UNIT/0.01 ML (CHARGE PER UNIT) SC SCH ×3 (16:00→21:00)
[2018-05-14] MEDS: NIFEdipine 10 MG CAPS (WOMEN'S SERVICES ONLY!!!) PO SCH (20:36)
[2018-05-14] MEDS ORDERED: inSUlin NPH (NovoLIN N) 1 UNIT/0.01 ML (CHARGE PER UNIT) SQ SCH (21:00)
[2018-05-15] VITALS (13 sets, daily range): BP systolic 103–139; BP diastolic 52–69
[2018-05-15] MEDS: NIFEdipine 10 MG CAPS (WOMEN'S SERVICES ONLY!!!) PO SCH ×4 (00:23→12:17)
[2018-05-15] MEDS ORDERED: inSUlin NPH (NovoLIN N) 1 UNIT/0.01 ML (CHARGE PER UNIT) SQ SCH (06:00)
[2018-05-15] MEDS: NS IV 1000 ML 1,000 ML IV SCH (07:22)
[2018-05-15] MEDS: inSUlin ASPART (NovoLOG) 1 UNIT/0.01 ML (CHARGE PER UNIT) SC SCH ×4 (08:04→12:20)
--- NOTE | 2018-05-15 09:25 | Progress Note (SOAP) ---
Subjective Date Seen by a Provider: May 15, 2018 Time Seen by a Provider: 09:15 Subjective/Events-last exam Patient apparently did not eat yesterday for some reason. (did not eat dinner maybe because she did not know how to order, but nurse did explain to her how to order). Her arrived at 1:30 am and brought her a burrito. So her 0400 blood sugar was a post prandial rather than a fasting, but was counted as a fasting blood sugar. She did not get her pm insulin as ordered bc patient did not eat her dinner. Her contractions have slowed, though she does have contractions when she is due for another Procardia. She received betamethasone yesterday and will receive a second this afternoon. Plan would be to discharge after the second dose of betamethasone. 05/14/18 05/14/18 05/14/18 05/15/18 21:25 22:25 23:25 00:25 Temp 97.8 Pulse 63 78 70 68 Resp 18 18 18 18 B/P (MAP) 100/49 (66) 110/64 (79) 119/68 (85) 126/69 (88) O2 Delivery Room Air Room Air Room Air Room Air 05/15/18 05/15/18 05/15/18 05/15/18 01:30 02:25 03:25 04:25 Temp 98.5 Pulse 72 87 80 82 Resp 18 18 18 18 B/P (MAP) 129/66 (87) 112/57 (75) 139/65 (89) 124/60 (81) O2 Delivery Room Air Room Air Room Air Room Air 05/15/18 05/15/18 05/15/18 05/15/18 05:25 06:25 07:25 08:25 Temp 98.3 98.4 Pulse 82 75 61 89 Resp 18 18 18 18 B/P (MAP) 130/64 (86) 107/58 (74) 114/56 (75) 111/53 (72) O2 Delivery Room Air Room Air Room Air Room Air 05/15/18 00:00 Intake Total 1000 ml Balance 1000 ml Laboratory Tests Test 05/14/18 13:46 05/14/18 14:14 05/14/18 18:12 05/14/18 20:39 Range/Units Glucometer 155 H 119 H 80 70-110 MG/DL White Blood Count 7.6 4.3-11.0 10^3/uL Red Blood Count 4.83 4.35-5.85 10^6/uL Hemoglobin 11.7 11.5-16.0 G/DL Hematocrit 36 35-52 % Mean Corpuscular Volume 74 L 80-99 FL Mean Corpuscular Hemoglobin 24 L 25-34 PG Mean Corpuscular Hemoglobin Concent 33 32-36 G/DL Red Cell Distribution Width 15.8 H 10.0-14.5 % Platelet Count 290 130-400 10^3/uL Mean Platelet Volume 10.6 H 7.4-10.4 FL Neutrophils (%) (Auto) 69 42-75 % Lymphocytes (%) (Auto) 23 12-44 % Monocytes (%) (Auto) 8 0-12 % Eosinophils (%) (Auto) 0 0-10 % Basophils (%) (Auto) 0 0-10 % Neutrophils # (Auto) 5.2 1.8-7.8 X 10^3 Lymphocytes # (Auto) 1.8 1.0-4.0 X 10^3 Monocytes # (Auto) 0.6 0.0-1.0 X 10^3 Eosinophils # (Auto) 0.0 0.0-0.3 10^3/uL Basophils # (Auto) 0.0 0.0-0.1 10^3/uL Sodium Level 137 135-145 MMOL/L Potassium Level 4.0 3.6-5.0 MMOL/L Chloride Level 106 98-107 MMOL/L Carbon Dioxide Level 18 L 21-32 MMOL/L Anion Gap 13 5-14 MMOL/L Blood Urea Nitrogen 10 7-18 MG/DL Creatinine 0.60 0.60-1.30 MG/DL Estimat Glomerular Filtration Rate > 60 BUN/Creatinine Ratio 17 Glucose Level 178 H 70-105 MG/DL Calcium Level 9.5 8.5-10.1 MG/DL Test 05/15/18 01:30 05/15/18 04:05 05/15/18 07:52 Range/Units Glucometer 82 200 H 105 70-110 MG/DL Assessment: labor at 33 weeks (33 weeks 2 days today). 2. History of previous section x 3 3. gestational diabetes B P: continue tocolysis until after 2nd dose of betamethasone. 2. Sliding scale insulin as blood sugars are expected to increase with the betamethasone for the next few days. 3. discharge to home later today or tomorrow am. Objective Exam Vital Signs Date Time Temp Pulse Resp B/P (MAP) Pulse Ox O2 Delivery O2 Flow Rate FiO2 05/15/18 08:25 89 18 111/53 (72) Room Air 05/15/18 07:25 98.4 61 18 114/56 (75) Room Air 05/15/18 06:25 75 18 107/58 (74) Room Air 05/15/18 05:25 98.3 82 18 130/64 (86) Room Air 05/15/18 04:25 82 18 124/60 (81) Room Air 05/15/18 03:25 98.5 80 18 139/65 (89) Room Air 05/15/18 02:25 87 18 112/57 (75) Room Air 05/15/18 01:30 72 18 129/66 (87) Room Air 05/15/18 00:25 97.8 68 18 126/69 (88) Room Air 05/14/18 23:25 70 18 119/68 (85) Room Air 05/14/18 22:25 78 18 110/64 (79) Room Air 05/14/18 21:25 63 18 100/49 (66) Room Air 05/14/18 20:25 97.5 68 18 126/73 (90) Room Air 05/14/18 19:25 63 18 100/49 (66) Room Air 05/14/18 18:25 62 18 109/51 (70) Room Air 05/14/18 17:10 60 18 120/65 (83) Room Air 05/14/18 16:40 74 18 148/61 (90) Room Air 05/14/18 16:20 56 18 142/68 (92) Room Air 05/14/18 15:55 54 18 148/67 (94) Room Air 05/14/18 15:25 50 18 112/58 (76) Room Air 05/14/18 14:55 56 18 133/61 (85) Room Air 05/14/18 14:20 60 18 129/68 (88) Room Air 05/14/18 13:35 97.7 66 18 141/62 (88) Room Air I & O 05/15/18 07:00 Intake Total 1000 ml Balance 1000 ml Capillary Refill : General Appearance: No Apparent Distress Other comments Irregular contractions. No further decelerations well being is reassuring. Results Lab Laboratory Tests 05/14/18 13:46: Glucometer 155H 05/14/18 14:14: White Blood Count 7.6, Red Blood Count 4.83, Hemoglobin 11.7, Hematocrit 36, Mean Corpuscular Volume 74L, Mean Corpuscular Hemoglobin 24L, Mean Corpuscular Hemoglobin Concent 33, Red Cell Distribution Width 15.8H, Platelet Count 290, Mean Platelet Volume 10.6H, Neutrophils (%) (Auto) 69, Lymphocytes (%) (Auto) 23 , Monocytes (%) (Auto) 8, Eosinophils (%) (Auto) 0, Basophils (%) (Auto) 0, Neutrophils # (Auto) 5.2, Lymphocytes # (Auto) 1.8, Monocytes # (Auto) 0.6, Eosinophils # (Auto) 0.0, Basophils # (Auto) 0.0, Sodium Level 137, Potassium Level 4.0, Chloride Level 106, Carbon Dioxide Level 18L, Anion Gap 13, Blood Urea Nitrogen 10, Creatinine 0.60, Estimat Glomerular Filtration Rate > 60, BUN/ Creatinine Ratio 17, Glucose Level 178H, Calcium Level 9.5 05/14/18 18:12: Glucometer 119H 05/14/18 20:39: Glucometer 80 05/15/18 01:30: Glucometer 82 05/15/18 04:05: Glucometer 200H 05/15/18 07:52: Glucometer 105 Assessment/Plan Assessment/Plan Assess & Plan/Chief Complaint see above MADISON COX DO May 15, 2018 09:25
[2018-05-15] MEDS ORDERED: inSUlin ASPART (NovoLOG) 1 UNIT/0.01 ML (CHARGE PER UNIT) SC SCH (09:30)
--- NOTE | 2018-05-15 10:12 | Discharge Inst-Women's Service ---
Discharge Inst-Women's Serv Depart Medication/Instructions New, Converted or Re-Newed RX: Other (No new RX. continue Insulin as prescribed.) Instructions expect to have blood sugars elevated for the next few days. Return if you have more than 6 contractions in a hour for two hours. or if your water breaks, you have vaginal bleeding or if pain is increased (not contraction) Call if blood sugars are over 300 or under 60 Final Diagnosis labor history of delivery Gestational diabetes b history of previous section Consults/Follow Up Additional Follow Up: Yes (as directed with Dr. Miner) Activity Activity: Activity as Tolerated (nothing in the vagina; modified bedrest) Driving Instructions: No Driving/Refer to Dr. JAMES SMOKING: NO SMOKING Nothing Inside Vagina: No Douching, No [place], No Tampons Diet Discharge Diet: ADA Diet Symptoms to Report to : Extremity Discoloration, Bleeding Excessive, Pain Increased, Fever Over 101 Degrees F, Vaginal Bleeding Increase, Vaginal Discharge Foul For Any Problems or Questions: Contact Your Physician Skin/Wound Care Bathing Instructions: MADISON Lewis DO May 15, 2018 10:12
[2018-05-15] MEDS: BETAMETHASONE ACE/NA PHOS 6 MG/ML (CELESTONE SOLUSPAN) IM SCH ×2 (13:27→13:28)
--- OUTSIDE RECORDS SUMMARY | 2018-05-17 10:20 | XMS REPORT | Continuity of Care Document ---
Author Author [facility] Organization [facility] Address Unknown Phone Unavailable Allergies Active Description Code Type Severity Reaction Onset Reported/Identified Relationship to Patient Clinical Status Yes No Known Drug Allergies [id number] Drug Allergy Unknown N/A 10/26/2007 Medications There [...] 648.83 ABN GLUCOSE- ANTEPARTUM 02/10/2016 ALEN ASHER BORE MINER OPERATOR Ot V23.7 INSUFFICIENT CARE 02/10/2016 ALEN ASHER BORE MINER OPERATOR Ot V28.89 OTHER SPECIFIED SCREENING 02/10/2016 MADISON COX DO Ot 648.83 ABN GLUCOSE-ANTEPARTUM 02/10/2016 MADISON COX DO Ot 648.83 ABN GLUCOSE-ANTEPARTUM 02/10/2016 MADISON COX DO Ot 649.63 UTERINE SIZE DATE DISCREPANCY, ANTEPARTU 02/12/2016 MADL, YANET L LABORATORY EQUIPMENT INSTALLER Ot N91.2 AMENORRHEA, UNSPECIFIED 02/12/2016 MADL, YANET L LABORATORY EQUIPMENT INSTALLER Ot R19.00 INTRA-ABD AND PELVIC SWELLING, MASS AND 02/16/2016 MADL, YANET L LABORATORY EQUIPMENT INSTALLER Ot N91.2 AMENORRHEA, UNSPECIFIED 02/16/2016 MADL, YANET L LABORATORY EQUIPMENT INSTALLER Ot R19.00 INTRA-ABD AND PELVIC SWELLING, MASS AND 03/09/2016 Ot 641.13 PLACEN PREV HEM-ANTEPART 03/09/2016 Ot 649.63 UTERINE SIZE DATE DISCREPANCY, ANTEPARTU 03/09/2016 Ot V28.81 ENCOUNTER FOR ANATOMIC SURVEY 03/09/2016 Ot 648.83 ABN GLUCOSE- ANTEPARTUM 03/09/2016 ALEN ASHER BORE MINER OPERATOR Ot V23.7 INSUFFICIENT CARE 03/09/2016 ALEN ASHER BORE MINER OPERATOR Ot V28.89 OTHER SPECIFIED SCREENING 03/09/2016 COX DO, MADISON C Ot 648.83 ABN GLUCOSE-ANTEPARTUM 03/09/2016 MADISON COX DO C Ot 648.83 ABN GLUCOSE-ANTEPARTUM 03/09/2016 GRICEL COX DOA C Ot 649.63 UTERINE SIZE DATE DISCREPANCY, ANTEPARTU 03/09/2016 MADLTONYAA L LABORATORY EQUIPMENT INSTALLER Ot N91.2 AMENORRHEA, UNSPECIFIED 03/09/2016 MADL, YANET L LABORATORY EQUIPMENT INSTALLER Ot R19.00 INTRA-ABD AND PELVIC SWELLING, MASS AND 03/09/2016 HILARIA NG BORE MINER OPERATOR Ot E11.9 TYPE 2 DIABETES MELLITUS WITHOUT COMPLIC 03/09/2016 HILARIA NG BORE MINER OPERATOR Ot R11.2 NAUSEA WITH VOMITING, UNSPECIFIED 03/09/2016 HILARIA NG APRN Ot R51 HEADACHE 03/09/2016 HILARIA NG BORE MINER OPERATOR Ot Z79.899 OTHER MCC (CURRENT) DRUG THERAPY 03/10/2016 Ot 641.13 PLACEN PREV HEM-ANTEPART 03/10/2016 Ot 649.63 UTERINE SIZE DATE DISCREPANCY, ANTEPARTU 03/10/2016 Ot V28.81 ENCOUNTER FOR ANATOMIC SURVEY 03/10/2016 Ot 648.83 ABN GLUCOSE- ANTEPARTUM 03/10/2016 ALEN ASHER BORE MINER OPERATOR Ot V23.7 INSUFFICIENT CARE 03/10/2016 ALEN ASHER BORE MINER OPERATOR Ot V28.89 OTHER SPECIFIED SCREENING 03/10/2016 MADISON COX DO C Ot 648.83 ABN GLUCOSE-ANTEPARTUM 03/10/2016 MADISON COX DO C Ot 648.83 ABN GLUCOSE-ANTEPARTUM 03/10/2016 KENNY العلي MADISON C Ot 649.63 UTERINE SIZE DATE DISCREPANCY, ANTEPARTU 03/10/2016 RICKIELTONYAA L LABORATORY EQUIPMENT INSTALLER Ot N91.2 AMENORRHEA, UNSPECIFIED 03/10/2016 MADL, YANET L LABORATORY EQUIPMENT INSTALLER Ot R19.00 INTRA-ABD AND PELVIC SWELLING, MASS AND 03/11/2016 HILARIA NG BORE MINER OPERATOR Ot E11.9 TYPE 2 DIABETES MELLITUS WITHOUT COMPLIC 03/11/2016 HILARIA NG BORE MINER OPERATOR Ot R11.2 NAUSEA WITH VOMITING, UNSPECIFIED 03/11/2016 HILARIA NG BORE MINER OPERATOR Ot R51 HEADACHE 03/11/2016 HILARIA NG BORE MINER OPERATOR Ot Z79.899 OTHER MCC (CURRENT) DRUG THERAPY 06/02/2016 Ot 641.13 PLACEN PREV HEM-ANTEPART 06/02/2016 Ot 649.63 UTERINE SIZE DATE DISCREPANCY, ANTEPARTU 06/02/2016 Ot V28.81 ENCOUNTER FOR ANATOMIC SURVEY 06/02/2016 Ot 648.83 ABN GLUCOSE- ANTEPARTUM 06/02/2016 ALEN ASHER BORE MINER OPERATOR Ot V23.7 INSUFFICIENT CARE 06/02/2016 ALEN ASHER BORE MINER OPERATOR Ot V28.89 OTHER SPECIFIED SCREENING 06/02/2016 COX DO, MADISON C Ot 648.83 ABN GLUCOSE-ANTEPARTUM 06/02/2016 COX DO, MADISON C Ot 648.83 ABN GLUCOSE-ANTEPARTUM 06/02/2016 COX DO, MADISON C Ot 649.63 UTERINE SIZE DATE DISCREPANCY, ANTEPARTU 06/02/2016 MADL, YANET L LABORATORY EQUIPMENT INSTALLER Ot N91.2 AMENORRHEA, UNSPECIFIED 06/02/2016 MADL, YANET L LABORATORY EQUIPMENT INSTALLER Ot R19.00 INTRA-ABD AND PELVIC SWELLING, MASS AND 06/02/2016 Ot 641.13 PLACEN PREV HEM-ANTEPART 06/02/2016 Ot 649.63 UTERINE SIZE DATE DISCREPANCY, ANTEPARTU 06/02/2016 Ot V28.81 ENCOUNTER FOR ANATOMIC SURVEY 06/02/2016 Ot 648.83 ABN GLUCOSE- ANTEPARTUM 06/02/2016 ALEN ASHER BORE MINER OPERATOR Ot V23.7 INSUFFICIENT CARE 06/02/2016 ALEN ASHER BORE MINER OPERATOR Ot V28.89 OTHER SPECIFIED SCREENING 06/02/2016 COX DO, MADISON C Ot 648.83 ABN GLUCOSE-ANTEPARTUM 06/02/2016 COX DO, MADISON C Ot 648.83 ABN GLUCOSE-ANTEPARTUM 06/02/2016 COX DO, MADISON C Ot 649.63 UTERINE SIZE DATE DISCREPANCY, ANTEPARTU 06/02/2016 MADL, YANET L LABORATORY EQUIPMENT INSTALLER Ot N91.2 AMENORRHEA, UNSPECIFIED 06/02/2016 MADL, YANET L LABORATORY EQUIPMENT INSTALLER Ot R19.00 INTRA-ABD AND PELVIC SWELLING, MASS AND 06/02/2016 MADL, YANET L LABORATORY EQUIPMENT INSTALLER Ot N91.2 AMENORRHEA, UNSPECIFIED 06/02/2016 MADL, YANET L LABORATORY EQUIPMENT INSTALLER Ot R19.00 INTRA-ABD AND PELVIC SWELLING, MASS AND 06/03/2016 MADL, YANET L LABORATORY EQUIPMENT INSTALLER Ot N91.2 AMENORRHEA, UNSPECIFIED 06/03/2016 MADL, YANET L LABORATORY EQUIPMENT INSTALLER Ot R19.00 INTRA-ABD AND PELVIC SWELLING, MASS AND 06/05/2016 Ot 641.13 PLACEN PREV HEM-ANTEPART 06/05/2016 Ot 649.63 UTERINE SIZE DATE DISCREPANCY, ANTEPARTU 06/05/2016 Ot V28.81 ENCOUNTER FOR ANATOMIC SURVEY 06/05/2016 Ot 648.83 ABN GLUCOSE- ANTEPARTUM 06/05/2016 ALEN ASHER A BORE MINER OPERATOR Ot V23.7 INSUFFICIENT CARE 06/05/2016 NOY ASHERIDI A BORE MINER OPERATOR Ot V28.89 OTHER SPECIFIED SCREENING 06/05/2016 KENNY DOGRICELA C Ot 648.83 ABN GLUCOSE-ANTEPARTUM 06/05/2016 COX DO MADISON C Ot 648.83 ABN GLUCOSE-ANTEPARTUM 06/05/2016 KENNY DO MADISON C Ot 649.63 UTERINE SIZE DATE DISCREPANCY, ANTEPARTU 06/05/2016 MADL, YANET L LABORATORY EQUIPMENT INSTALLER Ot N91.2 AMENORRHEA, UNSPECIFIED 06/05/2016 MADL, YANET L LABORATORY EQUIPMENT INSTALLER Ot R19.00 INTRA-ABD AND PELVIC SWELLING, MASS AND 06/05/2016 MADL, YANET L LABORATORY EQUIPMENT INSTALLER Ot N91.2 AMENORRHEA, UNSPECIFIED 06/05/2016 MADL, YANET L LABORATORY EQUIPMENT INSTALLER Ot R19.00 INTRA-ABD AND PELVIC SWELLING, MASS AND 02/13/2017 Ot 641.13 PLACEN PREV HEM-ANTEPART 02/13/2017 Ot 649.63 UTERINE SIZE DATE DISCREPANCY, ANTEPARTU 02/13/2017 Ot V28.81 ENCOUNTER FOR ANATOMIC SURVEY 02/13/2017 Ot 648.83 ABN GLUCOSE- ANTEPARTUM 02/13/2017 ALEN ASHER A BORE MINER OPERATOR Ot V23.7 INSUFFICIENT CARE 02/13/2017 NOY ASHERIDI A BORE MINER OPERATOR Ot V28.89 OTHER SPECIFIED SCREENING 02/13/2017 KENNY DO, MADISON C Ot 648.83 ABN GLUCOSE-ANTEPARTUM 02/13/2017 KENNY العلي MADISON C Ot 648.83 ABN GLUCOSE-ANTEPARTUM 02/13/2017 MADISON COX DO Ot 649.63 UTERINE SIZE DATE DISCREPANCY, ANTEPARTU 02/13/2017 YANET WEBB LABORATORY EQUIPMENT INSTALLER Ot N91.2 AMENORRHEA, UNSPECIFIED 02/13/2017 MADLYANET LABORATORY EQUIPMENT INSTALLER Ot R19.00 INTRA-ABD AND PELVIC SWELLING, MASS AND 02/13/2017 HILARIA NG BORE MINER OPERATOR Ot E11.9 TYPE 2 DIABETES MELLITUS WITHOUT COMPLIC 02/13/2017 HILARIA NG BORE MINER OPERATOR Ot N93.9 ABNORMAL UTERINE AND VAGINAL BLEEDING, U 02/13/2017 HILARIA NG APRN Ot O03.9 COMPLETE OR UNSP SPONTANEOUS [place] 02/13/2017 HILARIA NG APRN Ot O24.119 PRE-EXIST TYPE 2 DIABETES, IN , 02/13/2017 HILARIA NG APRN Ot Z3A.00 WEEKS OF GESTATION OF NOT SPEC 02/13/2017 HILARIA NG BORE MINER OPERATOR Ot Z79.84 DIRECTOR TEEN POST (CURRENT) USE OF ORAL HYPOGLYC 02/13/2017 Ot 641.13 PLACEN PREV HEM-ANTEPART 02/13/2017 Ot 649.63 UTERINE SIZE DATE DISCREPANCY, ANTEPARTU 02/13/2017 Ot V28.81 ENCOUNTER FOR ANATOMIC SURVEY 02/13/2017 Ot 648.83 ABN GLUCOSE- ANTEPARTUM 02/13/2017 ALEN ASHER BORE MINER OPERATOR Ot V23.7 INSUFFICIENT CARE 02/13/2017 ALEN ASHER BORE MINER OPERATOR Ot V28.89 OTHER SPECIFIED SCREENING 02/13/2017 MADISON COX DO Ot 648.83 ABN GLUCOSE-ANTEPARTUM 02/13/2017 MADISON COX DO C Ot 648.83 ABN GLUCOSE-ANTEPARTUM 02/13/2017 MADISON COX DO Ot 649.63 UTERINE SIZE DATE DISCREPANCY, ANTEPARTU 02/13/2017 YANET WEBB LABORATORY EQUIPMENT INSTALLER Ot N91.2 AMENORRHEA, UNSPECIFIED 02/13/2017 RICKIELYANET L LABORATORY EQUIPMENT INSTALLER Ot R19.00 INTRA-ABD AND PELVIC SWELLING, MASS AND 02/15/2017 HILARIA NG BORE MINER OPERATOR Ot E11.9 TYPE 2 DIABETES MELLITUS WITHOUT COMPLIC 02/15/2017 HILARIA NG BORE MINER OPERATOR Ot N93.9 ABNORMAL UTERINE AND VAGINAL BLEEDING, U 02/15/2017 HILARIA NG BORE MINER OPERATOR Ot O03.9 COMPLETE OR UNSP SPONTANEOUS [place] 02/15/2017 HILARIA NG BORE MINER OPERATOR Ot O24.119 PRE-EXIST TYPE 2 DIABETES, IN , 02/15/2017 HILARIA NG BORE MINER OPERATOR Ot Z3A.00 WEEKS OF GESTATION OF NOT SPEC 02/15/2017 HILARIA NG BORE MINER OPERATOR Ot Z79.84 MCC (CURRENT) USE OF ORAL HYPOGLYC 12/29/2017 LBNOYALEN A BORE MINER OPERATOR Ot V23.7 INSUFFICIENT CARE 12/29/2017 LBNOYALEN A BORE MINER OPERATOR Ot V28.89 OTHER SPECIFIED SCREENING 12/29/2017 COX DO, MADISON C Ot 648.83 ABN GLUCOSE-ANTEPARTUM 12/29/2017 COX DO, MADISON C Ot 648.83 ABN GLUCOSE-ANTEPARTUM 12/29/2017 COX DO, MADISON C Ot 649.63 UTERINE SIZE DATE DISCREPANCY, ANTEPARTU 12/29/2017 MADL, YANET L LABORATORY EQUIPMENT INSTALLER Ot N91.2 AMENORRHEA, UNSPECIFIED 12/29/2017 MADL, YANET L LABORATORY EQUIPMENT INSTALLER Ot R19.00 INTRA-ABD AND PELVIC SWELLING, MASS AND 12/31/2017 LBALEN A BORE MINER OPERATOR Ot V23.7 INSUFFICIENT CARE 12/31/2017 LBNOYALEN A BORE MINER OPERATOR Ot V28.89 OTHER SPECIFIED SCREENING 12/31/2017 COX DO, MADISON C Ot 648.83 ABN GLUCOSE-ANTEPARTUM 12/31/2017 COX DO, MADISON C Ot 648.83 ABN GLUCOSE-ANTEPARTUM 12/31/2017 COX DO, MADISON C Ot 649.63 UTERINE SIZE DATE DISCREPANCY, ANTEPARTU 12/31/2017 MADL, YANET L LABORATORY EQUIPMENT INSTALLER Ot N91.2 AMENORRHEA, UNSPECIFIED 12/31/2017 MADL, YANET L LABORATORY EQUIPMENT INSTALLER Ot R19.00 INTRA-ABD AND PELVIC SWELLING, MASS AND 12/31/2017 JULI LOPEZ, THOMPSON Henning Ot O24.912 UNSPECIFIED DIABETES MELLITUS IN PREGNAN 12/31/2017 THOMPSON BUSTOS MD Ot O99.89 OTH DISEASES AND CONDITIONS COMPL PREG/C 12/31/2017 THOMPSON BUSTSO MD Ot R10.30 LOWER ABDOMINAL PAIN, UNSPECIFIED 12/31/2017 THOMPSON BUSTOS MD Ot Z3A.14 14 WEEKS GESTATION OF 12/31/2017 THOMPSON BUSTOS MD Ot Z79.84 MCC (CURRENT) USE OF ORAL HYPOGLYC 12/31/2017 THOMPSON [...] OF 01/03/2018 THOMPSON BUSTOS MD Ot Z79.84 DIRECTOR TEEN POST (CURRENT) USE OF ORAL HYPOGLYC 01/03/2018 THOMPSON BUSTOS MD Ot Z87.59 PERSONAL HISTORY OF COMP OF PREG, CHLDBR 01/06/2018 ALEN ASHER BORE MINER OPERATOR Ot V23.7 INSUFFICIENT CARE 01/06/2018 ALEN ASHER BORE MINER OPERATOR Ot V28.89 OTHER SPECIFIED SCREENING 01/06/2018 COX DO, MADISON C Ot 648.83 ABN GLUCOSE-ANTEPARTUM 01/06/2018 COX DO MADISON C Ot 648.83 ABN GLUCOSE-ANTEPARTUM 01/06/2018 COX DO, MADISON C Ot 649.63 UTERINE SIZE DATE DISCREPANCY, ANTEPARTU 01/06/2018 MADL, YANET L LABORATORY EQUIPMENT INSTALLER Ot N91.2 AMENORRHEA, UNSPECIFIED 01/06/2018 MADL, YANET L LABORATORY EQUIPMENT INSTALLER Ot R19.00 INTRA-ABD AND PELVIC SWELLING, MASS AND 02/16/2018 ALEN ASHER BORE MINER OPERATOR Ot V23.7 INSUFFICIENT CARE 02/16/2018 ALEN ASHER A BORE MINER OPERATOR Ot V28.89 OTHER SPECIFIED SCREENING 02/16/2018 MADISON COX DO Ot 648.83 ABN GLUCOSE-ANTEPARTUM 02/16/2018 MADISON COX DO Ot 648.83 ABN GLUCOSE-ANTEPARTUM 02/16/2018 MADISON COX DO Ot 649.63 UTERINE SIZE DATE DISCREPANCY, ANTEPARTU 02/16/2018 YANET WEBB LABORATORY EQUIPMENT INSTALLER Ot N91.2 AMENORRHEA, UNSPECIFIED 02/16/2018 YANET WEBB LABORATORY EQUIPMENT INSTALLER Ot R19.00 INTRA-ABD AND PELVIC SWELLING, MASS [...] 17:36 Serum or plasma choriogonadotropin measurement (units/volume) 47451 m[iU]/mL <5 Encounters ACCT No. Visit Date/Time Discharge Status Pt. Type Provider Facility Loc./Unit Complaint [id number] 02/16/2018 13:05:00 02/16/2018 23:59:59 CLS Outpatient AUSTYN PEREZ DO [facility] RAD [id number] 12/31/2017 14:30:00 12/31/2017 23:59:59 CLS Preadmit IRIS SARABIA MD [facility] RAD NORMAL IN MULTIGRAVIDA [id number] 12/31/2017 16:37:00 12/31/2017 19:08:00 DIS Emergency JULI LOPEZ, THOMPSON Henning [facility] ER 14 WKS PREG/STOMACH PAIN/ DISCHARGE [id number] 02/13/2017 11:48:00 02/13/2017 14:47:00 DIS Emergency HILARIA NG APRN [facility] ER BLOATING [id number] 03/09/2016 18:50:00 03/09/2016 23:14:00 DIS Emergency HILARIA NG APRN [facility] ER HEAD PAIN [id number] 02/10/2016 15:09:00 02/10/2016 23:59:59 CLS Outpatient YANET WEBB LABORATORY EQUIPMENT INSTALLER [facility] RAD AMENORRHEA,PELVIC FULLNESS [id number] 05/01/2013 11:05:00 05/03/2013 11:25:00 DIS Inpatient AUSTYN PEREZ DO [facility] WS PREVIOUS SECTION [id number] 04/11/2013 14:57:00 04/11/2013 23:59:59 CLS Outpatient MADISON COX DO [facility] RAD GDM,LGA [id number] 03/24/2013 15:50:00 03/24/2013 23:59:59 CLS Outpatient MADISON COX DO [facility] RAD GDM [id number] 03/07/2013 14:38:00 03/07/2013 23:59:59 CLS Outpatient ALEN ASHER APRN [facility] RAD SURVEY,LATE CARE [id number] 05/15/2018 09:26:00 Document Registration [id number] 06/22/2012 15:07:00 Document Registration [id number] 05/24/2012 15:37:00 Document Registration [id number] 03/14/2012 10:14:00 Document Registration
== END 2018-05-15 13:45 | disposition home or self-care (01) ==
LOC: WSo 13:09 → LDRP 13:13 → WSo 13:13 → LDRP 13:20 → UNDOADMOB 14:34 → WSo 14:34 → LDRP 14:34 → UNDODISOB 05-15 13:45 → EDSTATUS 05-17 09:50
PROVIDERS: ADMIT Obstetrics & Gynecology; ATTEND Obstetrics & Gynecology
DX: O60.03 Preterm labor without delivery, third trimester (principal); O34.211 Maternal care for low transverse scar from previous cesarean delivery; O24.414 Gestational diabetes mellitus in pregnancy, insulin controlled; Z3A.33 33 weeks gestation of pregnancy
CPT/HCPCS: 36415; 80048; 82962; 85025; 96360; 96361; 96372; 99211; G0378

== ENCOUNTER 2018-06-04 10:25 | Inpatient (IN) | payer OTHER ==
[2018-06-04] VITALS (14 sets, daily range): BP systolic 133–194; BP diastolic 68–99
[~2018-06-04] VITALS: Ht 152.4 cm; Wt 89.4 kg
[~2018-06-04 10:25] MED LIST changes: +INSULIN; +INSULIN SC
[2018-06-04] MEDS ORDERED: LACTATED RINGERS 1,000 ML IV PRN (10:57)
[2018-06-04] MEDS ORDERED: FAMOTIDINE 20MG/2ML IV (PEPCID) IV ONE (11:00)
[2018-06-04] MEDS ORDERED: CITRIC ACID/SOB CIT (BICITRA) 30 ML UDC PO ONE (11:00)
[2018-06-04] MEDS ORDERED: METOCLOPRAMIDE INJ 10 MG/2 ML (REGLAN) IV ONE (11:00)
[2018-06-04] MEDS ORDERED: fentaNYL INJECTION 100 MCG/2 ML AMP ONE (11:08)
[2018-06-04] MEDS ORDERED: ceFAZolin 1,000 MG/10 ML (ANCEF) VIAL IV ONE (11:15)
[2018-06-04] MEDS ORDERED: ceFAZolin 2 GM IV Premixed 50 ML ONE (11:20)
[2018-06-04] MEDS ORDERED: ceFAZolin 2 GM IV Premixed 50 ML IV ONE ×2 (11:20→11:30)
--- NOTE | 2018-06-04 11:25 | History & Physical-OB ---
OB - Chief Complaint & HPI Date/Time Date of Admission: Date of Admission: Jun 04, 2018 at 10:56 Date seen by a Provider: Jun 04, 2018 Time Seen by a Provider: 10:58 Chief Complaint/History OB-Reason for Admission/Chief: Obstetrical Complication ( demise) Other reason for admission: this is a 38 year old at 36 1/7 weeks with complaint of no movement for 4 days. She states she had contractions last night but they stopped. No pain, no bleeding, no movement, no leakage of fluid. states he thinks she has a fever. Patient states she doesn't feel well. she has a headache and some blurry vision. No nausea or vomiting. She is a gestational diabetic (preexisting type II). Currently is taking NPH 34 units at night and 37 units in the morning with 35 Humalog with meals. She has a history of CS x4. Had CS in 1999 in [facility], then vaginal delivery in 2002 (4500 grams) then CS in 3007, 2012 and 2012 (both at 34 weeks) . She has had poor compliance with blood sugar controls. However, per Dr. Miner' s notes, blood sugars have been better controlled the last few weeks after working withe dietitian and education . Currently she had BP of 175/98. complains of a headache. By US there is no movement, no heartbeat. This is confirmed in multiple locations as well as Doppler. there is no movement noted, no breathing movement. No contractions noted on tocometer. she has planned a risk reduction salpingectomy, so will proceed with that now as well She is at risk for uterine rupture as she has had 4 previous sections. This baby is also macrosomic. States she at a small amount a few hours ago and took her blood sugar this morning. states that last blood sugar was 99. Admission Nurse Assessment Rev: Yes History of Labs O+/- Rub I VDRL NR. HBsAg- HIV - GBS unk Allergies and Home Medications Allergies Coded Allergies: No Known Drug Allergies (Verified , 10/26/07) Home Medications [insulin (clear)] , 35 UNITS TID, (Reported) [insulin (cloudy)] , 30 UNITS SC BID, (Reported) Patient Home Medication List Home Medication List Reviewed: No OB - History Hx of Present Ultrasounds: Normal mid trimester US, Abnormal US findings (LGA) Obstetrical Complications: Gestational Diabetes (Type II), Other (AMA 40) Information Maternal Gestational Diabetes: Yes Obstetrical History Hx : 6 Hx Para: 5 Hx # Term Pregnancies: 2 Hx # Pregnancies: 3 Number of Living Children: 5 Hx Termination: No Hx Complication: Yes Hx Maternal Gestational Diabet: Yes Delivery History Hx Large For Gestational Age I: Yes Hx Section: Yes Hx Vaginal Delivery Post C-Sec: Yes (2002 in [facility]) Hx Blood Disorders: No Adverse Rxn to Tranfusion: No Patient Past Medical History Type II diabetes Social History/Family History HIV/AIDS: No Recent Infectious Disease Expo: No Sexually Transmitted Disease: No Alcohol Use: Denies Use Recreational Drug Use: No Smoking Cessation: Never smoker Immunizations Hepatitis A: No Hepatitis B: No Tetanus Booster (TDap): Less than 5yrs Date of Pneumonia Vaccine: May 03, 2013 Date of Influenza Vaccine: Mar 20, 2013 Rubella: immune RPR/VDRL: Negative GBS Status: Unknown HBsAG: Negative OB - Admission Exam Physical Exam Vitals: 178/98 HEENT: NCAT Heart: Rhythm Normal Lungs: Crackles Abdomen: Gravid Extremities: Edema (tr) Reflexes: Normal OB - Assessment/Plan/Diagnosis Assessment Assessment: section, IUFD (36 weeks), other (gestational diabetes; preeclampsia) Admission Dx demise Previous section Type II diabetes/gestational diabetes Advanced maternal age Preeclampsia Admission Status: Inpatient Order (span 2 midnights) Reason for Inpatient Admission: cesaeran section Plan Plan: Section Other Plan Plan repeat section. Await labs to determine treatment for preeclampsia. she will have a risk reduction salpingectomy. Papers have been signed She understands that she is unable to have children after the tubes have been removed. Risks include but are not limited to bleeding, infection, injury to bowel bladder and ureter. Will use prophylactic antibiotics and SCD. Consents have been signed. MADISON COX DO Jun 04, 2018 11:25
[2018-06-04 11:29] LABS: BASOPHILS % (AUTO) 0 % (0-10); EOSINOPHILS # (AUTO) 0.1 10^3/uL (0.0-0.3); EOSINOPHILS % (AUTO) 1 % (0-10); HEMATOCRIT 35 % (35-52); HEMOGLOBIN 11.2 G/DL (11.5-16.0); LYMPHOCYTES # (AUTO) 2.1 X 10^3 (1.0-4.0); LYMPHOCYTES % (AUTO) 25 % (12-44); MEAN CORPUSCULAR HEMOGLOBIN 23 PG (25-34); MEAN CORPUSCULAR HGB CONC 32 G/DL (32-36); MEAN CORPUSCULAR VOLUME 72 FL (80-99); MEAN PLATELET VOLUME 11.1 FL (7.4-10.4); MONOCYTES # (AUTO) 0.5 X 10^3 (0.0-1.0); MONOCYTES % (AUTO) 6 % (0-12); NEUTROPHILS # (AUTO) 5.9 X 10^3 (1.8-7.8); NEUTROPHILS % (AUTO) 68 % (42-75); PLATELET COUNT 321 10^3/uL (130-400); RED BLOOD COUNT 4.89 10^6/uL (4.35-5.85); WHITE BLOOD COUNT 8.6 10^3/uL (4.3-11.0)
[2018-06-04] MEDS ORDERED: OXYTOCIN/NORMAL SALINE 500 ML IV SCH (11:39)
[2018-06-04] MEDS ORDERED: TETANUS,DIPTH,PERTUSS P/F (BOOSTRIX) 0.5 ML VIAL IM SCH (11:45)
[2018-06-04] MEDS ORDERED: MEASLES,MUMPS,RUBELLA 1 EA INJ SC SCH (11:45)
[2018-06-04] MEDS ORDERED: HYDROmorphone 2 MG/ML VIAL (DILAUDID) IV PRN (11:45)
[2018-06-04] MEDS ORDERED: ONDANSETRON 4 MG/2 ML (SDV) Z0FRAN IVP PRN (11:45)
--- NOTE | 2018-06-04 11:52 | Discharge Inst-Women's Service ---
Discharge Inst-Women's Serv Depart Medication/Instructions New, Converted or Re-Newed RX: RX on Chart Final Diagnosis 36 week demise, POD 2 RLTCS w/ RRS Consults/Follow Up Additional Follow Up: Yes Orders/Referrals Dr. Miner in 7-10 days and 6 weeks Activity Activity: Activity as Tolerated Driving Instructions: No Driving for 1 Week NO SMOKING: NO SMOKING Nothing Inside Vagina: No Douching, No [place], No Tampons Diet Discharge Diet: No Restrictions Symptoms to Report to : Bleeding Excessive, Pain Increased, Fever Over 101 Degrees F, Vaginal Bleeding Increase, Questions/Concerns For Any Problems or Questions: Contact Your Physician Skin/Wound Care Infection Signs and Symptoms: Increased Redness, Foul Odor of Wound, Increased Drainage, Skin Itchy or Has a Rash, Increased Swelling, Temperature Above 101 F Operative Area Clean and Dry: Keep Incision Clean/Dry Stitches/[place]/Dermabond: Dermabond, Care of Stitches Bathing Instructions: AUSTYN Palacio DO Jun 04, 2018 11:52
[2018-06-04] MEDS ORDERED: ACHD5005 PO (11:54)
[2018-06-04] MEDS ORDERED: DOCU100C37 PO (11:54)
[2018-06-04] MEDS ORDERED: IBUP-844 PO (11:54)
[2018-06-04 11:56] LABS: ALANINE AMINOTRANSFERASE 11 U/L (0-55); ALBUMIN 3.1 GM/DL (3.2-4.5); ALKALINE PHOSPHATASE 145 U/L (40-136); BILIRUBIN,TOTAL 0.2 MG/DL (0.1-1.0); BUN/CREATININE RATIO 18; CALCIUM 9.1 MG/DL (8.5-10.1); CARBON DIOXIDE 18 MMOL/L (21-32); CHLORIDE 105 MMOL/L (98-107); CREATININE SERUM 0.68 MG/DL (0.60-1.30); GFR ESTIMATED > 60; GLUCOSE 129 MG/DL (70-105); POTASSIUM 4.4 MMOL/L (3.6-5.0); SODIUM 136 MMOL/L (135-145); TOTAL PROTEIN 6.9 GM/DL (6.4-8.2); URIC ACID 4.9 MG/DL (2.6-7.2)
[2018-06-04] MEDS ORDERED: OXYTOCIN/NORMAL SALINE 1,000 ML IV ONE (12:21)
[2018-06-04] MEDS ORDERED: LIDOCAINE PF 2% 5 ML (XYLOCAINE) VIAL ONE (12:23)
[2018-06-04] MEDS ORDERED: BUPIVACAINE SPINAL 0.75% (SENSORCAINE) 2 ML AMP ONE (12:23)
[2018-06-04] MEDS ORDERED: METHYLERGONOVINE 0.2 MG/ML (METHERGINE) AMP ONE (12:37)
[2018-06-04] MEDS: KETOROLAC 30 MG/ML VIAL IVP SCH ×2 (13:08→18:37)
[2018-06-04] MEDS ORDERED: FLU QUADRIvalent (5+ YOA) 2018-2019 (AFLURIA) 0.5 ML IM ONE (15:15)
[2018-06-04] MEDS: inSUlin ASPART (NovoLOG) 1 UNIT/0.01 ML (CHARGE PER UNIT) SC SCH ×2 (15:48→22:59)
[2018-06-04] MEDS ORDERED: inSUlin NPH/REG (NovoLIN 70/30) CHARGE PER UNIT SQ SCH ×2 (16:00→21:00)
--- NOTE | 2018-06-04 16:50 | OPERATIVE REPORT ---
DATE OF SERVICE: 06/04/2018 PREOPERATIVE DIAGNOSES: 1. A 38-year-old female at 36 weeks gestation with demise. 2. Poor control GDMA2 on insulin 3. Advanced maternal age 4. Family history of ovarian malignancy. POSTOPERATIVE DIAGNOSES: 1. A 38-year-old female at 36 weeks gestation with demise. 2. Poor control GDMA2 on insulin 3. Advanced maternal age 4. Family history of ovarian malignancy. PROCEDURE: Repeat low transverse section with bilateral risk reducing salpingectomy. SURGEON: Dr. Castro Miner DO GAMING WORKER: Dr. Bushra Wade. ANESTHESIA: Spinal. ESTIMATED BLOOD LOSS: 500 mL. URINE OUTPUT: 75 mL, clear at the end of procedure. FLUIDS: 2100 mL lactated Ringer solution. FINDINGS: Is a stillborn 36-week male infant that was in intact membranes with a significant amount of amniotic fluid. Grossly normal appearing bilateral fallopian tubes and ovaries. SPECIMENS SENT: Placenta and bilateral fallopian tubes. INDICATIONS FOR PROCEDURE: This 38-year-old female is a patient that was admitted by my partner after a finding of demise. We were planning on doing a repeat with risk reducing salpingectomy. We decided to proceed with this as we had previously spoken in the office about proceeding with. However, for obvious reasons, there was some higher anxiety and preoperatively, due to the loss of the fetuses life. The patient was noted to have elevated blood pressures in the preoperative area and her blood sugars were difficult to manage throughout the . Some of this was due to compliance and some of this was due to the patient's diabetic state. Risks of the procedure have been reviewed in the preoperative area, consent was obtained, the patient was taken to the operating room. OPERATIVE REPORT IN DETAIL: Once in the operating room, spinal anesthesia was found to be adequate. She was placed in supine position with leftward tilt, prepped and draped in normal sterile fashion. A Pfannenstiel skin incision was made through a previously existing scar using knife and carried down to the underlying fascia using Bovie cautery. Fascial incision was extended laterally using Bovie cautery. Superior aspect of the fascial incision was then grasped with Geovanni clamps, tented up and dissected off the underlying rectus muscle. The inferior aspect of the fascial incision was then grasped with Geovanni clamps, tented up and dissected off the underlying rectus muscles. Rectus muscles were then dissected down the midline using sharp dissection, which exposed the peritoneum, which I entered bluntly and extended using blunt traction in both of these planes. I then placed an Tom ring retractor in peritoneal incision with offered excellent lateral sidewall retraction. I then proceeded with making a low transverse incision into the vesicouterine peritoneum and bluntly dissecting the bladder flap off the lower uterine segment. I then proceeded with my myotomy until membranes were visualized, at which point, I extended the uterine incision laterally and superiorly using bandage scissors. Amniotomy was performed using blunt traction. There was clear fluid noted. It is not meconium stained. The was found in the vertex presentation. With gentle fundal pressure, the 's head was delivered through the incision where anterior and posterior shoulders were delivered and the infant was then brought to the operative field and handed off to the nurses in attendance. Cord blood was unable to be collected due to thrombosis of the cord. Intact placenta with three-vessel cord was delivered spontaneously thereafter. IV Pitocin was initiated to facilitate uterine contraction. Uterine fundus became firmer with bimanual massage. The uterus was then exteriorized and cleared of all endometrial clots and debris. I then closed the uterine incision using 0 Vicryl suture in running locked fashion. Second layer of imbricating 0 Monocryl was placed. Excellent hemostasis was noted after doing this. I then took my attention to the fallopian tubes. I performed the following dissection bilaterally starting at the proximal isthmic portion of fallopian tube. I took the LigaSure device across the proximal isthmic portion. Bipolar cautery was then transected using the LigaSure. I then took this down the mesosalpinx, ligating and the fallopian tube from its blood supply and its connection to the mesosalpinx. Both the fallopian tubes were then sent for pathology. The uterus was then placed back in the pelvis and copiously irrigated using normal saline. There was no active bleeding noted from any of my dissection planes. I placed Interceed antiadhesive over my low transverse incision. I then proceeded with closing the peritoneum and rectus muscles in one layer using 3-0 Vicryl suture in running fashion. The fascia was reapproximated using 0 Vicryl suture in running fashion. Subcutaneous tissue was reapproximated using 3-0 plain interrupted subcutaneous stitch and skin was reapproximated using 4-0 Monocryl in a running subcuticular. Dermabond was applied to the incision. A sterile dressing was adhesed with white tape. Blood pressure was noted to be significantly down from preoperative blood pressures and seemed to be within normal limits. Postoperatively, 2 grams of Ancef given preoperatively for infection prophylaxis. Job ID: [id number] DocumentID: [id number] Dictated Date: 06/04/2018 12:41:49 Fitting Room Supervisor Date: 06/04/2018 16:50:15 Dictated By: DO ANA GAN
[2018-06-04] MEDS: HYDROcodone/APAP 5 MG/325 MG (LORTAB) TAB PO PRN (18:26)
[2018-06-04] MEDS ORDERED: LABETALOL HCL 20 MG/4 ML VIAL IV ONE ×2 (18:30→21:00)
[2018-06-04] MEDS: CATHETER FLUSH 10 ML SYR IV SCH (18:42)
[2018-06-04] MEDS: DOCUSATE SODIUM 100 MG (COLACE) CAP PO SCH (20:45)
[2018-06-04] MEDS: inSUlin NPH (NovoLIN N) 1 UNIT/0.01 ML (CHARGE PER UNIT) SQ SCH (20:45)
[2018-06-04] MEDS ORDERED: MAGNESIUM SULFATE DRIP 500 ML IV ONE (20:56)
[2018-06-04] MEDS ORDERED: CALCIUM GLUC. 10% 4.65 MEQ/10 ML VIAL IV PRN (21:00)
[2018-06-04] MEDS ORDERED: MAGNESIUM 4 GM/100 ML IVPB 100 ML IV SCH (21:00)
[2018-06-04] MEDS: D5 LR IV SOLUTION 1,000 ML IV SCH (21:21)
[2018-06-04] MEDS: MAGNESIUM SULFATE DRIP 500 ML IV SCH (21:52)
[2018-06-05] VITALS (23 sets, daily range): BP systolic 124–187; BP diastolic 60–101
[2018-06-05] MEDS: KETOROLAC 30 MG/ML VIAL IVP SCH ×3 (01:15→14:19)
[2018-06-05] MEDS ORDERED: inSUlin NPH (NovoLIN N) 1 UNIT/0.01 ML (CHARGE PER UNIT) SQ NR (06:00)
[2018-06-05 06:08] LABS: BASOPHILS % (AUTO) 0 % (0-10); EOSINOPHILS % (AUTO) 0 % (0-10); HEMATOCRIT 28 % (35-52); HEMOGLOBIN 9.2 G/DL (11.5-16.0); LYMPHOCYTES # (AUTO) 1.9 X 10^3 (1.0-4.0); LYMPHOCYTES % (AUTO) 18 % (12-44); MEAN CORPUSCULAR HEMOGLOBIN 23 PG (25-34); MEAN CORPUSCULAR HGB CONC 33 G/DL (32-36); MEAN CORPUSCULAR VOLUME 72 FL (80-99); MEAN PLATELET VOLUME 10.1 FL (7.4-10.4); MONOCYTES # (AUTO) 0.5 X 10^3 (0.0-1.0); MONOCYTES % (AUTO) 5 % (0-12); NEUTROPHILS # (AUTO) 7.9 X 10^3 (1.8-7.8); NEUTROPHILS % (AUTO) 76 % (42-75); PLATELET COUNT 340 10^3/uL (130-400); RED BLOOD COUNT 3.94 10^6/uL (4.35-5.85); RED CELL DISTRIBUTION WIDTH 17.2 % (10.0-14.5); WHITE BLOOD COUNT 10.4 10^3/uL (4.3-11.0)
[2018-06-05] MEDS ORDERED: LABETALOL HCL 20 MG/4 ML VIAL IV ONE ×3 (06:30→19:45)
[2018-06-05 06:31] LABS: ALANINE AMINOTRANSFERASE 9 U/L (0-55); ALBUMIN 2.5 GM/DL (3.2-4.5); ALKALINE PHOSPHATASE 109 U/L (40-136); BILIRUBIN,TOTAL 0.2 MG/DL (0.1-1.0); BUN/CREATININE RATIO 15; CALCIUM 7.2 MG/DL (8.5-10.1); CARBON DIOXIDE 19 MMOL/L (21-32); CHLORIDE 107 MMOL/L (98-107); CREATININE SERUM 0.53 MG/DL (0.60-1.30); GFR ESTIMATED > 60; GLUCOSE 126 MG/DL (70-105); SODIUM 136 MMOL/L (135-145); TOTAL PROTEIN 5.3 GM/DL (6.4-8.2)
[2018-06-05] MEDS: LABETALOL 200 MG (NORMODYNE) TAB PO SCH ×2 (06:38→19:44)
[2018-06-05] MEDS: MAGNESIUM SULFATE DRIP 500 ML IV SCH ×2 (06:46→17:01)
[2018-06-05] MEDS: D5 LR IV SOLUTION 1,000 ML IV SCH (09:38)
[2018-06-05] MEDS: DOCUSATE SODIUM 100 MG (COLACE) CAP PO SCH ×2 (09:38→21:08)
[2018-06-05] MEDS: inSUlin ASPART (NovoLOG) 1 UNIT/0.01 ML (CHARGE PER UNIT) SC SCH ×6 (09:39→21:08)
[2018-06-05] MEDS: HYDROcodone/APAP 5 MG/325 MG (LORTAB) TAB PO PRN (09:39)
--- NOTE | 2018-06-05 10:42 | Postpartum Progress Note ---
Post Op Post-operative Day #1 s/p RLTCS, RRS demise at 36 weeks. Affect very flat. did not sleep last night. 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 Much better with family here. Magnesium started last night due to worsening blood pressures for seizure prophylaxis. Treated with labetalol x 2 and then stared po labetalol [address] Miner had put her on half doses of her home insulin. He did not start sliding scale, but will restart today as blood sugars are not controlled, though she is not following diet (ate at odd hours yesterday). She was on metformin and glyburide prior to , so will restart those as well Has not began diuresing. 3+ proteinuria on admission UA. Subjective: Patient is without complaints. Not ambulating and [place] still in place as on Magnesium Sulfate for preeclampsia. Tolerating a regular diet without nausea or vomiting. Normal lochia. Pain is well controlled with oral pain medications. Passing flatus. Objective: VS - Last 72 Hours, by Label 06/04/18 06/04/18 06/04/18 06/04/18 10:52 11:00 11:21 14:34 Temp 97.8 100.2 Pulse 80 84 87 60 Resp 20 20 20 18 B/P (MAP) 172/96 (121) 186/98 (127) 194/86 (122) 146/73 (97) Pulse Ox 100 O2 Delivery Room Air Room Air Room Air Room Air 06/04/18 06/04/18 06/04/18 06/04/18 18:08 20:45 21:19 21:27 Temp 98.9 Pulse 85 80 78 75 Resp 18 18 B/P (MAP) 165/76 (105) 182/80 (114) 176/88 (117) Pulse Ox 98 98 98 O2 Delivery Room Air Room Air Room Air 06/04/18 06/04/18 06/04/18 06/04/18 21:45 22:00 22:15 22:30 Pulse 84 77 74 81 Resp 18 18 18 18 06/04/18 06/04/18 06/05/18 06/05/18 22:45 23:00 01:00 02:00 Pulse 79 87 82 81 Resp 18 18 18 06/05/18 06/05/18 06/05/1806/05/18 02:00 03:00 04:00 05:00 Temp 98.4 Pulse 81 84 78 81 Resp 18 B/P (MAP) 150/84 (106) Pulse Ox 98 O2 Delivery Room Air 06/05/18 06/05/18 06/05/18 06:00 06:52 07:00 Temp 98.2 Pulse 81 77 77 Resp 18 B/P (MAP) 156/67 (96) Pulse Ox 98 O2 Delivery Room Air Intake and Output 06/05/18 00:00 Intake Total 1170 ml Output Total 625 ml Balance 545 ml Intake Oral 120 ml IV Total 1050 ml Output Urine Total 625 ml Daily Weight Change No Laboratory Tests Test 06/04/18 11:05 06/04/18 18:07 06/05/18 00:58 06/05/18 05:50 Range/Units White Blood Count 8.6 10.4 4.3-11.0 10^3/uL Red Blood Count 4.89 3.94 L 4.35-5.85 10^6/uL Hemoglobin 11.2 L 9.2 L 11.5-16.0 G/DL Hematocrit 35 28 L 35-52 % Mean Corpuscular Volume 72 L 72 L 80-99 FL Mean Corpuscular Hemoglobin 23 L 23 L 25-34 PG Mean Corpuscular Hemoglobin Concent 32 33 32-36 G/DL Red Cell Distribution Width 17.0 H 17.2 H 10.0-14.5 % Platelet Count 321 340 130-400 10^3/uL Mean Platelet Volume 11.1 H 10.1 7.4-10.4 FL Neutrophils (%) (Auto) 68 76 H 42-75 % Lymphocytes (%) (Auto) 25 18 12-44 % Monocytes (%) (Auto) 6 5 0-12 % Eosinophils (%) (Auto) 1 0 0-10 % Basophils (%) (Auto) 0 0 0-10 % Neutrophils # (Auto) 5.9 7.9 H 1.8-7.8 X 10^3 Lymphocytes # (Auto) 2.1 1.9 1.0-4.0 X 10^3 Monocytes # (Auto) 0.5 0.5 0.0-1.0 X 10^3 Eosinophils # (Auto) 0.1 0.0 0.0-0.3 10^3/uL Basophils # (Auto) 0.0 0.0 0.0-0.1 10^3/uL Sodium Level 136 136 135-145 MMOL/L Potassium Level 4.4 4.0 3.6-5.0 MMOL/L Chloride Level 105 107 98-107 MMOL/L Carbon Dioxide Level 18 L 19 L 21-32 MMOL/L Anion Gap 13 10 5-14 MMOL/L Blood Urea Nitrogen 12 8 7-18 MG/DL Creatinine 0.68 0.53 L 0.60-1.30 MG/DL Estimat Glomerular Filtration Rate > 60 > 60 BUN/Creatinine Ratio 18 15 Glucose Level 129 H 126 H 70-105 MG/DL Uric Acid 4.9 2.6-7.2 MG/DL Calcium Level 9.1 7.2 L 8.5-10.1 MG/DL Corrected Calcium 9.8 8.4 L 8.5-10.1 MG/DL Magnesium Level 1.6 L 1.8-2.4 MG/DL Total Bilirubin 0.2 0.2 0.1-1.0 MG/DL Aspartate Amino Transf (AST/SGOT) 25 22 5-34 U/L Alanine Aminotransferase (ALT/SGPT) 11 9 0-55 U/L Alkaline Phosphatase 145 H 109 40-136 U/L Lactate Dehydrogenase 284 H 125-220 U/L Total Protein 6.9 5.3 L 6.4-8.2 GM/DL Albumin 3.1 L 2.5 L 3.2-4.5 GM/DL Glucometer 93 148 H 135 H 70-110 MG/DL Physical Exam: General - Alert and oriented, no apparent distress Abdomen - Soft, appropriately tender to palpation, non-distended, fundus firm at umbilicus Incision - clean, dry and intact; no erythema or induration, no drainage Extremities - no edema, negative Dejuan's bilaterally Assessment: 1. post-operative day # 1, status post RLTCS, RRS 2. IUFD at 36 weeks 3. Type II diabetes/gestational diabetes - blood sugar management as above 4. preeclampsia, continue magnesium for seizure prophylaxis and labetalol for blood pressure management. Keep stress low. Plan: Routine post-operative care. Encourage breast feeding. Encourage ambulation. VTE prophylaxis: SCDs. Ferrous sulfate supplementation. Plan for discharge tomorrow. Hope to stop Magnesium at 12 hours if the diuresis increases. Vitals - Labs Vital Signs - I&O Vital Signs Date Time Temp Pulse Resp B/P (MAP) Pulse Ox O2 Delivery O2 Flow Rate FiO2 06/05/18 07:00 77 18 06/05/18 06:52 98.2 77 18 156/67 (96) 98 Room Air 06/05/18 06:00 81 18 06/05/18 05:00 81 18 06/05/18 04:00 78 18 06/05/18 03:00 84 18 06/05/18 02:00 98.4 81 18 150/84 (106) 98 Room Air 06/05/18 02:00 81 18 06/05/18 01:00 82 18 06/04/18 23:00 87 18 06/04/18 22:45 79 18 06/04/18 22:30 81 18 06/04/18 22:15 74 18 06/04/18 22:00 77 18 06/04/18 21:45 84 18 06/04/18 21:27 75 18 06/04/18 21:19 78 18 176/88 (117) 98 Room Air 06/04/18 20:45 80 18 182/80 (114) 98 Room Air 06/04/18 18:08 98.9 85 18 165/76 (105) 98 Room Air 06/04/18 14:34 100.2 60 18 146/73 (97) 100 Room Air 06/04/18 11:21 87 20 194/86 (122) Room Air 06/04/18 11:00 84 20 186/98 (127) Room Air 06/04/18 10:52 97.8 80 20 172/96 (121) Room Air I & O 06/05/18 07:00 Intake Total 1770 ml Output Total 2625 ml Balance -855 ml Labs Laboratory Tests 06/04/18 11:05: White Blood Count 8.6, Red Blood Count 4.89, Hemoglobin 11.2L, Hematocrit 35, Mean Corpuscular Volume 72L, Mean Corpuscular Hemoglobin 23L, Mean Corpuscular Hemoglobin Concent 32, Red Cell Distribution Width 17.0H, Platelet Count 321, Mean Platelet Volume 11.1H, Neutrophils (%) (Auto) 68, Lymphocytes (%) (Auto) 25 , Monocytes (%) (Auto) 6, Eosinophils (%) (Auto) 1, Basophils (%) (Auto) 0, Neutrophils # (Auto) 5.9, Lymphocytes # (Auto) 2.1, Monocytes # (Auto) 0.5, Eosinophils # (Auto) 0.1, Basophils # (Auto) 0.0, Sodium Level 136, Potassium Level 4.4, Chloride Level 105, Carbon Dioxide Level 18L, Anion Gap 13, Blood Urea Nitrogen 12, Creatinine 0.68, Estimat Glomerular Filtration Rate > 60, BUN/ Creatinine Ratio 18, Glucose Level 129H, Uric Acid 4.9, Calcium Level 9.1, Corrected Calcium 9.8, Magnesium Level 1.6L, Total Bilirubin 0.2, Aspartate Amino Transf (AST/SGOT) 25, Alanine Aminotransferase (ALT/SGPT) 11, Alkaline Phosphatase 145H, Lactate Dehydrogenase 284H, Total Protein 6.9, Albumin 3.1L 06/04/18 18:07: Glucometer 93 06/05/18 00:58: Glucometer 148H 06/05/18 05:50: White Blood Count 10.4, Red Blood Count 3.94L, Hemoglobin 9.2L, Hematocrit 28L, Mean Corpuscular Volume 72L, Mean Corpuscular Hemoglobin 23L, Mean Corpuscular Hemoglobin Concent 33, Red Cell Distribution Width 17.2H, Platelet Count 340, Mean Platelet Volume 10.1, Neutrophils (%) (Auto) 76H, Lymphocytes (%) (Auto) 18 , Monocytes (%) (Auto) 5, Eosinophils (%) (Auto) 0, Basophils (%) (Auto) 0, Neutrophils # (Auto) 7.9H, Lymphocytes # (Auto) 1.9, Monocytes # (Auto) 0.5, Eosinophils # (Auto) 0.0, Basophils # (Auto) 0.0, Sodium Level 136, Potassium Level 4.0, Chloride Level 107, Carbon Dioxide Level 19L, Anion Gap 10, Blood Urea Nitrogen 8, Creatinine 0.53L, Estimat Glomerular Filtration Rate > 60, BUN/ Creatinine Ratio 15, Glucose Level 126H, Calcium Level 7.2L, Corrected Calcium 8.4L, Total Bilirubin 0.2, Aspartate Amino Transf (AST/SGOT) 22, Alanine Aminotransferase (ALT/SGPT) 9, Alkaline Phosphatase 109, Total Protein 5.3L, Albumin 2.5L, Glucometer 135H MADISON COX DO Jun 05, 2018 10:42
[2018-06-05] MEDS ORDERED: LACTATED RINGERS 1,000 ML IV SCH (11:15)
[2018-06-05] MEDS: IBUPROFEN 600 MG (MOTRIN) TAB PO SCH ×2 (14:17→21:08)
[2018-06-05] MEDS: CATHETER FLUSH 10 ML SYR IV SCH (14:24)
[2018-06-05] MEDS: metFORMIN 500 MG (GLUCOPHAGE) TAB PO SCH (17:13)
[2018-06-05] MEDS ORDERED: LABE200T7 PO (18:35)
[2018-06-05] MEDS ORDERED: GLYB5TAB6 PO (18:35)
[2018-06-05] MEDS ORDERED: METF-761 PO (18:35)
[2018-06-05] MEDS: inSUlin NPH (NovoLIN N) 1 UNIT/0.01 ML (CHARGE PER UNIT) SQ SCH (21:08)
[2018-06-06 00:08] VITALS: BP 121/71
[2018-06-06 04:09] VITALS: BP 143/68
[2018-06-06] MEDS: IBUPROFEN 600 MG (MOTRIN) TAB PO SCH ×2 (04:11→13:13)
[2018-06-06] MEDS: inSUlin ASPART (NovoLOG) 1 UNIT/0.01 ML (CHARGE PER UNIT) SC SCH ×3 (06:11→12:13)
[2018-06-06] MEDS: metFORMIN 500 MG (GLUCOPHAGE) TAB PO SCH (06:11)
[2018-06-06] MEDS ORDERED: glyBURIDE 5 MG (MICRONASE) TAB PO SCH (06:30)
[2018-06-06 08:02] VITALS: BP 146/81
[2018-06-06] MEDS: LABETALOL 200 MG (NORMODYNE) TAB PO SCH (08:20)
[2018-06-06] MEDS: HYDROcodone/APAP 5 MG/325 MG (LORTAB) TAB PO PRN (08:20)
[2018-06-06] MEDS: DOCUSATE SODIUM 100 MG (COLACE) CAP PO SCH (08:20)
[2018-06-06] MEDS ORDERED: lisINopril 5 MG (PRINIVIL) TABLET PO SCH (09:00)
--- NOTE | 2018-06-06 11:59 | Postpartum Progress Note ---
Post Op Post-operative Day #2 s/p RLTCS< RRS, demise Subjective: Patient is without complaints. Ambulating, voiding after [place] removed. Tolerating a regular diet without nausea or vomiting. Normal lochia. Pain is well controlled with oral pain medications. Passing flatus. Blood pressures better with labetalol and starting lisinopril. will dc home with these. Working on plan with social work and the mediator for management of the fetus ( autopsy vs , etc). Will plan dc home. Close follow up for post depression. Has continued to diurese after Mag discontinued. Objective: Laboratory Tests Test 06/05/18 14:14 06/05/18 17:16 06/05/18 21:05 06/06/18 06:09 Range/Units Glucometer 145 H 191 H 74 103 70-110 MG/DL 06/06/18 06/06/18 06/06/18 00:08 04:09 08:02 Temp 98.4 98.2 98.1 Pulse 86 67 95 Resp 18 18 18 B/P (MAP) 121/71 (88) 143/68 (93) 146/81 (102) Pulse Ox 98 98 97 O2 Delivery Room Air Room Air Room Air 06/06/18 00:00 Intake Total 3240 ml Output Total 3300 ml Balance -60 ml Physical Exam: General - Alert and oriented, no apparent distress Abdomen - Soft, appropriately tender to palpation, non-distended, fundus firm at umbilicus Incision - clean, dry and intact; no erythema or induration, no drainage Extremities - no edema, negative Dejuan's bilaterally Assessment: 1. post-operative day # 2, status post RLTCS/RRS, demise (likely due to multiple causes, see below) 2. Type II diabetes in with poor complaince 3. Preeclampsia 4. Risk for post depression 5. Advanced maternal age. Recovering well, hemodynamically stable 6. Acute blood loss anemia - iron replaced [] Plan: Routine post-operative care. Encourage breast feeding. Encourage ambulation. VTE prophylaxis: SCDs. Ferrous sulfate supplementation. Plan for discharge today with oral hypoglycemics, antihypertensives, etc. Follow up with Kristofer this week and work on behavioral health consultation this week. Vitals - Labs Vital Signs - I&O Vital Signs Date Time Temp Pulse Resp B/P (MAP) Pulse Ox O2 Delivery O2 Flow Rate FiO2 06/06/18 08:02 98.1 95 18 146/81 (102) 97 Room Air 06/06/18 04:09 98.2 67 18 143/68 (93) 98 Room Air 06/06/18 00:08 98.4 86 18 121/71 (88) 98 Room Air 06/05/18 22:04 98.4 86 18 127/87 (100) 98 Room Air 06/05/18 21:00 Room Air 06/05/18 21:00 92 18 161/80 (107) Room Air 06/05/18 20:00 88 18 148/83 (104) Room Air 06/05/18 19:00 111 18 187/101 (129) Room Air 06/05/18 18:00 71 18 169/88 (115) Room Air 06/05/18 18:00 71 18 06/05/18 17:00 84 18 06/05/18 17:00 97.8 84 18 150/78 (102) 100 Room Air 06/05/18 16:00 90 18 133/60 (84) Room Air 06/05/18 16:00 90 18 06/05/18 15:00 92 18 153/89 (110) Room Air 06/05/18 15:00 92 18 06/05/18 14:00 77 18 126/68 (87) Room Air 06/05/18 14:00 77 18 06/05/18 13:00 98.2 79 18 124/65 (84) Room Air 06/05/18 13:00 79 18 06/05/18 12:00 84 18 06/05/18 12:00 84 18 129/60 (83) Room Air I & O 06/06/18 07:00 Intake Total 5990 ml Output Total 5700 ml Balance 290 ml Labs Laboratory Tests 06/05/18 14:14: Glucometer 145H 06/05/18 17:16: Glucometer 191H 06/05/18 21:05: Glucometer 74 06/06/18 06:09: Glucometer 103 Microbiology 06/04/18 MRSA Screen - Final, Complete MRSA not isolated MADISON COX DO Jun 06, 2018 11:59
[2018-06-06] MEDS ORDERED: LISI-556 PO (12:19)
[2018-06-06] MEDS ORDERED: BENZONATATE 100 MG (TESSALON) CAPSULE PO SCH (12:30)
--- NOTE | 2018-06-07 08:56 | Anesthesia-Regional Post-Op ---
Regional Patient Condition Mental Status: Alert, Oriented x3 Circulation: Same as Pre-Op Headache: Absent Sensation: Full Recovery Motor Block: Absent Post Op Complications Complications None Follow Up Care/Instructions Patient Instructions None needed. Anesthesia/Patient Condition Post-dated post-op note Pt was already discharged to home yesterday (06-06-18) about 1630. No complications noted and pt was ambulating well. No anesthetic complications noted. KIMBERLY HUMMEL DO Jun 07, 2018 08:56
== END 2018-06-06 15:50 | disposition home or self-care (01) | DRG 784 ==
LOC: LDRP 10:25 → WSo 10:25 → LDRP 10:56 → WS 14:16
PROVIDERS: ADMIT Obstetrics & Gynecology; ATTEND Obstetrics & Gynecology
PROC: 0UT70ZZ Resection of Bilateral Fallopian Tubes, Open Approach (ICD-10-PCS; 2018-06-04)
PROC: 10D00Z1 Extraction of Products of Conception, Low, Open Approach (ICD-10-PCS; principal; 2018-06-04 11:45)
DX: O36.4XX0 Maternal care for intrauterine death, not applicable or unspecified (principal); O14.93 Unspecified pre-eclampsia, third trimester; O24.313 Unspecified pre-existing diabetes mellitus in pregnancy, third trimester; O99.03 Anemia complicating the puerperium; D62 Acute posthemorrhagic anemia; O34.211 Maternal care for low transverse scar from previous cesarean delivery; O09.523 Supervision of elderly multigravida, third trimester; Z3A.36 36 weeks gestation of pregnancy; Z37.1 Single stillbirth; Z80.41 Family history of malignant neoplasm of ovary; Z79.4 Long term (current) use of insulin
CPT/HCPCS: 36415; 80053; 82962; 83615; 83735; 84550; 85025; 86850; 86900; 86901; 87081; 94664; 99212

== ENCOUNTER 2018-06-29 10:09 | Emergency (ER) | payer SELFPAY ==
[~2018-06-29] VITALS: Ht 152.4 cm; Wt 89.4 kg
[~2018-06-29 10:09] MED LIST changes: +DOCU100C37 PO; +IBUP-844 PO; +LABE200T7 PO; +LISI-556 PO; +METF-761 PO
--- OUTSIDE RECORDS SUMMARY | 2018-06-29 10:14 | XMS REPORT ---
Author Author AMALIA DALY Organization [facility] Address [address] [place] [address] Care Team Providers Care Merchandising Internship Name Role Phone AMALIA DALY Unavailable PROBLEMS Type Condition ICD9-CM Code AOK91-UB Code Onset Dates Condition Status SNOMED Code Problem Type 2 diabetes mellitus with hyperglycemia, without long-term current use of insulin E11.65 Active 15542261 Problem Type 2 diabetes mellitus without complication E11.9 Active 20689500 Problem Microcytic anemia D50.9 Active 024098661 Problem Type 2 diabetes mellitus complicating in first trimester, antepartum O24.111 Active 359322879 Problem Gastroesophageal reflux disease without esophagitis K21.9 Active [id number] ALLERGIES No Information ENCOUNTERS Encounter Location Date Diagnosis [place] [id number] [place] [address] 63427- 2716 May, [facility] [address] [address]- [address] Apr, [facility] [id number] [place] [address] 17880- 6312 Apr, [facility] [id number] [place] [address] 23586- 4782 Mar, [facility] [id number] [place] [address] 72983- 9718 Mar, [facility] [address] [address]- 3606 Mar, [facility] [id number] [place] [address] 48256- 5489 08 Mar, 2018 Type 2 diabetes mellitus without complication E11.9 [facility] [id number] [place] [address] 33341- 0182 Mar, [facility] [address] [address] 67[address] Feb, [facility] [address] [address] Feb, Type 2 diabetes mellitus without complication E11.9 [facility] [address] [address]- 4285 Feb, [facility] [id number] [place] [address] 09767- 5513 05 Feb, 2018 Type 2 diabetes mellitus without complication E11.9 [facility] [id number] [place] [address] 55604- 7148 Feb, [facility] [address] [address] 2749 Jan, [facility] [id number] [place] [address] 96207- 9918 Jan, Type 2 diabetes mellitus with hyperglycemia, without long- term current use of insulin E11.65 and , unspecified gestational age Z34.90 [facility] [address] [address] 3009 Jan, Type 2 diabetes mellitus without complication E11.9 and Elderly multigravida in first trimester O09.521 [facility] [address] [address] Dec, [facility] [address] [address] 9051 Dec, [facility] [address] [address]- 8601 Nov, [facility] [address] [address]- 5248 Nov, [facility] [address] [address] 5779 Nov, Normal in multigravida Z34.80 ; History of section complicating O34.219 ; 9 weeks gestation of Z3A.09 ; Type 2 diabetes mellitus complicating in first trimester, antepartum O24.111 and Elderly multigravida in first trimester O09.521 [place] [id number] [place] [address] 38459- 9059 Nov, [place] [address] 24789- 7276 October, Encounter for test Z32.00 [place] [address] 90301- 5305 October, Type 2 diabetes mellitus without complication, without long- term current use of insulin E11.9 [place] [id number] [place] [address] 14343- 1418 Jul, Type 2 diabetes mellitus without complication E11.9 [place] [address] 90645- 5349 Apr, Microcytic anemia D50.9 [place] [address] 56429- 1742 Apr, [place] [id number] [place] [address] 91831- 5001 Apr, Gastroesophageal reflux disease without esophagitis K21.9 ; Shortness of breath R06.02 ; Fatigue, unspecified type R53.83 and Type 2 diabetes mellitus without complication E11.9 [place] [id number] [place] [address] 05052- 6512 Mar, [place] [id number] [place] [address] 10315- 9916 Mar, Reactive airway disease that is not asthma R09.89 and Type 2 diabetes mellitus without complication E11.9 [place] [id number] [place] [address] 90974- 4889 Feb, [place] [address] [place] [address]- 9253 Feb, Type 2 diabetes mellitus without complication E11.9 and Reactive airway disease that is not asthma R09.89 [facility] [id number] [place] [address] 97010- 7278 Feb, Threatened O20.0 [facility] [id number] [place] [address] 93474- 9167 Feb, Threatened O20.0 [facility] [id number] [place] [address] 96864- 8453 Jan, Threatened O20.0 [facility] [id number] [place] [address] 48702- 9157 Jan, Threatened O20.0 [facility] [id number] [place] [address] 92286 -6564 Jan, Intermenstrual heavy bleeding N92.0 ; Positive test Z32.01 and Vaginal bleeding N93.9 [facility] [id number] [place] [address] 39511- 7910 October, [facility] [id number] [place] [address] 71306- 6801 October, [facility] [id number] [place] [address] 25554- 9773 October, Type 2 diabetes mellitus without complication E11.9 [facility] [id number] [place] [address] 13898- 7762 May, Type 2 diabetes mellitus without complication E11.9 [facility] [id number] [place] [address] 51534- 3234 Jan, [facility] [id number] [place] [address] 27852- 3400 Jan, Routine gynecological examination Z01.419 ; Amenorrhea N91.2 and Pelvic fullness in female R19.00 [facility] [id number] [place] [address] 91531 2546 Jan, [facility] [id number] [place] [address] 069023- 5016 Jan, Type 2 diabetes mellitus without complication E11.9 and Amenorrhea N91.2 [facility] [address] 6846 Sep, Type 2 diabetes mellitus without complications E11.9 [facility] [id number] [place] [address] 175380- 3746 Jul, Type 2 diabetes mellitus without complication E11.9 [facility] [id number] [place] [address] 44746- 7746 May, Type 2 diabetes mellitus without complication E11.9 [facility] [id number] [place] [address] 003388- 5446 Mar, Type 2 diabetes mellitus without complication E11.9 [facility] [address] [place] [address] [id number] Jan, Dental examination V72.2 [facility] [id number] [place] [address] [id number] Dec, Dental examination V72.2 [facility] [id number] [place] [address] 71765- 0526 Dec, Diabetes mellitus without mention of complication, type II or unspecified type, not stated as uncontrolled 250.00 [facility] [id number] [place] [address] [id number] Nov, Dental examination V72.2 [facility] [address] [address] 2546 October, Contraceptive management V25.9 [facility] [address] 9966 Sep, [facility] [id number] [address]- 8195 Sep, [facility] [id number] [address] 2544 Jul, [facility] [place] [facility] [address] [id number] [place] [address]- 6535 Jul, [facility] [place] [facility] [address] [id number] [place] [address]- 2546 Apr, [facility] [place] [facility] [address] [id number] [place] [address]- 9571 Apr, [facility] [place] [facility] [address] [id number] [place] [address]- 9694 Mar, [facility] [place] [facility] [address] [id number] [place] [address]- 2924 Mar, [facility] [place] [facility] [address] [id number] [place] [address]- 4319 Mar, [facility] [place] [facility] [address] [id number] [place] [address]- 0422 Mar, [facility] [place] [facility] [address] [id number] [place] [address]- 8313 Jan, [facility] [place] [facility] [address] [id number] [place] [address]- 8299 Jan, [facility] [place] [facility] [address] [id number] [place] [address]- 6909 Nov, [facility] [place] [facility] [address] [id number] [place] [address]- 6209 October, [facility] [place] [facility] [address] [id number] [place] [address]- 6023 October, [facility] [place] [facility] [address] [id number] [place] [address]- 1127 October, [facility] [place] [facility] [address] [id number] [place] [address]- 5642 October, [facility] [place] [facility] [address] [id number] [place] [address]- 7347 October, [facility] [place] [facility] [address] [id number] [place] [address]- 2083 Sep, [facility] [place] [facility] [address] [id number] [place] [address]- 4204 Sep, [facility] [place] [facility] [address] [id number] [place] [address]- 3092 Aug, [facility] [place] [facility] [address] [id number] [place] [address]- 0641 Aug, [facility] [place] [facility] [address] [id number] [place] [address]- 4533 Jun, [facility] [place] [facility] [address] [id number] [place] [address]- 2621 Jun, [facility] [place] [facility] [address] [id number] [place] [address]- 7830 Jun, [facility] [place] [facility] [address] [id number] [place] [address]- 0311 Jun, [facility] [place] [facility] [address] [id number] [place] [address]- 4022 Apr, [facility] [place] [facility] [address] [id number] [place] [address]- 8374 Apr, [facility] [place] [facility] [address] [id number] [place] [address]- 6759 Apr, [facility] [place] [facility] [address] [id number] [address]- 7104 30 Feb, 2013 [facility] [place] [facility] [address] [id number] [place] [address]- 6984 18 Feb, 2013 [facility] [place] [facility] [address] [id number] [place] [address]- 1877 10 Feb, 2013 [facility] [place] [facility] [address] [id number] [place] [address]- 2215 09 Feb, 2013 [facility] [place] [facility] [address] [id number] [place] [address]- 6401 09 Sep, 2012 [facility] [address] [id number] [place] [address]- 9544 07 Sep, 2012 [facility] [place] [facility] [address] [id number] [place] [address]- 2426 06 Sep, 2012 [facility] [address] [id number] [place] [address]- 2246 05 Sep, 2012 [facility] [place] [facility] [address] [id number] [place] [address]- 0789 03 Feb, 2012 [facility] [address] [id number] [place] [address]- 4172 27 Jul, 2012 [facility] [place] [facility] [address] [id number] [place] [address]- 4250 19 Jul, 2012 [facility] [address] [id number] [place] [address]- 5024 15 Jul, 2012 [facility] [address] [id number] [place] [address]- 7294 14 Jul, 2012 [facility] [address] [id number] [place] [address]- 4175 04 Jul, 2012 [facility] [address] [facility] [id number] [place] [address]- 6106 17 Jun, 2012 [facility] [address] [id number] [place] [address]- 1625 17 May, 2012 [facility] [place] [facility] [address] [id number] [place] [address]- 1741 May, [facility] [place] [facility] [address] [id number] [place] [address]- 3651 Apr, [facility] [place] [facility] [address] [id number] [place] [address]- 1438 28 Apr, 2012 [facility] [place] [facility] [address] [facility] [id number] [place] [address]- 7861 14 Apr, 2012 [facility] [place] [facility] [address] [id number] [place] [address]- 4891 14 Apr, 2012 [facility] [place] [facility] [address] [id number] [place] [address]- 7434 Apr, [facility] [place] [facility] [address] [id number] [place] [address]- 3259 Apr, [facility] [place] [facility] [address] [id number] [place] [address]- 7430 Mar, [facility] [place] [facility] [address] [id number] [place] [address]- 9550 Mar, [facility] [place] [facility] [address] [id number] [place] [address]- 3652 Mar, [facility] [place] [facility] [address] [facility] [id number] [place] [address]- 7651 Mar, [facility] [place] [facility] [address] [id number] [address]- 7529 Mar, [facility] [place] [facility] [address] [facility] [id number] [place] [address]- 6617 Mar, [facility] [place] [facility] [address] [facility] [id number] [address]- 5760 Mar, [facility] [place] [facility] [address] [facility] [id number] [address]- 3371 Mar, [facility] [place] [facility] [address] [id number], [place] [address]- 7841 28 Feb, 2012 [facility] [place] [facility] [address] [id number] [place] [address]- 7203 27 Sep2011 [facility] [place] [facility] [address] [id number] [address]- 7817 25 Feb, 2012 [facility] [place] [facility] [address] [facility] [id number] [address]- 7997 20 Feb, 2012 [facility] [place] [facility] [address] [id number], [place] [address]- 5606 19 Feb, 2012 [facility] [address] [facility] [id number] [address]- 1781 18 Feb, 2012 [facility] [address] [facility] [id number], [place] [address]- 8254 17 Feb, 2012 [facility] [address] [facility] [id number], [place] [address]- 4183 04 Feb, 2012 [facility] [address] [facility] [id number] [address] 9194 Sep, IMMUNIZATIONS No Known Immunizations SOCIAL HISTORY Never Assessed REASON FOR VISIT samples PLAN OF CARE VITAL SIGNS MEDICATIONS Medication Instructions Dosage Frequency Start Date End Date Duration Status BD Insulin Syringe 25G X 5/8" 1 ML as directed May, Active RESULTS No Results PROCEDURES No Known procedures INSTRUCTIONS MEDICATIONS ADMINISTERED No Known Medications MEDICAL (GENERAL) HISTORY Type Description Date Medical History type II diabetes Surgical History x 4 Hospitalization History surgeries
--- OUTSIDE RECORDS SUMMARY | 2018-06-29 10:22 | XMS REPORT | Continuity of Care Document ---
Author Author [facility] Organization [facility] Address Unknown Phone Unavailable Allergies Active Description Code Type Severity Reaction Onset Reported/Identified Relationship to Patient Clinical Status Yes No Known Drug Allergies [id number] Drug Allergy Unknown N/A 10/26/2007 Medications There [...] 648.83 ABN GLUCOSE- ANTEPARTUM 02/10/2016 ALEN ASHER TRAVEL REGISTERED NURSE PACU Ot V23.7 INSUFFICIENT CARE 02/10/2016 ALEN ASHER TRAVEL REGISTERED NURSE PACU Ot V28.89 OTHER SPECIFIED SCREENING 02/10/2016 MADISON COX DO Ot 648.83 ABN GLUCOSE-ANTEPARTUM 02/10/2016 MADISON COX DO Ot 648.83 ABN GLUCOSE-ANTEPARTUM 02/10/2016 MADISON COX DO Ot 649.63 UTERINE SIZE DATE DISCREPANCY, ANTEPARTU 02/12/2016 MADL, YANET L REGIONAL FACILITIES MANAGER Ot N91.2 AMENORRHEA, UNSPECIFIED 02/12/2016 MADL, YANET L REGIONAL FACILITIES MANAGER Ot R19.00 INTRA-ABD AND PELVIC SWELLING, MASS AND 02/16/2016 MADL, YANET L REGIONAL FACILITIES MANAGER Ot N91.2 AMENORRHEA, UNSPECIFIED 02/16/2016 MADL, YANET L REGIONAL FACILITIES MANAGER Ot R19.00 INTRA-ABD AND PELVIC SWELLING, MASS AND 03/09/2016 Ot 641.13 PLACEN PREV HEM-ANTEPART 03/09/2016 Ot 649.63 UTERINE SIZE DATE DISCREPANCY, ANTEPARTU 03/09/2016 Ot V28.81 ENCOUNTER FOR ANATOMIC SURVEY 03/09/2016 Ot 648.83 ABN GLUCOSE- ANTEPARTUM 03/09/2016 ALEN ASHER TRAVEL REGISTERED NURSE PACU Ot V23.7 INSUFFICIENT CARE 03/09/2016 ALEN ASHER TRAVEL REGISTERED NURSE PACU Ot V28.89 OTHER SPECIFIED SCREENING 03/09/2016 COX DO, MADISON C Ot 648.83 ABN GLUCOSE-ANTEPARTUM 03/09/2016 MADISON COX DO C Ot 648.83 ABN GLUCOSE-ANTEPARTUM 03/09/2016 GRICEL COX DOA C Ot 649.63 UTERINE SIZE DATE DISCREPANCY, ANTEPARTU 03/09/2016 MADLTONYAA L REGIONAL FACILITIES MANAGER Ot N91.2 AMENORRHEA, UNSPECIFIED 03/09/2016 MADL, YANET L REGIONAL FACILITIES MANAGER Ot R19.00 INTRA-ABD AND PELVIC SWELLING, MASS AND 03/09/2016 HILARIA NG TRAVEL REGISTERED NURSE PACU Ot E11.9 TYPE 2 DIABETES MELLITUS WITHOUT COMPLIC 03/09/2016 HILARIA NG TRAVEL REGISTERED NURSE PACU Ot R11.2 NAUSEA WITH VOMITING, UNSPECIFIED 03/09/2016 HILARIA NG APRN Ot R51 HEADACHE 03/09/2016 HILARIA NG TRAVEL REGISTERED NURSE PACU Ot Z79.899 OTHER SENIOR LIVING (CURRENT) DRUG THERAPY 03/10/2016 Ot 641.13 PLACEN PREV HEM-ANTEPART 03/10/2016 Ot 649.63 UTERINE SIZE DATE DISCREPANCY, ANTEPARTU 03/10/2016 Ot V28.81 ENCOUNTER FOR ANATOMIC SURVEY 03/10/2016 Ot 648.83 ABN GLUCOSE- ANTEPARTUM 03/10/2016 ALEN ASHER TRAVEL REGISTERED NURSE PACU Ot V23.7 INSUFFICIENT CARE 03/10/2016 ALEN ASHER TRAVEL REGISTERED NURSE PACU Ot V28.89 OTHER SPECIFIED SCREENING 03/10/2016 MADISON COX DO C Ot 648.83 ABN GLUCOSE-ANTEPARTUM 03/10/2016 MADISON COX DO C Ot 648.83 ABN GLUCOSE-ANTEPARTUM 03/10/2016 KENNY العلي MADISON C Ot 649.63 UTERINE SIZE DATE DISCREPANCY, ANTEPARTU 03/10/2016 RICKIELTONYAA L REGIONAL FACILITIES MANAGER Ot N91.2 AMENORRHEA, UNSPECIFIED 03/10/2016 MADL, YANET L REGIONAL FACILITIES MANAGER Ot R19.00 INTRA-ABD AND PELVIC SWELLING, MASS AND 03/11/2016 HILARIA NG TRAVEL REGISTERED NURSE PACU Ot E11.9 TYPE 2 DIABETES MELLITUS WITHOUT COMPLIC 03/11/2016 HILARIA NG TRAVEL REGISTERED NURSE PACU Ot R11.2 NAUSEA WITH VOMITING, UNSPECIFIED 03/11/2016 HILARIA NG TRAVEL REGISTERED NURSE PACU Ot R51 HEADACHE 03/11/2016 HILARIA NG TRAVEL REGISTERED NURSE PACU Ot Z79.899 OTHER FINGERNAIL SCULPTOR (CURRENT) DRUG THERAPY 06/02/2016 Ot 641.13 PLACEN PREV HEM-ANTEPART 06/02/2016 Ot 649.63 UTERINE SIZE DATE DISCREPANCY, ANTEPARTU 06/02/2016 Ot V28.81 ENCOUNTER FOR ANATOMIC SURVEY 06/02/2016 Ot 648.83 ABN GLUCOSE- ANTEPARTUM 06/02/2016 ALEN ASHER TRAVEL REGISTERED NURSE PACU Ot V23.7 INSUFFICIENT CARE 06/02/2016 ALEN ASHER TRAVEL REGISTERED NURSE PACU Ot V28.89 OTHER SPECIFIED SCREENING 06/02/2016 COX DO, MADISON C Ot 648.83 ABN GLUCOSE-ANTEPARTUM 06/02/2016 COX DO, MADISON C Ot 648.83 ABN GLUCOSE-ANTEPARTUM 06/02/2016 COX DO, MADISON C Ot 649.63 UTERINE SIZE DATE DISCREPANCY, ANTEPARTU 06/02/2016 MADL, YANET L REGIONAL FACILITIES MANAGER Ot N91.2 AMENORRHEA, UNSPECIFIED 06/02/2016 MADL, YANET L REGIONAL FACILITIES MANAGER Ot R19.00 INTRA-ABD AND PELVIC SWELLING, MASS AND 06/02/2016 Ot 641.13 PLACEN PREV HEM-ANTEPART 06/02/2016 Ot 649.63 UTERINE SIZE DATE DISCREPANCY, ANTEPARTU 06/02/2016 Ot V28.81 ENCOUNTER FOR ANATOMIC SURVEY 06/02/2016 Ot 648.83 ABN GLUCOSE- ANTEPARTUM 06/02/2016 ALEN ASHER TRAVEL REGISTERED NURSE PACU Ot V23.7 INSUFFICIENT CARE 06/02/2016 ALEN ASHER TRAVEL REGISTERED NURSE PACU Ot V28.89 OTHER SPECIFIED SCREENING 06/02/2016 COX DO, MADISON C Ot 648.83 ABN GLUCOSE-ANTEPARTUM 06/02/2016 COX DO, MADISON C Ot 648.83 ABN GLUCOSE-ANTEPARTUM 06/02/2016 COX DO, MADISON C Ot 649.63 UTERINE SIZE DATE DISCREPANCY, ANTEPARTU 06/02/2016 MADL, YANET L REGIONAL FACILITIES MANAGER Ot N91.2 AMENORRHEA, UNSPECIFIED 06/02/2016 MADL, YANET L REGIONAL FACILITIES MANAGER Ot R19.00 INTRA-ABD AND PELVIC SWELLING, MASS AND 06/02/2016 MADL, YANET L REGIONAL FACILITIES MANAGER Ot N91.2 AMENORRHEA, UNSPECIFIED 06/02/2016 MADL, YANET L REGIONAL FACILITIES MANAGER Ot R19.00 INTRA-ABD AND PELVIC SWELLING, MASS AND 06/03/2016 MADL, YANET L REGIONAL FACILITIES MANAGER Ot N91.2 AMENORRHEA, UNSPECIFIED 06/03/2016 MADL, YANET L REGIONAL FACILITIES MANAGER Ot R19.00 INTRA-ABD AND PELVIC SWELLING, MASS AND 06/05/2016 Ot 641.13 PLACEN PREV HEM-ANTEPART 06/05/2016 Ot 649.63 UTERINE SIZE DATE DISCREPANCY, ANTEPARTU 06/05/2016 Ot V28.81 ENCOUNTER FOR ANATOMIC SURVEY 06/05/2016 Ot 648.83 ABN GLUCOSE- ANTEPARTUM 06/05/2016 ALEN ASHER A TRAVEL REGISTERED NURSE PACU Ot V23.7 INSUFFICIENT CARE 06/05/2016 NOY ASHERIDI A TRAVEL REGISTERED NURSE PACU Ot V28.89 OTHER SPECIFIED SCREENING 06/05/2016 KENNY DOGRICELA C Ot 648.83 ABN GLUCOSE-ANTEPARTUM 06/05/2016 COX DO MADISON C Ot 648.83 ABN GLUCOSE-ANTEPARTUM 06/05/2016 KENNY DO MADISON C Ot 649.63 UTERINE SIZE DATE DISCREPANCY, ANTEPARTU 06/05/2016 MADL, YANET L REGIONAL FACILITIES MANAGER Ot N91.2 AMENORRHEA, UNSPECIFIED 06/05/2016 MADL, YANET L REGIONAL FACILITIES MANAGER Ot R19.00 INTRA-ABD AND PELVIC SWELLING, MASS AND 06/05/2016 MADL, YANET L REGIONAL FACILITIES MANAGER Ot N91.2 AMENORRHEA, UNSPECIFIED 06/05/2016 MADL, YANET L REGIONAL FACILITIES MANAGER Ot R19.00 INTRA-ABD AND PELVIC SWELLING, MASS AND 02/13/2017 Ot 641.13 PLACEN PREV HEM-ANTEPART 02/13/2017 Ot 649.63 UTERINE SIZE DATE DISCREPANCY, ANTEPARTU 02/13/2017 Ot V28.81 ENCOUNTER FOR ANATOMIC SURVEY 02/13/2017 Ot 648.83 ABN GLUCOSE- ANTEPARTUM 02/13/2017 ALEN ASHER A TRAVEL REGISTERED NURSE PACU Ot V23.7 INSUFFICIENT CARE 02/13/2017 NOY ASHERIDI A TRAVEL REGISTERED NURSE PACU Ot V28.89 OTHER SPECIFIED SCREENING 02/13/2017 KENNY DO, MADISON C Ot 648.83 ABN GLUCOSE-ANTEPARTUM 02/13/2017 KENNY العلي MADISON C Ot 648.83 ABN GLUCOSE-ANTEPARTUM 02/13/2017 MADISON COX DO Ot 649.63 UTERINE SIZE DATE DISCREPANCY, ANTEPARTU 02/13/2017 YANET WEBB REGIONAL FACILITIES MANAGER Ot N91.2 AMENORRHEA, UNSPECIFIED 02/13/2017 MADLYANET REGIONAL FACILITIES MANAGER Ot R19.00 INTRA-ABD AND PELVIC SWELLING, MASS AND 02/13/2017 HILARIA NG TRAVEL REGISTERED NURSE PACU Ot E11.9 TYPE 2 DIABETES MELLITUS WITHOUT COMPLIC 02/13/2017 HILARIA NG TRAVEL REGISTERED NURSE PACU Ot N93.9 ABNORMAL UTERINE AND VAGINAL BLEEDING, U 02/13/2017 HIALRIA NG APRN Ot O03.9 COMPLETE OR UNSP SPONTANEOUS [place] 02/13/2017 HILARIA NG APRN Ot O24.119 PRE-EXIST TYPE 2 DIABETES, IN , 02/13/2017 HILARIA NG APRN Ot Z3A.00 WEEKS OF GESTATION OF NOT SPEC 02/13/2017 HILARIA NG TRAVEL REGISTERED NURSE PACU Ot Z79.84 SENIOR LIVING (CURRENT) USE OF ORAL HYPOGLYC 02/13/2017 Ot 641.13 PLACEN PREV HEM-ANTEPART 02/13/2017 Ot 649.63 UTERINE SIZE DATE DISCREPANCY, ANTEPARTU 02/13/2017 Ot V28.81 ENCOUNTER FOR ANATOMIC SURVEY 02/13/2017 Ot 648.83 ABN GLUCOSE- ANTEPARTUM 02/13/2017 ALEN ASHER TRAVEL REGISTERED NURSE PACU Ot V23.7 INSUFFICIENT CARE 02/13/2017 ALEN ASHER TRAVEL REGISTERED NURSE PACU Ot V28.89 OTHER SPECIFIED SCREENING 02/13/2017 MADISON COX DO Ot 648.83 ABN GLUCOSE-ANTEPARTUM 02/13/2017 MADISON COX DO C Ot 648.83 ABN GLUCOSE-ANTEPARTUM 02/13/2017 MADISON COX DO Ot 649.63 UTERINE SIZE DATE DISCREPANCY, ANTEPARTU 02/13/2017 YANET WEBB REGIONAL FACILITIES MANAGER Ot N91.2 AMENORRHEA, UNSPECIFIED 02/13/2017 RICKIELYANET L REGIONAL FACILITIES MANAGER Ot R19.00 INTRA-ABD AND PELVIC SWELLING, MASS AND 02/15/2017 HILARIA NG TRAVEL REGISTERED NURSE PACU Ot E11.9 TYPE 2 DIABETES MELLITUS WITHOUT COMPLIC 02/15/2017 HILARIA NG TRAVEL REGISTERED NURSE PACU Ot N93.9 ABNORMAL UTERINE AND VAGINAL BLEEDING, U 02/15/2017 HILARIA NG TRAVEL REGISTERED NURSE PACU Ot O03.9 COMPLETE OR UNSP SPONTANEOUS [place] 02/15/2017 HILARIA NG TRAVEL REGISTERED NURSE PACU Ot O24.119 PRE-EXIST TYPE 2 DIABETES, IN , 02/15/2017 HILARIA NG TRAVEL REGISTERED NURSE PACU Ot Z3A.00 WEEKS OF GESTATION OF NOT SPEC 02/15/2017 HILARIA NG TRAVEL REGISTERED NURSE PACU Ot Z79.84 SENIOR LIVING (CURRENT) USE OF ORAL HYPOGLYC 12/29/2017 LBNOYALEN A TRAVEL REGISTERED NURSE PACU Ot V23.7 INSUFFICIENT CARE 12/29/2017 LBNOYALEN A TRAVEL REGISTERED NURSE PACU Ot V28.89 OTHER SPECIFIED SCREENING 12/29/2017 COX DO, MADISON C Ot 648.83 ABN GLUCOSE-ANTEPARTUM 12/29/2017 COX DO, MADISON C Ot 648.83 ABN GLUCOSE-ANTEPARTUM 12/29/2017 COX DO, MADISON C Ot 649.63 UTERINE SIZE DATE DISCREPANCY, ANTEPARTU 12/29/2017 MADL, YANET L REGIONAL FACILITIES MANAGER Ot N91.2 AMENORRHEA, UNSPECIFIED 12/29/2017 MADL, YANET L REGIONAL FACILITIES MANAGER Ot R19.00 INTRA-ABD AND PELVIC SWELLING, MASS AND 12/31/2017 LBALEN A TRAVEL REGISTERED NURSE PACU Ot V23.7 INSUFFICIENT CARE 12/31/2017 LBNOYALEN A TRAVEL REGISTERED NURSE PACU Ot V28.89 OTHER SPECIFIED SCREENING 12/31/2017 COX DO, MADISON C Ot 648.83 ABN GLUCOSE-ANTEPARTUM 12/31/2017 COX DO, MADISON C Ot 648.83 ABN GLUCOSE-ANTEPARTUM 12/31/2017 COX DO, MADISON C Ot 649.63 UTERINE SIZE DATE DISCREPANCY, ANTEPARTU 12/31/2017 MADL, YANET L REGIONAL FACILITIES MANAGER Ot N91.2 AMENORRHEA, UNSPECIFIED 12/31/2017 MADL, YANET L REGIONAL FACILITIES MANAGER Ot R19.00 INTRA-ABD AND PELVIC SWELLING, MASS AND 12/31/2017 JULI LOPEZ, THOMPSON Henning Ot O24.912 UNSPECIFIED DIABETES MELLITUS IN PREGNAN 12/31/2017 THOMPSON BUSTOS MD Ot O99.89 OTH DISEASES AND CONDITIONS COMPL PREG/C 12/31/2017 THOMPSON BUSTOS MD Ot R10.30 LOWER ABDOMINAL PAIN, UNSPECIFIED 12/31/2017 THOMPSON BUSTOS MD Ot Z3A.14 14 WEEKS GESTATION OF 12/31/2017 THOMPSON BUSTOS MD Ot Z79.84 FINGERNAIL SCULPTOR (CURRENT) USE OF ORAL HYPOGLYC 12/31/2017 THOMPSON [...] OF 01/03/2018 THOMPSON BUSTOS MD Ot Z79.84 SENIOR LIVING (CURRENT) USE OF ORAL HYPOGLYC 01/03/2018 THOMPSON BUSTOS MD Ot Z87.59 PERSONAL HISTORY OF COMP OF PREG, CHLDBR 01/06/2018 ALEN ASHER TRAVEL REGISTERED NURSE PACU Ot V23.7 INSUFFICIENT CARE 01/06/2018 ALEN ASHER TRAVEL REGISTERED NURSE PACU Ot V28.89 OTHER SPECIFIED SCREENING 01/06/2018 OCX DO, MADISON C Ot 648.83 ABN GLUCOSE-ANTEPARTUM 01/06/2018 COX DO MADISON C Ot 648.83 ABN GLUCOSE-ANTEPARTUM 01/06/2018 COX DO, MADISON C Ot 649.63 UTERINE SIZE DATE DISCREPANCY, ANTEPARTU 01/06/2018 MADL, YANET L REGIONAL FACILITIES MANAGER Ot N91.2 AMENORRHEA, UNSPECIFIED 01/06/2018 MADL, YANET L REGIONAL FACILITIES MANAGER Ot R19.00 INTRA-ABD AND PELVIC SWELLING, MASS AND 02/16/2018 ALEN ASHER TRAVEL REGISTERED NURSE PACU Ot V23.7 INSUFFICIENT CARE 02/16/2018 ALEN ASHER A TRAVEL REGISTERED NURSE PACU Ot V28.89 OTHER SPECIFIED SCREENING 02/16/2018 COX DO, MADISON C Ot 648.83 ABN GLUCOSE-ANTEPARTUM 02/16/2018 MADISON COX DO C Ot 648.83 ABN GLUCOSE-ANTEPARTUM 02/16/2018 MADISON COX DO C Ot 649.63 UTERINE SIZE DATE DISCREPANCY, ANTEPARTU 02/16/2018 MADL, YANET L REGIONAL FACILITIES MANAGER Ot N91.2 AMENORRHEA, UNSPECIFIED 02/16/2018 MADL, YANET L REGIONAL FACILITIES MANAGER Ot R19.00 INTRA-ABD AND PELVIC SWELLING, MASS AND 02/17/2018 FENECH DO, AUSTYN S Ot Z36.89 ENCOUNTER FOR OTHER SPECIFIED 02/17/2018 FENECH DO, AUSTYN S Ot Z3A.21 21 WEEKS GESTATION OF 05/15/2018 KENNY العلي MADISON Sewell Ot O24.414 GESTATIONAL DIABETES IN , INSUL 05/15/2018 KENNY العلي MADISON Sewell Ot O34.211 MATERN CARE FOR LOW TRANSVERSE SCAR FROM 05/15/2018 KENNY العلي MADISON Sewell Ot O60.03 LABOR WITHOUT DELIVERY, THIRD TR 05/15/2018 KENNY العلي MADISON Sewell Ot Z3A.33 33 WEEKS GESTATION OF 06/04/2018 ALEN ASHER TRAVEL REGISTERED NURSE PACU Ot V23.7 INSUFFICIENT CARE 06/04/2018 ALEN ASHER TRAVEL REGISTERED NURSE PACU Ot V28.89 OTHER SPECIFIED SCREENING 06/04/2018 MADISON COX DO Ot 648.83 ABN GLUCOSE-ANTEPARTUM 06/04/2018 MADISON COX DO C Ot 648.83 ABN GLUCOSE-ANTEPARTUM 06/04/2018 MADISON COX DO Ot 649.63 UTERINE SIZE DATE DISCREPANCY, ANTEPARTU 06/04/2018 MADL, YANET L REGIONAL FACILITIES MANAGER Ot N91.2 AMENORRHEA, UNSPECIFIED 06/04/2018 MADL, YANET L REGIONAL FACILITIES MANAGER Ot R19.00 INTRA-ABD AND PELVIC SWELLING, MASS AND 06/04/2018 FENECH DO, AUSTYN S Ot Z36.89 ENCOUNTER FOR OTHER SPECIFIED 06/04/2018 FENECH DO, AUSTYN S Ot Z3A.21 21 WEEKS GESTATION OF 06/06/2018 ALEN ASHER A TRAVEL REGISTERED NURSE PACU Ot V23.7 INSUFFICIENT CARE 06/06/2018 ALEN ASHER A TRAVEL REGISTERED NURSE PACU Ot V28.89 OTHER SPECIFIED SCREENING 06/06/2018 COX DO, MADISON C Ot 648.83 ABN GLUCOSE-ANTEPARTUM 06/06/2018 COX DO, MADISON C Ot 648.83 ABN GLUCOSE-ANTEPARTUM 06/06/2018 COX DO, MADISON C Ot 649.63 UTERINE SIZE DATE DISCREPANCY, ANTEPARTU 06/06/2018 MADL, YANET L REGIONAL FACILITIES MANAGER Ot N91.2 AMENORRHEA, UNSPECIFIED 06/06/2018 MADL, YANET L REGIONAL FACILITIES MANAGER Ot R19.00 INTRA-ABD AND PELVIC SWELLING, MASS AND 06/06/2018 FENECH DO, AUSTYN S Ot Z36.89 ENCOUNTER FOR OTHER SPECIFIED 06/06/2018 FENECH DO, AUSTYN S Ot Z3A.21 21 WEEKS GESTATION OF 06/06/2018 LB ALEN A TRAVEL REGISTERED NURSE PACU Ot V23.7 INSUFFICIENT CARE 06/06/2018 LB ALEN A TRAVEL REGISTERED NURSE PACU Ot V28.89 OTHER SPECIFIED SCREENING 06/06/2018 COX DO, MADISON C Ot 648.83 ABN GLUCOSE-ANTEPARTUM 06/06/2018 COX DO, MADISON C Ot 648.83 ABN GLUCOSE-ANTEPARTUM 06/06/2018 COX DO, MADISON C Ot 649.63 UTERINE SIZE DATE DISCREPANCY, ANTEPARTU 06/06/2018 MADL, YANET L REGIONAL FACILITIES MANAGER Ot N91.2 AMENORRHEA, UNSPECIFIED 06/06/2018 MADL, YANET L REGIONAL FACILITIES MANAGER Ot R19.00 INTRA-ABD AND PELVIC SWELLING, MASS AND 06/06/2018 FENECH DO, AUSTYN S Ot Z36.89 ENCOUNTER FOR OTHER SPECIFIED 06/06/2018 FENECH DO, AUSTYN S Ot Z3A.21 21 WEEKS GESTATION OF 06/06/2018 LB ALEN A TRAVEL REGISTERED NURSE PACU Ot V23.7 INSUFFICIENT CARE 06/06/2018 LB ALEN A TRAVEL REGISTERED NURSE PACU Ot V28.89 OTHER SPECIFIED SCREENING 06/06/2018 COX DO, MADISON C Ot 648.83 ABN GLUCOSE-ANTEPARTUM 06/06/2018 COX DO, MADISON C Ot 648.83 ABN GLUCOSE-ANTEPARTUM 06/06/2018 COX DO, MADISON C Ot 649.63 UTERINE SIZE DATE DISCREPANCY, ANTEPARTU 06/06/2018 MADL, YANET L REGIONAL FACILITIES MANAGER Ot N91.2 AMENORRHEA, UNSPECIFIED 06/06/2018 MADLYANET REGIONAL FACILITIES MANAGER Ot R19.00 INTRA-ABD AND PELVIC SWELLING, MASS AND 06/06/2018 AUSTYN PEREZ DO Ot Z36.89 ENCOUNTER FOR OTHER SPECIFIED 06/06/2018 AUSTYN PEREZ DO Ot Z3A.21 21 WEEKS GESTATION OF 06/06/2018 LB, ALEN A TRAVEL REGISTERED NURSE PACU Ot V23.7 INSUFFICIENT CARE 06/06/2018 LBALEN MAN TRAVEL REGISTERED NURSE PACU Ot V28.89 OTHER SPECIFIED SCREENING 06/06/2018 COX DO, MADISON C Ot 648.83 ABN GLUCOSE-ANTEPARTUM 06/06/2018 COX DO, MADISON C Ot 648.83 ABN GLUCOSE-ANTEPARTUM 06/06/2018 COX DO MADISON C Ot 649.63 UTERINE SIZE DATE DISCREPANCY, ANTEPARTU 06/06/2018 JONYANET REGIONAL FACILITIES MANAGER Ot N91.2 AMENORRHEA, UNSPECIFIED 06/06/2018 MADLYANET L REGIONAL FACILITIES MANAGER Ot R19.00 INTRA-ABD AND PELVIC SWELLING, MASS AND 06/06/2018 AUSTYN PEREZ DO Ot Z36.89 ENCOUNTER FOR OTHER SPECIFIED 06/06/2018 AUSTYN PEREZ DO, Ot Z3A.21 21 WEEKS GESTATION OF 06/06/2018 AUSTYN PEREZ DO, Ot D62 ACUTE POSTHEMORRHAGIC ANEMIA 06/06/2018 AUSTYN PEREZ DO, Ot 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, THI 06/06/2018 AUSTYN PEREZ DO Ot O14.93 UNSPECIFIED PRE-ECLAMPSIA, THIRD TRIMEST 06/06/2018 AUSTYN PEREZ DO, Ot O24.313 UNSP PRE-EXISTING DIABETES IN , 06/06/2018 AUSTYN PEREZ DO, Ot O34.211 MATERN CARE FOR LOW TRANSVERSE SCAR FROM 06/06/2018 AUSTYN PEREZ DO, Ot O36.4XX0 MATERNAL CARE FOR INTRAUTERINE , NO 06/06/2018 AUSTYN PEREZ DO, Ot O99.03 ANEMIA COMPLICATING THE PUERPERIUM 06/06/2018 AUSTYN PEREZ DO Ot Z37.1 SINGLE STILLBIRTH 06/06/2018 AUSTYN PEREZ DO, Ot Z3A.36 36 WEEKS GESTATION OF 06/06/2018 AUSTYN PEREZ DO Ot Z79.4 FINGERNAIL SCULPTOR (CURRENT) USE OF INSULIN 06/06/2018 AUSTYN PEREZ DO Ot Z80.41 FAMILY HISTORY OF MALIGNANT NEOPLASM OF Procedures Code Description Performed By Performed On 72.79 VACUUM EXTRACT DEL NEC 06/22/2012 74.1 LOW CERVICAL 06/22/2012 99.77 APPL/ADMIN OF AN ADHESION BARRIER SUBSTA 06/22/2012 74.1 LOW CERVICAL 05/01/2013 [id number] RESECTION OF BILATERAL FALLOPIAN TUBES, 06/04/2018 [id number] EXTRACTION OF PRODUCTS OF CONCEPTION, 06/04/2018 Results Test Result Range Complete blood count [...] Complete urinalysis with reflex to culture NO [facility] Comprehensive metabolic panel - 12/31/17 17:36 Serum [...] 17:36 Serum or plasma choriogonadotropin measurement (units/volume) 17043 m[iU]/mL <5 Capillary blood glucose measurement by glucometer (mass/volume) - 05/14/18 13: 46 Capillary blood glucose measurement by glucometer (mass/volume) 155 mg/dL 70-110 Complete blood count (CBC) with automated white blood cell (WBC) differential - 05/14/18 14:14 Blood leukocytes automated count (number/volume) 7.6 10*3/uL 4.3-11.0 Blood erythrocytes automated count (number/volume) 4.83 10*6/uL 4.35-5.85 Venous blood hemoglobin measurement (mass/volume) 11.7 g/dL 11.5-16.0 Blood hematocrit (volume fraction) 36 % 35-52 Automated erythrocyte mean corpuscular volume 74 [foz_us] 80-99 Automated erythrocyte mean corpuscular hemoglobin (mass per erythrocyte) 24 pg 25-34 Automated erythrocyte mean corpuscular hemoglobin concentration measurement ( mass/volume) 33 g/dL 32-36 Automated erythrocyte distribution width ratio 15.8 % 10.0-14.5 Automated blood platelet count (count/volume) 290 10*3/uL 130-400 Automated blood platelet mean volume measurement 10.6 [foz_us] 7.4-10.4 Automated blood neutrophils/100 leukocytes 69 % 42-75 Automated blood lymphocytes/100 leukocytes 23 % 12-44 Blood monocytes/100 leukocytes 8 % 0-12 Automated blood eosinophils/100 leukocytes 0 % 0-10 Automated blood basophils/100 leukocytes 0 % 0-10 Blood neutrophils automated count (number/volume) 5.2 10*3 1.8-7.8 Blood lymphocytes automated count (number/volume) 1.8 10*3 1.0-4.0 Blood monocytes automated count (number/volume) 0.6 10*3 0.0-1.0 Automated eosinophil count 0.0 10*3/uL 0.0-0.3 Automated blood basophil count (count/volume) 0.0 10*3/uL 0.0-0.1 Whole blood basic metabolic panel - 05/14/18 14:14 Serum or plasma sodium measurement (moles/volume) 137 mmol/L 135-145 Serum or plasma potassium measurement (moles/volume) 4.0 mmol/L 3.6-5.0 Serum or plasma chloride measurement (moles/volume) 106 mmol/L 98-107 Carbon dioxide 18 mmol/L 21-32 Serum or plasma anion gap determination (moles/volume) 13 mmol/L 5-14 Serum or plasma urea nitrogen measurement (mass/volume) 10 mg/dL 7-18 Serum or plasma creatinine measurement (mass/volume) 0.60 mg/dL 0.60-1.30 Serum or plasma urea nitrogen/creatinine mass ratio 17 NRG Serum or plasma creatinine measurement with calculation of estimated glomerular filtration rate > NRG Serum or plasma glucose measurement (mass/volume) 178 mg/dL 70-105 Serum or plasma calcium measurement (mass/volume) 9.5 mg/dL 8.5-10.1 [id number] - 05/14/18 14:14 [id number] SPECIMEN AVAILABLE NRG Capillary blood glucose measurement by glucometer (mass/volume) - 05/14/18 18: 12 Capillary blood glucose measurement by glucometer (mass/volume) 119 mg/dL 70-110 Capillary blood glucose measurement by glucometer (mass/volume) - 05/14/18 20: 39 Capillary blood glucose measurement by glucometer (mass/volume) 80 mg/dL 70-110 Capillary blood glucose measurement by glucometer (mass/volume) - 05/15/18 01: 30 Capillary blood glucose measurement by glucometer (mass/volume) 82 mg/dL 70-110 Capillary blood glucose measurement by glucometer (mass/volume) - 05/15/18 04: 05 Capillary blood glucose measurement by glucometer (mass/volume) 200 mg/dL 70-110 Capillary blood glucose measurement by glucometer (mass/volume) - 05/15/18 07: 52 Capillary blood glucose measurement by glucometer (mass/volume) 105 mg/dL 70-110 Capillary blood glucose measurement by glucometer (mass/volume) - 05/15/18 10: 18 Capillary blood glucose measurement by glucometer (mass/volume) 161 mg/dL 70-110 Capillary blood glucose measurement by glucometer (mass/volume) - 05/15/18 12: 20 Capillary blood glucose measurement by glucometer (mass/volume) 123 mg/dL 70-110 Complete blood count (CBC) with automated white blood cell (WBC) differential - 06/04/18 11:05 Blood leukocytes automated count (number/volume) 8.6 10*3/uL 4.3-11.0 Blood erythrocytes automated count (number/volume) 4.89 10*6/uL 4.35-5.85 Venous blood hemoglobin measurement (mass/volume) 11.2 g/dL 11.5-16.0 Blood hematocrit (volume fraction) 35 % 35-52 Automated erythrocyte mean corpuscular volume 72 [foz_us] 80-99 Automated erythrocyte mean corpuscular hemoglobin (mass per erythrocyte) 23 pg 25-34 Automated erythrocyte mean corpuscular hemoglobin concentration measurement ( mass/volume) 32 g/dL 32-36 Automated erythrocyte distribution width ratio 17.0 % 10.0-14.5 Automated blood platelet count (count/volume) 321 10*3/uL 130-400 Automated blood platelet mean volume measurement 11.1 [foz_us] 7.4-10.4 Automated blood neutrophils/100 leukocytes 68 % 42-75 Automated blood lymphocytes/100 leukocytes 25 % 12-44 Blood monocytes/100 leukocytes 6 % 0-12 Automated blood eosinophils/100 leukocytes 1 % 0-10 Automated blood basophils/100 leukocytes 0 % 0-10 Blood neutrophils automated count (number/volume) 5.9 10*3 1.8-7.8 Blood lymphocytes automated count (number/volume) 2.1 10*3 1.0-4.0 Blood monocytes automated count (number/volume) 0.5 10*3 0.0-1.0 Automated eosinophil count 0.1 10*3/uL 0.0-0.3 Automated blood basophil count (count/volume) 0.0 10*3/uL 0.0-0.1 Comprehensive metabolic panel - 06/04/18 11:05 Serum or plasma sodium measurement (moles/volume) 136 mmol/L 135-145 Serum or plasma potassium measurement (moles/volume) 4.4 mmol/L 3.6-5.0 Serum or plasma chloride measurement (moles/volume) 105 mmol/L 98-107 Carbon dioxide 18 mmol/L 21-32 Serum or plasma anion gap determination (moles/volume) 13 mmol/L 5-14 Serum or plasma urea nitrogen measurement (mass/volume) 12 mg/dL 7-18 Serum or plasma creatinine measurement (mass/volume) 0.68 mg/dL 0.60-1.30 Serum or plasma urea nitrogen/creatinine mass ratio 18 NRG Serum or plasma creatinine measurement with calculation of estimated glomerular filtration rate > NRG Serum or plasma glucose measurement (mass/volume) 129 mg/dL 70-105 Serum or plasma calcium measurement (mass/volume) 9.1 mg/dL 8.5-10.1 Serum or plasma total bilirubin measurement (mass/volume) 0.2 mg/dL 0.1-1.0 Serum or plasma alkaline phosphatase measurement (enzymatic activity/volume) 145 U/L 40-136 Serum or plasma aspartate aminotransferase measurement (enzymatic activity/ volume) 25 U/L 5-34 Serum or plasma alanine aminotransferase measurement (enzymatic activity/volume ) 11 U/L 0-55 Serum or plasma protein measurement (mass/volume) 6.9 g/dL 6.4-8.2 Serum or plasma albumin measurement (mass/volume) 3.1 g/dL 3.2-4.5 CALCIUM CORRECTED 9.8 mg/dL 8.5-10.1 Serum or plasma uric acid measurement (mass/volume) - 06/04/18 11:05 Serum or plasma uric acid measurement (mass/volume) 4.9 mg/dL 2.6-7.2 Lactate dehydrogenase 1 [enzymatic activity/volume] in serum or plasma - 11:05 Lactate dehydrogenase 1 [enzymatic activity/volume] in serum or plasma 284 U/L 125-220 Blood type T Indirect antibody screen panel - 06/04/18 11:05 ABO+Rh group OP [facility] Transfusion band number [id number] [facility] Blood group antibody screen NEGATIVE [facility] Magnesium - 06/04/18 11:05 Magnesium 1.6 mg/dL 1.8-2.4 Methicillin resistant Staphylococcus aureus (MRSA) screening culture - 11:25 Methicillin resistant Staphylococcus aureus (MRSA) screening culture NEG NR Capillary blood glucose measurement by glucometer (mass/volume) - 06/04/18 18: 07 Capillary blood glucose measurement by glucometer (mass/volume) 93 mg/dL 70-110 Capillary blood glucose measurement by glucometer (mass/volume) - 06/05/18 00: 58 Capillary blood glucose measurement by glucometer (mass/volume) 148 mg/dL 70-110 Capillary blood glucose measurement by glucometer (mass/volume) - 06/05/18 05: 50 Capillary blood glucose measurement by glucometer (mass/volume) 135 mg/dL 70-110 Complete blood count (CBC) with automated white blood cell (WBC) differential - 06/05/18 05:50 Blood leukocytes automated count (number/volume) 10.4 10*3/uL 4.3-11.0 Blood erythrocytes automated count (number/volume) 3.94 10*6/uL 4.35-5.85 Venous blood hemoglobin measurement (mass/volume) 9.2 g/dL 11.5-16.0 Blood hematocrit (volume fraction) 28 % 35-52 Automated erythrocyte mean corpuscular volume 72 [foz_us] 80-99 Automated erythrocyte mean corpuscular hemoglobin (mass per erythrocyte) 23 pg 25-34 Automated erythrocyte mean corpuscular hemoglobin concentration measurement ( mass/volume) 33 g/dL 32-36 Automated erythrocyte distribution width ratio 17.2 % 10.0-14.5 Automated blood platelet count (count/volume) 340 10*3/uL 130-400 Automated blood platelet mean volume measurement 10.1 [foz_us] 7.4-10.4 Automated blood neutrophils/100 leukocytes 76 % 42-75 Automated blood lymphocytes/100 leukocytes 18 % 12-44 Blood monocytes/100 leukocytes 5 % 0-12 Automated blood eosinophils/100 leukocytes 0 % 0-10 Automated blood basophils/100 leukocytes 0 % 0-10 Blood neutrophils automated count (number/volume) 7.9 10*3 1.8-7.8 Blood lymphocytes automated count (number/volume) 1.9 10*3 1.0-4.0 Blood monocytes automated count (number/volume) 0.5 10*3 0.0-1.0 Automated eosinophil count 0.0 10*3/uL 0.0-0.3 Automated blood basophil count (count/volume) 0.0 10*3/uL 0.0-0.1 Comprehensive metabolic panel - 06/05/18 05:50 Serum or plasma sodium measurement (moles/volume) 136 mmol/L 135-145 Serum or plasma potassium measurement (moles/volume) 4.0 mmol/L 3.6-5.0 Serum or plasma chloride measurement (moles/volume) 107 mmol/L 98-107 Carbon dioxide 19 mmol/L 21-32 Serum or plasma anion gap determination (moles/volume) 10 mmol/L 5-14 Serum or plasma urea nitrogen measurement (mass/volume) 8 mg/dL 7-18 Serum or plasma creatinine measurement (mass/volume) 0.53 mg/dL 0.60-1.30 Serum or plasma urea nitrogen/creatinine mass ratio 15 NRG Serum or plasma creatinine measurement with calculation of estimated glomerular filtration rate > NRG Serum or plasma glucose measurement (mass/volume) 126 mg/dL 70-105 Serum or plasma calcium measurement (mass/volume) 7.2 mg/dL 8.5-10.1 Serum or plasma total bilirubin measurement (mass/volume) 0.2 mg/dL 0.1-1.0 Serum or plasma alkaline phosphatase measurement (enzymatic activity/volume) 109 U/L 40-136 Serum or plasma aspartate aminotransferase measurement (enzymatic activity/ volume) 22 U/L 5-34 Serum or plasma alanine aminotransferase measurement (enzymatic activity/volume ) 9 U/L 0-55 Serum or plasma protein measurement (mass/volume) 5.3 g/dL 6.4-8.2 Serum or plasma albumin measurement (mass/volume) 2.5 g/dL 3.2-4.5 CALCIUM CORRECTED 8.4 mg/dL 8.5-10.1 Capillary blood glucose measurement by glucometer (mass/volume) - 06/05/18 14: 14 Capillary blood glucose measurement by glucometer (mass/volume) 145 mg/dL 70-110 Capillary blood glucose measurement by glucometer (mass/volume) - 06/05/18 17: 16 Capillary blood glucose measurement by glucometer (mass/volume) 191 mg/dL 70-110 Capillary blood glucose measurement by glucometer (mass/volume) - 06/05/18 21: 05 Capillary blood glucose measurement by glucometer (mass/volume) 74 mg/dL 70-110 Capillary blood glucose measurement by glucometer (mass/volume) - 06/06/18 06: 09 Capillary blood glucose measurement by glucometer (mass/volume) 103 mg/dL 70-110 Capillary blood glucose measurement by glucometer (mass/volume) - 06/06/18 11: 52 Capillary blood glucose measurement by glucometer (mass/volume) 136 mg/dL 70-110 Encounters ACCT No. Visit Date/Time Discharge Status Pt. Type Provider Facility Loc./Unit Complaint [id number] 06/04/2018 10:56:00 06/06/2018 15:50:00 DIS Inpatient AUSTYN PEREZ DO [facility] WS DEMISE [id number] 05/14/2018 13:20:00 05/15/2018 13:45:00 DIS Inpatient MADISON COX DO [facility] LDRP CONTRACTIONS [id number] 02/16/2018 13:05:00 02/16/2018 23:59:59 CLS Outpatient AUSTYN PEREZ DO [facility] RAD [id number] 12/31/2017 14:30:00 12/31/2017 23:59:59 CLS Preadmit CORNELL LOPEZ, IRIS Donaldson [facility] RAD NORMAL IN MULTIGRAVIDA [id number] 12/31/2017 16:37:00 12/31/2017 19:08:00 DIS Emergency THOMPSON BUSTOS MD [facility] ER 14 WKS PREG/STOMACH PAIN/ DISCHARGE [id number] 02/13/2017 11:48:00 02/13/2017 14:47:00 DIS Emergency HILARIA NG TRAVEL REGISTERED NURSE PACU [facility] ER BLOATING [id number] 03/09/2016 18:50:00 03/09/2016 23:14:00 DIS Emergency HILARIA NG TRAVEL REGISTERED NURSE PACU [facility] ER HEAD PAIN [id number] 02/10/2016 15:09:00 02/10/2016 23:59:59 CLS Outpatient [facility] [employer] [facility] RAD AMENORRHEA,PELVIC FULLNESS [id number] 05/01/2013 11:05:00 05/03/2013 11:25:00 DIS Inpatient AUSTYN PEREZ DO [facility] WS PREVIOUS SECTION [id number] 04/11/2013 14:57:00 04/11/2013 23:59:59 CLS Outpatient MADISON COX DO [facility] RAD GDM,LGA [id number] 03/24/2013 15:50:00 03/24/2013 23:59:59 CLS Outpatient MADISON COX DO [facility] RAD GDM [id number] 03/07/2013 14:38:00 03/07/2013 23:59:59 CLS Outpatient LB, ALEN A TRAVEL REGISTERED NURSE PACU [facility] SURVEY,LATE CARE [id number] 06/22/2012 15:07:00 Document Registration [id number] 05/24/2012 15:37:00 Document Registration [id number] 03/14/2012 10:14:00 Document Registration
--- NOTE | 2018-06-29 10:54 | NUR ---
NOT IN WAITING ROOM WHEN CALLED.
--- NOTE | 2018-06-29 10:57 | NUR ---
NOTIFIED PATIENT BACK IN WAITING ROOM
[2018-06-29 11:47] VITALS: BP_SYST 147; BP_SYST 156; BP_SYST 174; BP_DIAS 81; BP_DIAS 89; BP_DIAS 91
--- NOTE | 2018-06-29 11:49 | NUR ---
ORTHOSTATICS DONE BY YOSI FUCHS APRN
--- NOTE | 2018-06-29 11:57 | ED Headache ---
General Chief Complaint: Head/Cervical Problems Stated Complaint: HEADACHE;NECK PAIN Nursing Triage Note: AMB TO ROOM WITH WHO ACTS HER DARK ROOM ATTENDANT WHO REPORTS THAT SHE HAS HAD A HEADACH FOR 2 DAY BUT NO HEADACHE ON ADMIT TO ED. Nursing Sepsis Screen: No Definite Risk History of Present Illness Date Seen by Provider: Jun 29, 2018 Time Seen by Provider: 11:30 Initial Comments 38-year-old female presents for headache, vertigo and vision changes. She is not experiencing a headache at this time but notices vertigo when she moves from lying to standing and feels her vision becomes blurry. She had a demise on 06/04/18 at 36 1/7 weeks gestation. CS and risk reduction tubal ligation. She has been on B/P medicine since her CS, managed by Dr. Perez. She is diabetic and has poor compliance with medication. She has not taken her Labetalol yet today, she did take her evening dose last night. Her denies that she is depressed but when he asks her, she says "she doesn't know" but does report she becomes tearful easily. Timing/Duration: 24 hours Severity/Quality: mild Location: frontal, occipital Prior Headaches/Recent Trauma: frequent headaches Modifying Factors: improves with rest Associated Symptoms: No confusion, No fatigue, No fever/chills, No flushing, No nausea/vomiting, No numbness in legs/feet, No seizures, No stiff neck; vision changes; No weakness Allergies and Home Medications Allergies Coded Allergies: No Known Drug Allergies (Verified , 10/26/07) Home Medications Ciprofloxacin HCl 500 Mg Tablet, 500 MG PO BID Prescribed by: YOSI FUCHS on 06/29/18 1254 Docusate Sodium 100 Mg Capsule, 100 MG PO BID Prescribed by: AUSTYN PEREZ on 06/04/18 1154 Glyburide 5 Mg Tablet, 5 MG PO DAILY@0630 Prescribed by: MADISON COX on 06/05/18 1835 Hydrocodone Bit/Acetaminophen 1 Tab Tab, 1-2 TAB PO Q4H PRN for PAIN-MODERATE Prescribed by: AUSTYN PEREZ on 06/04/18 1154 Ibuprofen 600 Mg Tablet, 600 MG PO Q6H Prescribed by: AUSTYN PEREZ on 06/04/18 1154 Labetalol HCl 200 Mg Tablet, 200 MG PO BID Prescribed by: MADISON COX on 06/05/18 1835 Lisinopril 5 Mg Tablet, 5 MG PO DAILY Prescribed by: MADISON COX on 06/06/18 1219 Metformin HCl 1,000 Mg [id number], 1,000 MG PO DAILY Prescribed by: MADISON COX on 06/05/18 1835 Patient Home Medication List Home Medication List Reviewed: Yes Review of Systems Review of Systems Constitutional: see HPI, dizziness Eyes: See HPI, Vision Changes (blurry at times) Psychiatric/Neurological: See HPI, Headache Past [id number] Hx Past Med/Social Hx: Reviewed Nursing Past Med/Soc Hx Patient Social History Alcohol Use: Denies Use Recreational Drug Use: No Smoking Status: Never a Smoker Recent Foreign Travel: No Contact w/Someone Who Travel: No Recent Infectious Disease Expo: No Recent Hopitalizations: No (Childbirth) Immunizations Up To Date Tetanus Booster (TDap): Less than 5yrs Date of Pneumonia Vaccine: May 03, 2013 Date of Influenza Vaccine: Mar 20, 2013 Seasonal Allergies Seasonal Allergies: No Past Medical History Surgeries: Yes Section Respiratory: No Cardiac: No Neurological: No Reproductive Disorders: No Sexually Transmitted Disease: No HIV/AIDS: No Genitourinary: No Gastrointestinal: No Musculoskeletal: No Endocrine: Yes Diabetes, Non-Insulin dep Cancer: No Psychosocial: No Blood Disorders: No Adverse Reaction/Blood Tranf: No Family Medical History Family history: Diabetes mellitus (pt's mother and sister) No Family History of: Cancer Family history: Arthritis Family history: Asthma Family history: Cardiovascular disease Family history: Gastrointestinal disease Family history: Glaucoma Family history: Hypertension Family history: Osteoporosis Family history: Thyroid disorder Heart disease History of - anemia History of - respiratory disease Hypercholesterolemia Myocardial infarction Seizure disorder Stroke Physical Exam Vital Signs Vital Signs - First Documented 06/29/18 10:56 Temp 99.0 Pulse 81 Resp 18 B/P (MAP) 148/82 (104) Pulse Ox 99 O2 Delivery Room Air Capillary Refill : Less Than 3 Seconds Height, Weight, BMI Height: 5'0.00" Weight: 197lbs. 0.0oz. 89.021546qi; 38.5 BMI Method:Stated General Appearance: WD/WN, no apparent distress HEENT: PERRL/EOMI, normal ENT inspection, TMs normal, pharynx normal, other ( Internal eye exam WNL) Neck: non-tender, full range of motion, supple Cardiovascular: normal peripheral pulses, regular rate, rhythm Respiratory: chest non-tender, lungs clear, normal breath sounds Gastrointestinal: normal bowel sounds, non tender, soft Extremities: normal range of motion, non-tender Psychiatric: alert, oriented x 3 Crainal Nerves: normal hearing, normal speech, PERRL, other (cranial nerves II through XII grossly intact.) Coordination/Gait: normal finger to nose, normal gait, negative Romberg's sign ; No abnormal gait; other (ambulates with a steady heel-to-toe gait.) Motor/Sensory: no motor deficit, no sensory deficit, no pronator drift Skin: normal color, warm/dry Comments Patient denies vertigo when moving from lying to standing. She is able to stand and walk on heels and toes. Progress/Results/Core Measures Results/Orders Lab Results Laboratory Tests Test 06/29/18 11:58 06/29/18 12:05 Range/Units White Blood Count 10.8 4.3-11.0 10^3/uL Red Blood Count 4.95 4.35-5.85 10^6/uL Hemoglobin 11.7 11.5-16.0 G/DL Hematocrit 37 35-52 % Mean Corpuscular Volume 74 L 80-99 FL Mean Corpuscular Hemoglobin 24 L 25-34 PG Mean Corpuscular Hemoglobin Concent 32 32-36 G/DL Red Cell Distribution Width 21.4 H 10.0-14.5 % Platelet Count 439 H 130-400 10^3/uL Mean Platelet Volume 8.6 7.4-10.4 FL Neutrophils (%) (Auto) 79 H 42-75 % Lymphocytes (%) (Auto) 16 12-44 % Monocytes (%) (Auto) 4 0-12 % Eosinophils (%) (Auto) 1 0-10 % Basophils (%) (Auto) 0 0-10 % Neutrophils # (Auto) 8.6 H 1.8-7.8 X 10^3 Lymphocytes # (Auto) 1.7 1.0-4.0 X 10^3 Monocytes # (Auto) 0.5 0.0-1.0 X 10^3 Eosinophils # (Auto) 0.1 0.0-0.3 10^3/uL Basophils # (Auto) 0.0 0.0-0.1 10^3/uL Sodium Level 136 135-145 MMOL/L Potassium Level 4.4 3.6-5.0 MMOL/L Chloride Level 102 98-107 MMOL/L Carbon Dioxide Level 24 21-32 MMOL/L Anion Gap 10 5-14 MMOL/L Blood Urea Nitrogen 14 7-18 MG/DL Creatinine 0.66 0.60-1.30 MG/DL Estimat Glomerular Filtration Rate > 60 BUN/Creatinine Ratio 21 Glucose Level 177 H 70-105 MG/DL Calcium Level 9.6 8.5-10.1 MG/DL Corrected Calcium 9.2 8.5-10.1 MG/DL Total Bilirubin 0.6 0.1-1.0 MG/DL Aspartate Amino Transf (AST/SGOT) 60 H 5-34 U/L Alanine Aminotransferase (ALT/SGPT) 63 H 0-55 U/L Alkaline Phosphatase 80 40-136 U/L Total Protein 8.1 6.4-8.2 GM/DL Albumin 4.5 3.2-4.5 GM/DL Urine Color YELLOW Urine Clarity CLEAR Urine pH 5 5-9 Urine Specific [place] 1.010 L 1.016-1.022 Urine Protein 2+ H NEGATIVE Urine Glucose (UA) NEGATIVE NEGATIVE Urine Ketones NEGATIVE NEGATIVE Urine Nitrite NEGATIVE NEGATIVE Urine Bilirubin NEGATIVE NEGATIVE Urine Urobilinogen NORMAL NORMAL MG/DL Urine Leukocyte Esterase 2+ H NEGATIVE Urine RBC (Auto) 5+ H NEGATIVE Urine RBC 10-25 H /HPF Urine WBC 5-10 H /HPF Urine Squamous Epithelial Cells 2-5 /HPF Urine Crystals NONE /LPF Urine Bacteria FEW H /HPF Urine Casts NONE /LPF Urine Mucus NEGATIVE /LPF Urine Culture Indicated YES My Orders Orders - YOSI FUCHS Cbc With Automated Diff (06/29/18 11:46) Comprehensive Metabolic Panel (06/29/18 11:46) Ua Culture If Indicated (06/29/18 11:46) Urine Bedside (06/29/18 11:46) Urine Culture (06/29/18 12:05) Labetalol Tablet (Normodyne Tablet) (06/29/18 12:45) Medications Given in ED Current Medications Medications Dose Ordered Sig/Vijay Route Start Time Stop Time Status Last Admin Dose Admin Labetalol HCl 200 mg ONCE ONCE PO 06/29/18 12:45 06/29/18 12:46 DC 06/29/18 12:59 200 MG Vital Signs/I&O 06/29/18 06/29/18 06/29/18 10:56 11:47 12:50 Temp 99.0 Pulse 81 89 Resp 18 18 B/P (MAP) 148/82 (104) 174/81 (112) 154/82 (106) 156/91 (112) 147/89 (108) Pulse Ox 99 98 O2 Delivery Room Air Blood Pressure Mean: 108 Progress Progress Note : Time: 11:30 Progress Note Patient seen and evaluated, orthostatic blood pressures obtained with minimal difference. Patient is not currently experiencing headache. She had no dizziness when moving from lying to standing during exam. We will obtain labs and reevaluate. 1200 patient did not take her morning dose of labetalol will give 200 mg by mouth now. 1230 labs essentially normal, other than UA for UTI. Discharge instructions and return precautions reviewed with the patient and her spouse. All questions answered. Stressed the importance of taking her medication as prescribed. Departure Impression Primary Impression: Vertigo Additional Impression: Labile hypertension Disposition: 01 HOME, SELF-CARE Condition: Improved Departure-Patient Inst. Decision time for Depature: 12:40 Referrals: [facility] (PCP) Primary Care Physician AUSTYN PEREZ DO (Family) Primary Care Physician Patient Instructions: High Blood Pressure (DC), Urinary Tract Infection, Adult (DC), Vertigo (a Type of Dizziness) (DC) Add. Discharge Instructions: Take antibiotic for urinary tract infection, as prescribed. Take your blood pressure medicine twice daily. Monitor your blood sugar and take medication as prescribed. Increase fluid intake, one bottle every 2 hours every 2 hours when awake. Follow up with Dr. Perez, if symptoms are not improving her worsen. Move slowly from lying to standing. Take meclizine 25 mg every 8 hours as needed for dizziness, this is available [id number]. Return to emergency department for fever greater than 101, headache not improve with Tylenol and ibuprofen, new problems or concerns. All discharge instructions reviewed with patient and/or family. Voiced understanding. Scripts Ciprofloxacin HCl (Cipro) 500 Mg Tablet 500 MG PO BID, #10 TAB 0 Refills Prov: YOSI FUCHS 06/29/18 Copy Copies To 1: AUSTYN PEREZ AMY ARNP Jun 29, 2018 11:57
[2018-06-29 12:06] LABS: BASOPHILS % (AUTO) 0 % (0-10); EOSINOPHILS # (AUTO) 0.1 10^3/uL (0.0-0.3); EOSINOPHILS % (AUTO) 1 % (0-10); HEMATOCRIT 37 % (35-52); HEMOGLOBIN 11.7 G/DL (11.5-16.0); LYMPHOCYTES # (AUTO) 1.7 X 10^3 (1.0-4.0); LYMPHOCYTES % (AUTO) 16 % (12-44); MEAN CORPUSCULAR HEMOGLOBIN 24 PG (25-34); MEAN CORPUSCULAR HGB CONC 32 G/DL (32-36); MEAN CORPUSCULAR VOLUME 74 FL (80-99); MEAN PLATELET VOLUME 8.6 FL (7.4-10.4); MONOCYTES # (AUTO) 0.5 X 10^3 (0.0-1.0); MONOCYTES % (AUTO) 4 % (0-12); NEUTROPHILS # (AUTO) 8.6 X 10^3 (1.8-7.8); NEUTROPHILS % (AUTO) 79 % (42-75); PLATELET COUNT 439 10^3/uL (130-400); RED BLOOD COUNT 4.95 10^6/uL (4.35-5.85); RED CELL DISTRIBUTION WIDTH 21.4 % (10.0-14.5); WHITE BLOOD COUNT 10.8 10^3/uL (4.3-11.0)
[2018-06-29 12:12] LABS: BILIRUBIN,URINE NEGATIVE (NEGATIVE); CLARITY,URINE CLEAR; COLOR,URINE YELLOW; GLUCOSE, URINE (UA) NEGATIVE (NEGATIVE); KETONES,URINE NEGATIVE (NEGATIVE); LEUKOCYTE ESTERASE ,URINE 2+ (NEGATIVE); NITRITE,URINE NEGATIVE (NEGATIVE); PH,URINE 5 (5-9); PROTEIN,URINE 2+ (NEGATIVE); UROBILINOGEN,URINE NORMAL (NORMAL)
[2018-06-29 12:25] LABS: BACTERIA,URINE FEW /HPF
[2018-06-29 12:26] LABS: ALANINE AMINOTRANSFERASE 63 U/L (0-55); ALBUMIN 4.5 GM/DL (3.2-4.5); ALKALINE PHOSPHATASE 80 U/L (40-136); BILIRUBIN,TOTAL 0.6 MG/DL (0.1-1.0); BUN/CREATININE RATIO 21; CALCIUM 9.6 MG/DL (8.5-10.1); CARBON DIOXIDE 24 MMOL/L (21-32); CHLORIDE 102 MMOL/L (98-107); CREATININE SERUM 0.66 MG/DL (0.60-1.30); GFR ESTIMATED > 60; GLUCOSE 177 MG/DL (70-105); POTASSIUM 4.4 MMOL/L (3.6-5.0); SODIUM 136 MMOL/L (135-145); TOTAL PROTEIN 8.1 GM/DL (6.4-8.2)
[2018-06-29] MEDS ORDERED: LABETALOL 200 MG (NORMODYNE) TAB PO ONE (12:45)
[2018-06-29 12:50] VITALS: BP 154/82
[2018-06-29] MEDS ORDERED: CIPR-225 PO (12:54)
== END 2018-06-29 12:50 | disposition home or self-care (01) ==
LOC: EDUNIT# 10:09 → ER 10:11
DX: R42 Dizziness and giddiness (principal); R03.0 Elevated blood-pressure reading, without diagnosis of hypertension; E11.9 Type 2 diabetes mellitus without complications; Z87.59 Personal history of other complications of pregnancy, childbirth and the puerperium; Z91.14 Patient's other noncompliance with medication regimen; Z79.4 Long term (current) use of insulin; Z98.890 Other specified postprocedural states
CPT/HCPCS: 36415; 80053; 81000; 84703; 85025; 87088

== ENCOUNTER 2018-07-17 00:19 | Emergency (ER) | payer SELFPAY ==
[~2018-07-17] VITALS: Ht 152.4 cm; Wt 77.1 kg
[~2018-07-17 00:19] MED LIST changes: +CIPR-225 PO
[2018-07-17] MEDS ORDERED: ASPIRIN 81 MG CHEW (CHILDREN'S ASA) PO ONE (00:45)
[2018-07-17 00:57] LABS: BASOPHILS % (AUTO) 0 % (0-10); EOSINOPHILS # (AUTO) 0.1 10^3/uL (0.0-0.3); EOSINOPHILS % (AUTO) 1 % (0-10); HEMATOCRIT 32 % (35-52); HEMOGLOBIN 10.3 G/DL (11.5-16.0); LYMPHOCYTES % (AUTO) 22 % (12-44); MEAN CORPUSCULAR HEMOGLOBIN 25 PG (25-34); MEAN CORPUSCULAR HGB CONC 33 G/DL (32-36); MEAN CORPUSCULAR VOLUME 75 FL (80-99); MEAN PLATELET VOLUME 8.4 FL (7.4-10.4); MONOCYTES # (AUTO) 0.5 X 10^3 (0.0-1.0); MONOCYTES % (AUTO) 6 % (0-12); NEUTROPHILS # (AUTO) 6.5 X 10^3 (1.8-7.8); NEUTROPHILS % (AUTO) 72 % (42-75); PLATELET COUNT 384 10^3/uL (130-400); RED CELL DISTRIBUTION WIDTH 22.1 % (10.0-14.5)
--- NOTE | 2018-07-17 01:00 | ED General ---
General Chief Complaint: Cardiac/General Problems Stated Complaint: HIGH BLOOD PRESSURE 197/72 Nursing Triage Note: HEADACHE, HIGH BLOODPRESSURE Nursing Sepsis Screen: No Definite Risk Source of Information: Spouse ( DOES ALL TALKING FOR PT--SPEAKS [place]) Exam Limitations: Language Barrier History of Present Illness Date Seen by Provider: Jul 17, 2018 Time Seen by Provider: 00:35 Initial Comments PT ARRIVES VIA POV FROM HOME WITH PT IS GABONESE STATES THAT PT WAS HAVING "BREATHING PROBLEMS" AND SHE DRANK 6 BOTTLES OF WATER IN 2 HOURS AND SHE HAS NOT SLEPT FOR 3 NIGHTS. SO CHECKED HER BP TONIGHT AND IT WAS 197 / 72 PT HAS BEEN ON LABETALOL 200 MG BID SINCE SHE DELIVERED 06/04/18 ( 36 WEEK GESTATION WITH DEMISE ) VIA . PT IS ALSO DIABETIC, ON ORAL MEDICATIONS--WAS ON INSULIN DURING PT HAS HISTORY OF NON-COMPLIANCE AND HAS MISSED DOSES OF BLOOD PRESSURE MEDICATION. REPORTS THAT SHE TOOK HER EVENING DOSE TONIGHT AT 2230 AFTER CHECKING BLOOD PRESSURE BLOOD GLUCOSE AT HOME WAS 120 AT 2230 TONIGHT NO CHEST PAIN NO SWELLING IN LEGS/ FEET NO PALPITATIONS NO SWEATS NO COUGH OR FEVER NO PROBLEMS BREATHING NOW PT HAD 6 WEEKS POST EXAM 1 WEEK AGO AND WAS NORMAL. NO VAGINAL BLEEDING PT HAD BTL WITH PT HAS BEEN PRESCRIBED UNKNOWN MEDICATION FOR SLEEPING PROBLEMS BUT DOES NOT TAKE IT ON A REGULAR BASIS. TOOK 1 LAST NIGHT BUT HAS NOT TAKEN ONE TONIGHT. 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 PEREZ Allergies and Home Medications Allergies Coded Allergies: No Known Drug Allergies (Verified , 10/26/07) Home Medications Glyburide 5 Mg Tablet, 5 MG PO DAILY@0630 Prescribed by: MADISON COX on 06/05/181834 Labetalol HCl 200 Mg Tablet, 200 MG PO BID Prescribed by: MADISON COX on 06/05/181834 Metformin HCl 1,000 Mg [id number], 1,000 MG PO DAILY Prescribed by: MADISON COX on 06/05/181834 Patient Home Medication List Home Medication List Reviewed: Yes Review of Systems Review of Systems Constitutional: no symptoms reported; No dizziness Respiratory: see HPI; No cough, No wheezing Cardiovascular: see HPI; No chest pain, No edema, No palpitations, No syncope, No vascular heart diseas Gastrointestinal: no symptoms reported; No abdominal pain, No nausea, No vomiting Genitourinary: no symptoms reported Musculoskeletal: no symptoms reported; No back pain Skin: no symptoms reported Psychiatric/Neurological: Depressed; Denies Headache, Denies Numbness, Denies Paresthesia Hematologic/Lymphatic: No Symptoms Reported Immunological/Allergic: no symptoms reported Past Jwhkttu-Qjcdhl-Gcwvbk Hx Patient Social History Alcohol Use: Denies Use Recreational Drug Use: No Smoking Status: Never a Smoker 2nd Hand Smoke Exposure: No Recent Foreign Travel: No Contact w/Someone Who Travel: No Recent Infectious Disease Expo: No Recent Hopitalizations: Yes (Childbirth) Immunizations Up To Date Tetanus Booster (TDap): Less than 5yrs Date of Pneumonia Vaccine: May 03, 2013 Date of Influenza Vaccine: Mar 20, 2013 Seasonal Allergies Seasonal Allergies: No Past Medical History Surgeries: Yes ( X 5) Section, Tubal Ligation Respiratory: No Cardiac: Yes Hypertension Neurological: Yes Headaches /Migraines : No Hx : 6 Hx Para: 6 ( DEMISE AT 36 WEEKS- DELIVERED VIA 06/04/18) Reproductive Disorders: No DIRECTOR OF INFECTION PREVENTION History: Tubal Ligation Sexually Transmitted Disease: No HIV/AIDS: No Genitourinary: No Gastrointestinal: No Musculoskeletal: No Endocrine: Yes Diabetes, Non-Insulin dep HEENT: No Cancer: No Psychosocial: No Integumentary: No Blood Disorders: No Adverse Reaction/Blood Tranf: No Family Medical History Family history: Diabetes mellitus (pt's mother and sister) No Family History of: Cancer Family history: Arthritis Family history: Asthma Family history: Cardiovascular disease Family history: Gastrointestinal disease Family history: Glaucoma Family history: Hypertension Family history: Osteoporosis Family history: Thyroid disorder Heart disease History of - anemia History of - respiratory disease Hypercholesterolemia Myocardial infarction Seizure disorder Stroke Physical Exam Vital Signs Vital Signs - First Documented 07/17/18 00:24 Temp 97.8 Pulse 83 Resp 16 B/P (MAP) 153/76 (101) Pulse Ox 100 O2 Delivery Room Air Capillary Refill : Less Than 3 Seconds Height, Weight, BMI Height: 5'0.00" Weight: 170lbs. 0.0oz. 77.188133bh; 38.5 BMI Method:Stated General Appearance: No Apparent Distress, WD/WN, Other (FLAT AFFECT, DOES NOT MAKE EYE CONTACT. 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 II- XII Norm as Tested Skin: Normal Color, Warm/Dry Progress/Results/Core Measures Suspected Sepsis Recent Fever Within 48 Hours: No Infection Criteria Present: None New/Unexplained Altered Menta: No Sepsis Screen: No Definite Risk SIRS Temperature:97.8 Pulse: 83 Respiratory Rate: 16 Laboratory Tests 07/17/18 00:43: White Blood Count 9.0 Blood Pressure 153 /76 Mean: 101 Laboratory Tests 07/17/18 00:43: Creatinine 0.65, INR Comment 0.9, Platelet Count 384, Total Bilirubin 0.4 Results/Orders Lab Results Laboratory Tests Test 07/17/18 00:43 07/17/18 01:05 07/17/18 01:14 Range/Units White Blood Count 9.0 4.3-11.0 10^3/uL Red Blood Count 4.21 L 4.35-5.85 10^6/uL Hemoglobin 10.3 L 11.5-16.0 G/DL Hematocrit 32 L 35-52 % Mean Corpuscular Volume 75 L 80-99 FL Mean Corpuscular Hemoglobin 25 25-34 PG Mean Corpuscular Hemoglobin Concent 33 32-36 G/DL Red Cell Distribution Width 22.1 H 10.0-14.5 % Platelet Count 384 130-400 10^3/uL Mean Platelet Volume 8.4 7.4-10.4 FL Neutrophils (%) (Auto) 72 42-75 % Lymphocytes (%) (Auto) 22 12-44 % Monocytes (%) (Auto) 6 0-12 % Eosinophils (%) (Auto) 1 0-10 % Basophils (%) (Auto) 0 0-10 % Neutrophils # (Auto) 6.5 1.8-7.8 X 10^3 Lymphocytes # (Auto) 2.0 1.0-4.0 X 10^3 Monocytes # (Auto) 0.5 0.0-1.0 X 10^3 Eosinophils # (Auto) 0.1 0.0-0.3 10^3/uL Basophils # (Auto) 0.0 0.0-0.1 10^3/uL Prothrombin Time 12.4 12.2-14.7 SEC INR Comment 0.9 0.8-1.4 Activated Partial Thromboplast Time 32 24-35 SEC Sodium Level 133 L 135-145 MMOL/L Potassium Level 3.9 3.6-5.0 MMOL/L Chloride Level 100 98-107 MMOL/L Carbon Dioxide Level 22 21-32 MMOL/L Anion Gap 11 5-14 MMOL/L Blood Urea Nitrogen 13 7-18 MG/DL Creatinine 0.65 0.60-1.30 MG/DL Estimat Glomerular Filtration Rate > 60 BUN/Creatinine Ratio 20 Glucose Level 174 H 70-105 MG/DL Calcium Level 8.9 8.5-10.1 MG/DL Corrected Calcium 8.7 8.5-10.1 MG/DL Magnesium Level 1.6 L 1.8-2.4 MG/DL Total Bilirubin 0.4 0.1-1.0 MG/DL Aspartate Amino Transf (AST/SGOT) 75 H 5-34 U/L Alanine Aminotransferase (ALT/SGPT) 94 H 0-55 U/L Alkaline Phosphatase 81 40-136 U/L Myoglobin 30.5 10.0-92.0 NG/ML Troponin I < 0.028 <0.028 NG/ML B-Type Natriuretic Peptide < 10.0 <100.0 PG/ML Total Protein 7.2 6.4-8.2 GM/DL Albumin 4.3 3.2-4.5 GM/DL Urine Color YELLOW Urine Clarity CLEAR Urine pH 7 5-9 Urine Specific [place] 1.005 L 1.016-1.022 Urine Protein NEGATIVE NEGATIVE Urine Glucose (UA) NEGATIVE NEGATIVE Urine Ketones NEGATIVE NEGATIVE Urine Nitrite NEGATIVE NEGATIVE Urine Bilirubin NEGATIVE NEGATIVE Urine Urobilinogen NORMAL NORMAL MG/DL Urine Leukocyte Esterase NEGATIVE NEGATIVE Urine RBC (Auto) NEGATIVE NEGATIVE Urine RBC NONE /HPF Urine WBC NONE /HPF Urine Squamous Epithelial Cells 0-2 /HPF Urine Crystals NONE /LPF Urine Bacteria TRACE /HPF Urine Casts NONE /LPF Urine Mucus NEGATIVE /LPF Urine Culture Indicated NO Urine Test NEGATIVE NEGATIVE Glucometer 192 H 70-110 MG/DL My Orders Orders - BECCA COOMBS DO Cbc With Automated Diff (07/17/18 00:32) Magnesium (07/17/18 00:32) Chest 1 View, Ap/Pa Only (07/17/18 00:32) Ekg Tracing (07/17/18 00:32) Cardiac Profile 1 (07/17/18 00:32) Comprehensive Metabolic Panel (07/17/18 00:32) Myoglobin Serum (07/17/18 00:32) Protime With Inr (07/17/18 00:32) Partial Thromboplastin Time (07/17/18 00:32) Monitor-Rhythm Ecg Trace Only (07/17/18 00:32) Aspirin Chewable Tablet (Baby Aspirin Ch (07/17/18 00:45) Saline Lock/Iv-Start (07/17/18 00:32) BNP (07/17/18 00:32) Accucheck Stat ONCE (07/17/18 00:53) Hcg,Qualitative Urine (07/17/18 01:07) Ua Culture If Indicated (07/17/18 01:07) Magnesium Oxide Tablet (Mag Ox Tablet) (07/17/18 02:15) Magnesium Oxide Tablet (Mag Ox Tablet) (07/17/18 02:22) Medications Given in ED Current Medications Medications Dose Ordered Sig/Vijay Route Start Time Stop Time Status Last Admin Dose Admin Aspirin 324 mg ONCE ONCE PO 07/17/18 00:45 07/17/18 00:46 DC 07/17/18 00:50 324 MG Magnesium Oxide 1,200 mg ONCE ONCE PO 07/17/18 02:15 07/17/18 02:38 DC 07/17/18 02:26 1,200 MG Vital Signs/I&O 07/17/18 07/17/18 07/17/18 00:24 01:31 02:30 Temp 97.8 97.8 Pulse 83 71 71 Resp 16 16 16 B/P (MAP) 153/76 (101) 139/66 (90) 124/67 (86) Pulse Ox 100 99 98 O2 Delivery Room Air Room Air Room Air Capillary Refill : Less Than 3 Seconds Blood Pressure Mean: 101 Progress Note : Progress Note BP DOWN TO 128/73, HR IN 60'S AT TIME OF DISMISSAL PT HAD NO COMPLAINTS OF ANY KIND DURING ER STAY ECG Initial ECG Impression Date: Jul 17, 2018 Initial ECG Impression Time: 00:50 Initial ECG Rate: 69 Initial ECG Rhythm: Normal Sinus Initial ECG Impression: Normal Diagnostic Imaging Comments CXR--NO ACUTE PROCESS, PENDING RADIOLOGIST REVIEW Reviewed: Reviewed by Me Departure Impression Primary Impression: Labile hypertension Additional Impressions: Hypomagnesemia Anemia 6 WEEKS POST WITH DEMISE NIDDM Disposition: HOME, SELF-CARE Condition: Improved Departure-Patient Inst. Referrals: [facility] (PCP) Primary Care Physician AUSTYN PEREZ DO (Family) Primary Care Physician Patient Instructions: Anemia Caused by Low Iron, Adult (DC), Controlling Your Blood Pressure Through Lifestyle, High Blood Pressure (DC), Low Magnesium Level (DC), Medicines for High Blood Pressure Add. Discharge Instructions: TAKE VITAMIN DAILY FOR THE NEXT MONTH TAKE YOUR REGULAR MEDICATIONS PRESCRIBED, AT THE SAME TIME EVERY DAY. DO NOT MISS DOSES FOLLOW UP WITH [facility] NEXT WEEK FOR FURTHER CARE RETURN TO ER IF WORSE All discharge instructions reviewed with patient and/or family. Voiced understanding. BECCA COOMBS DO Jul 17, 2018 01:00
[2018-07-17 01:08] LABS: INR 0.9 (0.8-1.4); PROTHROMBIN TIME PATIENT 12.4 SEC (12.2-14.7)
[2018-07-17 01:16] LABS: BILIRUBIN,URINE NEGATIVE (NEGATIVE); CLARITY,URINE CLEAR; COLOR,URINE YELLOW; GLUCOSE, URINE (UA) NEGATIVE (NEGATIVE); KETONES,URINE NEGATIVE (NEGATIVE); LEUKOCYTE ESTERASE ,URINE NEGATIVE (NEGATIVE); NITRITE,URINE NEGATIVE (NEGATIVE); PH,URINE 7 (5-9); PROTEIN,URINE NEGATIVE (NEGATIVE); UROBILINOGEN,URINE NORMAL (NORMAL)
[2018-07-17 01:17] LABS: ALANINE AMINOTRANSFERASE 94 U/L (0-55); ALBUMIN 4.3 GM/DL (3.2-4.5); ALKALINE PHOSPHATASE 81 U/L (40-136); BILIRUBIN,TOTAL 0.4 MG/DL (0.1-1.0); BUN/CREATININE RATIO 20; CALCIUM 8.9 MG/DL (8.5-10.1); CARBON DIOXIDE 22 MMOL/L (21-32); CHLORIDE 100 MMOL/L (98-107); CREATININE SERUM 0.65 MG/DL (0.60-1.30); GFR ESTIMATED > 60; GLUCOSE 174 MG/DL (70-105); MAGNESIUM 1.6 MG/DL (1.8-2.4); POTASSIUM 3.9 MMOL/L (3.6-5.0); SODIUM 133 MMOL/L (135-145); TOTAL PROTEIN 7.2 GM/DL (6.4-8.2)
[2018-07-17 01:23] LABS: BACTERIA,URINE TRACE /HPF; SQUAMOUS EPITHELIAL CELL,UR 0-2 /HPF
[2018-07-17 01:23] LABS: MYOGLOBIN SERUM 30.5 NG/ML (10.0-92.0)
[2018-07-17 01:31] VITALS: BP 139/66
[2018-07-17] MEDS ORDERED: MAGNESIUM OXIDE (MAG-OX)400 MG TAB PO ONE (02:15)
[2018-07-17] MEDS ORDERED: MAGNESIUM OXIDE (MAG-OX)400 MG TAB ONE (02:22)
[2018-07-17 02:30] VITALS: BP 124/67
--- NOTE | 2018-07-17 06:14 | Diagnostic Imaging Report ---
INDICATION: Chest pain COMPARISON: None. FINDINGS: Single view of the chest demonstrate clear lungs bilaterally. The heart size is normal. There is no pneumothorax. Osseous structures are normal. IMPRESSION: No acute findings. Normal chest. Dictated by: Dictated on workstation # [id number]
== END 2018-07-17 02:30 | disposition home or self-care (01) ==
LOC: EDUNIT# 00:19 → ER 00:21
DX: I10 Essential (primary) hypertension (principal); D64.9 Anemia, unspecified; E83.42 Hypomagnesemia; E11.9 Type 2 diabetes mellitus without complications; G43.909 Migraine, unspecified, not intractable, without status migrainosus; Z91.14 Patient's other noncompliance with medication regimen; Z98.890 Other specified postprocedural states; Z87.59 Personal history of other complications of pregnancy, childbirth and the puerperium; Z98.51 Tubal ligation status; Z79.4 Long term (current) use of insulin
CPT/HCPCS: 36415; 71045; 80053; 81000; 82962; 83735; 83874; 83880; 84484; 84703; 85025; 85610; 85730; 93005; 93041

== ENCOUNTER → 2020-12-17 | Outpatient (CLI) | payer OTHER ==
[~2020-12-17] MED LIST changes: -LISI-556 PO; +LISI-729 PO; -METF-761 PO; +METF-846 PO
--- NOTE | 2020-12-17 16:44 | Diagnostic Imaging Report ---
INDICATION: Routine screening. COMPARISON: No prior mammograms are available for comparison. This is a baseline study. TECHNIQUE: 2D and 3D bilateral screening mammography was performed with CAD. FINDINGS: Both breasts are heterogeneously dense, limiting the sensitivity of mammography. No mass or malignant appearing microcalcifications are seen. The axillae are unremarkable. IMPRESSION: No mammographic features suspicious for malignancy are identified. ACR BI-RADS Category 1: Negative. Result letter will be mailed to the patient. Note: At least 10% of breast cancer is not imaged by mammography. Dictated by: Dictated on workstation # [id number]
== END ==
LOC: RAD 13:30
PROVIDERS: ATTEND Nurse Practitioner
DX: Z12.31 Encounter for screening mammogram for malignant neoplasm of breast (principal)
CPT/HCPCS: 77063; 77067

== ENCOUNTER 2022-11-09 01:20 | Emergency (ER) | payer BC ==
[~2022-11-09] VITALS: Ht 152.4 cm; Wt 77.1 kg
[~2022-11-09 01:20] MED LIST changes: +LABE200T10 PO; -LABE200T7 PO; -LISI-729 PO; +LISI5TAB20 PO
[2022-11-09] MEDS ORDERED: KETOROLAC 30 MG/ML VIAL IVP ONE (01:45)
[2022-11-09 01:54] LABS: BASOPHILS # (AUTO) 0.1 10^3/uL (0.0-0.1); BASOPHILS % (AUTO) 0 % (0-10); EOSINOPHILS # (AUTO) 0.1 10^3/uL (0.0-0.3); EOSINOPHILS % (AUTO) 1 % (0-10); HEMATOCRIT 35 % (35-52); HEMOGLOBIN 11.3 g/dL (11.5-16.0); LYMPHOCYTES % (AUTO) 15 % (12-44); MEAN CORPUSCULAR HEMOGLOBIN 26 pg (25-34); MEAN CORPUSCULAR HGB CONC 33 g/dL (32-36); MEAN CORPUSCULAR VOLUME 80 fL (80-99); MEAN PLATELET VOLUME 8.8 fL (9.0-12.2); MONOCYTES # (AUTO) 0.6 10^3/uL (0.0-1.0); MONOCYTES % (AUTO) 5 % (0-12); NEUTROPHILS # (AUTO) 10.2 10^3/uL (1.8-7.8); NEUTROPHILS % (AUTO) 79 % (42-75); PLATELET COUNT 361 10^3/uL (130-400); WHITE BLOOD COUNT 12.9 10^3/uL (4.3-11.0)
[2022-11-09] MEDS ORDERED: NAPROXEN 250 MG (NAPROSYN) TABLET PO ONE (02:00)
[2022-11-09 02:07] LABS: ALBUMIN 4.1 GM/DL (3.2-4.5); POTASSIUM 3.7 MMOL/L (3.6-5.0)
[2022-11-09 02:08] LABS: CALCIUM 8.8 MG/DL (8.5-10.1)
[2022-11-09 02:11] LABS: BILIRUBIN,TOTAL 0.3 MG/DL (0.1-1.0)
[2022-11-09 02:13] LABS: CREATININE SERUM 0.67 MG/DL (0.60-1.30)
[2022-11-09 02:15] LABS: ERYTHROCYTE SEDIMENTATION RATE 8 MM/HR (0-20); MAGNESIUM 1.8 MG/DL (1.6-2.4)
[2022-11-09 02:35] LABS: TSH (THYROID ANALYZER) 3.03 UIU/ML (0.35-4.94)
--- NOTE | 2022-11-09 02:50 | ED Lower Extremity ---
General Chief Complaint: Lower Extremity Stated Complaint: LEFT LEG PAIN STARTED 2 HRS AGO Nursing Triage Note: WOKE UP APPROX. 2345 WITH LEFT FOOT CRAMPING. 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) Exam Limitations: language barrier History of Present Illness Date Seen by Provider: November 09, 2022 Time Seen by Provider: 01:30 Initial Comments PT ARRIVES VIA POV FROM HOME, WANTS WHEELCHAIR ON ARRIVAL C/O PAIN IN ARCH OF LEFT FOOT--COMES AND GOES, CRAMPING TYPE PAIN STATES SHE WENT TO BED AT 2200 AND WAS FINE AND WOKE UP AT 2345 WITH PAIN SHE HAS NOT TAKEN ANYTHING FOR PAIN NO INJURY OR UNUSUAL ACTIVITY NO PARESTHESIAS OR MOTOR DEFICITS NO BACK PAIN NO LOSS OF BOWEL OR BLADDER CONTROL NO HISTORY OF SIMILAR NO NEW SHOES OR VERY OLD SHOES PT IS DIABETIC--TAKES METFORMIN AND JANUVIA SHE ALSO TAKES IRON DENIES ANY OTHER MEDICAL PROBLEMS --REVIEW OF PRIOR RECORDS ALSO LISTS HTN ON LABETALOL LMP 10/19/22. NORMAL. S/P BTL PCP: [facility] Allergies and Home Medications Allergies Coded Allergies: No Known Drug Allergies (Verified , 10/26/07) Patient Home Medication List Home Medication List Reviewed: Yes Glyburide (Glyburide) 5 Mg Tablet, 5 MG PO DAILY@0630 Prescribed by: MADISON COX on 06/05/181834 Labetalol HCl (Labetalol HCl) 200 Mg Tablet, 200 MG PO BID Prescribed by: MADISON COX on 06/05/181834 Metformin HCl (Metformin HCl ER) 1,000 Mg [id number], 1,000 MG PO DAILY Prescribed by: MADISON COX on 06/05/181834 Naproxen (Naproxen) 500 Mg Tablet.dr, 500 MG PO BID Prescribed by: BECCA COOMBS on 11/09/22 0256 Review of Systems Constitutional: no symptoms reported EENTM: no symptoms reported Respiratory: no symptoms reported Gastrointestinal: no symptoms reported Genitourinary: no symptoms reported Musculoskeletal: see HPI Skin: no symptoms reported Psychiatric/Neurological: No Symptoms Reported Past Fucbupi-Plfidj-Sgfxys Hx Patient Social History Tobacco Use?: No Substance use?: No Alcohol Use?: No Pt feels they are or have been: No Immunizations Up To Date Tetanus Booster (TDap): Less than 5yrs First/Initial COVID19 Vaccinat: NA Seasonal Allergies Seasonal Allergies: No Past Medical History Surgery/Hospitalization HX: HTN, HEADACHES, NIDDM, , TUBAL Surgeries: Yes ( X 5) Section, Tubal Ligation Respiratory: No Cardiac: Yes Hypertension Neurological: Yes Headaches /Migraines : No Hx : 6 Hx Para: 5 Reproductive Disorders: No 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 Sexually Transmitted Disease: No HIV/AIDS: No Genitourinary: No Gastrointestinal: No Musculoskeletal: No Endocrine: Yes Diabetes, Non-Insulin dep HEENT: No Cancer: No Psychosocial: No Integumentary: No Blood Disorders: No Adverse Reaction/Blood Tranf: No Family Medical History Family history: Diabetes mellitus (pt's mother and sister) No Family History of: Cancer Family history: Arthritis Family history: Asthma Family history: Cardiovascular disease Family history: Gastrointestinal disease Family history: Glaucoma Family history: Hypertension Family history: Osteoporosis Family history: Thyroid disorder Heart disease History of - anemia History of - respiratory disease Hypercholesterolemia Myocardial infarction Seizure disorder Stroke PT IS Had CS in 1999 in [facility], then vaginal delivery in 2002 (4500 grams) then CS in 3007, 2012 and 2012 (both at 34 weeks). DEMISE AT 36 WEEKS 05/2018 AND HAD AND BTL AT THAT TIME DUE TO VERY HIGH RISK Physical Exam Vital Signs Vital Signs - First Documented 11/09/22 01:28 Temp 36.5 Pulse 73 Resp 16 B/P (MAP) 126/56 (79) Pulse Ox 99 O2 Delivery Room Air Capillary Refill : Less Than 3 Seconds Height, Weight, BMI Height: 5'0.00" Weight: 170lbs. 0.0oz. 77.568329yk; 33.00 BMI Method:Stated General Appearance: WD/WN, no apparent distress, other (DOES NOT APPEAR TO BE IN ANY DISCOMFORT OR DISTRESS) Neck: normal inspection Cardiovascular: normal peripheral pulses, regular rate, rhythm, no murmur Respiratory: normal breath sounds Gastrointestinal: non tender Back: normal inspection, no CVA tenderness, no vertebral tenderness Hips: bilateral hip normal inspection Legs: bilateral leg normal inspection Knees: bilateral knee normal inspection Ankles: bilateral ankle normal inspection Feet: right foot normal inspection; left foot other (MILD TENDERNESS TO ARCH OF LEFT FOOT. NO OTHER AREAS OF TENDERNESS. NO EXTERNAL EVIDENCE OF TRAUMA. NO S IGNS OF INFECTION. NO RASH TO FEET. MOTOR/SENSORY/VASCULAR INTACT. 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, no motor/sensory deficits, alert, normal mood/affect, oriented x 3 Skin: normal color (PT IS ), warm/dry; No rash Progress/Results/Core Measures Results/Orders Lab Results Laboratory Tests Test 11/09/22 01:47 11/09/22 01:49 Range/Units White Blood Count 12.9 H 4.3-11.0 10^3/uL Red Blood Count 4.38 3.80-5.11 10^6/uL Hemoglobin 11.3 L 11.5-16.0 g/dL Hematocrit 35 35-52 % Mean Corpuscular Volume 80 80-99 fL Mean Corpuscular Hemoglobin 26 25-34 pg Mean Corpuscular Hemoglobin Concent 33 32-36 g/dL Red Cell Distribution Width 21.3 H 10.0-14.5 % Platelet Count 361 130-400 10^3/uL Mean Platelet Volume 8.8 L 9.0-12.2 fL Immature Granulocyte % (Auto) 0 % Neutrophils (%) (Auto) 79 H 42-75 % Lymphocytes (%) (Auto) 15 12-44 % Monocytes (%) (Auto) 5 0-12 % Eosinophils (%) (Auto) 1 0-10 % Basophils (%) (Auto) 0 0-10 % Neutrophils # (Auto) 10.2 H 1.8-7.8 10^3/uL Lymphocytes # (Auto) 2.0 1.0-4.0 10^3/uL Monocytes # (Auto) 0.6 0.0-1.0 10^3/uL Eosinophils # (Auto) 0.1 0.0-0.3 10^3/uL Basophils # (Auto) 0.1 0.0-0.1 10^3/uL Immature Granulocyte # (Auto) 0.0 0.0-0.1 10^3/uL Erythrocyte Sedimentation Rate 8 0-20 MM/HR Sodium Level 139 135-145 MMOL/L Potassium Level 3.7 3.6-5.0 MMOL/L Chloride Level 109 H 98-107 MMOL/L Carbon Dioxide Level 19 L 21-32 MMOL/L Anion Gap 11 5-14 MMOL/L Blood Urea Nitrogen 17 7-18 MG/DL Creatinine 0.67 0.60-1.30 MG/DL Estimat Glomerular Filtration Rate 110 BUN/Creatinine Ratio 25 Glucose Level 188 H 70-105 MG/DL Calcium Level 8.8 8.5-10.1 MG/DL Corrected Calcium 8.7 8.5-10.1 MG/DL Magnesium Level 1.8 1.6-2.4 MG/DL Total Bilirubin 0.3 0.1-1.0 MG/DL Aspartate Amino Transf (AST/SGOT) 14 5-34 U/L Alanine Aminotransferase (ALT/SGPT) 14 0-55 U/L Alkaline Phosphatase 72 40-136 U/L C-Reactive Protein High Sensitivity 0.09 0.00-0.50 MG/DL Total Protein 7.0 6.4-8.2 GM/DL Albumin 4.1 3.2-4.5 GM/DL TSH Carver Testing 3.03 0.35-4.94 UIU/ML Serum Test, Qualitative NEGATIVE NEGATIVE Glucometer 181 H 70-110 MG/DL My Orders Orders - BECCA COOMBS DO Foot, Left, 3 Views (11/09/22 01:44) Cbc With Automated Diff (11/09/22 01:44) Comprehensive Metabolic Panel (11/09/22 01:44) Hs C Reactive Protein (11/09/22 01:44) Hcg,Qualitative Serum (11/09/22 01:44) Magnesium (11/09/22 01:44) Thyroid Analyzer (11/09/22 01:44) Erythrocyte Sedimentation Rate (11/09/22 01:44) Ketorolac Injection (Toradol Injection) (11/09/22 01:45) Accucheck Stat ONCE (11/09/22 01:50) Naproxen Tablet (Naprosyn Tablet) (11/09/22 02:00) Medications Given in ED Current Medications Medications Dose Ordered Sig/Vijay Route Start Time Stop Time Status Last Admin Dose Admin Naproxen 500 mg ONCE ONCE PO 11/09/22 02:00 11/09/22 02:01 DC 11/09/22 01:56 500 MG Vital Signs/I&O 11/09/22 11/09/22 11/09/22 01:28 01:56 03:02 Temp 36.5 36.5 36.2 Pulse 73 78 Resp 16 16 B/P (MAP) 126/56 (79) 109/56 Pulse Ox 99 98 O2 Delivery Room Air Room Air Blood Pressure Mean: 79 FSBG Bedside Testing Finger Stick Blood Glucose: 181 Blood Glucose Action Taken: erp notified Progress Progress Note : Progress Note ACCUCHECK 181 LAB INCLUDING CBC, CMP, SED RATE, CRP ORDERED, AND OTHER THAN ELEVATED GLUCOSE OF 188, ALL OTHER LAB IS UNREMARKABLE. GIVEN NAPROXEN FOR PAIN UNEVENTFUL ER STAY PT STANDING AND ABLE TO WALK OUT OF ER WITHOUT DIFFICULTY DISCUSSED TEST RESULTS ANTICIPATED COURSE, SYMPTOMATIC TREATMENT, NEED FOR FOLLOW UP AND RETURN PRECAUTIONS REVIEWED PRIOR RECORDS, INCLUDING ER VISITS, ADMITS/H&P'S/CONSULTS/DISCHARGE SUMMARIES, TESTS/PROCEDURES Diagnostic Imaging Comments XRAYS LEFT FOOT--NO ACUTE PROCESS, PENDING RADIOLOGIST REVIEW Reviewed: Reviewed by Me Departure Impression Primary Impression: LEFT FOOT CRAMPING Additional Impression: NIDDM Disposition: HOME, SELF-CARE Condition: Stable Departure-Patient Inst. Decision time for Depature: 02:55 Referrals: [facility] (PCP/Family) Primary Care Physician Patient Instructions: Nocturnal (Nighttime) Leg Cramps (DC) Add. Discharge Instructions: HOME, REST WARM EPSOM SALTS SOAKS AT 20 MINUTE INTERVALS FOLLOW UP WITH YOUR DR THIS WEEK FOR FURTHER CARE All discharge instructions reviewed with patient and/or family. Voiced understanding. Scripts Naproxen (Naproxen) 500 Mg Tablet. 500 MG PO BID, #20 TAB Prov: BECCA COOMBS DO 11/09/22 Work/School Note: Work Release Form Date Seen in the Emergency Department: November 09, 2022 BECCA COOMBS DO November 09, 2022 02:50
[2022-11-09] MEDS ORDERED: NAPR500T8 PO (02:56)
[2022-11-09 03:02] VITALS: BP 109/56
--- NOTE | 2022-11-09 07:10 | Diagnostic Imaging Report ---
HISTORY: Left foot pain TECHNIQUE: 3 views of the left foot COMPARISON: None FINDINGS: No acute fracture or dislocation is seen in the left foot. Alignment appears normal. Joint spaces are preserved. There is a small plantar calcaneal enthesophyte. IMPRESSION: 1. No acute osseous abnormalities seen in the left foot. Dictated by: Dictated on workstation # [id number]
== END 2022-11-09 03:04 | disposition home or self-care (01) ==
LOC: EDUNIT# 01:20 → ER 01:24
DX: M79.672 Pain in left foot (principal); E11.9 Type 2 diabetes mellitus without complications; Z79.84 Long term (current) use of oral hypoglycemic drugs; Z28.310 Unvaccinated for COVID-19
CPT/HCPCS: 36415; 73630; 80053; 82947; 83735; 84443; 84703; 85025; 85652; 86141